=== PATIENT | male | born 1955 | race Caucasian/White ===

== ENCOUNTER → 2017-09-16 11:45 | Outpatient (CLI) | payer BC, SELFPAY ==
[2017-09-16 14:12] LABS: Absolute Neutrophil Count 5.6 X10^3/uL (2.0-7.7); Basophil# 0.03 X10^3/uL; Basophil% 0.4 % (0-1); Eosinophil# 0.13 X10^3/uL; Eosinophils% 1.6 % (0-5); Hematocrit 45.1 % (40-54); Hemoglobin 15.4 g/dl (13.0-16.5); Lymphocyte % 19.7 % (19-41); Mean Corp Hgb Conc 34.1 g/gl (32-36); Mean Corpuscular Hgb 30.6 pg (27.0-32.0); Mean Corpuscular Volume 89.7 fL (80-94); Mean Platelet Vol. 10.7 fl (6.2-12.0); Monocyte# 0.73 X10^3/uL; Neutrophil # 5.61 X10^3/uL (2.7-7.7); Neutrophil % 69.1 % (47-70); Platelet Count 207 K/mm3 (150-450); RBC Distribution Width CV 12.8 % (11.6-14.6); RBC Distribution Width SD 41.7 fl (35.1-43.9); Red Blood Count 5.03 M/mm3 (4.6-6.2); White Blood Count 8.1 K/mm3 (4.4-11.0)
[2017-09-16 14:14] LABS: POSITIVE COUNT NO; POSITIVE DIFFERENTIAL NO; POSITIVE MORPHOLOGY NO
== END ==
PROVIDERS: Family Provider Family Medicine; PCP Family Medicine; Visit Provider Family Medicine
DX: K57.32 Diverticulitis of large intestine without perforation or abscess without bleeding (principal)
CPT/HCPCS: 36415; 85025

== ENCOUNTER → 2017-11-09 07:38 | Outpatient (CLI) | payer BC, SELFPAY ==
[2017-11-09 10:31] LABS: Thyroid Stim Hormone (TSH) 3.86 uIU/mL (0.358-3.74)
== END ==
PROVIDERS: Family Provider Family Medicine; PCP Family Medicine; Visit Provider Family Medicine
DX: R94.6 Abnormal results of thyroid function studies (principal)
CPT/HCPCS: 36415; 84443

== ENCOUNTER → 2017-12-24 08:39 | Outpatient (CLI) | payer BC, SELFPAY ==
--- NOTE | 2017-12-24 08:45 | RAD_ITS ---
STUDY: AIR-CONTRAST ESOPHAGRAM STUDY REASON FOR EXAM: Male, 62 years old. Difficulty swallowing RADIATION DOSAGE (If Supplied By Facility): CTDIvol = ( ) mGy, DLP = ( ) mGycm FLUOROSCOPY TIME (if supplied): (0:24) minutes/seconds, 12 images. TECHNIQUE: Barium pill swallow with sips of water is performed at the beginning of the study without difficulty. Multiple barium swallows were performed under fluoroscopic monitoring. Multiple views of the esophagus, the upper stomach were performed. COMPARISON: None. FINDINGS: Barium pill swallow with sips of water is performed at the beginning of the study without difficulty. The esophagus appears normal in size and shape it shows unremarkable mucosal pattern. There is no evidence of hiatal hernia or abnormal vascular compression. RAD/Esophagus Only IMPRESSION: Unremarkable study. Electronically Signed: Jorge Lofton MD at 8:59 EDT Tel , Service support ,
== END ==
PROVIDERS: Family Provider Family Medicine; PCP Family Medicine; Visit Provider Otolaryngology
DX: R13.10 Dysphagia, unspecified (principal)
CPT/HCPCS: 74220

== ENCOUNTER → 2018-01-01 13:14 | Outpatient (CLI) | payer BC, SELFPAY ==
--- NOTE | 2018-01-01 13:18 | RAD_ITS ---
STUDY: SWALLOWING STUDY REASON FOR EXAM: Male, 62 years old. Dysphagia. Globus sensation. TECHNIQUE: The examination was performed with Speech Pathology in attendance. Under fluoroscopic observation, the patient ingested thin barium, thick barium, barium pudding, and barium coated cracker. FLUOROSCOPY TIME: 1:30 minutes/seconds. 1120 spot images were obtained. RADIOLOGIST INVOLVEMENT: Radiologist was present and providing direct supervision. COMPARISON: None. FINDINGS: The following was observed during swallowing of the various mixtures of barium: Thin Barium: There was no evidence of aspiration or laryngeal penetration. Barium Pudding: There was no evidence of aspiration or laryngeal penetration. Barium Coated Cracker: There was no evidence of aspiration or laryngeal penetration. RAD/Swallowing Function w/Video IMPRESSION: Normal tailored barium swallow study. No evidence of increased risk for aspiration. The swallow study findings were discussed with the patient by the speech pathologist at the conclusion of the examination. Please see speech pathology report for more information and recommendations. Electronically Signed: Dillon Alarcon MD at 14:03 EDT Tel [phone], Service support ,
--- NOTE | 2018-01-01 13:30 | SP.MBSS_ITS ---
PRIMARY / SECONDARY DIAGNOSIS: dysphagia (R13.10) REFERRING PHYSICIAN: Dr. Erlin Lay MD CURRENT DIET: regular textures, thin liquids DENTITION: WFL MENTAL STATUS: WNL RESPIRATORY STATUS: O2 via room air PREVIOUS MODIFIED BARIUM SWALLOW STUDY: REASON FOR REFERRAL: Patient is a 62 year old male referred for a modified barium swallow (MBS) study to objectively assess the Patients oropharyngeal swallow function under fluoroscopy secondary to reported globus sensation during deglutition. Patient denies any additional overt signs and symptoms of aspiration, though reports prior (> 5 years) choking episode during rapid ingestion of solid textures requiring Heimlich maneuver; able to dislodge and reswallow with workup in the emergency room unremarkable (per Patient report), denies any additional or resulting swallow abnormalities. Patient does however report a family history of aspiration, though this appears to be due to personal idiosyncrasies ( tachyphagia - rapid rate of intake) versus a structural or neurological cause. Patient further reports recent adjustment in regards to proton pump inhibitors targeting persistent reflux, with reported benefit. Patient denies any prior pneumonia, bronchitis, or persistent asthma. 12/24/2017 barium swallow study unremarkable. MEDICAL HISTORY: Obstructive sleep apnea status post uvulopalatopharyngoplasty, hypertension, hyperlipidemia, kidney stones, anxiety. STUDY FINDINGS: Patient participated in a Modified Barium Swallow (MBS) study on 01/01/2018. Dr. Alarcon was the radiologist present for this evaluation. This study was recorded in the lateral view and images were sent to PACs for storage. The following consistencies were presented to this patient for analysis of oropharyngeal swallow function: thin liquids, pudding, and a regular textured, Mala Doone cookie. Results of the MBS are as follows: PENETRATION / ASPIRATION SCALE ([place]): 1 = does not enter airway 2 = enters airway/above vocal folds/ejected 3 = enters airway/above vocal folds/not ejected 4 = enters airway/contacts vocal folds/ejected 5 = enters airway/contacts vocal folds/not ejected 6 = enters airway/below vocal folds/ejected 7 = enters airway/below vocal folds/not ejected despite effort 8 = enters airway/below vocal folds/no effort VIDEOFLOROSCOPIC SCALE SCORE ([place]): Grade I = aspiration of material that has penetrated into the laryngeal vestibule, intact cough reflex Grade II = aspiration < 10 % of the bolus, intact cough reflex Grade III = aspiration of < 10 % of the bolus, reduced cough reflex or aspiration of > 10 % of the bolus, intact cough reflex Grade IV = aspiration of > 10 % of the bolus, reduced cough reflex PENETRATION / ASPIRATION SCALE (SCORE) WITH VIDEOFLOROSCOPIC SCALE SCORE: Thin liquids via cup (large sequential swallows): 1* Thin liquids via cup (single sip): 1 Thin liquids via cup (single sip): 1 Thin liquids via cup (single sip): 1 Pudding via spoon: 1 Regular textured cookie: 1 Thin liquids via straw (large single sip): 6* - Grade III Thin liquids via straw (large single sip): 1 * denotes habitual large volume sip IMPRESSION: DIAGNOSIS: mild oral dysphagia (R13.11) ORAL PHASE CHARACTERIZED BY: LABIAL SEAL: no labial escape TONGUE CONTROL DURING BOLUS MANIPULATION: consistent posterior escape of less than half of bolus; consistent escape to lateral buccal cavity/floor of mouth BOLUS PREPARATION / MASTICATION: timely and efficient chewing and mashing BOLUS TRANSPORT / LINGUAL MOTION: brisk tongue motion ORAL RESIDUE: residue collection on oral structures (lateral / posterior buccal cavity, medial and posterior lingual surface) PHARYNGEAL PHASE CHARACTERIZED BY: INITIATION OF PHARYNGEAL SWALLOW: bolus head at posterior angle of ramus at first hyoid excursion SOFT PALATE ELEVATION: intermittent trace column of air between soft palate and pharyngeal wall LARYNGEAL ELEVATION: complete superior movement of thyroid cartilage with complete approximation of arytenoids cartilage to epiglottic petiole ANTERIOR HYOID EXCURSION: complete anterior movement EPIGLOTTIC MOVEMENT: complete epiglottic inversion LARYNGEAL VESTIBULE CLOSURE AT HEIGHT OF SWALLOW: complete laryngeal vestibule closure with no air/contrast in laryngeal vestibule PHARYNGEAL STRIPPING WAVE: pharyngeal stripping wave present / complete PHARYNGOESOPHAGEAL SEGMENT OPENING: complete distension and complete duration with no obstruction of flow TONGUE BASE RETRACTION: trace column of contrast between tongue base and posterior pharyngeal wall PHARYNGEAL RESIDUE: collection of residue within or on pharyngeal structures ESOPHAGEAL PHASE CHARACTERIZED BY: ESOPHAGEAL BOLUS CLEARANCE IN THE UPRIGHT POSITION: could not view EFFECTS OF TREATMENT STRATEGIES ATTEMPTED: Reduced bolus size = effective Reduced rate of intake = effective DIET TEXTURE RECOMMENDATIONS: Will recommend a regular textured, thin liquid diet. COMPENSATORY STRATEGIES RECOMMENDED: Reduced bolus volume, reduced rate of intake, seated upright at 90 degrees during PO intake, remain upright for 30-60 minutes post meal (GERD precaution) INTERPRETATION OF RESULTS: Patient presents with mild oral dysphagia (R13.11) complicated by personal intake idiosyncrasies (tachyphagia and consistent bolus overload). Oral phase marked by suboptimal oral clearance likely secondary to reduced intraoral strength resulting in suboptimal oral clearance with minimal to mild buccal pocketing (appears to be bilaterally) and intraoral consolidation, with frequent spillage to the valleculae post deglutition (primary contributing factor for pharyngeal residue within the valleculae); and suboptimal bolus control resulting in consistent premature bolus loss; both contributing to early pharyngeal bolus presentation and prandial penetration of less than 10% of bolus with transient drop below the vocal folds (occurring during 1 trial; rather atypical from remainder of trials). Pharyngeal phase notably within functional limitations with sufficient laryngeal vestibule pressure generated to expel majority of penetrated material during singular penetration and brief transient aspiration event, with complete ejection during reswallow. No cough response noted with very minimal penetration and brief transient aspiration. All deficits ameliorated with bolus volume and intake rate adjustments. Somewhat irregular small collections within the location of the posterior buccal cavities as well as less frequently irregular collections occurring within the location of the superior posterior lingual surfaces primarily during trials of liquids, unable to discern cause or clinical importance under fluoroscopy. Suspect intermittent globus sensation associated with gastroesophageal reflux in the absence of any oropharyngeal causal factors. RECOMMENDATIONS: Patient able to comprehend and express recommended intake precautions detailed above with sufficient detail to suggest high likelihood of compliance. Provided brief overview of signs and symptoms of aspiration, with recommendations for the Patient to further discuss symptoms with PCP. No further skilled speech- language services warranted at this time targeting dysphagia. ADDITIONAL COMMENTS/RECOMMENDATIONS: Results and recommendations were discussed with the Patient immediately following MBS completion, with the Patient verbalizing understanding and agreement with all recommendations and education provided. IMAGE COUNT: 1120 G-CODES: SWALLOWING [id number] Current Status: CI SWALLOWING [id number] Goal Status: CI SWALLOWING [id number] Discharge Status: CI
== END ==
PROVIDERS: Family Provider Family Medicine; PCP Family Medicine; Visit Provider Otolaryngology
DX: K21.9 Gastro-esophageal reflux disease without esophagitis (principal); R13.10 Dysphagia, unspecified
CPT/HCPCS: 74230; 92610

== ENCOUNTER → 2018-01-28 07:31 | Outpatient (CLI) | payer BC, SELFPAY ==
[2018-01-28 10:34] LABS: Cholesterol 186 mg/dL (200); Glucose 98 mg/dL (74-106); High Density Lipoprotein 39 mg/dL; T4 Free Direct 0.91 ng/dL (0.76-1.46); Thyroid Stim Hormone (TSH) 4.53 uIU/mL (0.358-3.74); Triglycerides 190 mg/dL; Very Low Density Lipoprotein 38 mg/dL (5-40)
[2018-01-29 08:11] LABS: Vitamin D,25 Hydroxy 24.3 ng/mL (29.95-100.01)
== END ==
PROVIDERS: Family Provider Family Medicine; PCP Family Medicine; Visit Provider Family Medicine
DX: R53.83 Other fatigue (principal)
CPT/HCPCS: 36415; 80061; 82306; 82947; 84403; 84439; 84443

== ENCOUNTER → 2018-07-20 07:50 | Outpatient (CLI) | payer BC, SELFPAY ==
[2018-04-08 15:33] VITALS: BMI 29.7
[2018-07-20 10:46] LABS: AST(SGOT) 16 U/L (15-37); Alanine Aminotransfer ALT/SGPT 31 U/L (16-61); Albumin, Serum 3.7 g/dL (3.2-5.0); Alkaline Phosphatase 111 U/L (45-117); Cholesterol 172 mg/dL (200); Globulin 3.1 g/dL (2.2-4.2); High Density Lipoprotein 36 mg/dL; Protein, Total 6.8 g/dL (6.4-8.2); Triglycerides 150 mg/dL; Very Low Density Lipoprotein 30 mg/dL (5-40)
== END ==
PROVIDERS: Internal Medicine Cardiovascular Disease; Family Provider Family Medicine; PCP Family Medicine; Referring Provider Family Medicine; Visit Provider Family Medicine
DX: E78.5 Hyperlipidemia, unspecified (principal)
CPT/HCPCS: 36415; 80061; 80076

== ENCOUNTER → 2018-07-28 15:50 | Outpatient (CLI) | payer BC, SELFPAY ==
[2018-07-28 18:04] LABS: Thyroid Stim Hormone (TSH) 2.96 uIU/mL (0.358-3.74)
--- OUTSIDE RECORDS SUMMARY | 2018-10-02 15:28 | XMS RPT_ITS ---
:1955 Author Organization OHIP Support Name Relationship Address Phone G[employer] ASS[employer]ER Unavailable [address] + [place] [address] YOUNG, MATTIE Unavailable [address] + [place] [address] G[employer] ASS[employer]ER Unavailable [address] + [place] [address] YOUNG, MATTIE Unavailable [address] + [place] [address] GOLD ASSAYER Unavailable [address] + [place] [address] YOUNG, MATTIE Unavailable [address] + [place] [address] G[employer] ASSAYER Unavailable [address] + [place] [address] YOUNG, MATTIE Unavailable [address] + [place] [address] GOLD ASSAYER Unavailable [address] + [place] [address] YOUNG, MATTIE Unavailable [address] + [place] [address] GOLD ASSAYER Unavailable [address] + [place] [address] YOUNG, MATTIE Unavailable [address] + [place] [address] GOLD ASSAYER Unavailable [address] + [place] [address] YOUNG, MATTIE Unavailable [address] + [place] [address] GOLD ASSAYER Unavailable [address] + [place] [address] YOUNG, MATTIE Unavailable [address] + [place] [address] GOLD ASSAYER Unavailable [address] + [place] [address] MATTIE MINOR Unavailable [address] + [place] [address] Care Team Providers Name Role Phone Dc Olmstead Attending Unavailable Olmstead, Dc Referring Unavailable Olmstead, Dc Primary Care Unavailable Olmstead, Dc Attending Unavailable Olmstead, Dc Primary Care Unavailable Olmstead, Dc Primary Care Unavailable Jolliff, Mattie Attending Unavailable Olmstead, Dc Attending Unavailable Olmstead, Dc Referring Unavailable Olmstead, Dc Primary Care Unavailable Wartmann, Kaiden Attending Unavailable Wartmann, Kaiden Referring Unavailable Olmstead, Dc Primary Care Unavailable Wartmann, Kaiden Attending Unavailable Wartmann, Kaiden Referring Unavailable Olmstead, Dc Primary Care Unavailable Olmstead, Dc Attending Unavailable Olmstead, Dc Referring Unavailable Olmstead, Dc Primary Care Unavailable Dania, Knob [employer] Consulting Unavailable Dania, Corky Attending Unavailable Olmstead, Dc Referring Unavailable Dania, Knob Noster Attending Unavailable Olmstead, Dc Referring Unavailable PROBLEMS PROBLEMS DATE TYPE CONDITION / CODE ATTENDING STATUS SOURCE 04/08/2018 Unknown I10 - Essential Dania, Corky Active [place] (primary) Community hypertension / Hospital I10(ICD-10) Repository 04/08/2018 Unknown E78.5 - Dania, Corky Active [place] Hyperlipidemia, Community unspecified / Hospital E78.5(ICD-10) Repository 12/24/2017 Unknown R13.10 - Wartmann, Active [employer] Dysphagia, Kaiden Community unspecified / Hospital R13.10(ICD-10) Repository PROCEDURES PROCEDURES No Procedure Records FoundRESULTS RESULTS THYROID STIM HORMONE Collected: 07/28/2018 Status: F Source: [place] (TSH) 3:51 PM [facility] REPOSITORY Order Comment: Order Date: 11/10/17 Order Info: 3016-3 - TSH TYPE CODE TESTS RESULT OUT OF RANGE REFERENCE UNITS LAB L501.9520 0.358-3.74 uIU/mL Normal TSH 2.96 Performed By: #### L501.9520 #### [place] [facility] [address] [place], [address] LIVER PROFILE Collected: 07/20/2018 Status: F Source: [place] 7:55 AM [facility] REPOSITORY Order Comment: ORDERED A LIPID WELL DR GOMEZ ORDERED LIPID AND LIVER TYPE CODE TESTS RESULT OUT OF RANGE REFERENCE UNITS LAB L501.1500 6.4-8.2 g/dL Normal T PROT 6.8 LAB L501.1800 3.2-5.0 g/dL Normal ALB 3.7 LAB L501.1950 2.2-4.2 g/dL Normal GLOB 3.1 LAB L501.4100 15-37 U/L Normal AST 16 LAB L501.4305 45-117 U/L Normal ALK P 111 LAB L501.4405 16-61 U/L Normal ALT 31 LAB L501.4600 0.20-1.00 mg/dL Normal T BILI 0.40 LAB L501.4700 0.00-0.30 mg/dL Normal D BILI 0.10 Performed By: #### L500.3400, L500.4100 #### [facility] [address] [place], [address] LIPID PROFILE Collected: 07/20/2018 Status: F Source: [place] 7:55 AM [facility] REPOSITORY Order Comment: ORDERED A LIPID WELL DR GOMEZ ORDERED LIPID AND LIVER TYPE CODE TESTS RESULT OUT OF RANGE REFERENCE UNITS LAB L501.4900 200 mg/dL Normal CHOL 172 Result Comment: <200 mg/dL Desirable 200-240 mg/dL Borderline >240 mg/dL High Risk LAB L501.5000 mg/dL Normal TRIG 150 Result Comment: The drugs N-Acetylcysteine and Metamizole may falsely depress this assay. Serum Triglycerides Reference Interval Normal <150 mg/dL Borderline high 150 - 199 mg/dL High 200 - 499 mg/dL Very High > or = 500 mg/dL LAB L501.6400 mg/dL Low HDL 36 Result Comment: The drugs N-Acetylcysteine and Metamizole may falsely depress this assay. Reference Range HDL <40 mg/dL Low HDL Cholesterol HDL >or= 60 mg/dL High HDL Cholesterol LAB L501.6500 0-130 mg/dL Normal LDL 106 LAB L501.6600 5-40 mg/dL Normal VLDL 30 Performed By: #### L500.3400, L500.4100 #### [facility] [address] [place], [place], [id number] CARDIOLOGY VISIT Observed: 04/08/2018 Status: F Source: [place] REPORT 4:13 PM [facility] REPOSITORY [employer] [facility] [address] [place] [address] OFFICE VISIT Date of Service: 04/08/18 MR#: [id number] Acct: [id number] Name: BENSON MINOR Rep #: [id number] : 1955 Provider: Corky Gomez MD Age/Sex: 62/M [place] [facility] [place] Signed HPI HPI Chief Complaint: Follow up Details: BENSON MINOR, is a 62 M who presents to the office today for a follow-up visit. He is a gentleman with a history of hypertension previous palpitations returns for routine follow-up visit is been doing quite well he says that his palpitations are rather infrequent his blood pressure is under excellent control on the beta- maria g as well as the TAMMY inhibitor. He has been compliant with his medications as well as his lipid-lowering medications. He tells me that he has been put on an antacid because he probably has silent reflux. His physical exam today demonstrates clear lung alonso regular rate and rhythm and no pedal edema. Intake Vital Signs04/08/18 Height 5 ft 7 in 04/08/18 Weight: 190 lb 04/08/18 Body Mass Index (BMI) 29.7 04/08/18 Blood Pressure 132/84 H 04/08/18 Blood Pressure Location Lt brachial Intake Visit Reasons: 1 Y FU Allergies clarithromycin [From Biaxin] Allergy (Verified 04/08/18 15:33) Unknown diphenhydramine [From Benadryl] Allergy (Verified 04/08/18 15:33) Unknown sulfamethoxazole [From Bactrim] Allergy (Verified 04/08/18 15:33) unknown tamsulosin [From Flomax] Allergy (Verified 04/08/18 15:33) unknown trimethoprim [From Bactrim] Allergy (Verified 04/08/18 15:33) unknown Sulfa (Sulfonamide Antibiotics) Adverse Reaction (Verified 04/08/18 15:33) Rash Medications Atorvastatin Calcium [Lipitor] 10 mg PO QHS 09/20/16 [History Confirmed 04/08/18] Escitalopram Oxalate [Lexapro] 10 mg PO DAILY 09/20/16 [History Confirmed 04/08/18] Hydrocodone Bitart/Apap 5-325 [[place] 5/325] 1 - 2 tab PO Q4H PRN PRN #20 tab 09/20/16 [Rx] Ketorolac [Toradol] 10 mg PO TID PRN #15 tab 09/20/16 [Rx] Lisinopril [Zestril] 10 mg PO DAILY 09/20/16 [History Confirmed 04/08/18] Metoprolol Succinate [Toprol Xl] 50 mg PO DAILY 09/20/16 [History Confirmed 04/08/18] [facility] Medical History Essential (primary) hypertension (Chronic) Hyperlipidemia (Chronic) Family History Father Cardiac pacemaker in situ Social History Smoking Status: Never smoker alcohol intake: never substance use type: does not use ROS Const Const: Negative for fatigue, weakness, night sweats, excessive sweating, frequent falls, headache(s) or daytime sleepiness Eyes Eyes: Negative for loss of peripheral vision, transient loss of vision, blind spots, double vision or blurry vision ENT ENT: Negative for headache(s), dizziness, balance problems, Nosebleed/epistaxis, tongue swelling or lip swelling Cardio Chest Pain: No Palpitations: No Edema: None Muscle aches with walking: None Resp Respiratory: Negative for SOB at rest, SOB orthopnea\SOB lying down, Cough, paroxysmal nocturnal dyspnea or SOB with activity GI GI: Negative nausea, vomiting, heartburn, black,tarry stools or bright, red blood in stools : Negative for hematuria Musc Musc: Negative for balance problems, muscle aches/ myalgia, muscle weakness or joint pain Skin Skin: Negative non-healing lesions, unusual bruising or rash Neuro Neuro: Negative for weakness, frequent falls, headache(s), double vision, dizziness, lightheadedness, orthostatic symptoms, blurry vision or lack of coordination Greg Hematologic/Lymphatic: Negative for easy bruising or easy bleeding Endo Endo: Negative for fatigue, excessive sweating, cold intolerance, heat intolerance, increased thirst/drinking or hair loss Psych Psych: Negative for anxiety or depression Allergy Allergy/Immunology: Negative for throat swelling, Negative for tongue swelling, Negative for hives, Negative for rash, Negative for lip swelling Cardiology Exam Const Appearance: cooperative, healthy appearing, well developed, well groomed and no acute distress Nutritional Appearance: well nourished and average body habitus Orientation: alert, awake and oriented x3 Head Head: normal to inspection, normocephalic and atraumatic Ears: hearing grossly normal bilaterally and external ears normal Nose: external nose normal, nasal mucous membranes and turbinates normal, nares normal, septum normal, no nasal discharge Face and Sinus: face symmetric Mouth: oral mucosae normal, tongue normal, oropharynx normal and moist mucous membranes Teeth and gingiva: dentition normal Throat: posterior oropharynx normal, tonsils normal and uvula midline Eyes General: appearance normal, both eyes and all related structures Eyelids: eyelids normal Conjunctivae: conjunctivae normal Pupils: PERRL, normal by confrontation and accommodation normal EOM: EOM intact bilaterally Neck Neck: normal visual inspection, trachea midline and no JVD JVD: +5 Carotids: normal carotid upstroke and bounding pulses Chest Chest inspection: normal inspection of the chest, symmetric chest movement and normal respiratory effort Auscultation: Bilateral: Clear to Auscultation Cardio Palpation: normal PMI Rate: regular rate Rhythm: regular rhythm Heart sounds: S1 normal, S2 normal and normal, physiologic split S2; negative rub, gallop or murmur GI GI: normal to inspection, soft, no hepatosplenomegaly and bowel sounds present Neuro General: alert, awake, oriented x3, no focal sensory deficit, gait normal and moves all extremities Skin Skin: no rashes or lesions noted Extremities Pulses: Normal: Right Femoral Pulse, Left Femoral Pulse, Right Dorsalis Pedis Pulse, Left Dorsalis Pedis Pulse, Right Posterior Tibial Pulse, Left Posterior Tibial Pulse, Right Radial Pulse, Left Radial Pulse Lower Extremity Edema: None: Bilateral Musculoskel Musculoskeletal: No joint tenderness Psych Psychological: normal affect Assessment AND Plan 1. Essential (primary) hypertension I10 Plan His blood pressure appears to be under excellent control at this time he will remain on the beta-maria g and TAMMY inhibitor without any changes. Salt restriction and risk factor modification have been emphasized. 2. Hyperlipidemia E78.5 Plan He does have a history of hyperlipidemia with his most recent lipid profile demonstrated total cholesterol 186, LDL 109 and HDL of 39. No changes will be made to the above. Thank you for allowing me to participate in his care. 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) Coding Level of Care Code Off vis,est,level 3 Diagnoses Essential (primary) hypertension I10 Hyperlipidemia E78.5 Coding Level of Care Code Off vis,est,level 3 Diagnoses Essential (primary) hypertension I10 Hyperlipidemia E78.5 04/08/18 1613 <Electronically signed by Corky Gomez MD> Date Corky Gomez MD Cosigner Signature: Date (if applicable) CC: Dc Olmstead MD LIPID PROFILE Collected: 01/28/2018 Status: F Source: [place] 7:37 AM [facility] REPOSITORY Order Comment: Order Date: 01/27/18 Order Info: [id number] - LIPID Order Info: 2345-7 - GLU Order Info: 3016-3 - TSH Order Info: 3024-7 - T4F TYPE CODE TESTS RESULT OUT OF RANGE REFERENCE UNITS LAB L501.4900 200 mg/dL Normal CHOL 186 Result Comment: <200 mg/dL Desirable 200-240 mg/dL Borderline >240 mg/dL High Risk LAB L501.5000 mg/dL Normal TRIG 190 Result Comment: The drugs N-Acetylcysteine and Metamizole may falsely depress this assay. Serum Triglycerides Reference Interval Normal <150 mg/dL Borderline high 150 - 199 mg/dL High 200 - 499 mg/dL Very High > or = 500 mg/dL LAB L501.6400 mg/dL Low HDL 39 Result Comment: The drugs N-Acetylcysteine and Metamizole may falsely depress this assay. Reference Range HDL <40 mg/dL Low HDL Cholesterol HDL >or= 60 mg/dL High HDL Cholesterol LAB L501.6500 0-130 mg/dL Normal LDL 109 LAB L501.6600 5-40 mg/dL Normal VLDL 38 Performed By: #### L500.4100, L501.0100, L501.9520, L506.0400, L506.1000, L509.3000 #### [facility] [address] [place], [place], [address] GLUCOSE Collected: 01/28/2018 Status: F Source: [place] 7:37 AM [facility] REPOS[facility] Order Comment: Order Date: 01/27/18 Order Info: [id number] - LIPID Order Info: 2345-7 - GLU Order Info: 301-3 - TSH Order Info: 302-7 - T4F TYPE CODE TESTS RESULT OUT OF RANGE REFERENCE UNITS LAB L501.0100 74-106 mg/dL Normal GLU 98 Result Comment: Please note revised GLUCOSE reference range effective 2017. Performed By: #### L500.4100, L501.0100, L501.9520, L506.0400, L506.1000, L509.3000 #### [facility] [address] [place], [address] THYROID STIM HORMONE Collected: 01/28/2018 Status: F Source: [place] (TSH) 7:37 AM [facility] REPOS[facility] Order Comment: Order Date: 01/27/18 Order Info: [id number] - LIPID Order Info: 7 - GLU Order Info: 3 - TSH Order Info: 3027 - T4F TYPE CODE TESTS RESULT OUT OF RANGE REFERENCE UNITS LAB L501.9520 0.358-3.74 uIU/mL High TSH 4.53 Performed By: #### L500.4100, L501.0100, L501.9520, L506.0400, L506.1000, L509.3000 #### [facility] [address] [place], [address] T4 FREE DIRECT Collected: 01/28/2018 Status: F Source: [place] 7:37 AM [facility] REPOS[facility] Order Comment: Order Date: 01/27/18 Order Info: [id number] - LIPID Order Info: [id number] - GLU Order Info: 3015-3 - TSH Order Info: 3024-7 - T4F TYPE CODE TESTS RESULT OUT OF RANGE REFERENCE UNITS LAB L506.0400 0.76-1.46 ng/dL Normal T4 FREE 0.91 DIRECT Performed By: #### L500.4100, L501.0100, L501.9520, L506.0400, L506.1000, L509.3000 #### [place] [facility] [address] [place], [address] VITAMIN D,25 HYDROXY Collected: 01/28/2018 Status: F Source: [place] 7:37 AM [facility] REPOS[facility] Order Comment: Order Date: 01/27/18 Order Info: [id number] - VITD25 Order Info: 2986-8 - APRIL TYPE CODE TESTS RESULT OUT OF REFERENCE UNITS RANGE LAB L506.1000 29.95-100.01 ng/mL Low Vitamin D 24.3 25-OH Result Comment: Vitamin D 25(OH) Status Range Deficiency <20 ng/mL (50nmol/L) Insuffciency 20 - 30 ng/mL (50 - 75 nmol/L) Sufficiency 30 - 100 ng/mL (75 - 250 nmol/L) Toxicity >100 ng/mL (>250 nmol/L) Performed By: #### L500.4100, L501.0100, L501.9520, L506.0400, L506.1000, L509.3000 #### [place] [facility] [address] [place], [address] TESTOSTERONE, SERUM TOTAL Collected: 01/28/2018 Status: F Source: [place] 7:[facility] Order Comment: Order Date: 01/27/18 Order Info: [id number] - VITD25 Order Info: 2986-8 - APRIL TYPE CODE TESTS RESULT OUT OF REFERENCE UNITS RANGE LAB L509.3000 ng/dL Testosterone Normal 234.41 Result Comment: NORMAL REFERENCE RANGES MALE AGE <50 123.06 - 813.86 ng/dL MALE AGE >50 89.98 - 780.10 ng/dL FEMALE PREMENOPAUSE AGE 21 - 60 9.01 - 47.94 ng/dL FEMALE POSTMENOPAUSE AGE 45 - 89 <7.00 - 45.62 ng/dL REFERENCE RANGE AND METHODOLOGY CHANGED 07/01/2017 Performed By: #### L500.4100, L501.0100, L501.9520, L506.0400, L506.1000, L509.3000 #### [facility] [address] [place], [address] MODIFIED BARIUM Observed: 01/01/2018 Status: F Source: [place] SWALLOW STUDY 3:06 PM [facility] REPOSITORY [facility] Speech Pathology [address] [place] [address] Modified Barium Swallow Study MR#: [id number] Acct: [id number] Name: BENSON MINOR Rep #: [id number] : 1955 62 From: Ezequiel Vallejo M.A., CFY-INDUSTRIAL SWEEPER CLEANER PRIMARY / SECONDARY DIAGNOSIS: dysphagia (R13.10) REFERRING PHYSICIAN: Dr. Erlin Lay MD CURRENT DIET: regular textures, thin liquids DENTITION: WFL MENTAL STATUS: WNL RESPIRATORY STATUS: O2 via room air PREVIOUS MODIFIED BARIUM SWALLOW STUDY: REASON FOR REFERRAL: Patient is a 62 year old male referred for a modified barium swallow (MBS) study to objectively assess the Patients oropharyngeal swallow function under fluoroscopy secondary to reported globus sensation during deglutition. Patient denies any additional overt signs and symptoms of aspiration, though reports prior (> 5 years) choking episode during rapid ingestion of solid textures requiring Heimlich maneuver; able to dislodge and reswallow with workup in the emergency room unremarkable (per Patient report), denies any additional or resulting swallow abnormalities. Patient does however report a family history of aspiration, though this appears to be due to personal idiosyncrasies (tachyphagia - rapid rate of intake) versus a structural or neurological cause. Patient further reports recent adjustment in regards to proton pump inhibitors targeting persistent reflux, with reported benefit. Patient denies any prior pneumonia, bronchitis, or persistent asthma. 12/24/2017 barium swallow study unremarkable. MEDICAL HISTORY: Obstructive sleep apnea status post uvulopalatopharyngoplasty, hypertension, hyperlipidemia, kidney stones, anxiety. STUDY FINDINGS: Patient participated in a Modified Barium Swallow (MBS) study on 01/01/2018. Dr. Alarcon was the radiologist present for this evaluation. This study was recorded in the lateral view and images were sent to PACs for storage. The following consistencies were presented to this patient for analysis of oropharyngeal swallow function: thin liquids, pudding, and a regular textured, Mala Doone cookie. Results of the MBS are as follows: PENETRATION / ASPIRATION SCALE ([place]): 1 = does not enter airway 2 = enters airway/above vocal folds/ejected 3 = enters airway/above vocal folds/not ejected 4 = enters airway/contacts vocal folds/ejected 5 = enters airway/contacts vocal folds/not ejected 6 = enters airway/below vocal folds/ejected 7 = enters airway/below vocal folds/not ejected despite effort 8 = enters airway/below vocal folds/no effort VIDEOFLOROSCOPIC SCALE SCORE ([place]): Grade I = aspiration of material that has penetrated into the laryngeal vestibule, intact cough reflex Grade II = aspiration < 10 % of the bolus, intact cough reflex Grade III = aspiration of < 10 % of the bolus, reduced cough reflex or aspiration of > 10 % of the bolus, intact cough reflex Grade IV = aspiration of > 10 % of the bolus, reduced cough reflex PENETRATION / ASPIRATION SCALE (SCORE) WITH VIDEOFLOROSCOPIC SCALE SCORE: Thin liquids via cup (large sequential swallows): 1* Thin liquids via cup (single sip): 1 Thin liquids via cup (single sip): 1 Thin liquids via cup (single sip): 1 Pudding via spoon: 1 Regular textured cookie: 1 Thin liquids via straw (large single sip): 6* - Grade III Thin liquids via straw (large single sip): 1 * denotes habitual large volume sip IMPRESSION: DIAGNOSIS: mild oral dysphagia (R13.11) ORAL PHASE CHARACTERIZED BY: LABIAL SEAL: no labial escape TONGUE CONTROL DURING BOLUS MANIPULATION: consistent posterior escape of less than half of bolus; consistent escape to lateral buccal cavity/floor of mouth BOLUS PREPARATION / MASTICATION: timely and efficient chewing and mashing BOLUS TRANSPORT / LINGUAL MOTION: brisk tongue motion ORAL RESIDUE: residue collection on oral structures (lateral / posterior buccal cavity, medial and posterior lingual surface) PHARYNGEAL PHASE CHARACTERIZED BY: INITIATION OF PHARYNGEAL SWALLOW: bolus head at posterior angle of ramus at first hyoid excursion SOFT PALATE ELEVATION: intermittent trace column of air between soft palate and pharyngeal wall LARYNGEAL ELEVATION: complete superior movement of thyroid cartilage with complete approximation of arytenoids cartilage to epiglottic petiole ANTERIOR HYOID EXCURSION: complete anterior movement EPIGLOTTIC MOVEMENT: complete epiglottic inversion LARYNGEAL VESTIBULE CLOSURE AT HEIGHT OF SWALLOW: complete laryngeal vestibule closure with no air/contrast in laryngeal vestibule PHARYNGEAL STRIPPING WAVE: pharyngeal stripping wave present / complete PHARYNGOESOPHAGEAL SEGMENT OPENING: complete distension and complete duration with no obstruction of flow TONGUE BASE RETRACTION: trace column of contrast between tongue base and posterior pharyngeal wall PHARYNGEAL RESIDUE: collection of residue within or on pharyngeal structures ESOPHAGEAL PHASE CHARACTERIZED BY: ESOPHAGEAL BOLUS CLEARANCE IN THE UPRIGHT POSITION: could not view EFFECTS OF TREATMENT STRATEGIES ATTEMPTED: Reduced bolus size = effective Reduced rate of intake = effective DIET TEXTURE RECOMMENDATIONS: Will recommend a regular textured, thin liquid diet. COMPENSATORY STRATEGIES RECOMMENDED: Reduced bolus volume, reduced rate of intake, seated upright at 90 degrees during PO intake, remain upright for 30-60 minutes post meal (GERD precaution) INTERPRETATION OF RESULTS: Patient presents with mild oral dysphagia (R13.11) complicated by personal intake idiosyncrasies (tachyphagia and consistent bolus overload). Oral phase marked by suboptimal oral clearance likely secondary to reduced intraoral strength resulting in suboptimal oral clearance with minimal to mild buccal pocketing (appears to be bilaterally) and intraoral consolidation, with frequent spillage to the valleculae post deglutition (primary contributing factor for pharyngeal residue within the valleculae); and suboptimal bolus control resulting in consistent premature bolus loss; both contributing to early pharyngeal bolus presentation and prandial penetration of less than 10% of bolus with transient drop below the vocal folds (occurring during 1 trial; rather atypical from remainder of trials). Pharyngeal phase notably within functional limitations with sufficient laryngeal vestibule pressure generated to expel majority of penetrated material during singular penetration and brief transient aspiration event, with complete ejection during reswallow. No cough response noted with very minimal penetration and brief transient aspiration. All deficits ameliorated with bolus volume and intake rate adjustments. Somewhat irregular small collections within the location of the posterior buccal cavities as well as less frequently irregular collections occurring within the location of the superior posterior lingual surfaces primarily during trials of liquids, unable to discern cause or clinical importance under fluoroscopy. Suspect intermittent globus sensation associated with gastroesophageal reflux in the absence of any oropharyngeal causal factors. RECOMMENDATIONS: Patient able to comprehend and express recommended intake precautions detailed above with sufficient detail to suggest high likelihood of compliance. Provided brief overview of signs and symptoms of aspiration, with recommendations for the Patient to further discuss symptoms with PCP. No further skilled speech-language services warranted at this time targeting dysphagia. ADDITIONAL COMMENTS/RECOMMENDATIONS: Results and recommendations were discussed with the Patient immediately following MBS completion, with the Patient verbalizing understanding and agreement with all recommendations and education provided. IMAGE COUNT: [id number] G-CODES: SWALLOWING [id number] Current Status: CI SWALLOWING [id number] Goal Status: CI SWALLOWING [id number] Discharge Status: [place] 01/01/18 1506 <Electronically signed by Ezequiel Vallejo M.A., CFY-[employer]PER [employer]ER> Date Ezequiel Vallejo M.A., CFY-[employer]RI[employer] SWEEPER CLE[employer]ER Co-Signature Required for all Medicare patients Date/Time Co-Signature CC: SWALLOWING FUNCTION Observed: 01/01/2018 Status: F Source: [place] W/VIDEO 1:19 PM [facility] REPOSITORY [facility] Imaging Services [address] [place] [address] Swallowing Function w/Video MR#: [id number] Acct: [id number] Name: BENSON MINOR Rep #: [id number] : 1955 M 62 From: Dillon Alarcon MD PCP: Dc Olmstead MD Status: REG CLI Study: Swallowing Function w/Video Date of Exam: 01/01/18 Exam# [id number] Ordering Dr: Kaiden Lay MD STUDY: SWALLOWING STUDY REASON FOR EXAM: Male, 62 years old. Dysphagia. Globus sensation. TECHNIQUE: The examination was performed with Speech Pathology in attendance. Under fluoroscopic observation, the patient ingested thin barium, thick barium, barium pudding, and barium coated cracker. FLUOROSCOPY TIME: 1:30 minutes/seconds. 1120 spot images were obtained. RADIOLOGIST INVOLVEMENT: Radiologist was present and providing direct supervision. COMPARISON: None. FINDINGS: The following was observed during swallowing of the various mixtures of barium: Thin Barium: There was no evidence of aspiration or laryngeal penetration. Barium Pudding: There was no evidence of aspiration or laryngeal penetration. Barium Coated Cracker: There was no evidence of aspiration or laryngeal penetration. RAD/Swallowing Function w/Video IMPRESSION: Normal tailored barium swallow study. No evidence of increased risk for aspiration. The swallow study findings were discussed with the patient by the speech pathologist at the conclusion of the examination. Please see speech pathology report for more information and recommendations. Electronically Signed: Dillon Alarcon MD at 14:03 EDT Tel [phone], Service support , CC: Erlin Lay MD; Dc Olmstead MD [employer] Adjuster: Signed ESOPHAGUS ONLY Observed: 12/24/2017 Status: F Source: [place] 8:41 AM [facility] REPOSITORY [facility] Imaging Services [address] [place] [address] Esophagus Only MR#: [id number] Acct: [id number] Name: BENSON MINOR Rep #: [id number] : 1955 62 From: Jorge Lofton MD PCP: Dc Olmstead MD Status: REG CLI Study: Esophagus Only Date of Exam: 12/24/17 Exam# [id number] Ordering Dr: Kaiden Lay MD STUDY: AIR-CONTRAST ESOPHAGRAM STUDY REASON FOR EXAM: Male, 62 years old. Difficulty swallowing RADIATION DOSAGE (If Supplied By Facility): CTDIvol = ( ) mGy, DLP = ( ) mGycm FLUOROSCOPY TIME (if supplied): (0:24) minutes/seconds, 12 images. TECHNIQUE: Barium pill swallow with sips of water is performed at the beginning of the study without difficulty. Multiple barium swallows were performed under fluoroscopic monitoring. Multiple views of the esophagus, the upper stomach were performed. COMPARISON: None. FINDINGS: Barium pill swallow with sips of water is performed at the beginning of the study without difficulty. The esophagus appears normal in size and shape it shows unremarkable mucosal pattern. There is no evidence of hiatal hernia or abnormal vascular compression. RAD/Esophagus Only IMPRESSION: Unremarkable study. Electronically Signed: Jorge Lofton MD at 8:59 EDT Tel , Service support , CC: Erlin Lay MD; Dc Olmstead MD [employer] Adjuster: Signed THYROID STIM HORMONE Collected: 11/09/2017 Status: F Source: [place] (T[place]) 7:50 AM [facility] REPOSITORY Order Comment: Order Date: 08/11/17 Order Info: 3016-3 - TSH TYPE CODE TESTS RESULT OUT OF RANGE REFERENCE UNITS LAB L501.9520 0.358-3.74 uIU/mL High TSH 3.86 Performed By: #### L501.9520 #### [facility] [address] [place], [place], [address] CBC W/DIFF, AUTOMATED Collected: 09/16/2017 Status: F Source: [place] 11:47 AM [facility] REPOSITORY TYPE CODE TESTS RESULT OUT OF RANGE REFERENCE UNITS LAB L100.1000 4.4-11.0 K/mm3 Normal WBC 8.1 LAB L100.1200 4.6-6.2 M/mm3 Normal RBC 5.03 LAB L100.1300 13.0-16.5 g/dl Normal HGB 15.4 LAB L100.1400 40-54 % Normal HCT 45.1 LAB L100.1500 80-94 fL Normal MCV 89.7 LAB L100.1600 27.0-32.0 pg Normal MCH 30.6 LAB L100.1700 32-36 g/gl Normal MCHC 34.1 LAB L100.1810 11.6-14.6 % Normal RDW CV 12.8 LAB L100.1820 35.1-43.9 fl Normal RDW SD 41.7 LAB L100.1900 150-450 K/mm3 Normal PLT 207 LAB L100.2000 6.2-12.0 fl Normal MPV 10.7 LAB L100.2100 47-70 % Normal NEUT% 69.1 LAB L100.2200 19-41 % Normal LY% 19.7 LAB L100.2300 0-10 % Normal MONO% 9.0 LAB L100.2400 0-5 % Normal EO% 1.6 LAB L100.2500 0-1 % Normal BASO% 0.4 LAB L100.2550 0.0-0.9 % Normal IM GRAN % 0.200 Result Comment: IG% - Immature Granulocytes (promyelocytes, myelocytes and metamyelocytes) > 1% indicates that a LEFT SHIFT is Present. LAB L100.2620 2.0-7.7 X10 3/uL Normal Absolute Neut 5.6 LAB L100.2720 0.83-4.51 X10 3/ul Normal Absolute Lymph 1.60 Performed By: #### L100.0100 #### [facility] [address] [place], [place], [id number] ALLERGIES ALLERGIES DATE TYPE / CODE NAME / CODE REACTION SEVERITY SOURCE 04/08/2018 Drug Sulfa Rash Unknown [employer] [facility] Allergy/4160 (Sulfonamide [facility](SNOMED Antibiotics)/ Repository CT) [id number](RX NORM) 04/08/2018 Drug sulfamethoxaz Unknown Unknown [employer] [facility] Allergy/4160 ole/[id number] [facility](SNOMED 7(RXNORM) Repository CT) 04/08/2018 Drug trimethoprim/ Unknown Unknown [employer] [facility] Allergy/4160 [id number](RX [facility](SNOMED NORM) Repository CT) 04/08/2018 Drug clarithromyci Unknown Unknown [facility] Allergy/4160 n/[id number]( [facility](SNOMED RXNORM) Repository CT) 04/08/2018 Drug diphenhydrami Unknown Unknown [facility] All[facility]/4160 ne/[id number] [facility](SNOMED (RXNORM) Repository CT) 04/08/2018 Drug tamsulosin/F0 Unknown Unknown [employer] [facility] Allergy/4160 [id number](RXNO [facility](SNOMED RM) Repository CT) ENCOUNTERS ENCOUNTERS ADMIT/DISCHARGE ACCOUNT ADMITTING ENCOUNTER LOCATION SOURCE NUMBER CLASS 07/28/2018 [id number] Ambulatory [employer] [facility] ing:MFPLAB Repository 07/20/2018 [id number] Ambulatory [employer] [facility] ing:MTLAB Repository 04/08/2018/ [id number] Ambulatory BMSBuilding:B [employer] [facility] Repository 03/30/2018 [id number] Ambulatory BMS[facility]:B [employer] [facility] Repository 01/28/2018 [id number] Ambulatory [facility] ing:MTLAB Repository 01/01/2018 [id number] Ambulatory [employer] [facility] ing:RAD Repository 12/24/2017 [id number] Ambulatory [facility] [employer] [facility] ing:RAD Repository 11/09/2017 [id number] Ambulatory [employer] [facility] ing:MTLAB Repository 09/16/2017 [id number] Ambulatory [facility] [address] [facility] ing:MFPLAB Repository PAYERS PAYERS ENCOUNTER GUARANTOR PAYER SUBSCRIBER SOURCE 07/28/2018 BENSON Q Primary BENSON Q [employer] [id number] Insurance:ANTHEMPolic YOUNGDOB: [facility] y [place]: [id number] [id number] Repository [address]Hjz: (330) Date:9675-67-57DR [phone] () [address] [place] [address]MR: 07/28/2018 Secondary NOT GIVENUNK [employer] Insurance:SELF PAY [facility] Number: Effective Repository Date:2018-07-28 07/20/2018 BENSON Q Primary BENSON Q [employer] [id number] Insurance:ANTHEMPolic YOUNGDOB: [facility] y Number: [id number] [id number] Repository 569[address]Saj: (330) Date:3912-77-23CY [phone] () [address] [place] [address] 879[address]JN: 07/20/2018 Secondary NOT GIVENUNK [employer] Insurance:SELF PAY [facility] Number: Effective Repository Date:2018-07-20 04/08/2018 BENSON Q Primary BENSON Q [employer] [id number] Insurance:ANTHEMPolic YOUNGDOB: Community [place] y Number: [id number] [id number] Repository 59[address]Neb: 330) Date:3956-85-53RC [phone] () [id number] [place] [address] 38968SD: 04/08/2018 Secondary NOT GIVENUNK [employer] Insurance:SELF PAY [facility] Number: Effective Repository Date:2018-04-08 03/30/2018 BENSON Q Primary BENSON Q [facility] [id number] Insurance:ANTHEMPolic YOUNGDOB: [facility] [place] y Number: [id number] [id number] Repository [address]4486Nbg: 330) Date:1267-82-23QG [phone] () [id number] [place] [address] 37[address]GW: 03/30/2018 Secondary NOT GIVENUNK [employer] Insurance:SELF PAY [facility] Number: Effective Repository Date:2018-03-29 01/28/2018 Benson Q Primary Benson Q [facility] [id number] Insurance:ANTHEMPolic YoungDOB: Community [place] y Number: [id number] [id number] Repository [address]Ttq: (330) Date:5467-22-06HH [phone] () [id number] [place] [address] 64891BQ: 01/28/2018 Secondary NOT GIVENUNK [facility] Insurance:SELF PAY [facility] Number: Effective Repository Date:2018-01-28 01/01/2018 Benson Q Primary Benson Q [employer] [id number] Insurance:ANTHEMPolic YoungDOB: [facility] [place] y Number: [id number] [id number] Repository [address]Nyv: (330) Date:6803-82-07US [phone] () [id number], [place] [address]XB: 01/01/2018 Secondary NOT GIVENUNK [employer] Insurance:SELF PAY [facility] Number: Effective Repository Date:2017-12-24 12/24/2017 Benson Q Primary Benson Q [employer] [id number] Insurance:ANTHEMPolic YoungDOB: Community [place] y Number: [id number], [place] [id number] Repository [address]Ygn: (330) Date:4204-88-92FC [phone] () [id number], [place] [address]ZN: 12/24/2017 Secondary NOT GIVENUNK [facility] Insurance:SELF PAY [facility] Number: Effective Repository Date:2017-12-17 11/09/2017 Benson Q Primary Benson Q [facility] [id number] Insurance:ANTHEMPolic YoungDOB: Community [place] y Number: [id number], [place] [id number] Repository [address]Znb: (330) Date:2370-21-32KW [phone] () [id number], [place] [address]CR: 11/09/2017 Secondary NOT GIVENUNK [facility] Insurance:SELF PAY [facility] Number: Effective Repository Date:2017-11-09 09/16/2017 Benson Q Primary Benson Q [employer] [id number] Insurance:ANTHEMPolic YoungDOB: Community [place] y Number: [id number], [place] [id number] Repository [address]Aen: (330) Date:8679-42-84WC [phone] () [id number], [place] [address]AY: 09/16/2017 Secondary NOT GIVENUNK [employer] Insurance:SELF PAY [facility] Number: Effective Repository Date:2017-09-16
== END ==
PROVIDERS: Family Provider Family Medicine; PCP Family Medicine; Visit Provider Family Medicine
DX: R94.6 Abnormal results of thyroid function studies (principal)
CPT/HCPCS: 36415; 84443

== ENCOUNTER → 2018-12-03 | Outpatient (CLI) | payer BC, SELFPAY ==
[2018-12-03 10:40] LABS: AST(SGOT) 18 U/L (15-37); Alanine Aminotransfer ALT/SGPT 29 U/L (16-61); Albumin, Serum 3.5 g/dL (3.2-5.0); Alkaline Phosphatase 116 U/L (45-117); Bilirubin, Direct 0.11 mg/dL (0.00-0.30); Cholesterol 190 mg/dL (200); Globulin 2.7 g/dL (2.2-4.2); High Density Lipoprotein 34 mg/dL; Protein, Total 6.2 g/dL (6.4-8.2); Triglycerides 308 mg/dL; Very Low Density Lipoprotein 62 mg/dL (5-40)
[2018-12-03 11:11] LABS: Anion Gap 7 (5-15); BUN 29 mg/dL (7-18); BUN/Creat Ratio 31.1 RATIO (10-20); Calcium,Total 8.7 mg/dL (8.5-10.1); Chloride 107 mmol/L (98-107); Creatinine, Serum 0.93 mg/dL (0.70-1.30); EST Glomerular Filtration Rate 87 mL/min (>60); Est Glom Filt Rate - Afr Amer 106 mL/min (>60); Glucose 107 mg/dL (74-106); PSA,Total - Annual Screen 0.43 ng/mL (0.00-4.00); Potassium 4.1 mmol/L (3.5-5.1); Sodium Level 141 mmol/L (136-145); Thyroid Stim Hormone (TSH) 3.53 uIU/mL (0.358-3.74)
== END | disposition home or self-care (01) ==
LOC: MTLAB 07:44
PROVIDERS: Internal Medicine Cardiovascular Disease; Family Provider Family Medicine; PCP Family Medicine; Referring Provider Family Medicine; Visit Provider Family Medicine
DX: E78.5 Hyperlipidemia, unspecified (principal); E03.9 Hypothyroidism, unspecified; N20.1 Calculus of ureter; I10 Essential (primary) hypertension
CPT/HCPCS: 80048; 80061; 80076; 84153; 84443; G0103

== ENCOUNTER → 2019-05-24 07:29 | Outpatient (CLI) | payer BC, SELFPAY ==
[2018-04-08 15:33] VITALS: BMI 29.7
[2019-05-24 10:38] LABS: AST(SGOT) 18 U/L (15-37); Alanine Aminotransfer ALT/SGPT 30 U/L (16-61); Albumin, Serum 3.7 g/dL (3.2-5.0); Alkaline Phosphatase 115 U/L (45-117); Bilirubin, Direct 0.09 mg/dL (0.00-0.30); Cholesterol 198 mg/dL (200); Globulin 3.4 g/dL (2.2-4.2); High Density Lipoprotein 36 mg/dL; Protein, Total 7.1 g/dL (6.4-8.2); Triglycerides 282 mg/dL; Very Low Density Lipoprotein 56 mg/dL (5-40)
== END ==
PROVIDERS: Family Provider Family Medicine; PCP Family Medicine; Referring Provider Internal Medicine Cardiovascular Disease; Visit Provider Internal Medicine Cardiovascular Disease
DX: E78.5 Hyperlipidemia, unspecified (principal)
CPT/HCPCS: 36415; 80061; 80076

== ENCOUNTER → 2019-05-25 15:48 | Outpatient (CLI) | payer BC, SELFPAY ==
[2018-04-08 15:33] VITALS: BMI 29.7
--- NOTE | 2019-05-25 15:57 | RAD_ITS ---
STUDY: X-RAY CHEST REASON FOR EXAM: Male, 63 years old. Malaise and cough after antibiotics. TECHNIQUE: 2 views COMPARISON: Prior chest exam of June 20, 2016 FINDINGS: The lungs are clear and expanded. There is no demonstrated pleural abnormality. Normal size heart. Normal mediastinum and kaitlynn. Normal visualized pulmonary arteries. There is atherosclerotic tortuosity of the aortic arch and descending thoracic aorta. There are diffuse degenerative changes of the visualized thoracic spine. Normal visualized ribs, clavicles, and shoulders. There is no demonstrated abnormality of the visualized soft tissue structures of the upper abdomen. RAD/Chest PA and Lateral IMPRESSION: No acute cardiopulmonary findings or changes. Negative for new consolidation, focal atelectasis, cardiomegaly or pleural effusion. Electronically Signed: Nola Howell MD at 16:12 EST , Service support ,
== END ==
PROVIDERS: Family Provider Family Medicine; PCP Family Medicine; Referring Provider Family Medicine; Visit Provider Family Medicine
DX: R05 Cough (principal)
CPT/HCPCS: 71046

== ENCOUNTER → 2019-10-04 08:59 | Outpatient (CLI) | payer BC, SELFPAY ==
[2019-05-26 08:50] VITALS: BMI 30.2
[2019-10-04 10:44] LABS: ALB/GLOB Ratio 1.3 RATIO (0.9-2.4); AST(SGOT) 17 U/L (15-37); Alanine Aminotransfer ALT/SGPT 31 U/L (16-61); Albumin, Serum 3.9 g/dL (3.2-5.0); Alkaline Phosphatase 117 U/L (45-117); Anion Gap 6 (5-15); BUN 23 mg/dL (7-18); BUN/Creat Ratio 24.2 RATIO (10-20); Calcium,Total 9.1 mg/dL (8.5-10.1); Chloride 105 mmol/L (98-107); Cholesterol 216 mg/dL (200); Creatinine, Serum 0.95 mg/dL (0.70-1.30); EST Glomerular Filtration Rate 85 mL/min (>60); Est Glom Filt Rate - Afr Amer 103 mL/min (>60); Glucose 107 mg/dL (74-106); High Density Lipoprotein 41 mg/dL; PSA,Total - Annual Screen 0.42 ng/mL (0.00-4.00); Potassium 4.5 mmol/L (3.5-5.1); Protein, Total 6.9 g/dL (6.4-8.2); Sodium Level 140 mmol/L (136-145); Thyroid Stim Hormone (TSH) 3.81 uIU/mL (0.358-3.74); Triglycerides 174 mg/dL; Very Low Density Lipoprotein 35 mg/dL (5-40)
== END ==
PROVIDERS: PCP Family Medicine; Referring Provider Family Medicine; Visit Provider Family Medicine
DX: I10 Essential (primary) hypertension (principal); R79.89 Other specified abnormal findings of blood chemistry; Z12.5 Encounter for screening for malignant neoplasm of prostate
CPT/HCPCS: 36415; 80053; 80061; 84153; 84443; G0103

== ENCOUNTER → 2020-05-09 09:22 | Outpatient (CLI) | payer BC, SELFPAY ==
[2019-05-26 08:50] VITALS: BMI 30.2
[2020-05-09 11:07] LABS: Thyroid Stim Hormone (TSH) 3.14 uIU/mL (0.358-3.74)
[2020-05-09 11:09] LABS: AST(SGOT) 21 U/L (15-37); Alanine Aminotransfer ALT/SGPT 25 U/L (16-61); Albumin, Serum 3.7 g/dL (3.2-5.0); Alkaline Phosphatase 112 U/L (45-117); Bilirubin, Direct 0.13 mg/dL (0.00-0.30); Cholesterol 190 mg/dL (200); Globulin 3.3 g/dL (2.2-4.2); High Density Lipoprotein 43 mg/dL; Triglycerides 165 mg/dL; Very Low Density Lipoprotein 33 mg/dL (5-40)
== END ==
PROVIDERS: Internal Medicine Cardiovascular Disease; PCP Family Medicine; Referring Provider Family Medicine; Visit Provider Family Medicine
DX: E03.9 Hypothyroidism, unspecified (principal); E78.00 Pure hypercholesterolemia, unspecified
CPT/HCPCS: 36415; 80061; 80076; 84443

== ENCOUNTER → 2020-07-31 12:11 | Outpatient (CLI) | payer BC, SELFPAY ==
[2020-05-10 16:08] VITALS: BMI 30.2
[2020-07-31 15:36] LABS: Vitamin B12 669 pg/mL (211-911); Vitamin D,25 Hydroxy 26.1 ng/mL
[2020-07-31 15:42] LABS: Absolute Lymphocyte Count 2.25 X10^3/uL (0.83-4.51); Absolute Neutrophil Count 5.5 X10^3/uL (2.0-7.7); Basophil# 0.05 X10^3/uL; Basophil% 0.6 % (0-1); Eosinophil# 0.11 X10^3/uL; Eosinophils% 1.3 % (0-5); Hematocrit 46.6 % (40-54); Hemoglobin 15.7 g/dL (13.0-16.5); Lymphocyte # 2.25 X10^3/ul (4.0); Mean Corp Hgb Conc 33.7 g/dL (32-36); Mean Corpuscular Hgb 29.8 pg (27.0-32.0); Mean Corpuscular Volume 88.6 fL (80-94); Mean Platelet Vol. 11.2 fl (6.2-12.0); Monocyte# 0.74 X10^3/uL; Monocyte% 8.6 % (0-10); NRBC Flagged by Analyzer 0 % (0-5); Neutrophil # 5.45 X10^3/uL (2.7-7.7); Platelet Count 232 K/mm3 (150-450); RBC Distribution Width CV 12.1 % (11.6-14.6); RBC Distribution Width SD 39.4 fl (35.1-43.9); Red Blood Count 5.26 M/mm3 (4.6-6.2); White Blood Count 8.6 K/mm3 (4.4-11.0)
== END ==
PROVIDERS: PCP Family Medicine; Referring Provider Family Medicine; Visit Provider Family Medicine
DX: R53.83 Other fatigue (principal)
CPT/HCPCS: 36415; 82306; 82607; 85025

== ENCOUNTER → 2021-02-08 | Outpatient (CLI) | payer BC, SELFPAY ==
[2020-05-10 16:08] VITALS: BMI 30.2
== END | disposition home or self-care (01) ==
LOC: LABSPEC 08:37
PROVIDERS: PCP Family Medicine; Referring Provider Family Medicine; Visit Provider Family Medicine
DX: R19.7 Diarrhea, unspecified (principal)
CPT/HCPCS: 87177; 87209; 87493; 87506

== ENCOUNTER → 2021-02-20 09:34 | Outpatient (CLI) | payer BC, SELFPAY ==
[2020-05-10 16:08] VITALS: BMI 30.2
[2021-02-20 10:52] LABS: ALB/GLOB Ratio 1.3 RATIO (0.9-2.4); AST(SGOT) 21 U/L (15-37); Alanine Aminotransfer ALT/SGPT 30 U/L (16-61); Albumin, Serum 3.7 g/dL (3.2-5.0); Alkaline Phosphatase 107 U/L (45-117); Anion Gap 7 (5-15); BUN 21 mg/dL (7-18); BUN/Creat Ratio 25.1 RATIO (10-20); Chloride 104 mmol/L (98-107); Cholesterol 188 mg/dL (200); Creatinine, Serum 0.84 mg/dL (0.70-1.30); EST Glomerular Filtration Rate 98 mL/min (>60); Est Glom Filt Rate - Afr Amer 119 mL/min (>60); Globulin 2.8 g/dL (2.2-4.2); Glucose 104 mg/dL (74-106); High Density Lipoprotein 40 mg/dL; PSA,Total - Annual Screen 0.45 ng/mL (0.00-4.00); Potassium 4.6 mmol/L (3.5-5.1); Protein, Total 6.5 g/dL (6.4-8.2); Sodium Level 138 mmol/L (136-145); Triglycerides 206 mg/dL; Very Low Density Lipoprotein 41 mg/dL (5-40)
== END ==
PROVIDERS: PCP Family Medicine; Referring Provider Family Medicine; Visit Provider Family Medicine
DX: E78.00 Pure hypercholesterolemia, unspecified (principal); Z12.5 Encounter for screening for malignant neoplasm of prostate
CPT/HCPCS: 36415; 80053; 80061; 84153; G0103

== ENCOUNTER 2021-08-13 10:04 | Outpatient (CLI) | payer BC, SELFPAY | END 2021-08-13 23:59 | disposition short-term general hospital (02) | LOC: LABSPEC 10:20 | PROVIDERS: PCP Family Medicine; Referring Provider Family Medicine; Visit Provider Family Medicine | DX: N34.2 Other urethritis (principal) | CPT/HCPCS: 87086 ==

== ENCOUNTER 2021-09-27 10:08 | Outpatient (CLI) | payer BC, SELFPAY ==
--- NOTE | 2021-09-27 11:00 | RAD_ITS ---
CLINICAL HISTORY: Male, 66 years old. Right hip osteoarthritis. PROCEDURE: Fluoroscopic guided right hip steroid injection CONSENT: Obtained and placed in the chart. SEDATION: None. FLUOROSCOPY TIME (if supplied): (10) minutes/seconds Injection Information: 2 mL KENALOG and 2 ml MARCAINE Number of images obtained: 1 TECHNIQUE: (All elements of maximal sterile barrier technique followed). Consent was obtained and placed in the chart after explaining risks and benefits to the procedure. Patient confirmed right hip steroid injection. Injection site was selected along the right hip utilizing fluoroscopy. The skin was marked. The area was then sterilely prepared with IODINE prep. Approximately 2% LIDOCAINE was then utilized for local anesthetic. A 22-gauge spinal needle was then advanced into the joint space periodically using fluoroscopic guidance. Confirmation of needle placement into the joint space was confirmed by injecting approximately 2 to 3 mm of diluted ISOVUE contrast and 50/50 mixture with normal saline. The KENALOG and MARCAINE steroid mixture was then injected into the joint space. The needle was then withdrawn. Patient experienced no complications and was cleared for discharge home. RAD/Inj/Asp Reed Jt Should/Hip/Knee IMPRESSION: Right hip steroid injection using fluoroscopic guidance. Electronically Signed: Jordy Sr, at 13:52 EDT ,
[2021-09-27] MEDS: Lidocaine 2% (5ml sdv) 5 ML VIAL.MPF INFILT (12:30)
[2021-09-27] MEDS: Bupivacaine 0.25% 30 ML Vial OPERA.SITE (12:30)
[2021-09-27] MEDS: Triamcinolone Acetonide 40 MG/ML Vial 80 MG INTRAARTIC (12:30)
== END 2021-09-27 23:59 | disposition home or self-care (01) ==
PROVIDERS: PCP Family Medicine; Visit Provider Nurse Practitioner Family
DX: M16.11 Unilateral primary osteoarthritis, right hip (principal)
CPT/HCPCS: 20610; 77002

== ENCOUNTER 2021-10-31 08:12 | Outpatient (CLI) | payer BC, SELFPAY ==
[2021-10-31 12:32] LABS: Absolute Lymphocyte Count 2.06 X10^3/uL (0.83-4.51); Absolute Neutrophil Count 4.6 X10^3/uL (2.0-7.7); Basophil# 0.05 X10^3/uL; Basophil% 0.6 % (0-1); Eosinophil# 0.19 X10^3/uL; Eosinophils% 2.5 % (0-5); Hematocrit 44.4 % (40-54); Lymphocyte # 2.06 X10^3/ul (0.83-4.51); Lymphocyte % 26.7 % (19-41); Mean Corp Hgb Conc 33.8 g/dL (32-36); Mean Corpuscular Hgb 30.5 pg (27.0-32.0); Mean Corpuscular Volume 90.4 fL (80-94); Mean Platelet Vol. 10.6 fl (6.2-12.0); Monocyte# 0.76 X10^3/uL; Monocyte% 9.9 % (0-10); NRBC Flagged by Analyzer 0 % (0-5); Neutrophil % 59.7 % (47-70); Platelet Count 213 K/mm3 (150-450); RBC Distribution Width CV 12.9 % (11.6-14.6); RBC Distribution Width SD 42.5 fl (35.1-43.9); Red Blood Count 4.91 M/mm3 (4.6-6.2); White Blood Count 7.7 K/mm3 (4.4-11.0)
[2021-10-31 12:36] LABS: Hemoglobin A1c 5.6 % (3.8-5.6)
[2021-10-31 12:37] LABS: Vitamin D,25 Hydroxy 32.5 ng/mL
[2021-10-31 12:47] LABS: ALB/GLOB Ratio 1.2 RATIO (0.9-2.4); AST(SGOT) 21 U/L (15-37); Alanine Aminotransfer ALT/SGPT 30 U/L (16-61); Albumin, Serum 3.8 g/dL (3.2-5.0); Alkaline Phosphatase 99 U/L (45-117); Anion Gap 6 (5-15); BUN 23 mg/dL (7-18); BUN/Creat Ratio 24.6 RATIO (10-20); Chloride 105 mmol/L (98-107); Cholesterol 216 mg/dL (200); Creatinine, Serum 0.94 mg/dL (0.70-1.30); EST Glomerular Filtration Rate 86 mL/min (>60); Est Glom Filt Rate - Afr Amer 104 mL/min (>60); Globulin 3.1 g/dL (2.2-4.2); Glucose 102 mg/dL (74-106); High Density Lipoprotein 42 mg/dL; Potassium 4.5 mmol/L (3.5-5.1); Protein, Total 6.9 g/dL (6.4-8.2); Sodium Level 139 mmol/L (136-145); Thyroid Stim Hormone (TSH) 4.96 uIU/mL (0.358-3.74); Triglycerides 224 mg/dL; Very Low Density Lipoprotein 45 mg/dL (5-40)
[2021-10-31 16:14] LABS: Free T3 2.6 pg/mL (2.18-3.98); T4 Free Direct 0.92 ng/dL (0.76-1.46)
== END 2021-10-31 23:59 | disposition home or self-care (01) ==
LOC: BIMLAB 08:13
PROVIDERS: Referring Provider Internal Medicine; Visit Provider Internal Medicine
DX: I49.3 Ventricular premature depolarization (principal); F41.9 Anxiety disorder, unspecified; F32.9 Major depressive disorder, single episode, unspecified; I10 Essential (primary) hypertension; E78.5 Hyperlipidemia, unspecified; Z87.898 Personal history of other specified conditions; Z13.1 Encounter for screening for diabetes mellitus; E55.9 Vitamin D deficiency, unspecified; R79.89 Other specified abnormal findings of blood chemistry
CPT/HCPCS: 36415; 80053; 80061; 82306; 83036; 84439; 84443; 84481; 85025

== ENCOUNTER → 2021-11-07 | Outpatient (CLI) | payer BC, SELFPAY | END | disposition home or self-care (01) | LOC: LABSPEC 11:33 | PROVIDERS: Referring Provider Internal Medicine; Visit Provider Internal Medicine | DX: J06.9 Acute upper respiratory infection, unspecified (principal) | CPT/HCPCS: 87635; U0003; U0005 ==

== ENCOUNTER → 2022-04-18 | Outpatient (CLI) | payer BC, SELFPAY ==
[2022-04-18 12:07] LABS: Absolute Lymphocyte Count 1.62 X10^3/uL (0.83-4.51); Absolute Neutrophil Count 3.6 X10^3/uL (2.0-7.7); Basophil# 0.04 X10^3/uL; Basophil% 0.7 % (0-1); Eosinophil# 0.17 X10^3/uL; Eosinophils% 2.8 % (0-5); Hematocrit 43.4 % (40-54); Hemoglobin 14.8 g/dL (13.0-16.5); Lymphocyte # 1.62 X10^3/ul (0.83-4.51); Lymphocyte % 27.1 % (19-41); Mean Corp Hgb Conc 34.1 g/dL (32-36); Mean Platelet Vol. 11.3 fl (6.2-12.0); Monocyte# 0.52 X10^3/uL; Monocyte% 8.7 % (0-10); NRBC Flagged by Analyzer 0 % (0-5); Neutrophil # 3.61 X10^3/uL (2.7-7.7); Neutrophil % 60.5 % (47-70); Platelet Count 189 K/mm3 (150-450); RBC Distribution Width CV 12.3 % (11.6-14.6); RBC Distribution Width SD 40.7 fl (35.1-43.9); Red Blood Count 4.77 M/mm3 (4.6-6.2)
[2022-04-18 12:41] LABS: ALB/GLOB Ratio 1.1 RATIO (0.9-2.4); AST(SGOT) 17 U/L (15-37); Alanine Aminotransfer ALT/SGPT 24 U/L (16-61); Albumin, Serum 3.6 g/dL (3.2-5.0); Alkaline Phosphatase 101 U/L (45-117); Anion Gap 6 (5-15); BUN 22 mg/dL (7-18); BUN/Creat Ratio 23.5 RATIO (10-20); Calcium,Total 9.1 mg/dL (8.5-10.1); Chloride 107 mmol/L (98-107); Cholesterol 184 mg/dL (200); Creatinine, Serum 0.94 mg/dL (0.70-1.30); EST Glomerular Filtration Rate 86 mL/min (>60); Est Glom Filt Rate - Afr Amer 104 mL/min (>60); Free T3 2.7 pg/mL (2.18-3.98); Globulin 3.2 g/dL (2.2-4.2); Glucose 102 mg/dL (74-106); High Density Lipoprotein 38 mg/dL; PSA,Total - Annual Screen 0.54 ng/mL (0.00-4.00); Potassium 4.2 mmol/L (3.5-5.1); Protein, Total 6.8 g/dL (6.4-8.2); Sodium Level 141 mmol/L (136-145); T4 Free Direct 0.84 ng/dL (0.76-1.46); Thyroid Stim Hormone (TSH) 2.89 uIU/mL (0.358-3.74); Triglycerides 162 mg/dL; Very Low Density Lipoprotein 32 mg/dL (5-40)
== END | disposition home or self-care (01) ==
LOC: BIMLAB 09:19
PROVIDERS: Referring Provider Internal Medicine; Visit Provider Internal Medicine
DX: I10 Essential (primary) hypertension (principal); E78.5 Hyperlipidemia, unspecified; R79.89 Other specified abnormal findings of blood chemistry; Z12.5 Encounter for screening for malignant neoplasm of prostate
CPT/HCPCS: 36415; 80053; 80061; 84153; 84439; 84443; 84481; 85025; G0103

== ENCOUNTER → 2022-04-24 | Outpatient (CLI) | payer BC, SELFPAY ==
--- NOTE | 2022-04-24 15:10 | RAD_ITS ---
HISTORY: Thoracic back pain. TECHNIQUE: XR Spine Thoracic 3 Views. COMPARISON: Chest 05/25/2019. FINDINGS: VERTEBRAE: Vertebral body heights maintained. No acute fracture identified. ALIGNMENT: No significant anterior or posterior subluxation. INTERVERTEBRAL DISCS: Anterior osteophytes and degenerative endplate changes again noted. SOFT TISSUES: Unremarkable paraspinal soft tissues. RAD/Thoracic Spine 3 Views IMPRESSION: No acute fracture or dislocation identified in the thoracic spine. Degenerative change. Electronically Signed: Jacque Harris MD at 15:52 EDT ,
== END | disposition home or self-care (01) ==
LOC: RAD 15:09
PROVIDERS: Referring Provider Internal Medicine; Visit Provider Internal Medicine
DX: M54.6 Pain in thoracic spine (principal)
CPT/HCPCS: 72072

== ENCOUNTER 2022-05-01 20:17 | Emergency (ER) | payer BC, SELFPAY ==
[2022-05-01 20:18] VITALS: BP 138/91; PULSE 62; RESP 18; TEMP 36.2; O2SAT 96; BMI 28.1
--- NOTE | 2022-05-01 20:58 | EDS_ITS ---
HPI HPI - GI History of Present Illness Chief Complaint: Flank Pain Detail of Chief Complaint: right flank pain Informant: patient Abdominal Pain/Flank Pain Onset: Today and Hours Context: Sudden Onset Timing: Continuous Location: Right Flank Current Severity: Gone Maximum Severity: Moderate Worsened by: Nothing Relieved by: Nothing Nausea/Vomiting/Emesis GI Symptom: Positive for Nausea and Vomiting Onset: Today Severity: Mild Diarrhea/Melena/Hematochezia GI Symptom: Negative for Diarrhea, Melena or Hematochezia Associated Symptoms Associated Symptoms: Negative for Dysuria, Frequency, Hematuria or Urgency Narrative Narrative: 66 yo male with hx of kidney stones. C/o right flank pain about 1-2 hours ago. Now resolved. N and vomiting times 1. History of prior kidney stones. Currently is pain-free. No fever. No dysuria or hematuria. Prior similar symptoms: Yes Recent Illness/Hospitalization: No PFSH [facility] Medical History Anxiety and depression Essential (primary) hypertension History of palpitations Hyperlipidemia Premature ventricular contractions Home Medications Saccharomyces boulardii 250 mg capsule 250 mg PO DAILY 05/14/21 [History Last Taken Unknown] cholecalciferol (vitamin D3) 50 mcg (2,000 unit) capsule 50 mcg PO DAILY 05/14/21 [History Last Taken Unknown] omeprazole 20 mg capsule,delayed release 10 mg PO DAILY 05/14/21 [History Last Taken Unknown] OSTEO BIO FLEX PO 10/11/21 [History Last Taken Unknown] escitalopram oxalate 10 mg tablet 10 mg PO DAILY #90 tabs 10/23/21 [Rx Last Taken Unknown] metoprolol succinate 50 mg tablet,extended release 24 hr 50 mg PO .COMPLEX #90 tabs 02/06/22 [Rx Last Taken Unknown] atorvastatin 10 mg tablet 10 mg PO QHS #90 tabs 04/09/22 [Rx Last Taken Unknown] zolpidem 10 mg tablet 10 mg PO QHS PRN insomnia #7 tabs 04/24/22 [Rx Last Taken Unknown] lisinopril 30 mg tablet 30 mg PO DAILY #90 tabs 04/28/22 [Rx Last Taken Unknown] oxycodone-acetaminophen 5 mg-325 mg tablet (Percocet) 1 tab PO Q4H PRN pain 3 days #14 tabs 05/01/22 [Rx Last Taken Unknown] Allergy/AdvReac Type Severity Reaction Status Date / Time clarithromycin [From Biaxin] Allergy Unknown Verified 05/01/22 20:20 diphenhydramine Allergy Unknown Verified 05/01/22 20:20 [From Benadryl] sulfamethoxazole Allergy unknown Verified 05/01/22 20:20 [From Bactrim] tamsulosin [From Flomax] Allergy unknown Verified 05/01/22 20:20 trimethoprim [From Bactrim] Allergy unknown Verified 05/01/22 20:20 Sulfa (Sulfonamide AdvReac Rash Verified 05/01/22 20:20 Antibiotics) Family History Father Cardiac pacemaker in situ Other Breast cancer Cancer Hypertension Surgical History History of lithotripsy Social History Smoking Status: Never smoker alcohol intake: never substance use type: does not use what type of physical activity do you participate in: none ROS ROS ED ROS Narrative Nausea and vomiting. Right flank pain now resolved. Review of Systems ROS Unobtainable: Denies due to encephalopathy Constitutional Constitutional ED: Denies chills or fever(s) ENT ENT ED: Denies ear pain Cardiovascular Cardiovascular: Denies chest pain Respiratory/Chest Respiratory/Chest: Denies cough Gastrointestinal Gastrointestinal: Reports nausea and vomiting; Denies abdominal pain Genitourinary Genitourinary ED: Denies dysuria Musculoskeletal Musculoskeletal: Denies arthralgias Integumentary Denies abscess Neurologic Neurologic: Denies headache(s) Psychiatric Psychiatric: Denies anxiety Endocrine Endocrinology: Denies polydipsia Hematologic/Lymphatic Hematologic/Lymphatic: Denies easy bleeding Allergic/Immunologic Allergic/Immunologic ED: Denies mouth swelling EXAM Physical Exam Narrative Exam Narrative: 66 yo male no distress. VS stable and afebrile. HEENT exam normal. Lungs clear. Heart RRR. Abd soft and NT. No PS. back NT. Moving all 4 extremities. Neurologic exam normal. Back nontender. Const Vital Signs: 05/01/22 20:18 05/01/22 20:30 Temperature 97.1 F L Temperature Source Temporal Pulse Rate 62 Respiratory Rate 18 Respiratory Effort Normal Respiratory Pattern Normal Blood Pressure 138/91 H Blood Pressure Mean 106 Pulse Ox 96 Oxygen Delivery Method Room Air Positive well nourished and well developed; Negative for obese, cachectic, contractures or unkempt General Appearance ED: well developed; Negative for unkempt, cachectic, contractures or pallor Nutritional Appearance: Negative for cachectic or obese HEENT Reports moist mucous membranes; Denies dry mucous membranes normocephalic and atraumatic; Negative for trauma or tenderness Mouth ED: No dry mucous membranes Mouth: No dry mucous membranes Eyes PERRL and EOMs intact bilaterally General Eye ED: Negative for pale conjunctiva or scleral icterus Neck no lymphadenopathy, supple and no JVD General: Negative for tenderness Carotids: Negative for other Lymph Lymphatic: Negative for other Resp normal respiratory effort and clear to auscultation bilaterally Effort and Inspection: Negative for respiratory distress Auscultation: Negative for rales, rhonchi or wheezes Cardio regular rate, regular rhythm, S1 normal heart sound, S2 normal heart sound and no murmurs Rate: Negative for bradycardia Rhythm: Negative for abnormal rhythm GI non-tender, non-distended and no masses Inspection: Negative for abdominal distention Auscultation: normoactive bowel sounds Palpation: soft; Negative for tender Back/Spine no CVA tenderness General Back: Negative for CVA tenderness Cervical Spine: Negative for cervical spine tenderness Thoracic Spine / Upper Back: Negative for thoracic spinal tenderness Lumbar Spine / Lower Back: Negative for lumbar spinal tenderness Coccyx: Negative for other Extremity full ROM General Extremety ED: Negative for edema or tenderness General Extremity: Negative for edema Neuro CN's II-XII intact bilaterally and moves all extremities Sensorium / Orientation: alert, oriented to person, oriented to place and oriented to time; Negative for orientation impaired, confused, lethargic or stuporous Motor Exam: strength 5/5 throughout; Negative for general weakness or strength abnormal Psych mental status grossly normal and thought process normal Appearance: Negative for unkempt Attitude: No agitated Mood & Affect: Negative for depressed, anxious or tearful Skin no wounds General Skin Exam: Negative for jaundice or pallor Lesions: no lesions Rashes: no rashes Trauma: Negative for abrasion Nails: Negative for discolored MDM MDM MDM Narrative Medical decision making narrative: 66 yo male with right flank pain now resolved. Hx of kidney stones. CT and labs pending. Currently pain-free does not want anything for pain or nausea. Repeat exam at 10 PM patient doing well. We discussed all his test results. He will be discharged home with Percocet for pain. Strain his urine. Fluids and rest. Return if worse. Lab Data Attestation: I reviewed the patient's lab results. Lab results narrative: Urinalysis shows 250 occult blood. No nitrites. No white cells. Rare bacteria. CBC unremarkable white count 9. H&H 14 and 40. Platelets 196. Chemistries unremarkable. BUN 21. Normal creatinine. Normal gap. CAT scan questionable. Patient had a prior history of an abnormality in the right, distal ureter in the past. Labs: Laboratory Results - last 24 hr 05/01/22 05/01/22 20:37 21:05 WBC 9.0 RBC 4.59 L Hgb 14.0 Hct 40.4 MCV 88.0 MCH 30.5 MCHC 34.7 RDW Std Deviation 39.7 RDW Coeff of Maria A 12.3 Plt Count 196 MPV 10.4 Immature Gran % (Auto) 0.200 Neut % (Auto) 63.4 Lymph % (Auto) 26.0 Meigs % (Auto) 7.8 Eos % (Auto) 2.2 Baso % (Auto) 0.4 Absolute Neuts (auto) 5.7 Absolute Lymphs (auto) 2.33 Nucleated RBC % 0 Urine Color Yellow Urine Clarity Sl. Cloudy Urine pH 5.0 Ur Specific [place] 1.025 Urine Protein Negative Urine Glucose (UA) Normal Urine Ketones 5 H Urine Occult Blood 250 H Urine Nitrite Negative Urine Bilirubin Negative Urine Urobilinogen Normal Ur Leukocyte Esterase Negative Urine RBC 10-25 SEEN Urine WBC 0 SEEN Ur Squamous Epith Cells 0-5 SEEN Urine Bacteria RARE Urine Mucus 1+ Radiography Diagnostic Testing: Clinical Impression(s) from Imaging Studies Abdomen/Pelvis CT 05/01/22 21:09 IMPRESSION: 1. Question nonobstructing calculus in the distal right ureter. There is no other evidence of renal, ureteral or urinary bladder abnormality. 2. Otherwise stable findings when compared to 09/20/2016. Electronically Signed: Anibal Hernandez DO at 21:34 EDT Reading Location ID and State: [address] [place] [address] Tel [phone], Service support , Discharge Plan Triage Chief Complaint: Flank Pain ED Provider: Romeo Mchugh Dx/Rx/DC Orders Clinical Impression: Kidney stone Instructions: ED Kidney Stone w/ Colic Prescriptions: New oxycodone-acetaminophen [Percocet] 5-325 mg tablet 1 tab PO Q4H PRN (Reason: pain) 3 Days Qty: 14 0RF No Action cholecalciferol (vitamin D3) 50 mcg (2,000 unit) capsule 50 mcg PO DAILY omeprazole 20 mg capsule,delayed release(DR/EC) 10 mg PO DAILY Saccharomyces boulardii 250 mg capsule 250 mg PO DAILY escitalopram oxalate 10 mg tablet 10 mg PO DAILY Qty: 90 3RF OSTEO BIO FLEX PO zolpidem 10 mg tablet 10 mg PO QHS PRN (Reason: insomnia) Qty: 7 0RF metoprolol succinate 50 mg tablet extended release 24 hr 50 mg PO .COMPLEX Qty: 90 3RF Rx Instructions: 50 mg PO 75 mg daily; atorvastatin 10 mg tablet 10 mg PO QHS Qty: 90 3RF lisinopril 30 mg tablet 30 mg PO DAILY Qty: 90 3RF Primary Care Provider: Jessica Jordan Referrals: Jessica Jordan MD [Primary Care Provider] - As Needed Activity Restrictions/Additional Instructions: Plenty of fluids and rest. Strain urine for possible passed stone. Percocet for pain. May also use Motrin. Return if intractable pain, fever or intractable vomiting. Follow-up with your doctor or local urologist Dr. Rosalino Abraham if not improving. Disposition Disposition: Home, Self Care
[2022-05-01 21:02] LABS: White Blood Cells 0 SEEN /hpf (0-5)
[2022-05-01 21:04] LABS: Color, Urine Yellow (Yellow); Glucose, Dipstick Normal (Normal); Ketone-Dipstick 5 mg/dl (Negative); Leukocyte Esterase-Dipstick Negative /ul (Negative); Nitrite-Dipstick Negative (Negative); Occult Blood-Urine 250 /ul (Negative); Protein-Dipstick Negative (Negative); Specific Gravity, Urine 1.025 (1.002-1.030); Urine Bilirubin Dipstick Negative (Negative); Urine Clarity Sl. Cloudy (Clear); Urine Urobilinogen Normal (Normal)
--- NOTE | 2022-05-01 21:09 | CT_ITS ---
STUDY: CT ABDOMEN AND PELVIS WITHOUT CONTRAST REASON FOR EXAM: Male, 66 years old. Right flank pain. RADIATION DOSAGE (If Supplied By Facility): CTDIvol = ( 13.44 ) mGy, DLP = ( 691.65 ) mGycm TECHNIQUE: Transaxial images were obtained from the dome of the diaphragm to the symphysis pubis without oral contrast, and without intravenous contrast. Sagittal and coronal images were reconstructed. Individualized dose optimization techniques were used for this CT. COMPARISON: 09/20/2016 FINDINGS: The visualized lung bases are unremarkable. The visualized portions of the heart are within normal limits. Normal liver. Normal gallbladder and extrahepatic biliary system. Normal spleen. Normal pancreas. Normal bilateral adrenal glands. Normal right kidney. The left ureter is of normal diameter. Just above the urinary bladder and there is a 4 mm calcification thought to be a distal ureteral stone (image 139, series 2). Normal left kidney. Normal left ureter. Normal visualized stomach. Normal small intestine. Descending and sigmoid diverticulosis without acute inflammatory change. The proximal colon is unremarkable. The appendix is visualized and appears normal. Normal abdominal aorta. Normal inferior vena cava. Normal retroperitoneum. Normal urinary bladder. Mildly enlarged prostate. No pelvic lymphadenopathy. There are phleboliths in the left pelvis. There are surgical clips along the left pelvic sidewall. No free air or free fluid is seen within the peritoneal cavity. Normal abdominal wall. There are diffuse degenerative changes of the visualized lumbar spine. CT/Abdomen/Pelvis without Cont IMPRESSION: 1. Question nonobstructing calculus in the distal right ureter. There is no other evidence of renal, ureteral or urinary bladder abnormality. 2. Otherwise stable findings when compared to 09/20/2016. Electronically Signed: Anibal Hernandez DO at 21:34 EDT Reading Location ID and State: [address] [place] [address] Tel [phone], Service support ,
[2022-05-01 21:18] LABS: Absolute Lymphocyte Count 2.33 X10^3/uL (0.83-4.51); Absolute Neutrophil Count 5.7 X10^3/uL (2.0-7.7); Basophil# 0.04 X10^3/uL; Basophil% 0.4 % (0-1); Eosinophils% 2.2 % (0-5); Hematocrit 40.4 % (40-54); Lymphocyte # 2.33 X10^3/ul (0.83-4.51); Mean Corp Hgb Conc 34.7 g/dL (32-36); Mean Corpuscular Hgb 30.5 pg (27.0-32.0); Mean Platelet Vol. 10.4 fl (6.2-12.0); Monocyte% 7.8 % (0-10); NRBC Flagged by Analyzer 0 % (0-5); Neutrophil # 5.67 X10^3/uL (2.7-7.7); Neutrophil % 63.4 % (47-70); Platelet Count 196 K/mm3 (150-450); RBC Distribution Width CV 12.3 % (11.6-14.6); RBC Distribution Width SD 39.7 fl (35.1-43.9); Red Blood Count 4.59 M/mm3 (4.6-6.2)
[2022-05-01 21:42] LABS: Bacteria RARE /hpf (None Seen); Red Blood Cells-Urine 10-25 SEEN /hpf (0-5); Squamous Epithelial Cells - UA 0-5 SEEN /hpf (0-5)
[2022-05-01 21:43] LABS: Mucous, Urine 1+ /hpf (<or=2+)
[2022-05-01 21:56] LABS: Anion Gap 8 (5-15); BUN 24 mg/dL (7-18); BUN/Creat Ratio 25.4 RATIO (10-20); Calcium,Total 9.1 mg/dL (8.5-10.1); Chloride 107 mmol/L (98-107); Creatinine, Serum 0.94 mg/dL (0.70-1.30); EST Glomerular Filtration Rate 85 mL/min (>60); Est Glom Filt Rate - Afr Amer 103 mL/min (>60); Estimated Creatinine Clearance 76.81 ml/min; Glucose 148 mg/dL (74-106); Potassium 3.5 mmol/L (3.5-5.1); Sodium Level 139 mmol/L (136-145)
[2022-05-01] MEDS: oxyCODONE 5 MG Tablet 10 MG PO (22:19)
[2022-05-01 22:21] VITALS: BP 146/102; PULSE 90; RESP 15; O2SAT 99
== END 2022-05-01 22:24 | disposition home or self-care (01) ==
PROVIDERS: Emergency Provider Emergency Medicine; Visit Provider Emergency Medicine
DX: N20.0 Calculus of kidney (principal)
CPT/HCPCS: 74176; 80048; 81001; 85025; 99282

== ENCOUNTER 2022-05-09 04:27 | Observation (INO) | payer BC, SELFPAY ==
[2022-05-09] VITALS (13 sets, daily range): BP systolic 123–188; BP diastolic 87–113; PULSE 60–73; RESP 14–18; TEMP 35.6–37.3; O2SAT 93–98; BMI 29.2; BMI 29.3
[2022-05-09 04:56] LABS: Color, Urine Yellow (Yellow); Glucose, Dipstick Normal (Normal); Ketone-Dipstick 5 mg/dl (Negative); Leukocyte Esterase-Dipstick Negative /ul (Negative); Nitrite-Dipstick Negative (Negative); Occult Blood-Urine Negative /ul (Negative); Protein-Dipstick 15 mg/dl (Negative); Specific Gravity, Urine 1.025 (1.002-1.030); Urine Bilirubin Dipstick Negative (Negative); Urine Clarity Clear (Clear); Urine Urobilinogen Normal (Normal)
[2022-05-09 04:57] LABS: Bacteria 0 SEEN /hpf (None Seen); Mucous, Urine 0 SEEN /hpf (<or=2+); Red Blood Cells-Urine 0 SEEN /hpf (0-5); Squamous Epithelial Cells - UA 0 SEEN /hpf (0-5); White Blood Cells 0 SEEN /hpf (0-5)
[2022-05-09] MEDS: Ondansetron 4 MG/2 ML Vial IV (05:14)
[2022-05-09] MEDS: Morphine 4 MG/ML Syringe IV ×2 (05:14→08:04)
[2022-05-09 05:17] LABS: Absolute Lymphocyte Count 2.15 X10^3/uL (0.83-4.51); Absolute Neutrophil Count 7.1 X10^3/uL (2.0-7.7); Basophil# 0.06 X10^3/uL; Basophil% 0.6 % (0-1); Eosinophil# 0.17 X10^3/uL; Eosinophils% 1.7 % (0-5); Hematocrit 41.7 % (40-54); Hemoglobin 15.1 g/dL (13.0-16.5); Lymphocyte # 2.15 X10^3/ul (0.83-4.51); Lymphocyte % 20.9 % (19-41); Mean Corp Hgb Conc 36.2 g/dL (32-36); Mean Corpuscular Hgb 31.5 pg (27.0-32.0); Mean Corpuscular Volume 86.9 fL (80-94); Mean Platelet Vol. 10.6 fl (6.2-12.0); Monocyte# 0.77 X10^3/uL; Monocyte% 7.5 % (0-10); NRBC Flagged by Analyzer 0 % (0-5); Neutrophil # 7.08 X10^3/uL (2.7-7.7); Neutrophil % 68.9 % (47-70); Platelet Count 210 K/mm3 (150-450); RBC Distribution Width CV 12.4 % (11.6-14.6); RBC Distribution Width SD 39.5 fl (35.1-43.9); White Blood Count 10.3 K/mm3 (4.4-11.0)
[2022-05-09 05:29] LABS: Anion Gap 5 (5-15); BUN 32 mg/dL (7-18); BUN/Creat Ratio 24.1 RATIO (10-20); Calcium,Total 9.4 mg/dL (8.5-10.1); Chloride 104 mmol/L (98-107); Creatinine, Serum 1.33 mg/dL (0.70-1.30); EST Glomerular Filtration Rate 57 mL/min (>60); Est Glom Filt Rate - Afr Amer 70 mL/min (>60); Estimated Creatinine Clearance 54.29 ml/min; Glucose 134 mg/dL (74-106); Potassium 3.9 mmol/L (3.5-5.1); Sodium Level 136 mmol/L (136-145)
[2022-05-09] MEDS: 0.9% Normal Saline 1,000 ML 999 ML IV (06:29)
--- NOTE | 2022-05-09 06:45 | EX.ED.DYSGE1 ---
HPI History of Present Illness Chief Complaint: Flank Pain Informant: patient Narrative Narrative: Patient is a 66-year-old male with history of kidney stones with remote history of lithotripsy, hypertension, hyperlipidemia and chronic thoracic back pain presenting with recurrent right flank pain. Patient was seen in our ER 1 week ago for right flank pain. He was diagnosed with a 4 mm stone of the distal ureter. States he does not feel like he passed the stone and the symptoms have been mild until around 1 AM this morning. He has pain in his right back that radiate to his flank. Has some urgency but no blood in his urine. No dysuria. No fever. No pain in his legs. Has nausea and vomiting. Took Advil and Percocet at home but threw it up. This feels the same as his prior kidney stone pain.No other complaints at this time. [facility] Medical History Anxiety and depression Essential (primary) hypertension History of palpitations Hyperlipidemia Premature ventricular contractions Home Medications Saccharomyces boulardii 250 mg capsule 250 mg PO DAILY 05/14/21 [History Last Taken Unknown] cholecalciferol (vitamin D3) 50 mcg (2,000 unit) capsule 50 mcg PO DAILY 05/14/21 [History Last Taken Unknown] omeprazole 20 mg capsule,delayed release 10 mg PO DAILY 05/14/21 [History Last Taken Unknown] OSTEO BIO FLEX PO 10/11/21 [History Last Taken Unknown] escitalopram oxalate 10 mg tablet 10 mg PO DAILY #90 tabs 10/23/21 [Rx Last Taken Unknown] metoprolol succinate 50 mg tablet,extended release 24 hr 50 mg PO .COMPLEX #90 tabs 02/06/22 [Rx Last Taken Unknown] atorvastatin 10 mg tablet 10 mg PO QHS #90 tabs 04/09/22 [Rx Last Taken Unknown] zolpidem 10 mg tablet 10 mg PO QHS PRN insomnia #7 tabs 04/24/22 [Rx Last Taken Unknown] lisinopril 30 mg tablet 30 mg PO DAILY #90 tabs 04/28/22 [Rx Last Taken Unknown] oxycodone-acetaminophen 5 mg-325 mg tablet (Percocet) 1 tab PO Q4H PRN pain 3 days #14 tabs 05/01/22 [Rx Last Taken Unknown] Allergy/AdvReac Type Severity Reaction Status Date / Time clarithromycin [From Biaxin] Allergy Unknown Verified 05/01/22 20:20 diphenhydramine Allergy Unknown Verified 05/01/22 20:20 [From Benadryl] sulfamethoxazole Allergy unknown Verified 05/01/22 20:20 [From Bactrim] tamsulosin [From Flomax] Allergy unknown Verified 05/01/22 20:20 trimethoprim [From Bactrim] Allergy unknown Verified 05/01/22 20:20 Sulfa (Sulfonamide AdvReac Rash Verified 05/01/22 20:20 Antibiotics) Family History Father Cardiac pacemaker in situ Other Breast cancer Cancer Hypertension Surgical History History of lithotripsy Social History Smoking Status: Never smoker alcohol intake: never substance use type: does not use what type of physical activity do you participate in: none ROS ROS ED Constitutional Constitutional ED: Denies chills or fever(s) Eyes Eyes: Denies change in vision ENT ENT ED: Denies rhinorrhea or sore throat Cardiovascular Cardiovascular: Denies chest pain or palpitations Respiratory/Chest Respiratory/Chest: Denies cough Gastrointestinal Gastrointestinal: Reports abdominal pain, nausea and vomiting; Denies constipation or diarrhea Genitourinary Genitourinary ED: Reports other Details: Urgency with urination ; Denies dysuria, hematuria or urinary frequency Musculoskeletal Musculoskeletal: Reports back pain; Denies arthralgias or myalgias Integumentary Denies rash Neurologic Neurologic: Denies headache(s), paresthesias or weakness Psychiatric Psychiatric: Denies anxiety or depression Hematologic/Lymphatic Hematologic/Lymphatic: Denies easy bleeding or easy bruising EXAM Physical Exam Const Vital Signs: 05/09/22 04:27 Temperature 96.1 F L Temperature Source Temporal Pulse Rate 60 Respiratory Rate 18 Blood Pressure 188/104 H Blood Pressure Mean 132 Pulse Ox 97 Oxygen Delivery Method Room Air Positive well nourished and well developed Constitutional Narrative: Uncomfortable appearing, pacing around the room General Appearance ED: well developed HEENT Reports moist mucous membranes Eyes PERRL and EOMs intact bilaterally Neck supple Chest Wall inspection of chest normal and palpation of chest normal Resp normal respiratory effort and clear to auscultation bilaterally Cardio regular rate, regular rhythm and no murmurs GI normal to inspection, nondistended, normoactive bowel sounds, non-tender and non-distended Back/Spine no CVA tenderness Lumbar Spine / Lower Back: Negative for lumbar spinal tenderness Extremity normal to inspection General Extremety ED: Negative for edema or tenderness General Extremity: Negative for edema Neuro oriented x3 Neuro Narrative: No focal deficits appreciated Motor Exam: Negative for general weakness Psych mental status grossly normal Skin no rashes or lesions noted and no wounds MDM MDM MDM Narrative Medical decision making narrative: Patient evaluated for worsening right flank pain. He was diagnosed with a 4 mm distal ureter lithiasis 1 week ago. Patient not felt like he passed the stone but pain has been improved until around 1 AM. Patient is having significant pain and required multiple doses of IV pain medication. Urinalysis shows 5 ketones and patient is given IV fluids. He has a mild bump in his creatinine at 1.33. Case discussed with urology, Dr. Abraham, who will admit the patient as patient cannot achieve adequate pain control and does not feel comfortable going home. Plan will be for lithotripsy on Thursday based on the OR schedule. Patient is informed of this. He is still like to be admitted for further pain control. Patient donny emergently stable in the ER. I did add on a KUB. Given he had a CT 1 week ago I do not think repeat imaging is indicated. Lab Data Attestation: I reviewed the patient's lab results. Labs: Laboratory Results - last 24 hr 05/09/22 05/09/22 05/09/22 04:33 04:33 04:52 WBC 10.3 RBC 4.80 Hgb 15.1 Hct 41.7 MCV 86.9 MCH 31.5 MCHC 36.2 H RDW Std Deviation 39.5 RDW Coeff of Maria A 12.4 Plt Count 210 MPV 10.6 Immature Gran % (Auto) 0.400 Neut % (Auto) 68.9 Lymph % (Auto) 20.9 [place] % (Auto) 7.5 Eos % (Auto) 1.7 Baso % (Auto) 0.6 Absolute Neuts (auto) 7.1 Absolute Lymphs (auto) 2.15 Nucleated RBC % 0 Sodium 136 Potassium 3.9 Chloride 104 Carbon Dioxide 27.0 Anion Gap 5 BUN 32 H Creatinine 1.33 H Estim Creat Clear Calc 54.29 Est GFR (MDRD) Af Amer 70 Est GFR (MDRD) Non-Af 57 L BUN/Creatinine Ratio 24.1 H Glucose 134 H Calcium 9.4 Urine Color Yellow Urine Clarity Clear Urine pH 6.0 Ur Specific [place] 1.025 Urine Protein 15 H Urine Glucose (UA) Normal Urine Ketones 5 H Urine Occult Blood Negative Urine Nitrite Negative Urine Bilirubin Negative Urine Urobilinogen Normal Ur Leukocyte Esterase Negative Urine RBC 0 SEEN Urine WBC 0 SEEN Ur Squamous Epith Cells 0 SEEN Urine Bacteria 0 SEEN Urine Mucus 0 SEEN Discharge Plan Triage Chief Complaint: Flank Pain ED Provider: Kira Méndez Dx/Rx/DC Orders Clinical Impression: Renal colic on right side, Intractable back pain, Elevated serum creatinine Prescriptions: No Action cholecalciferol (vitamin D3) 50 mcg (2,000 unit) capsule 50 mcg PO DAILY omeprazole 20 mg capsule,delayed release(DR/EC) 10 mg PO DAILY Saccharomyces boulardii 250 mg capsule 250 mg PO DAILY escitalopram oxalate 10 mg tablet 10 mg PO DAILY Qty: 90 3RF OSTEO BIO FLEX PO zolpidem 10 mg tablet 10 mg PO QHS PRN (Reason: insomnia) Qty: 7 0RF oxycodone-acetaminophen [Percocet] 5-325 mg tablet 1 tab PO Q4H PRN (Reason: pain) 3 Days Qty: 14 0RF metoprolol succinate 50 mg tablet extended release 24 hr 50 mg PO .COMPLEX Qty: 90 3RF Rx Instructions: 50 mg PO 75 mg daily; atorvastatin 10 mg tablet 10 mg PO QHS Qty: 90 3RF lisinopril 30 mg tablet 30 mg PO DAILY Qty: 90 3RF Primary Care Provider: Jessica Jordan Referrals: Jessica Jordan MD [Primary Care Provider] - Disposition Disposition: Acute Care Hospital [facility]
[2022-05-09] MEDS: fentaNYL 100 MCG/2 ML Ampul 50 MCG IV (07:05)
--- NOTE | 2022-05-09 08:03 | RAD_ITS ---
STUDY: X-RAY - ABDOMEN/PELVIS REASON FOR EXAM: Male, 66 years old. Right flank pain . History of kidney stone. TECHNIQUE: Single AP view of the abdomen / pelvis. COMPARISON: None. FINDINGS: Elevation of the right hemidiaphragm. Mild increased markings at the left lung base. There is a moderate amount of colonic fecal material. There is a 4.4 mm linear calcification in the right hemipelvis. This may lie within the distal portion of the right ureter at the ureterovesical junction. There are calcified phleboliths in the pelvis. Surgical clips are seen in the left hemipelvis. There are degenerative changes of the visualized lumbar spine. RAD/Abdomen Single View IMPRESSION: Findings suggestive of a tiny calculus at the right ureterovesical junction. Electronically Signed: Dillon Alarcon MD at 9:01 EDT ,
--- NOTE | 2022-05-09 11:38 | PCM.HP.STD ---
HPI - General General Date of Admission: 05/09/22 HPI Narrative BENSON MINOR, is a 66 M who presents to the emergency room with severe right flank pain CT scan was done about a week ago that demonstrated a large stone in the distal right ureter he was sent home with expectant management but has failed to pass the stone came back to the emergency room with severe pain in the right side and the emergency room physician felt like the patient need to be admitted for pain control so he was be admitted today for pain control and will taken the surgery today for stent placement. [facility] Medical History Anxiety Anxiety and depression Diverticulitis Essential (primary) hypertension GERD (gastroesophageal reflux disease) History of palpitations Hyperlipidemia Hypothyroidism Mitral valve prolapse Premature ventricular contractions Home Medications Saccharomyces boulardii 250 mg capsule 250 mg PO DAILY 05/14/21 [History Last Taken Unknown] cholecalciferol (vitamin D3) 50 mcg (2,000 unit) capsule 50 mcg PO DAILY 05/14/21 [History Last Taken Unknown] omeprazole 20 mg capsule,delayed release 10 mg PO DAILY 05/14/21 [History Last Taken Unknown] OSTEO BIO FLEX PO 10/11/21 [History Last Taken Unknown] escitalopram oxalate 10 mg tablet 10 mg PO DAILY #90 tabs 10/23/21 [Rx Last Taken Unknown] atorvastatin 10 mg tablet 10 mg PO QHS #90 tabs 04/09/22 [Rx Last Taken Unknown] lisinopril 30 mg tablet 30 mg PO DAILY #90 tabs 04/28/22 [Rx Last Taken Unknown] oxycodone-acetaminophen 5 mg-325 mg tablet (Percocet) 1 tab PO Q4H PRN pain 3 days #14 tabs 05/01/22 [Rx Last Taken Unknown] metoprolol succinate 50 mg tablet,extended release 24 hr 50 mg PO DAILY 05/09/22 [History Last Taken Unknown] zolpidem 10 mg tablet 5 mg PO QHS PRN insomnia 05/09/22 [History Last Taken Unknown] Allergy/AdvReac Type Severity Reaction Status Date / Time clarithromycin [From Biaxin] Allergy Unknown Verified 05/01/22 20:20 diphenhydramine Allergy Unknown Verified 05/01/22 20:20 [From Benadryl] sulfamethoxazole Allergy unknown Verified 05/01/22 20:20 [From Bactrim] tamsulosin [From Flomax] Allergy unknown Verified 05/01/22 20:20 trimethoprim [From Bactrim] Allergy unknown Verified 05/01/22 20:20 Sulfa (Sulfonamide AdvReac Rash Verified 05/01/22 20:20 Antibiotics) Family History Father Cardiac pacemaker in situ Other Breast cancer Cancer Hypertension Surgical History History of cystoscopy Social History Smoking Status: Never smoker alcohol intake: never substance use type: does not use what type of physical activity do you participate in: none ROS Constitutional Constitutional: Denies chills, fever(s) or malaise Eyes Eyes: Denies blurry vision or change in vision ENT HEENT: Reports none Cardiovascular Cardiovascular: Denies chest pain or palpitations Respiratory/Chest Respiratory/Chest: Denies cough or shortness of breath with exertion Gastrointestinal Gastrointestinal: Denies abdominal pain, constipation or diarrhea Musculoskeletal Musculoskeletal: Denies back pain, joint stiffness or joint swelling Integumentary Integumentary: Denies dry skin, jaundice, lesions or rash Neurologic Neurologic: Denies confusion, syncope or weakness Psychiatric Psychiatric: Reports none; Denies anxiety or depression Endocrine Endocrinology: Denies excessive sweating, fatigue or flushing Hematologic/Lymphatic Hematologic/Lymphatic: Denies anemia, easy bleeding or easy bruising Vital Signs Vital Signs Vital Signs: 05/09/22 04:27 05/09/22 08:00 05/09/22 09:25 Temperature 96.1 F L 97.1 F L Temperature Source Temporal Temporal Pulse Rate 60 67 67 Respiratory Rate 18 18 18 Blood Pressure 188/104 H 173/113 H 173/113 H Blood Pressure Mean 132 133 133 Pulse Ox 97 96 96 Oxygen Delivery Method Room Air Room Air Room Air Weight Weight: 87.5 kg Body Mass Index (BMI) 29.3 Physical Exam Const alert and oriented x3 General Appearance: cooperative HEENT normocephalic and head/scalp atraumatic Eyes PERRL and EOMs intact bilaterally Neck supple, no JVD and no carotid bruits Resp normal respiratory effort, normal air movement and clear to auscultation bilaterally Cardio regular rate and no murmurs GI normal to inspection, nondistended, normoactive bowel sounds and soft to palpation Extremity normal capillary refill General Extremity: no tenderness to palpation of joints or extremities; Negative for edema Skin no rashes or lesions noted and no wounds General Skin Exam: no breakdown Neuro CN's II-XII intact bilaterally Psych affect normal Appearance: appropriate Results Lab / Micro Data Result Diagrams: 05/09/22 04:33 05/09/22 04:33 Labs: Laboratory Results - last 24 hr 05/09/22 04:33: WBC 10.3, RBC 4.80, Hgb 15.1, Hct 41.7, MCV 86.9, MCH 31.5, MCHC 36.2 H, RDW Std Deviation 39.5, RDW Coeff of Maria A 12.4, Plt Count 210, MPV 10.6, Immature Gran % (Auto) 0.400, Neut % (Auto) 68.9, Lymph % (Auto) 20.9, [place] % (Auto) 7.5, Eos % (Auto) 1.7, Baso % (Auto) 0.6, Absolute Neuts (auto) 7.1, Absolute Lymphs (auto) 2.15, Nucleated RBC % 0 05/09/22 04:33: Sodium 136, Potassium 3.9, Chloride 104, Carbon Dioxide 27.0, Anion Gap 5, BUN 32 H, Creatinine 1.33 H, Estim Creat Clear Calc 54.29, Est GFR (MDRD) Af Amer 70, Est GFR (MDRD) Non-Af 57 L, BUN/Creatinine Ratio 24.1 H, Glucose 134 H, Calcium 9.4 05/09/22 04:52: Urine Color Yellow, Urine Clarity Clear, Urine pH 6.0, Ur Specific Gray 1.025, Urine Protein 15 H, Urine Glucose (UA) Normal, Urine Ketones 5 H, Urine Occult Blood Negative, Urine Nitrite Negative, Urine Bilirubin Negative, Urine Urobilinogen Normal, Ur Leukocyte Esterase Negative, Urine RBC 0 SEEN, Urine WBC 0 SEEN, Ur Squamous Epith Cells 0 SEEN, Urine Bacteria 0 SEEN, Urine Mucus 0 SEEN Radiology Impression KUB X-Ray 05/09/22 08:03 IMPRESSION: Findings suggestive of a tiny calculus at the right ureterovesical junction. Electronically Signed: Dillon Alarcon MD at 9:01 EDT , Assessment & Plan Assessment/Plan (1) Right ureteral calculus: PLAN: Plan for cystoscopy right stent placement today n.p.o. for surgery
--- NOTE | 2022-05-09 11:42 | PCM.DC ---
Discharge Instructions Diet Discharge Diet: No restrictions, Light diet - advance as tolerated and Soft diet Activity Discharge Activity: Return to Normal Activity Follow Up Care Please Follow Up With: Rafat Abraham MD When: call office for follow up instructions. Test Results: Test results from this visit will be discussed in further detail at your follow-up appointment, if applicable. Discharge Plan Admission Admit Date/Time: 05/09/22 08:43 Primary Reason for Your Visit: Stent placement for right kidney stone Attending Provider: Rafat Abraham Primary Care Provider: Jessica Jordan Instructions Patient Instructions: ED Kidney Stone w/ Colic Discharge Orders/Prescriptions Prescriptions: New oxycodone-acetaminophen 5-325 mg tablet 1 tab PO Q4H PRN (Reason: pain) 7 Days Qty: 20 0RF ciprofloxacin HCl 500 mg tablet 500 mg PO BID Qty: 6 0RF docusate sodium [Colace] 100 mg capsule 100 mg PO BID Qty: 20 0RF Continued cholecalciferol (vitamin D3) 50 mcg (2,000 unit) capsule 50 mcg PO DAILY omeprazole 20 mg capsule,delayed release(DR/EC) 10 mg PO DAILY Saccharomyces boulardii 250 mg capsule 250 mg PO DAILY escitalopram oxalate 10 mg tablet 10 mg PO DAILY Qty: 90 3RF OSTEO BIO FLEX PO oxycodone-acetaminophen [Percocet] 5-325 mg tablet 1 tab PO Q4H PRN (Reason: pain) 3 Days Qty: 14 0RF metoprolol succinate 50 mg tablet extended release 24 hr 50 mg PO DAILY zolpidem 10 mg tablet 5 mg PO QHS PRN (Reason: insomnia) atorvastatin 10 mg tablet 10 mg PO QHS Qty: 90 3RF lisinopril 30 mg tablet 30 mg PO DAILY Qty: 90 3RF Referrals / Follow Up: Rafat Abraham MD [Med Staff - Active Staff] - Jessica Jordan MD [Primary Care Provider] -
--- NOTE | 2022-05-09 11:46 | EKG12_ITS ---
Test Reason : PREOP Blood Pressure : / mmHG Vent. Rate : 068 BPM Atrial Rate : 068 BPM P-R Int : 164 ms QRS Dur : 084 ms QT Int : 404 ms P-R-T Axes : 049 003 021 degrees QTc Int : 429 ms Normal sinus rhythm Inferior infarct , age undetermined Abnormal ECG When compared with ECG of 29-JUN-2008 21:15, No significant change was found Confirmed by PATRICIA MAYFIELD, MAUDE ([id number]), graphic editor SPIKE GARCIA ([id number]) on 05/12/2022 1:04:59 PM Referred By: MINNA Confirmed By:MAUDE GOMEZ MD
[2022-05-09] MEDS: Morphine 2 MG/ML Syringe IV (12:00)
[2022-05-09] MEDS: Metoprolol(XL)Succ 50 MG Tablet PO (12:00)
[2022-05-09] MEDS: 0.9% Saline Lock 10 ML Syringe IV (12:00)
[2022-05-09] MEDS: Lactated Ringers 1,000 ML 125 ML IV (12:01)
--- NOTE | 2022-05-09 13:29 | OP.PCM_ITS ---
Report of Operation Date of Procedure: 05/09/22 Pre-Operative Diagnosis: Obstructing right ureteral calculi Post-Operative Diagnosis: Same Surgery/Procedure Performed:: Cystoscopy retrograde pyelogram and right stent placement Description of Surgical Findings:: Patient was taken back to the operating room after induction of general anesthesia, the patient was placed in dorsolithotomy position. The urethra and genitals were prepped and draped in usual sterile fashion. Using a 21 Bangladeshi rigid cystourethroscope the entire length of the urethra was normal then went into the bladder. Identified the trigone the left and right ureteral orifice. I then cannulated the LEFT orifice and advanced a wire up into the kidney. I then backloaded a 5 Bangladeshi open ended catheter over the wire and injected contrast to delineate the anatomy. After the retrograde was performed I then used fluoroscopic images and guidance to advanced a wire up into the kidney and over the 0.038 glidewire I advanced a 6 Bangladeshi by 26 cm double pigtail stent. I then pulled the 0.038 Glidewire off and the stent coiled in the kidney bladder good position. The bladder was then drained. We confirmed the position of the stent by fluoroscopy. Patient anesthetic was reversed and was taken back to the PACU in good condition. Surgeon: Rafat Abraham Type of Anesthesia: MAC and Topical Anesth Drains: right stent Admit VTE Documentation VTE Present on Admission: No VTE Mechan Device Prophylaxis: SCD's VTE Pharm Prophylaxis ordered?: No
[2022-05-09] MEDS: Cefazolin 2 GM in 0.9% Normal Saline 100 ML IV (13:35)
[2022-05-09] MEDS: Lidocaine Jelly 2% 20 ML Syringe (URO-JET) 1 APPLIC (13:45)
== END 2022-05-09 16:52 | disposition home or self-care (01) ==
LOC: ED 08:06 → MS3 11:16
PROVIDERS: Admitting Provider Urology; Emergency Provider Emergency Medicine; Visit Provider Urology
PROC: (CPT 52332; principal; 2022-05-09 16:05)
DX: N20.1 Calculus of ureter (principal); I10 Essential (primary) hypertension; R79.89 Other specified abnormal findings of blood chemistry; E78.5 Hyperlipidemia, unspecified; Z79.899 Other long term (current) drug therapy; F41.9 Anxiety disorder, unspecified; F32.A Depression, unspecified; K21.9 Gastro-esophageal reflux disease without esophagitis
CPT/HCPCS: 52332; 00910; 74018; 76000; 80048; 81001; 85025; 93005; 96374; 96375; 96376; 99285; J7030; J7120; A4216; C1769; C2617; J2405

== ENCOUNTER → 2022-05-22 | Outpatient (CLI) | payer BC, SELFPAY ==
--- NOTE | 2022-05-22 13:45 | RAD_ITS ---
STUDY: X-RAY - ABDOMEN/PELVIS REASON FOR EXAM: Male, 66 years old. KIDNEY STONE TECHNIQUE: Single AP view of the abdomen / pelvis. COMPARISON: Comparison is made with prior study dated 05/09/2022. FINDINGS: Normal visualized lung bases. There is a moderate amount of colonic fecal material. A right-sided double-J stent catheter has been placed in the right ureter. Persistent 4.4 mm linear calcification is seen in the right hemipelvis most likely at the right ureteral pelvic junction. Surgical clips are seen in the left hemipelvis. Normal visualized osseous structures. RAD/Abdomen Single View IMPRESSION: The right-sided double-J stent catheter is seen. Stable 4.4 mm calcification in the right hemipelvis adjacent to the distal stent. Electronically Signed: Dillon Alarcon MD at 14:00 EST ,
--- NOTE | 2022-05-22 14:24 | EKG12_ITS ---
Test Reason : PRE-OP Blood Pressure : / mmHG Vent. Rate : 091 BPM Atrial Rate : 091 BPM P-R Int : 156 ms QRS Dur : 088 ms QT Int : 350 ms P-R-T Axes : 042 008 035 degrees QTc Int : 430 ms Normal sinus rhythm Left ventricular hypertrophy Inferior infarct , age undetermined Abnormal ECG Confirmed by SYLVIA MAYFIELD, FOREIGN ([id number]), editor city SPIKE GARCIA ([id number]) on 05/27/2022 8:07:09 A M Referred By: Rafat Abraham Confirmed By:LI WARD MD
== END | disposition home or self-care (01) ==
PROVIDERS: Referring Provider Urology; Visit Provider Urology
DX: Z01.810 Encounter for preprocedural cardiovascular examination (principal); N20.0 Calculus of kidney
CPT/HCPCS: 74018; 93005

== ENCOUNTER → 2022-08-18 | Outpatient (CLI) | payer MEDICARE, BC, SELFPAY ==
--- NOTE | 2022-08-18 11:16 | MRI_ITS ---
STUDY: MRI OF THE LEFT SCAPULA WITHOUT CONTRAST REASON FOR EXAM: Male, 67 years old. Left scapular pain. TECHNIQUE: Standardized fat and water weighted pulse sequences were obtained in all 3 orthogonal planes. COMPARISON: Shoulder x-rays dated September 16, 2016. FINDINGS: Normal subcutis adipose space. No solid, cystic, or lipomatous mass within the subcutaneous adipose space. Normal visualized muscles and fascia. Normal visualized neurovascular bundles. Normal osseous structures. MRI/Upper Ext/No Jt/ wo IMPRESSION: No abnormality of the MRI of the left scapula without contrast. Electronically Signed: Rodolfo Basurto, at 13:31 EST ,
== END | disposition home or self-care (01) ==
DX: M89.8X1 Other specified disorders of bone, shoulder (principal)
CPT/HCPCS: 73218

== ENCOUNTER → 2022-09-13 | Outpatient (CLI) | payer MEDICARE, BC, SELFPAY ==
--- NOTE | 2022-09-13 10:00 | MRI_ITS ---
INDICATION: Low back pain. EXAMINATION: MR Spine Lumbar W/O Contrast TECHNIQUE: Multiplanar and multisequence MR images of the lumbar spine. IV Contrast Dosage and Agent: None. COMPARISON: None. FINDINGS: VERTEBRAE: Vertebral body heights are preserved. No marrow edema or fracture. Visualized sacral ala are intact. VERTEBRAL ALIGNMENT: Grade 1 retrolisthesis of L5 upon S1, degenerative. There is preservation of the normal lumbar lordosis. Mild leftward curvature of the lumbar spine. CORD: Normal position and signal intensity of the conus medullaris. Conus terminates normally at the T12-L1 disc space level. SOFT TISSUES: Aorta is normal in caliber. Visualized kidneys without hydronephrosis. AXIAL IMAGES: L1-2: No disc protrusion. Left lateral endplate osteophyte formation. No spinal canal or foraminal narrowing. L2: Disc bulging. Central annular fissure and shallow protrusion. Facets are intact. No significant spinal canal narrowing. There is mild foraminal narrowing. L3-4: Disc bulging without focal protrusion. Small endplate osteophyte formation. Facets are intact. No spinal canal narrowing. Mild foraminal narrowing. L4-5: Disc bulging without focal protrusion. Mild effacement of the ventral thecal sac. Facets are intact. No significant overall spinal canal stenosis. No significant foraminal narrowing. L5-S1: Diffuse disc bulging. Endplate osteophyte formation. Mild facet arthropathy. No significant spinal canal narrowing. Mild to moderate foraminal narrowing. MRI/Spine Lumbar (Routine) IMPRESSION: Mild lumbar spondylosis changes as described. Electronically Signed: Darrin Reyes MD at 0:08 EST ,
== END | disposition home or self-care (01) ==
LOC: MRI 09:23
DX: M47.816 Spondylosis without myelopathy or radiculopathy, lumbar region (principal)
CPT/HCPCS: 72148

== ENCOUNTER → 2022-10-22 | Outpatient (CLI) | payer MEDICARE, BC, SELFPAY ==
[2022-10-22 10:47] LABS: Absolute Lymphocyte Count 2.71 X10^3/uL (0.83-4.51); Basophil# 0.07 X10^3/uL; Basophil% 0.6 % (0-1); Eosinophil# 0.22 X10^3/uL; Hematocrit 42.3 % (40-54); Hemoglobin 14.2 g/dL (13.0-16.5); Lymphocyte # 2.71 X10^3/ul (0.83-4.51); Lymphocyte % 24.6 % (19-41); Mean Corp Hgb Conc 33.6 g/dL (32-36); Mean Corpuscular Hgb 30.5 pg (27.0-32.0); Mean Platelet Vol. 10.6 fl (6.2-12.0); Monocyte% 8.2 % (0-10); NRBC Flagged by Analyzer 0 % (0-5); Neutrophil # 7.01 X10^3/uL (2.7-7.7); Neutrophil % 63.6 % (47-70); Platelet Count 244 K/mm3 (150-450); RBC Distribution Width CV 13.2 % (11.6-14.6); RBC Distribution Width SD 43.3 fl (35.1-43.9); Red Blood Count 4.65 M/mm3 (4.6-6.2)
[2022-10-22 10:48] LABS: Vitamin D,25 Hydroxy 36.1 ng/mL
[2022-10-22 10:59] LABS: ALB/GLOB Ratio 1.2 RATIO (0.9-2.4); AST(SGOT) 18 U/L (15-37); Alanine Aminotransfer ALT/SGPT 28 U/L (16-61); Albumin, Serum 3.5 g/dL (3.2-5.0); Alkaline Phosphatase 87 U/L (45-117); Anion Gap 5 (5-15); BUN 26 mg/dL (7-18); BUN/Creat Ratio 27.6 RATIO (10-20); Calcium,Total 9.1 mg/dL (8.5-10.1); Chloride 107 mmol/L (98-107); Cholesterol 177 mg/dL (200); Creatinine, Serum 0.94 mg/dL (0.70-1.30); EST Glomerular Filtration Rate 86 mL/min (>60); Est Glom Filt Rate - Afr Amer 103 mL/min (>60); Globulin 2.9 g/dL (2.2-4.2); Glucose 98 mg/dL (74-106); High Density Lipoprotein 49 mg/dL; Potassium 4.2 mmol/L (3.5-5.1); Protein, Total 6.4 g/dL (6.4-8.2); Sodium Level 138 mmol/L (136-145); Thyroid Stim Hormone (TSH) 2.22 uIU/mL (0.358-3.74); Triglycerides 87 mg/dL; Very Low Density Lipoprotein 17 mg/dL (5-40)
== END | disposition home or self-care (01) ==
LOC: BIMLAB 08:06
PROVIDERS: PCP Internal Medicine; Referring Provider Internal Medicine; Visit Provider Internal Medicine
DX: E78.5 Hyperlipidemia, unspecified (principal); R79.89 Other specified abnormal findings of blood chemistry; I10 Essential (primary) hypertension; Z13.220 Encounter for screening for lipoid disorders; E55.9 Vitamin D deficiency, unspecified
CPT/HCPCS: 36415; 80053; 80061; 82306; 84443; 85025

== ENCOUNTER 2022-11-11 08:00 | Outpatient (RCR) | payer MEDICARE, BC, SELFPAY ==
--- NOTE | 2022-09-11 11:19 | HP.PTEVAL ---
Patient's Visit Information BENSON MINOR is a 67 year old M referred to Physical Therapy by OSVALDO APODACA with a diagnosis of LUMBAR SPONDYLOSIS/OA R HIP. Date of Evaluation: 09/11/22 Physical Therapist: Tatyana Gonsalez PT, Cert MDT - Visit Plan Frequency: 2-3x /Week Duration: 4-6 Weeks Plan: AQUATIC THERAPY FOR R LE PAIN RELIEF, POSTURE CORRECTION/STRENGTHENING, INSTRUCTION IN APPROPRIATE BODY MECHANICS AND ACTIVITY MODIFICATIONS. DLS STARTING WITH A NEUTRAL SPINE PROGRESSING ROM TOLERATED. JUANA LE ROM, STRETCHING AND STRENGTHENING. HEP INSTRUCTION. FOCUS ON CORE AND JUANA HIP STRENGTH AND STABILITY. 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 PLAYS [employer]. 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 Present symptoms: DENIES LOW BACK PAIN. PAIN FRONT OF HIP THAT GOES DOWN OUTSIDE OF THIGH AND DOWN BELOW KNEE INTO FOOT. NO R LE NUMBNESS OR TINGLING. SX'S JUST STARTED TRAVELING DOWN THE R LE IN THE LAST FEW MONTHS. PRIOR TO THAT ALL THE PAIN WAS MAINLY UP IN THE HIP AND THIGH AREA - PATIENT POINTING TO MEDIAL PROXIMAL THIGH. PATIENT REPORTS R LE SX'S ARE INTERMITTENT EXCEPT FOR THE RIGHT HIP PAIN. Present since: COUPLE YEARS AGO. Pain Scale: WORST 8/10, LEAST 1/10. Currently: 3/10. Is it getting better, worse or staying the same: STAYING THE SAME. Commenced as a result of: NO APPARENT REASON. Symptoms at onset: R BUTTOCK PAIN. Worse: INTERMITTNETLY WITH THE FOLLOWING - TWISTING, PUTTING R LEG IN PANTS, PUTTING R SOCK ON, AFTER PLAYING GOLF. Better: JUST GIVE IT TIME. PAIN IS FLEETING. Disturbed sleep: 90% OF THE TIME NO BUT SOMETIMES PAIN BACK OF KNEE DISTURBS SLEEP. Previous history/Previous treatment: CHIROPRACTIC UNTIL ABOUT 3 WKS AGO. PATIENT REPORTS HE GETS RELIEF WITH CHIROPRACTIC BUT IT IS ONLY FOR A FEW DAYS AND SHE FEELS LIKE IT IS NOW BEYOND WHAT SHE CAN DO TO HELP HIM. SOEMTIMES ALL R LE SX'S GO AWAY TEMPORARILY AFTER CHIRO TREATMENT. CHIROPRACTIC 5+ YEARS. CORTISONE SHOT R HIP A YEAR AGO - NO BENEFIT. Treatment this episode: CORTISONE SHOT BY DR. APODACA ABOUT A MONTH AGO WITHOUT BENEFIT. STATES HE HAS MAINLY JUST BEEN SEEN FOR HIS R HIP AND HAS NOT BEEN TO A BACK SPECIALIST. MRI FOR BACK ORDERED. DR. CRUZ SAID I HAVE ARTHRITIS IN MY R HIP BUT NO WHERE NEAR READY TO HAVE A THR. Coughing/sneezing/straining: NEGATIVE. Gait: DIFFICULTING INITIATING GAIT. STARTS WITH A LIMP AND THEN FREES UP. Bowel or Bladder Dysfunction: NO. Accidents: NO. Unexplained weight loss: NO. Imaging: MRI PENDING OF NEXT WEEK. HIP X-RAYS - [facility] EMR - NEGATIVE. LUMBAR X-RAYS AT ANOTHER FACILITY AND PATIENT UNSURE OF RESULTS. PMH/Recent major surgery: L SHLD PAIN, H/O KIDNEY STONES, HTN, HIGH CHOLESTEROL. H/O HEART PROBLEMS. - Objective Sitting/Standing Posture: LEFT SHLD LEVEL LOWER THAN RIGHT. INCREASED KYPHOSIS AND FORWARD HEAD. Lordosis: REDUCED. Other Observations: THIS PATIENT AMBULATES INDEP'LY INTO PT TODAY WITHOUT ANY ASSISTIVE DEVICES OR LOB. INCREASED TRUNK, HIP AND KNEE FLEXION. Sensory deficit: JUANA LE LIGHT TOUCH SENSATION GROSSLY INTACT AND SYMMETRICAL. ROM deficit: JUANA HIP FLEXOR, HS'S AND GASTROC SOLEUS TIGHTNESS. TIGHT JUANA HIP ROTATORS RIGHT HIP ER MORE LIMITED THAN LEFT AND LEFT HIP IR MORE LIMITED THAN RIGHT. Motor deficit: JUANA LE'S GROSSLY 5/5 WITH MMT'ING EXCEPT JUANA HIPS: R HIP 4-/5, LEFT 4/5. Reflexes: JUANA LE'S 2/3. Dural Signs: NEGATIVE JUANA LE'S. Lumbar mvmt loss: flex - MOD - MILD R RIB HUMP. ext - WALLY - NE. R SG - WALLY. L SG - MOD. Core strength: FAIR. Palpation: NO ACUTE HIP, LOWER THORACIC OR HIP TENDERNESS. OTHER: PATIENT ABLE TO SLS WITHOUT UE ASSIST ON L LE BUT MUCH GREATER DIFFICULTY ON R LE. TREATMENT: NEUROMUSCULAR REEDUCATION - RETRAINING OF MVMT AND POSTURE FOR SITTING, LYING AND STANDING ACTIVITIES - Balance/Special Test Scores Oswestry Low Back Score: 11 - Goals Goal 1:: DECREASE C/O RIGHT LE SX'S Goal Time Frame: 4-6 Weeks Goal 2:: IMPROVE PERSONAL CARE, LIFTING, WALKING, STANDING, SOCIAL LIFE, TRAVEL AND HOMEMAKING FUNCTION. Goal Time Frame: 4-6 Weeks Goal 3:: INSTRUCT IN PROPHYLAXIS Goal Time Frame: 4-6 Weeks - Anticipated Interventions Patient/Client Instruction: Educate patient on: Condition, Plan of Care, Risk Factors For the Purpose of:: To improve self management Therapeutic Exercise to Include: Strength training, Body mechanics, Postural training, Flexibilty training, Neuromotor development, In an aquatic setting, Dynamic Lumbar Stabilization For the Purpose of:: To decrease pain, To increase ROM, To improve muscle performance and motor function, To increase tolerance to activity/condition/position, To improve ability of physical actions for home/community/work/leisure Cryotherapy (ice pack, ice massage): Yes Thermo therapy (hot pack): Yes Ultrasound (thermal/non thermal): Yes For the Purpose of:: To decrease pain, To improve nutrient delivery to tissue Thank you for the opportunity to evaluate your patient. For Medicare and Medicare HMO plans, please review the plan of care and approve it. It will need to be FAXED BACK to us at [phone] for Medicare purposes. For Medicare only, by signing this I certify the plan of care. Please let me know if there are questions or concerns regarding this plan of care. Physician Signature: Date:
--- NOTE | 2022-10-06 11:33 | HP.PTREVAL ---
OSVALDO APODACA, It has been my pleasure to treat BENSON MINOR over the last 4 visits for LUMBAR SPONDYLOSIS/OA R HIP. Please see the progress note below for an update on the physical therapy plan of care! Subjective: PATIENT REPORTS HE HAD TO MISS SOME PT MANUEL'TS DUE TO ILLNESS. REPORTS COMPLIANCE WITH POSTURE CORRECTION - I THINK THAT IS ONE THING THAT HELPS. MY HIP IS BETTER. STATES HIS RIGHT KNEE HASN'T BEEN ADDRESSED AND HE FEELS THAT NEEDS TO BE ADDRESSED BECAUSE IT IS LIMITING HIS BACK AND HIP REHAB. STATES DR. APODACA CALLED HIM AND SAID HIS BACK MRI LOOKS GOOD. PATIENT ALSO REPORTS THAT AFTER THE FIRST POOL VISIT HE FELT BETTER THAN HE HAS IN A LONG TIME BUT THE HOME EX'S IRRIATE HIS KNEE. SOMETHING IS GOING GOOD WITH MY HIP BECAUSE THE PAIN IS INTERMITTENT AND MILD NOW EVEN WITH BEING ON THE TRACTOR. HAS BEEN RESTING KNEE SO IT IS DOING BETTER TOO. GOING OUT OF TOWN TO [place] ALL NEXT WEEK. I WOULD LIKE TO RESUME PT FOR AQUATIC THERAPY REPORTING HE THINKS THAT IS WHAT HE REALLY NEEDS. LUMBAR MRI RESUTS: INDICATION: Low back pain. EXAMINATION: MR Spine Lumbar W/O Contrast. TECHNIQUE: Multiplanar and multisequence MR images of the lumbar spine. IV Contrast Dosage and Agent: None. COMPARISON: None. . FINDINGS: VERTEBRAE: Vertebral body heights are preserved. No marrow edema or. fracture. Visualized sacral ala are intact. VERTEBRAL ALIGNMENT: Grade 1 retrolisthesis of L5 upon S1, degenerative. There is preservation of the normal lumbar lordosis. Mild leftward. curvature of the lumbar spine. CORD: Normal position and signal intensity of the conus medullaris. Conus. terminates normally at the T12-L1 disc space level. SOFT TISSUES: Aorta is normal in caliber. Visualized kidneys without. hydronephrosis. AXIAL IMAGES: L1-2: No disc protrusion. Left lateral endplate osteophyte formation. No. spinal canal or foraminal narrowing. L2: Disc bulging. Central annular fissure and shallow protrusion. Facets. are intact. No significant spinal canal narrowing. There is mild. foraminal narrowing. L3-4: Disc bulging without focal protrusion. Small endplate osteophyte. formation. Facets are intact. No spinal canal narrowing. Mild foraminal. narrowing. L4-5: Disc bulging without focal protrusion. Mild effacement of the. ventral thecal sac. Facets are intact. No significant overall spinal. canal stenosis. No significant foraminal narrowing. L5-S1: Diffuse disc bulging. Endplate osteophyte formation. Mild facet. arthropathy. No significant spinal canal narrowing. Mild to moderate. foraminal narrowing. MRI/Spine Lumbar (Routine). IMPRESSION: . Mild lumbar spondylosis changes as described. . Electronically Signed: Darrin Reyes MD. Objective/Function: PATIENT WAS SEEN TODAY FOR RE-ASSESSMENT OF PROGRESS TOWARD THE SET PT GOALS AND THE NEED FOR FURTHER PHYSICAL THERAPY VS READINESS FOR DISCHARGE. PATIENT APPEARS TO BE A GOOD CANDIDATE TO CONTINUE PT BASED ON PROGRESS MADE AND ROOM FOR FURTHER IMPROVEMENT. PATIENT AGREEABE. UPON EXAM TODAY: THIS PATIENT AMBULATES INDEP'LY INTO PT TODAY WITHOUT ANY ASSISTIVE DEVICES OR LOB. INCREASED TRUNK, HIP AND KNEE FLEXION. Sensory deficit: JUANA LE LIGHT TOUCH SENSATION GROSSLY INTACT AND SYMMETRICAL. ROM deficit: JUANA HIP FLEXOR, HS'S AND GASTROC SOLEUS TIGHTNESS. TIGHT JUANA HIP ROTATORS RIGHT HIP ER MORE LIMITED THAN LEFT AND LEFT HIP IR MORE LIMITED THAN RIGHT. Motor deficit: JUANA LE'S GROSSLY 5/5 WITH MMT'ING EXCEPT JUANA HIPS: R HIP 4-/5, LEFT 4/5. PATIENT ABLE TO WALK ON HIS TOES AND WALK ON HIS HEELS WITHOUT UE ASSIST. Dural Signs: NEGATIVE JUANA LE'S. Lumbar mvmt loss: flex - MOD - MILD R RIB HUMP. ext - MOD - NE. R SG - MOD. L SG - MOD. Core strength: FAIR. OTHER: PATIENT ABLE TO SLS WITHOUT UE ASSIST JUANA NOW. [ End ] Plan Plan: RESUME AQUATIC THERAPY 2X3 A WK X 4-6 WKS FOR R LE PAIN RELIEF, POSTURE CORRECTION/STRENGTHENING, INSTRUCTION IN APPROPRIATE BODY MECHANICS AND ACTIVITY MODIFICATIONS. DLS STARTING WITH A NEUTRAL SPINE PROGRESSING ROM TOLERATED. JUANA LE ROM, STRETCHING AND STRENGTHENING. HEP INSTRUCTION. FOCUS ON CORE AND JUANA HIP STRENGTH AND STABILITY. Balance/Gait/Functional tests - Balance/Special Test Scores Oswestry Low Back Score: 3 Goals Goal 1:: DECREASE C/O RIGHT LE SX'S Goal Time Frame: 4-6 Weeks Goal Progress: Progressing Goal 2:: IMPROVE PERSONAL CARE, LIFTING, WALKING, STANDING, SOCIAL LIFE, TRAVEL AND HOMEMAKING FUNCTION. Goal Time Frame: 4-6 Weeks Goal Progress: Progressing Goal 3:: INSTRUCT IN PROPHYLAXIS Goal Time Frame: 4-6 Weeks Goal Progress: Progressing Anticipated Interventions Patient/Client Instruction: Educate patient on: Condition, Plan of Care, Risk Factors For the Purpose of:: To improve self management Therapeutic Exercise to Include: Strength training, Body mechanics, Postural training, Flexibilty training, Neuromotor development, In an aquatic setting, Dynamic Lumbar Stabilization For the Purpose of:: To decrease pain, To increase ROM, To improve muscle performance and motor function, To increase tolerance to activity/condition/position, To improve ability of physical actions for home/community/work/leisure Cryotherapy (ice pack, ice massage): Yes Thermo therapy (hot pack): Yes Ultrasound (thermal/non thermal): Yes For the Purpose of:: To decrease pain, To improve nutrient delivery to tissue Please do not hesitate to contact me at [phone] by phone or if you have questions or concerns regarding this new plan of care! Sincerely, Tatyana Gonsalez, PT, Cert MDT
--- NOTE | 2022-11-11 08:43 | HP.PTDCSUM ---
It has been my pleasure to treat BENSON MINOR referred by OSVALDO APODACA, with the diagnosis of LUMBAR SPONDYLOSIS/OA R HIP for a total of 9 visit(s). Discharge Date: 11/11/22 Please see the following information for a summary of their discharge status. Subjective: PATIENT REPORTS HE HASN'T FELT THIS GOOD FOR YEARS. STATES HE CAN NOW BEND DOWN AND GET BACK UP AGAIN WITHOUT PAIN AND HE HASN'T BEEN ABLE TO DO THAT IN A LONG TIME. INTERMITTENT RIGHT HIP PAIN. PATIENT REPORTS COMPLIANCE WITH HEP BECAUSE IT REALLY HELPS. PATIENT REPORTS HE GOT A HP MEMBERSHIP TO BE ABLE TO USE THE POOL. PATIENT REPORTS BEING ABLE TO USE TECHNIQUES TAUGHT WHILE BEING VERY ACTIVE TO MANGAGE PAIN NOW. LE Pain Intensity (Out of 10): 0 Low Back Pain Intensity (Out of 10): 3 % Improvement: 90 Objective/Function: PATIENT WAS SEEN TODAY FOR RE-ASSESSMENT OF PROGRESS TOWARD THE SET PT GOALS AND THE NEED FOR FURTHER PHYSICAL THERAPY VS READINESS FOR DISCHARGE. PATIENT HAS DONE GREAT WITH PT AND ALL GOALS HAVE BEEN MET. HE IS APPROPRIATE FOR AND AGREEABLE TO DISCHARGE AND INDEP EX. UPON EXAM TODAY: Motor deficit: JUANA LE'S GROSSLY 5/5 WITH MMT'ING. Lumbar mvmt loss: flex - NIL. ext - MOD. R SG - WALLY. L SG - MOD. PATIENT DENIES PAIN WITH LUMBAR ROM TESTING ALL PLANES. Core strength: GOOD. OTHER: R HIP ER ROT REMAINS SIGNIFICANTLY LIMITED COMPARED TO LEFT. PATIENT IS DOING GENTLY HOME STRETCHING FOR THIS. PATIENT ABLE TO SLS ON EA LE WITHOUT GOOD BALANCE WITHOUT UE ASSIST AND WITHOUT PELVIC DROP. [ End ] Goal 1:: DECREASE C/O RIGHT LE SX'S Goal Progress: Goal Met Goal 2:: IMPROVE PERSONAL CARE, LIFTING, WALKING, STANDING, SOCIAL LIFE, TRAVEL AND HOMEMAKING FUNCTION. Goal Progress: Goal Met Goal 3:: INSTRUCT IN PROPHYLAXIS Goal Progress: Goal Met Plan: D/C If there are questions or concerns regarding this patient's physical therapy, please feel free to call me at [phone]. Thank you for the referral of this patient. Sincerely, Tatyana Gonsalez, PT, Cert MDT Balance/Gait/Functional tests - Balance/Special Test Scores Oswestry Low Back Score: 0
== END 2022-11-11 19:00 | disposition home or self-care (01) ==
LOC: PT 08:00
DX: M47.816 Spondylosis without myelopathy or radiculopathy, lumbar region (principal); M16.11 Unilateral primary osteoarthritis, right hip
CPT/HCPCS: 97112; 97113; 97162; 97164

== ENCOUNTER → 2023-01-22 | Outpatient (CLI) | payer MEDICARE, BC, SELFPAY | END | disposition home or self-care (01) | LOC: PSN 06:51 | PROVIDERS: PCP Internal Medicine; Referring Provider Nurse Practitioner Family; Visit Provider Nurse Practitioner Family | DX: I49.3 Ventricular premature depolarization (principal) | CPT/HCPCS: 93225; 93226 ==

== ENCOUNTER → 2023-02-11 | Outpatient (CLI) | payer MEDICARE, BC, SELFPAY ==
--- NOTE | 2023-02-11 07:00 | MRI_ITS ---
STUDY: MRI RIGHT KNEE REASON FOR EXAM: Male, 67 years old. Posterior knee pain. TECHNIQUE: Standardized fat and water weighted pulse sequences were obtained in all 3 orthogonal planes. COMPARISON: Right knee images dated October 09, 2022. FINDINGS: Near complete loss of substance of the medial meniscus with just a portion of the anterior and posterior horns remaining. Marked loss of articular cartilage of the medial femorotibial compartment with reactive subchondral bone marrow edema and osteophyte formation (sagittal series 4 images 5-12, coronal series 7 images 11-23). Mild MCL sprain (coronal series 7 image 18, Normal distal semimembranosus, gracilis and semitendinosus tendons. Undersurface oblique tear of the posterior horn of the lateral meniscus with loss of substance and truncation of the inner aspect of the posterior horn (sagittal series 4 images 16-22, coronal series 7 images 14-23). Moderate thinning of the articular cartilage of the lateral femorotibial compartment (coronal series 7 images 14-24). Normal lateral femoral condyle and tibial plateau. Normal proximal tibiofibular articulation. Normal lateral collateral (fibular) ligament. Normal popliteus tendon. Normal biceps femoris tendon. Normal anterior cruciate ligament (ACL). Normal posterior cruciate ligament (PCL). Lateral tilt and subluxation of the patella with minimal surface irregularity of the articular cartilage of the medial and lateral patellar facets (axial series 3 images 19-25). Normal medial and lateral patellar retinaculum. Normal quadriceps tendon. Normal patellar tendon. Normal Hoffa''s fat pad. Deep infrapatellar bursitis (sagittal series 4 image 20). Small joint effusion with medial plica (axial series 9 images 19-23). Moderate-sized popliteal cyst with rupture distally (axial series 9 images 8-23). Prepatellar subcutaneous soft tissue edema (sagittal series 4 images 16-19). Normal visualized osseous structures. MRI/Lower Ext Joint Only (Routine) IMPRESSION: Near complete loss of substance of the medial meniscus as described. Marked arthrosis of the medial femorotibial compartment. MCL sprain. Truncation of the posterior horn of the lateral meniscus with an undersurface oblique tear. Moderate thinning of the articular cartilage of the lateral femorotibial compartment. Lateral tilt and subluxation of the patella with minimal surface irregularity of the articular cartilage of the medial and lateral patellar facets. Prepatellar subcutaneous soft tissue edema. Small joint effusion with medial plica. Moderate-sized dissecting popliteal cyst which has ruptured distally. Electronically Signed: Rodolfo Basurto MD at 9:39 EDT ,
== END | disposition home or self-care (01) ==
LOC: MRI 07:42
PROVIDERS: PCP Internal Medicine; Referring Provider Orthopaedic Surgery Sports Medicine; Visit Provider Orthopaedic Surgery Sports Medicine
DX: M25.561 Pain in right knee (principal)
CPT/HCPCS: 73721

== ENCOUNTER → 2023-02-16 | Outpatient (CLI) | payer MEDICARE, BC, SELFPAY ==
--- NOTE | 2023-02-16 13:05 | RAD_ITS ---
STUDY: X-RAY - THORACIC SPINE REASON FOR EXAM: Male, 67 years old. Radiculopathy, thoracic region TECHNIQUE: 4 view(s) of the thoracic spine were obtained. COMPARISON: None. FINDINGS: Normal kyphosis of the thoracic spine. There is no substantial scoliosis. There is multilevel endplate spondylosis of the thoracic vertebrae. There is multilevel disc space narrowing of the thoracic spine. Allowing for summation artifact or may be left lower lobe atelectasis. RAD/Thoracic Spine 3 Views IMPRESSION: Multilevel degenerative change of the thoracic spine without visualized acute fracture. Limited study showing possible left lower lobe atelectasis. Could consider a follow-up chest x-ray when appropriate. Electronically Signed: Arely Lemus MD at 5:18 EDT ,
== END | disposition home or self-care (01) ==
LOC: RAD 12:53
PROVIDERS: PCP Internal Medicine; Referring Provider Anesthesiology Pain Medicine; Visit Provider Anesthesiology Pain Medicine
DX: M54.14 Radiculopathy, thoracic region (principal)
CPT/HCPCS: 72072

== ENCOUNTER → 2023-03-09 | Outpatient (CLI) | payer MEDICARE, BC, SELFPAY ==
--- NOTE | 2023-03-09 07:38 | MRI_ITS ---
STUDY: MRI THORACIC SPINE WITHOUT CONTRAST REASON FOR EXAM: Male, 67 years old. RADICULOPATHY, pain left shoulder blade x 4 years TECHNIQUE: Standardized fat and water weighted pulse sequences were obtained in the sagittal and axial planes. COMPARISON: X-ray of the thoracic spine dated February 16, 2023 FINDINGS: Normal kyphosis of the thoracic spine. There is no substantial scoliosis. T1-2, T2-3, T3-4, T4-5, T5-6, T6-7, T7-8, T8-9, T9-10, T10-11, T11-12: Multiple small to moderate-sized anterior and paravertebral endplate osteophytes throughout the thoracic spine. No posterior disc herniation or bulging or disc extrusions. No demonstrated cord compression. Mild multilevel disc space narrowing and disc desiccation. Normal central canal and intervertebral neural foramina at the corresponding levels. No demonstrated fracture or compression deformity or active marrow edema. Normal paraspinous soft tissues. Normal visualized thoracic cord. Normal conus medullaris that terminates at the T12-L1 level.. The soft tissue structures are unremarkable. MRI/Spine Thoracic (Routine) IMPRESSION: 1. Mild multilevel degenerative changes of the thoracic spine. No demonstrated foraminal or central canal stenosis. Electronically Signed: Hugo Payton MD at 9:20 EDT ,
== END | disposition home or self-care (01) ==
LOC: MRI 07:21
PROVIDERS: PCP Internal Medicine; Referring Provider Anesthesiology Pain Medicine; Visit Provider Anesthesiology Pain Medicine
DX: M54.16 Radiculopathy, lumbar region (principal)
CPT/HCPCS: 72146

== ENCOUNTER 2023-04-03 12:05 | Emergency (ER) | payer MEDICARE, BC, SELFPAY ==
[2023-04-03 12:06] VITALS: BP 135/96; PULSE 77; RESP 16; TEMP 36.3; O2SAT 97; BMI 26.6
--- NOTE | 2023-04-03 12:45 | CT_ITS ---
STUDY: CT ABDOMEN AND PELVIS WITH CONTRAST REASON FOR EXAM: Male, 67 years old. Left lower quadrant pain. Diverticulitis. RADIATION DOSAGE (If Supplied By Facility): CTDIvol = ( 17.36 ) mGy, DLP = ( 1015.98 ) mGycm TECHNIQUE: Transaxial images were obtained from the dome of the diaphragm to the symphysis pubis without oral contrast. IV 100mL Isovue-300 was administered. Sagittal and coronal images were reconstructed. Individualized dose optimization techniques were used for this CT. COMPARISON: Comparison is made with prior study dated May 01, 2022. FINDINGS: The visualized lung bases are unremarkable. The visualized portions of the heart are within normal limits. There is decreased attenuation of the liver consistent with steatosis. Normal gallbladder and extrahepatic biliary system. Normal spleen. Normal pancreas. Normal bilateral adrenal glands. Normal right kidney. Normal left kidney. Normal visualized stomach. Normal small intestine. There is diverticulosis, with thickening of the colon wall, and mild pericolonic inflammation changes consistent with mild degree of acute diverticulitis. The appendix is visualized and appears normal. Normal abdominal aorta. Normal inferior vena cava. Normal retroperitoneum. Normal urinary bladder. Metastases again, surgical clips are seen along the left pelvic sidewall. There is a right-sided inguinal hernia containing adipose tissue. There are degenerative changes of the visualized lumbar spine. CT/Abdomen/Pelvis W IV Cont ONLY IMPRESSION: Findings suggestive of a mild degree of sigmoid diverticulitis. This is not complicated. Fatty infiltration of the liver. Electronically Signed: Dillon Alarcon MD at 14:07 EDT ,
--- NOTE | 2023-04-03 12:47 | EDS_ITS ---
HPI History of Present Illness Chief Complaint: Abd Pain Informant: patient Narrative Narrative: 67-year-old male presenting to the emergency department chief complaint of abdominal pain. Patient states he has a history of diverticulitis. This week he has had diarrhea. On Thursday he traveled to [place] for a golf outing. He states that the abdominal discomfort was significant. Seems that the diarrhea has improved with home treatment of Imodium and Pepto-Bismol. However the abdominal pain located in the suprapubic and left lower quadrant region has continued. He denies any fevers. No melena. He notes that he has had a history of kidney stones and this feels different. Had prior C. difficile infection in the past. [facility] Medical History Anxiety Anxiety and depression Diverticulitis Essential (primary) hypertension GERD (gastroesophageal reflux disease) History of palpitations Hyperlipidemia Hypothyroidism Left shoulder pain Osteoarthritis of right hip Osteoarthritis of right knee Premature ventricular contractions Prostate cancer screening Right hip pain Right knee pain Right ureteral calculus Scapulothoracic bursitis of left shoulder Synovial cyst of popliteal space [Francis], right knee Home Medications cholecalciferol (vitamin D3) 50 mcg (2,000 unit) capsule 50 mcg PO DAILY 05/14/21 [History Last Taken Unknown] omeprazole 20 mg capsule,delayed release 10 mg PO DAILY 05/14/21 [History Last Taken Unknown] OSTEO BIO FLEX PO 10/11/21 [History Last Taken Unknown] atorvastatin 10 mg tablet 10 mg PO QHS #90 tabs 09/22/22 [Rx Last Taken Unknown] escitalopram oxalate 10 mg tablet 10 mg PO DAILY #90 tabs 09/22/22 [Rx Last Taken Unknown] metoprolol succinate 50 mg tablet,extended release 24 hr 50 mg PO DAILY #90 tabs 09/22/22 [Rx Last Taken Unknown] lisinopril 20 mg tablet 20 mg PO DAILY #90 tabs 10/23/22 [Rx Last Taken Unknown] probiotic PO 1XD 10/23/22 [History Last Taken Unknown] etodolac 500 mg tablet 500 mg PO BID #60 tabs 03/11/23 [Rx Last Taken Unknown] ciprofloxacin HCl 500 mg tablet (Cipro) 500 mg PO BID #14 tabs 04/03/23 [Rx Last Taken Unknown] metronidazole 500 mg tablet 500 mg PO TID #21 tabs 04/03/23 [Rx Last Taken Unknown] Allergy/AdvReac Type Severity Reaction Status Date / Time clarithromycin [From Biaxin] Allergy Unknown Verified 04/03/23 12:07 diphenhydramine Allergy Unknown Verified 04/03/23 12:07 [From Benadryl] sulfamethoxazole Allergy unknown Verified 04/03/23 12:07 [From Bactrim] tamsulosin [From Flomax] Allergy unknown Verified 04/03/23 12:07 trimethoprim [From Bactrim] Allergy unknown Verified 04/03/23 12:07 Sulfa (Sulfonamide AdvReac Rash Verified 04/03/23 12:07 Antibiotics) Family History Father Cardiac pacemaker in situ Other Breast cancer Cancer Hypertension Surgical History History of cystoscopy Social History Smoking Status: Never smoker alcohol intake: never substance use type: does not use what type of physical activity do you participate in: none ROS ROS ED Constitutional Constitutional ED: Denies chills, fever(s) or weight loss Eyes Eyes: Denies change in vision or diplopia ENT ENT ED: Denies ear pain, rhinorrhea or sore throat Cardiovascular Cardiovascular: Denies chest pain, orthopnea, palpitations or racing heartbeat Respiratory/Chest Respiratory/Chest: Denies cough, dyspnea or orthopnea Gastrointestinal Gastrointestinal: Reports abdominal pain and diarrhea; Denies constipation, melena, nausea or vomiting Genitourinary Genitourinary ED: Denies dysuria, hematuria or urinary frequency Musculoskeletal Musculoskeletal: Denies arthralgias or myalgias Integumentary Denies abscess or rash Neurologic Neurologic: Denies headache(s) or weakness Psychiatric Psychiatric: Denies anxiety, depression, suicidal ideation or suicidal thoughts Endocrine Endocrinology: Denies polydipsia, polyphagia or polyuria Allergic/Immunologic Allergic/Immunologic ED: Denies mouth swelling, tongue swelling or urticaria EXAM Physical Exam Const Vital Signs: 04/03/23 12:06 04/03/23 14:52 Temperature 97.3 F L Temperature Source Temporal Pulse Rate 77 Respiratory Rate 16 16 Blood Pressure 135/96 H Blood Pressure Mean 109 Pulse Ox 97 Positive well nourished and well developed General Appearance ED: well developed HEENT Reports normocephalic, head/scalp atraumatic and moist mucous membranes Eyes PERRL and EOMs intact bilaterally Neck no lymphadenopathy, supple and no JVD Resp normal respiratory effort and clear to auscultation bilaterally Cardio regular rate, regular rhythm and no murmurs GI Palpation: soft and tender LLQ and suprapubic; Negative for guarding or rebound tenderness present Back/Spine no CVA tenderness and normal ROM Extremity normal to inspection General Extremety ED: Negative for edema General Extremity: Negative for edema Neuro oriented x3 and CN's II-XII intact bilaterally Sensorium / Orientation: alert Motor Exam: strength 5/5 throughout Psych mental status grossly normal Mood & Affect: Negative for depressed or tearful Skin no rashes or lesions noted and no wounds MDM MDM MDM Narrative Medical decision making narrative: White count 9.7. Urinalysis is negative. CT of the abdomen pelvis with some mild sigmoid diverticulitis. This is uncomplicated. Patient will be treated with Cipro and Flagyl as he states that the Augmentin is what he was on when he had C. difficile infection. I advised him that he should follow-up with primary care or gastroenterology. Patient notes understand the plan as well as return instructions Lab Data Attestation: I reviewed the patient's lab results. Labs: Laboratory Results - last 24 hr 04/03/23 04/03/23 12:51 13:25 WBC 9.7 RBC 5.12 Hgb 15.1 Hct 45.8 MCV 89.5 MCH 29.5 MCHC 33.0 RDW Std Deviation 40.3 RDW Coeff of Maria A 12.3 Plt Count 189 MPV 10.3 Immature Gran % (Auto) 0.200 Neut % (Auto) 71.2 H Lymph % (Auto) 17.5 L [place] % (Auto) 9.6 Eos % (Auto) 1.0 Baso % (Auto) 0.5 Absolute Neuts (auto) 6.9 Absolute Lymphs (auto) 1.70 Nucleated RBC % 0 Sodium 138 Potassium 4.3 Chloride 106 Carbon Dioxide 31.0 Anion Gap 1 L BUN 13 Creatinine 0.83 Estim Creat Clear Calc 82.96 Est GFR (MDRD) Af Amer 119 Est GFR (MDRD) Non-Af 98 BUN/Creatinine Ratio 15.6 Glucose 95 Calcium 9.0 Urine Color Straw Urine Clarity Clear Urine pH 6.5 Ur Specific [place] 1.010 Urine Protein Negative Urine Glucose (UA) Normal Urine Ketones Negative Urine Occult Blood Negative Urine Nitrite Negative Urine Bilirubin Negative Urine Urobilinogen Normal Ur Leukocyte Esterase Negative Urine RBC 0 SEEN Urine WBC 0 SEEN Ur Squamous Epith Cells 0 SEEN Urine Bacteria 0 SEEN Urine Mucus 0 SEEN Radiography Diagnostic Testing: Clinical Impression(s) from Imaging Studies Abdomen/Pelvis CT 04/03/23 12:45 IMPRESSION: Findings suggestive of a mild degree of sigmoid diverticulitis. This is not complicated. Fatty infiltration of the liver. Electronically Signed: Dillon Alarcon MD at 14:07 EDT , Discharge Plan Triage Chief Complaint: Abd Pain ED Provider: Wild Stover Dx/Rx/DC Orders Clinical Impression: Diverticulitis, Abdominal pain Instructions: Diverticulitis Dc Prescriptions: New ciprofloxacin HCl [Cipro] 500 mg tablet 500 mg PO BID Qty: 14 0RF metronidazole 500 mg tablet 500 mg PO TID Qty: 21 0RF No Action cholecalciferol (vitamin D3) 50 mcg (2,000 unit) capsule 50 mcg PO DAILY omeprazole 20 mg capsule,delayed release(DR/EC) 10 mg PO DAILY OSTEO BIO FLEX PO probiotic PO 1XD lisinopril 20 mg tablet 20 mg PO DAILY Qty: 90 1RF etodolac 500 mg tablet 500 mg PO BID Qty: 60 0RF atorvastatin 10 mg tablet 10 mg PO QHS Qty: 90 3RF escitalopram oxalate 10 mg tablet 10 mg PO DAILY Qty: 90 3RF metoprolol succinate 50 mg tablet extended release 24 hr 50 mg PO DAILY Qty: 90 3RF Primary Care Provider: Jessica Jordan Referrals: Jessica Jordan MD [Primary Care Provider] - As Needed Friend,DO Young [Med Staff - Active Staff] - (Call to arrange follow-up with gastroenterology) Disposition Disposition: Home, Self Care
[2023-04-03 13:16] LABS: Absolute Neutrophil Count 6.9 X10^3/uL (2.0-7.7); Basophil# 0.05 X10^3/uL; Basophil% 0.5 % (0-1); Hematocrit 45.8 % (40-54); Hemoglobin 15.1 g/dL (13.0-16.5); Lymphocyte % 17.5 % (19-41); Mean Corpuscular Hgb 29.5 pg (27.0-32.0); Mean Corpuscular Volume 89.5 fL (80-94); Mean Platelet Vol. 10.3 fl (6.2-12.0); Monocyte# 0.93 X10^3/uL; Monocyte% 9.6 % (0-10); NRBC Flagged by Analyzer 0 % (0-5); Neutrophil # 6.89 X10^3/uL (2.7-7.7); Neutrophil % 71.2 % (47-70); Platelet Count 189 K/mm3 (150-450); RBC Distribution Width CV 12.3 % (11.6-14.6); RBC Distribution Width SD 40.3 fl (35.1-43.9); Red Blood Count 5.12 M/mm3 (4.6-6.2); White Blood Count 9.7 K/mm3 (4.4-11.0)
[2023-04-03 13:25] LABS: Anion Gap 1 (5-15); BUN 13 mg/dL (7-18); BUN/Creat Ratio 15.6 RATIO (10-20); Chloride 106 mmol/L (98-107); Creatinine, Serum 0.83 mg/dL (0.70-1.30); EST Glomerular Filtration Rate 98 mL/min (>60); Est Glom Filt Rate - Afr Amer 119 mL/min (>60); Estimated Creatinine Clearance 82.96 ml/min; Glucose 95 mg/dL (74-106); Potassium 4.3 mmol/L (3.5-5.1); Sodium Level 138 mmol/L (136-145)
[2023-04-03 13:26] LABS: Bacteria 0 SEEN /hpf (None Seen); Mucous, Urine 0 SEEN /hpf (<or=2+); Red Blood Cells-Urine 0 SEEN /hpf (0-5); Squamous Epithelial Cells - UA 0 SEEN /hpf (0-5); White Blood Cells 0 SEEN /hpf (0-5)
[2023-04-03] MEDS: Ketorolac 30 MG/ML Syringe IV (13:34)
[2023-04-03 14:00] LABS: Color, Urine Straw (Yellow); Glucose, Dipstick Normal (Normal); Ketone-Dipstick Negative (Negative); Leukocyte Esterase-Dipstick Negative /ul (Negative); Nitrite-Dipstick Negative (Negative); Occult Blood-Urine Negative /ul (Negative); Protein-Dipstick Negative (Negative); Urine Bilirubin Dipstick Negative (Negative); Urine Clarity Clear (Clear); Urine Urobilinogen Normal (Normal); Urine pH 6.5 (5.0 - 8.0)
[2023-04-03 14:52] VITALS: RESP 16
== END 2023-04-03 15:00 | disposition home or self-care (01) ==
PROVIDERS: Emergency Provider Emergency Medicine; PCP Internal Medicine; Visit Provider Emergency Medicine
DX: K57.32 Diverticulitis of large intestine without perforation or abscess without bleeding (principal); E78.5 Hyperlipidemia, unspecified; I10 Essential (primary) hypertension; R10.9 Unspecified abdominal pain; K21.9 Gastro-esophageal reflux disease without esophagitis; F41.8 Other specified anxiety disorders
CPT/HCPCS: 74177; 80048; 81001; 85025; 96374; 99283; Q9967

== ENCOUNTER 2023-04-26 11:52 | Emergency (ER) | payer MEDICARE, BC, SELFPAY ==
[2023-04-26 11:53] VITALS: BP 151/95; PULSE 134; RESP 18; TEMP 36; O2SAT 97
--- NOTE | 2023-04-26 12:03 | CT_ITS ---
HISTORY: lower abdominal pain. TECHNIQUE: Helically acquired images were obtained of the abdomen and pelvis after the intravenous administration of 100mL Isovue-370. A radiation dose optimization technique was used for this scan. 420 images. COMPARISON: 04/03/2023. FINDINGS: LOWER CHEST: Lung bases clear. BOWEL: Bowel including appendix nondilated. Colonic diverticulosis with mild perisigmoid stranding and wall thickening. PERITONEUM: No free air, pericolonic fluid collection, or significant ascites. LIVER: No enhancing mass. GALLBLADDER/BILIARY TREE: Gallbladder present. SPLEEN/PANCREAS/ADRENAL GLANDS: Homogeneous and nonenlarged. KIDNEYS: No hydronephrosis. Stable subcentimeter left upper pole cyst. VESSELS: No abdominal aortic aneurysm. PELVIC ORGANS: Unremarkable. Left pelvic surgical clips ABDOMINAL WALL: Fat-containing right inguinal hernia. BONES: Degenerative change. CT/Abdomen/Pelvis W IV Cont ONLY IMPRESSION: Mild left lower quadrant inflammation, likely mild acute sigmoid diverticulitis. Electronically Signed: Jacque Harris MD at 13:09 EDT ,
--- NOTE | 2023-04-26 12:04 | EDS_ITS ---
HPI HPI - GI History of Present Illness Chief Complaint: Abd Pain Informant: patient Abdominal Pain/Flank Pain Onset: Yesterday Narrative Narrative: Lower sharp abdominal pain started yesterday followed by diarrhea all night no blood or melena, he took some Pepto-Bismol and subsequently was nauseated and vomited once, no blood. Pain persisted this morning and is constant without urinary symptoms or radiation or migration, no back pain, and 3 weeks ago he had similar symptoms that were diagnosed as diverticulitis and treated successfully as an outpatient, he feels like this may be the same thing again so he presents to the emergency department. No history of any abdominal surgeries except for having a kidney stone surgically removed. [facility] Medical History Anxiety Anxiety and depression Diverticulitis Essential (primary) hypertension GERD (gastroesophageal reflux disease) History of palpitations Hyperlipidemia Hypothyroidism Left shoulder pain Osteoarthritis of right hip Osteoarthritis of right knee Premature ventricular contractions Prostate cancer screening Right hip pain Right knee pain Right ureteral calculus Scapulothoracic bursitis of left shoulder Synovial cyst of popliteal space [Francis], right knee Home Medications cholecalciferol (vitamin D3) 50 mcg (2,000 unit) capsule 50 mcg PO DAILY 05/14/21 [History Last Taken Unknown] omeprazole 20 mg capsule,delayed release 10 mg PO DAILY 05/14/21 [History Last Taken Unknown] atorvastatin 10 mg tablet 10 mg PO QHS #90 tabs 09/22/22 [Rx Last Taken Unknown] escitalopram oxalate 10 mg tablet 10 mg PO DAILY #90 tabs 09/22/22 [Rx Last Taken Unknown] metoprolol succinate 50 mg tablet,extended release 24 hr 50 mg PO DAILY #90 tabs 09/22/22 [Rx Last Taken Unknown] probiotic PO 1XD 10/23/22 [History Last Taken Unknown] lisinopril 20 mg tablet 30 mg PO DAILY 04/15/23 [History Last Taken Unknown] moxifloxacin 400 mg tablet 400 mg PO DAILY 10 days #10 tabs 04/26/23 [Rx Last Taken Unknown] naproxen 500 mg tablet 500 mg PO BID #10 tabs 04/26/23 [Rx Last Taken Unknown] Allergy/AdvReac Type Severity Reaction Status Date / Time clarithromycin [From Biaxin] Allergy Unknown Verified 04/26/23 11:52 diphenhydramine Allergy Unknown Verified 04/26/23 11:52 [From Benadryl] sulfamethoxazole Allergy unknown Verified 04/26/23 11:52 [From Bactrim] tamsulosin [From Flomax] Allergy unknown Verified 04/26/23 11:52 trimethoprim [From Bactrim] Allergy unknown Verified 04/26/23 11:52 Sulfa (Sulfonamide AdvReac Rash Verified 04/26/23 11:52 Antibiotics) Family History Father Cardiac pacemaker in situ Other Breast cancer Cancer Hypertension Surgical History History of cystoscopy Social History Smoking Status: Never smoker alcohol intake: never substance use type: does not use what type of physical activity do you participate in: none ROS ROS ED Constitutional Constitutional ED: Reports chills; Denies fever(s) Eyes Eyes: Denies change in vision or diplopia ENT ENT ED: Denies rhinorrhea or sore throat Cardiovascular Cardiovascular: Denies chest pain or palpitations Respiratory/Chest Respiratory/Chest: Denies cough or dyspnea Gastrointestinal Gastrointestinal: Reports abdominal pain, diarrhea, nausea and vomiting; Denies hematemesis, hematochezia or melena Genitourinary Genitourinary ED: Denies dysuria or hematuria Musculoskeletal Musculoskeletal: Denies back pain or neck pain Integumentary Denies abscess or rash Neurologic Neurologic: Denies headache(s), paresthesias or weakness Psychiatric Psychiatric: Denies anxiety or suicidal thoughts EXAM Physical Exam Const Vital Signs: 04/26/23 11:53 Temperature 96.8 F L Temperature Source Temporal Pulse Rate 134 H Respiratory Rate 18 Blood Pressure 151/95 H Blood Pressure Mean 113 Pulse Ox 97 Oxygen Delivery Method Room Air Positive well nourished and well developed General Appearance ED: well developed and NAD HEENT Reports moist mucous membranes normocephalic and atraumatic Eyes PERRL and EOMs intact bilaterally Neck full ROM and supple Resp normal respiratory effort and clear to auscultation bilaterally Cardio regular rate, regular rhythm and no murmurs GI non-distended GI Narrative: Mild tenderness throughout lower abdomen without guarding or rebound, no pulsatile mass. Auscultation: normoactive bowel sounds Palpation: soft Back/Spine no CVA tenderness General Back: other FROM Extremity normal to inspection General Extremety ED: Negative for edema, pulses abnormal or tenderness General Extremity: Negative for edema or pulses abnormal Neuro oriented x3, CN's II-XII intact bilaterally and no sensory deficits noted Sensorium / Orientation: awake and alert Motor Exam: strength 5/5 throughout Skin no rashes or lesions noted and no wounds MDM MDM MDM Narrative Medical decision making narrative: Labs and CT consistent with diverticulitis. I reviewed the images and the report of the CT and I agree with it. No sign of anything that requires urgent surgical consultation but I discussed with Dr. Lamar with surgery due to the fact that the patient just got over diverticulitis and as the patient describes, he actually had to have more antibiotics in order to get the pain to go away, for total of 14 days, and are recurred fairly quickly after that. I offered admission the patient really does not feel like he needs to stay based on how he feels, and Dr. Lamar does not necessarily recommended, just changing the antibiotics. Given admission was considered, we will discharge him home with outpatient therapy. I discussed Augmentin with him he is not amoxicillin allergic but he does not tolerate it well due to stomach upset so we will put him on moxifloxacin after dose of Zosyn here in the ER and some anti- inflammatories as well. Dr. Lamar that he can follow-up with him in the office. Lab Data Attestation: I reviewed the patient's lab results. Labs: Laboratory Results - last 24 hr 04/26/23 12:06 WBC 15.0 H RBC 5.18 Hgb 15.6 Hct 46.1 MCV 89.0 MCH 30.1 MCHC 33.8 RDW Std Deviation 41.3 RDW Coeff of Maria A 12.5 Plt Count 208 MPV 10.5 Immature Gran % (Auto) 0.900 Neut % (Auto) 90.9 H Lymph % (Auto) 3.2 L [place] % (Auto) 4.7 Eos % (Auto) 0.0 Baso % (Auto) 0.3 Absolute Neuts (auto) 13.7 H Absolute Lymphs (auto) 0.48 L Nucleated RBC % 0 Differential Comment SCANNED Sodium 136 Potassium 3.7 Chloride 102 Carbon Dioxide 27.0 Anion Gap 7 BUN 21 H Creatinine 1.01 Est GFR (MDRD) Af Amer 95 Est GFR (MDRD) Non-Af 79 BUN/Creatinine Ratio 20.8 H Glucose 167 H Calcium 9.3 Radiography Diagnostic Testing: Clinical Impression(s) from Imaging Studies Abdomen/Pelvis CT 04/26/23 12:03 IMPRESSION: Mild left lower quadrant inflammation, likely mild acute sigmoid diverticulitis. Electronically Signed: Jacque Harris MD at 13:09 EDT , Management Discussion w/another healthcare provider: [employer] (Amarilys Lamar) Discharge Plan Triage Chief Complaint: Abd Pain ED Provider: Santana Lopez Dx/Rx/DC Orders Clinical Impression: Diverticulitis of sigmoid colon Instructions: Diverticulitis Dc Prescriptions: New naproxen 500 mg tablet 500 mg PO BID Qty: 10 0RF moxifloxacin 400 mg tablet 400 mg PO DAILY 10 Days Qty: 10 0RF Continued cholecalciferol (vitamin D3) 50 mcg (2,000 unit) capsule 50 mcg PO DAILY omeprazole 20 mg capsule,delayed release(DR/EC) 10 mg PO DAILY lisinopril 20 mg tablet 30 mg PO DAILY atorvastatin 10 mg tablet 10 mg PO QHS Qty: 90 3RF escitalopram oxalate 10 mg tablet 10 mg PO DAILY Qty: 90 3RF metoprolol succinate 50 mg tablet extended release 24 hr 50 mg PO DAILY Qty: 90 3RF Discontinued ciprofloxacin HCl [Cipro] 500 mg tablet 500 mg PO BID Qty: 8 0RF metronidazole 500 mg tablet 500 mg PO TID Qty: 12 0RF No Action probiotic PO 1XD Primary Care Provider: Jessica Jordan Referrals: Jessica Jordan MD [Primary Care Provider] - Anjel Lamar MD [Med Staff - Active Staff] - 1-2 Weeks Disposition Disposition: Home, Self Care
[2023-04-26] MEDS: Ondansetron 4 MG/2 ML Vial IV (12:14)
[2023-04-26] MEDS: 0.9% Normal Saline (1000mL) 1,000 ML 1000 ML IV (12:14)
[2023-04-26 12:25] LABS: Absolute Lymphocyte Count 0.48 X10^3/uL (0.83-4.51); Absolute Neutrophil Count 13.7 X10^3/uL (2.0-7.7); Basophil# 0.04 X10^3/uL; Basophil% 0.3 % (0-1); Hematocrit 46.1 % (40-54); Hemoglobin 15.6 g/dL (13.0-16.5); Lymphocyte # 0.48 X10^3/ul (0.83-4.51); Lymphocyte % 3.2 % (19-41); Mean Corp Hgb Conc 33.8 g/dL (32-36); Mean Corpuscular Hgb 30.1 pg (27.0-32.0); Mean Platelet Vol. 10.5 fl (6.2-12.0); Monocyte% 4.7 % (0-10); NRBC Flagged by Analyzer 0 % (0-5); Neutrophil # 13.66 X10^3/uL (2.7-7.7); Neutrophil % 90.9 % (47-70); POSITIVE DIFFERENTIAL YES; Platelet Count 208 K/mm3 (150-450); RBC Distribution Width CV 12.5 % (11.6-14.6); RBC Distribution Width SD 41.3 fl (35.1-43.9); Red Blood Count 5.18 M/mm3 (4.6-6.2)
[2023-04-26 12:27] LABS: Differential Indicated SCAN CRITERIA MET
[2023-04-26 12:28] LABS: Anion Gap 7 (5-15); BUN 21 mg/dL (7-18); BUN/Creat Ratio 20.8 RATIO (10-20); Calcium,Total 9.3 mg/dL (8.5-10.1); Chloride 102 mmol/L (98-107); Creatinine, Serum 1.01 mg/dL (0.70-1.30); EST Glomerular Filtration Rate 79 mL/min (>60); Est Glom Filt Rate - Afr Amer 95 mL/min (>60); Glucose 167 mg/dL (74-106); Potassium 3.7 mmol/L (3.5-5.1); Sodium Level 136 mmol/L (136-145)
[2023-04-26 12:47] LABS: Differential Comment SCANNED
[2023-04-26 13:19] LABS: Bacteria 0 SEEN /hpf (None Seen); Mucous, Urine 0 SEEN /hpf (<or=2+); Red Blood Cells-Urine 0 SEEN /hpf (0-5); Squamous Epithelial Cells - UA 0 SEEN /hpf (0-5); White Blood Cells 0 SEEN /hpf (0-5)
[2023-04-26 13:34] LABS: Glucose, Dipstick 50 mg/dl (Normal); Ketone-Dipstick Negative (Negative); Leukocyte Esterase-Dipstick Negative /ul (Negative); Nitrite-Dipstick Negative (Negative); Occult Blood-Urine 10 /ul (Negative); Protein-Dipstick 15 mg/dl (Negative); Specific Gravity, Urine 1.025 (1.002-1.030); Urine Bilirubin Dipstick Negative (Negative); Urine Urobilinogen Normal (Normal)
[2023-04-26 13:39] LABS: Color, Urine Yellow (Yellow); Urine Clarity Clear (Clear)
[2023-04-26] MEDS: Ketorolac 15 MG/ML Vial IV (14:31)
[2023-04-26] MEDS: Piperacil/Tazobactam 3.375 GM in 0.9% Normal Saline (50mL MB+) 50 ML IV (14:31)
[2023-04-26 14:42] VITALS: BMI 31.0
[2023-04-26 14:43] VITALS: BP 138/97; PULSE 113; RESP 18
== END 2023-04-26 15:34 | disposition home or self-care (01) ==
PROVIDERS: Emergency Provider Emergency Medicine; PCP Internal Medicine; Visit Provider Emergency Medicine
DX: K57.32 Diverticulitis of large intestine without perforation or abscess without bleeding (principal); E78.5 Hyperlipidemia, unspecified; I10 Essential (primary) hypertension; K21.9 Gastro-esophageal reflux disease without esophagitis; Z79.899 Other long term (current) drug therapy; F41.8 Other specified anxiety disorders
CPT/HCPCS: 74177; 80048; 81001; 85025; 96361; 96365; 96375; 99282; J7030; Q9967; A4216; J2405

== ENCOUNTER → 2023-05-14 | Outpatient (CLI) | payer MEDICARE, BC, SELFPAY ==
[2023-05-14 15:49] LABS: Vitamin B12 447 pg/mL (211-911)
[2023-05-14 15:57] LABS: T4 Free Direct 0.85 ng/dL (0.76-1.46)
== END | disposition home or self-care (01) ==
LOC: BFHLAB 13:52
PROVIDERS: PCP Family Medicine; Referring Provider Family Medicine; Visit Provider Family Medicine
DX: Z12.5 Encounter for screening for malignant neoplasm of prostate (principal); E03.9 Hypothyroidism, unspecified; R53.83 Other fatigue
CPT/HCPCS: 36415; 82607; 84153; 84403; 84439; 84443; G0103

== ENCOUNTER 2023-05-25 10:00 | Outpatient (RCR) | payer MEDICARE, BC, SELFPAY ==
--- NOTE | 2023-04-22 17:04 | HP.PTEVAL ---
Patient's Visit Information Visit Information Visit Information: BENSON MINOR is a 67 year old M referred to Physical Therapy by Dr. Anjel Pretty DO with a diagnosis of UNILATERAL PRIMARY OSTEOARTHRITIS ,RIGHT KNEE ,INTERVERTEBRAL DISC ,LS. Date of Evaluation: 04/22/23 Physical Therapist: Tano Owusu, PT, Cert MDT, OCS Visit Plan Frequency: 2x /Week Duration: 4 Weeks Plan: PT INTERVTIONS WITH AQUATIC THERAPY WITH ROM/FLEXABLITY RIGHT KNEE ,DLS ,POSTURAL EX'S ,DLS AND POSTURAL EX'S Subjective Subjective: This 67 y/o male presents to physical therapy with right knee pain an lumbar pain. Patient has had right knee pain and right lumbar pain with radicular symptoms in hamstrings all summer. Symptom progressively worse with back pain without predisposing problems or injury. Seen DR Chu ortho had x-rays DJD ,MRI showed severe medial arthrosis ,mod thinning of meniscus, posterior /lateral meniscus tear, lumbar MRI multiple bulging disc and cortisone injection knee. Patient seen Dr. Santos thus had pain management with lumbar epidural injection just didn't help. Aggravating factors back working outside and yard work, sitting/driving . Alleviating factors rest. Denies paresthesia/tingling-. Bowel/bladder-. Coughing/sneezing-. Sleeping okay. Location posterior. Aggravating factors kneeling/squatting/stairs. Alleviating factors rest and injection. No medication. Patient had x-rays knee DJD medial. Patient has no problems sleeping. VOCATION: retired SOCIAL: Pain Right Lower Extremity: Pain Intensity (Out of 10): 2 Pain Intensity Range: 10 Right Knee: Pain Intensity (Out of 10): 6 Pain Intensity Range: 10 Objective Objective: POSTURE: mild forward posture ,knee varum PALAPTION: tender medial compartment knee NEURO: denies paresthesia/tingling ,reflexes L3-4 ,L4-5,L5-S1 1/3 GAIT: ambulates with antalgic gait right side AROM: supine knee flexion 2-90 degrees FLEXABLITY: hamstrings 4/5 ,quads 4/5 ,hip flexion 4-/5 ,ankle 5/5 LUMBAR ROM; flexion min loss ,extension mod loss ,side glides mod loss FLEXABLITY: hamstrings min loss Special Tests L/S Slump test left side: Negative L/S Slump test right side: Negative L/S Left Straight Leg Raise: Negative Lumbar Standing: Flexion - Mechanical Response: No effect Lumbar Standing: Flexion - Symptoms During Testing: No effect Lumbar Standing: Flexion - Symptoms After Testing: No effect Lumbar Standing: Extension - Mechanical Response: No effect Lumbar Standing: Extension - Symptoms During Testing: No effect Lumbar Standing: Extension - Symptoms After Testing: No effect Lumbar Standing: Right Side Glides - Mechanical Response: No effect Lumbar Standing: Right Side [place] - Symptoms During Testing: No effect Lumbar Standing: Right Side [place] - Symptoms After Testing: No effect Lumbar Standing: Left Side [place] - Mechanical Response: No effect Lumbar Standing: Left Side [place] - Symptoms During Testing: No effect Lumbar Standing: Left Side [place] - Symptoms After Testing: No effect Lumbar Lying: Flexion - Mechanical Response: No effect Lumbar Lying: Flexion - Symptoms During Testing: No effect Lumbar Lying: Extension - Symptoms During Testing: Increases Lumbar Lying: Extension - Symptoms After Testing: No worse R Knee Betty - Meniscus: Positive R Knee Valgus - MCL: Negative R Knee Varus - LCL: Negative R Knee Patellar Apprehension - PFS: Negative R Knee Patellar Grind - PFS: Negative Balance/Special Test Scores Lower Extremity Functional Score: 32 Goals Goal 1:: I with Aquatic therapy program Goal Time Frame: 4-6 Weeks Goal 2:: Patient to improve AROM supine knee flexion by 10-15 degrees to improve stairs Goal Time Frame: 4-6 Weeks Goal 3:: Patient improve LFES score by 5-10 points to improve QOL Goal Time Frame: 4-6 Weeks Goal 4:: Patient to normalize gait by 80% to improve function. Goal Time Frame: 4-6 Weeks Goal 5:: Patient to improve lumbar ROM for function of recovery to lift properly for ADLS Goal Time Frame: 4-6 Weeks Goal 6:: Patient to demonstrate 50% improvement with ROM and strength to improve function. Goal Time Frame: 4-6 Weeks Rehabilitation Potential Physical Therapy Diagnosis: Patient has severe loss of ROM knee and weakness due to medial compartment joint severe DJD , along with minor back issues thus will benefit from skilled PT with Aquatics Rehabilitation Potential: Good Anticipated Interventions Patient/Client Instruction: Educate patient on: Condition and Plan of Care For the Purpose of:: To decrease pain, To increase ROM, To improve muscle performance and motor function, To increase tolerance to activity/condition/position, To improve ability of physical actions for home/community/work/leisure, To improve health of tissue, To decrease soft tissue restriction and To increase flexibility/ROM Therapeutic Exercise to Include: Strength training, Postural training, Flexibilty training, In an aquatic setting, Active ROM and Dynamic Lumbar Stabilization Comment: BLE QUADSHAMS/HIP For the Purpose of:: To decrease pain, To increase ROM, To improve muscle performance and motor function, To increase tolerance to activity/condition/position, To improve performance and independence with ADL's, To improve ability of physical actions for home/community/work/leisure, To improve health of tissue, To decrease soft tissue restriction and To increase flexibility/ROM Text: Thank you for the opportunity to evaluate your patient. For Medicare and Medicare HMO plans, please review the plan of care and approve it. It will need to be FAXED BACK to us at [phone] for Medicare purposes. For Medicare only, by signing this I certify the plan of care. Please let me know if there are questions or concerns regarding this plan of care. Physician Signature: Date:
--- NOTE | 2023-05-25 10:20 | HP.PTDCSUM ---
Discharge Summary D/C summary: It has been my pleasure to treat BENSON MINOR referred by Dr. Anjel Pretty DO, with the diagnosis of UNILATERAL PRIMARY OSTEOARTHRITIS ,RIGHT KNEE ,INTERVERTEBRAL DISC ,LS for a total of 8 visit(s). Discharge Date: 05/25/23 Please see the following information for a summary of their discharge status. Subjective Subjective: Patient doing well . Plan to do PT on own Patient is able to bend and lift ,walk better Patient is able to alternating with steps Pain Right Lower Extremity: Pain Intensity (Out of 10): 0 Right Knee: Pain Intensity (Out of 10): 0 Overall Improvement % Improvement: 90 Objective Objective/Function: POSTURE: mild forward posture ,knee varum PALAPTION: tender medial compartment knee NEURO: denies paresthesia/tingling ,reflexes L3-4 ,L4-5,L5-S1 1/3 GAIT: ambulates with normal johanna AROM: supine knee flexion 0-120 degrees right ASCEND/DESEND STAIRS ALTERNATING FLEXABLITY: hamstrings 4/5 ,quads 4/5 ,hip flexion 4-/5 ,ankle 5/5 LUMBAR ROM; flexion min loss ,extension mod loss ,side glides mod loss FLEXABLITY: hamstrings min loss Goals Goal 1:: I with Aquatic therapy program Goal Progress: Goal Met Goal 2:: Patient to improve AROM supine knee flexion by 10-15 degrees to improve stairs Goal Progress: Goal Met Goal 3:: Patient improve LFES score by 5-10 points to improve QOL Goal Progress: Goal Met Goal 4:: Patient to normalize gait by 80% to improve function. Goal Progress: Goal Met Goal 5:: Patient to improve lumbar ROM for function of recovery to lift properly for ADLS Goal Progress: Goal Met Goal 6:: Patient to demonstrate 50% improvement with ROM and strength to improve function. Goal Progress: Goal Met Plan Plan: D/C TO AQUATIC PT ON OWN D/C Information Discharge Comments: hep d/c sentence: If there are questions or concerns regarding this patient's physical therapy, please feel free to call me at [phone]. Thank you for the referral of this patient. Sincerely, Tano Owusu, PT, Cert MDT, OCS Balance/Gait/Functional tests Balance/Special Test Scores Lower Extremity Functional Score: 60 Improvement % Improvement: 90
== END 2023-05-25 12:26 | disposition home or self-care (01) ==
LOC: PT 10:00
PROVIDERS: PCP Family Medicine; Referring Provider Orthopaedic Surgery; Visit Provider Orthopaedic Surgery
DX: M17.11 Unilateral primary osteoarthritis, right knee (principal); M51.37 Other intervertebral disc degeneration, lumbosacral region
CPT/HCPCS: 97113; 97162; 97530

== ENCOUNTER 2023-06-25 06:33 | Day surgery (SDC) | payer MEDICARE, BC, SELFPAY ==
[2023-06-25] VITALS (7 sets, daily range): BP systolic 93–130; BP diastolic 57–85; PULSE 62–75; RESP 14–16; TEMP 36.6–37.2; O2SAT 97–100; BMI 28.3
[2023-06-25] MEDS: Lactated Ringers 1,000 ML 15 ML IV (07:05)
--- NOTE | 2023-06-25 07:20 | HP.PCM_ITS ---
History and Physical Date of Admission: 06/25/23 Date of Service: 05/08/23 MR#: [id number] Acct: [id number] Name: BENSON CHAMBERS Rep #: [id number] : 1955 Provider: Dr. Anjel Lamar MD Age/Sex: 67/M Location: [facility] Status: Signed Intake Vital Signs 04/26/2311:53 05/08/2310:32 Height 5 ft 7 in 5 ft 7 in Weight: 192 lb BMI 30.0 BP 145/78 H Blood Pressure Location Rt brachial Position Sitting Respiration 17 Pulse 67 Pulse Source Monitor Temp 97.2 F L Temp Source Temporal Pulse Oximetry (%) 96 Oxygen Delivery Method room air Intake Visit Reasons: ED 10- FOR DIVERTICULITIS Chief Complaint: diverticulitis dx x1 week ago Is patient in pain?: No Allergies clarithromycin [From Biaxin] Allergy (Verified 05/08/23 10:32) Unknowndiphenhydramine [From Benadryl] Allergy (Verified 05/08/23 10:32) Unknownsulfamethoxazole [From Bactrim] Allergy (Verified 05/08/23 10:32) unknowntamsulosin [From Flomax] Allergy (Verified 05/08/23 10:32) unknowntrimethoprim [From Bactrim] Allergy (Verified 05/08/23 10:32) unknownSulfa (Sulfonamide Antibiotics) Adverse Reaction (Verified 05/08/23 10:32) Rash Medications cholecalciferol (vitamin D3) 50 mcg (2,000 unit) capsule 50 mcg PO DAILY 05/14/21 [History Confirmed 05/08/23] omeprazole 20 mg capsule,delayed release 10 mg PO DAILY 05/14/21 [History Co nfirmed 05/08/23] atorvastatin 10 mg tablet 10 mg PO QHS #90 tabs 09/22/22 [Rx Confirmed 05/08/23] escitalopram oxalate 10 mg tablet 10 mg PO DAILY #90 tabs 09/22/22 [Rx Confirmed 05/08/23] metoprolol succinate 50 mg tablet,extended release 24 hr 50 mg PO DAILY #90 tabs 09/22/22 [Rx Confirmed 05/08/23] probiotic PO 1XD 10/23/22 [History Confirmed 05/08/23] lisinopril 20 mg tablet 30 mg PO DAILY 10/04/23 [History Confirmed 05/08/23] moxifloxacin 400 mg tablet 400 mg PO DAILY 10 days #10 tabs 04/26/23 [Rx Confirmed 05/08/23] naproxen 500 mg tablet 500 mg PO BID #10 tabs 04/26/23 [Rx Confirmed 05/08/23] PFSH Medical History Anxiety Anxiety and depression Diverticulitis Essential (primary) hypertension GERD (gastroesophageal reflux disease) History of palpitations Hyperlipidemia Hypothyroidism Left shoulder pain Osteoarthritis of right hip Osteoarthritis of right knee Premature ventricular contractions Prostate cancer screening Right hip pain Right knee pain Right ureteral calculus Scapulothoracic bursitis of left shoulder Synovial cyst of popliteal space [Francis], right knee Surgical History History of cystoscopy Family History Father Cardiac pacemaker in situOther Breast cancer Cancer Hypertension Social History Smoking Status: Never smoker alcohol intake: never substance use type: does not use what type of physical activity do you participate in: none HPI HPI HPI: Patient is a 67-year-old male who presents for follow-up of an ER visit 04/26/2023 that itself was occasioned by a second presentation of diverticulitis. Patient states that this represented the second episode of diverticulitis in a matter of 2 to 3 weeks. He notes that the second episode was characterized by very troublesome diarrhea?the likes of which he has never had before. He is happy to report today that he experiences a sharp pain only once in a while. He confirms that he completed his antibiotic course yesterday as well as the naproxen that he was prescribed for 5 days. He is continuing to take a probiotic which she has made part of his daily habit. He denies any recent fevers or chills. Outside of the above 2 ER visits, Mr. Chambers notes that he had a third bout of diverticulitis some 10 to 15 years ago that was managed through his primary care provider with a course of oral antibiotics. He confirms that none of his episodes have required inpatient admission or drain for abscess. Mr. Chambers describes his bowel movements is generally regular and soft. He details that he got on Lexapro several years ago and has not been constipated since. He states his bowel movements occur with a frequency of 2-3 times daily and he has minimal toilet time with no straining. Mr. Chambers reports a small weight loss with his first bout of diverticulitis but believes that he is recovered this weight since. Mr. Chambers has a history of a prior colonoscopy approximately [address] Narvaez. He recalls several polyps were removed but was not sure about whether diverticulosis had been found. He does not recall a specific interval given for follow-up colonoscopy. Mr. Chambers's only prior surgical history includes removal of a kidney stone via a small transverse incision over the left groin (yet the EMR documents removal of a right ureteral stone). Patient has a family history of diverticulitis in his mother but denies any awareness of colon cancer. ROS General General: No weight change, appetite, fatigue, colon cancer, breast cancer or weakness HEENT HEENT: No difficulty swallowing, eye injury, eye surgery, swollen glands or hoarseness Endo Endocrine: No thyroid disease, diabetes mellitus, thyroid cancer, Hair loss, heat intolerance or cold intolerance Skin Skin: No rash or changing moles Musc Musculoskeletal: Yes arthritis; No back problems, rheumatoid arthritis, gout or joint pain Cardio Cardiovascular: Yes high blood pressure; No murmur, pacemaker, heart disease, atrial fibrillation, heart attack, heart stent, palpitations, shortness of breat with exertion or chest pain Psych Psychiatric: Yes anxiety; No depression or hearing voices Resp Respiratory: No shortness of breath, No sleep apnea, No cough, No COPD, No asthma, No emphysema and No wheezing Gastro Gastrointestinal: Yes abdominal pain, No nausea or vomiting, No diarrhea, No constipation, No blood in stool, Yes acid reflux, No hemorrhoids, No ulcers, No gallbladder problem and No black,tarry stools Greg Hematologic: No blood thinners, No blood disorders, No bleeding, No anemia and No blood clots Neuro Neurologic: No system reviewed and no additional complaints, except as documented, No as per HPI, No abnormal gait, No abnormal hearing, No abnormal movements, No abnormal speech, No behavioral changes, No burning sensations, No confusion, No convulsions, No disequilibrium, No dizziness, No localized weakness, No frequent falls, No headache(s), No lack of coordination, No loss of vision, No memory loss, No numbness, No other visual disturbances, No radicular pain, No restless legs, No sensory deficit, No syncope, No tingling, No tremor(s), No weakness and No other Exam Const General: cooperative, healthy appearing, comfortable and no acute distress Nutritional Appearance: average body habitus and well nourished Orientation: alert, awake and oriented x3 Resp Effort & Inspection: normal respiratory effort GI Other: Small (roughly 4 cm in length) transverse incision now well-healed is a scar over the left inguinal region. Otherwise there are no scars. No visible herniations. Patient's abdomen is nondistended and soft with palpation. He has mild tenderness with palpation in the left lower quadrant but this is quite localized. Assessment and Plan Assessment and Plan (1) Acute diverticulitis of intestine: Status: Acute Comment: This is a 67-year-old male who presents for follow-up of what appears to be his third bout of uncomplicated diverticulitis in his lifetime. Overall he has responded well to recent antibiotic course and has minimal symptoms. His exam suggest that his inflammatory phase is largely resolved. He reports that he did have a colonoscopic evaluation approximately 2 years ago with gastroenterology, but is unable to recall any mention of a finding of diverticulosis. I discussed with Mr. Chambers the natural history of diverticulitis and the distinctions between complicated and uncomplicated diverticulitis. I shared with him that I would recommend repeating a colonoscopy once his inflammatory phase has completed and he has about 6 weeks of healing time to be sure that we are not dealing with true diverticulitis and not a neoplastic process?as well as trying to define the extent of this diverticular disease. I did review his CT imaging with him to try to illustrate this latter point. Mr. Chambers would appear to be at average risk for colon cancer based on the history provided. Still we will look to obtain records from his prior colonoscopy. In the meantime I have recommended him that he continue a low fiber diet until his pain is fully resolved and then would transition to a high-fiber diet with lots of water. Examples of such foods were provided and he was also provided a pamphlet to go into more detail on such a diet. Mr. Chambers expressed appreciation for the information and was receptive of the recommendations so instructions were provided for a bowel prep as well as discussion of dates for performing this colonoscopy. Plan: ? Continue low fiber diet until pain is resolved. ? Then transition to high-fiber diet with lots of water ? Continue probiotic ? Plan for diagnostic colonoscopy in approximately 7 weeks time. Preprocedure prep and need for a tow driver were both discussed. In the meantime we will seek records from prior colonoscopy. I have examined the patient and the H&P has been reviewed. There are no clinical changes since date of exam. He confirms that he has had no further episodes of pain. He also confirms that he completed a prep in anticipation of today's procedure and that this proceeded uneventfully and his output is now clear. Procedure and post procedure reporting were reviewed and both and Mrs. Chambers denies any further questions. Therefore we will proceed to the endoscopy suite for planned diagnostic colonoscopy as discussed above.
--- NOTE | 2023-06-25 07:30 | COLBX_PTH ---
PATIENT: BENSON MINOR LOC: EN U#:[id number] AGE/SX: 67/M ROOM: RE06/25/[address]: Dr. Anjel Lamar MD : 1955 BED: DIS: 06/25/2023 SPEC #: [id number] RECD: 06/25/23 13:22 STATUS: JENNIFER TOYA #: [id number] ANDERSON: 06/25/23 07:[address]: Anjel Lamar DEPT: SURGICAL PATHOLOGY RECD BY: Teri Chaudhari ENTERED: 06/25/23 13:22 SP TYPE: COLON BX OTHR DR: Dr. London Franklin DO Tissues: A - COLON BIOPSY B - Sigmoid colon biopsy Procedures: Surgery Specimen Level IV HEADER OPERATION: Colonoscopy with polypectomy PRE-OP DIAGNOSIS: Acute diverticulitis of intestine TISSUE SUBMITTED: A - Descending colon polyp, B - Distal sigmoid colon polyp MICROSCOPIC DIAGNOSIS A. Descending colon polyp, polypectomy: Tubular adenoma. B. Distal sigmoid colon polyp, polypectomy: Fragments of hyperplastic polyp. COREY:nakul 06/26/2023 MICROSCOPIC DESCRIPTION Slides are reviewed. GROSS DESCRIPTION A - Received in fixative is one container labeled with the patient's name and designated descending colon polyp. The specimen consists of one irregular fragment of light [place] soft tissue that measures 0.4 x 0.3 x 0.1 cm. The specimen is totally submitted in one cassette. B - Received in fixative is one container labeled with the patient's name and designated distal sigmoid polyp. The specimen consists of multiple irregular fragments of light [place] soft tissue that in aggregate measure 0.8 x 0.5 x 0.1 cm. The specimen is totally submitted in one cassette. / COREY:nakul 06/25/2023 TC:1 [facility]: [id number] x2
--- NOTE | 2023-06-25 08:23 | OP.COLON_ITS ---
Patient Name: Santana Chambers Procedure Date: 06/25/2023 7:15 AM Date of : 1955 Age: 67 Procedure: Colonoscopy Indications: Diverticulitis, Follow-up of diverticulitis Providers: Anjel Lamar MD Referring MD: Anjel Lamar MD Medicines: See the Anesthesia note for documentation of the administered medications Patient Profile: Last Colonoscopy: within the past 3 years. Complications: No immediate complications. Estimated blood loss: None. Procedure: Pre-Anesthesia Assessment: - The heart rate, respiratory rate, oxygen saturations, blood pressure, adequacy of pulmonary ventilation, and response to care were monitored throughout the procedure. After I obtained informed consent, the scope was passed under direct vision. Throughout the procedure, the patient's blood pressure, pulse, and oxygen saturations were monitored continuously. The adult colonoscope was introduced through the anus and advanced to the cecum, identified by the appendiceal orifice, IC valve and transillumination. The colonoscopy was performed without difficulty. The patient tolerated the procedure well. The quality of the bowel preparation was good. The entire colon was well visualized. Scope In: 7:41:37 AM Scope Withdrawal Time 0 hours 26 minutes 1 second Scope Out: 8:12:52 AM Total Procedure Duration Time 0 hours 31 minutes 15 seconds Findings: The digital rectal exam findings include enlarged prostate. Pertinent negatives include normal sphincter tone. Many medium-mouthed diverticula were found in the sigmoid colon and descending colon. No biopsies or other specimens were collected for this exam. Two semi-pedunculated polyps were found in the distal sigmoid colon and descending colon. The polyps were 5 to 12 mm in size. These polyps were removed with a hot snare. Resection and retrieval were complete. Estimated blood loss: none. The exam was otherwise without abnormality on direct and retroflexion views. Impression: - Enlarged prostate found on digital rectal exam. - Diverticulosis in the sigmoid colon and in the descending colon. No specimens collected. - Two 5 to 12 mm polyps in the distal sigmoid colon and in the descending colon, removed with a hot snare. Resected and retrieved. - The examination was otherwise normal on direct and retroflexion views. Recommendation: - Discharge patient to home (via wheelchair). - High fiber diet today. - Continue present medications. - Await pathology results. - Repeat colonoscopy date to be determined after pending pathology results are reviewed for surveillance based on pathology results. - Telephone my office for pathology results in 1 week. Procedure Code(s): --- Professional --- 99240, Colonoscopy, flexible; with removal of tumor(s), polyp(s), or other lesion(s) by snare technique Diagnosis Code(s): --- Professional --- D12.5, Benign neoplasm of sigmoid colon D12.4, Benign neoplasm of descending colon K57.32, Diverticulitis of large intestine without perforation or abscess without bleeding N40.0, Benign prostatic hyperplasia without lower urinary tract symptoms K57.30, Diverticulosis of large intestine without perforation or abscess without bleeding CPT copyright 2021 [employer]. All rights reserved. The codes documented in this report are preliminary and upon recreational aide review may be revised to meet current compliance requirements. Anjel Lamar MD 06/25/2023 8:22:24 AM This report has been signed electronically. Number of Addenda: 0 Note Initiated On: 06/25/2023 7:15 AM
--- NOTE | 2023-06-25 08:23 | OP.CCLET_ITS ---
06/25/2023 London Franklin [address] [place] [address] Re : Colonoscopy procedure for Santana Chambers Dear Dr. Franklin This procedure was performed on June. My impressions and recommendations are as follows: Impressions : - Enlarged prostate found on digital rectal exam. - Diverticulosis in the sigmoid colon and in the descending colon. No specimens collected. - Two 5 to 12 mm polyps in the distal sigmoid colon and in the descending colon, removed with a hot snare. Resected and retrieved. - The examination was otherwise normal on direct and retroflexion views. Recommendations : - Discharge patient to home (via wheelchair). - High fiber diet today. - Continue present medications. - Await pathology results. - Repeat colonoscopy date to be determined after pending pathology results are reviewed for surveillance based on pathology results. - Telephone my office for pathology results in 1 week. My findings are described in the full procedure note, which is enclosed. If I can be of further assistance, please feel free to contact me at Doctor phone number(s): , Work: . Sincerely, Anjel Lamar MD 06/25/2023 8:22:24 AM This report has been signed electronically.
== END 2023-06-25 09:00 | disposition home or self-care (01) ==
LOC: EN 06:33 → AC 06:34
PROVIDERS: PCP Family Medicine; Referring Provider Surgery; Visit Provider Surgery
PROC: 0DJD8ZZ Inspection of Lower Intestinal Tract, Via Natural or Artificial Opening Endoscopic (ICD-10-PCS; CPT 45378; principal; 2023-06-25 07:25)
DX: K57.32 Diverticulitis of large intestine without perforation or abscess without bleeding (principal); N40.0 Benign prostatic hyperplasia without lower urinary tract symptoms; K63.5 Polyp of colon; K57.30 Diverticulosis of large intestine without perforation or abscess without bleeding; I10 Essential (primary) hypertension; E78.5 Hyperlipidemia, unspecified; K21.9 Gastro-esophageal reflux disease without esophagitis; Z79.899 Other long term (current) drug therapy; F41.8 Other specified anxiety disorders
CPT/HCPCS: 45385; 88305; J7120; J2405

== ENCOUNTER → 2023-07-28 | Outpatient (CLI) | payer MEDICARE, BC, SELFPAY ==
--- OUTSIDE RECORDS SUMMARY | 2023-07-28 09:03 | XMS RPT_ITS | CCD ---
Author Name Unknown Address [address] [place] [address] Organization [facility] Care Team Providers Care Assembler Erector Name Role Phone Maria Fernanda Foxfranky Nieto Unavailable RuddyCristiana Unavailable Delisa RN, Sigrid Diego Unavailable Unavailable Rashid MAYFIELD, [place] Lobo Unavailable Allergies Allergy Classification Reported Allergen(s) Allergy Type Date of Onset Reaction(s) Facility (3 sources) clarithromycin drug allergy 5 [facility] Work Phone: [phone] (3 sources) diphenhydrAMINE drug allergy 0 nightmares [facility] Work Phone: [phone] (3 sources) sulfamethoxazole / trimethoprim drug allergy 5 [facility] Work Phone: [phone] (5 sources) Sulfonamides (Antibiotic); Translations: [SULFA] drug allergy 0 unknown [facility] Work Phone: [phone] (3 sources) tamsulosin drug allergy 5 nightmares [facility] Work Phone: [phone] Medications Completed/Discontinued Medications Medication Drug Class(es) Dates Sig (Normalized) Sig (Original) atorvastatin 10 mg oral tablet (5 sources) HMG-CoA Reductase Inhibitor Start: 09-19-2021 take 1 tablet by mouth once daily ATORVASTATIN CALCIUM 10 MG TABS 1 tablet by mouth once a day atorvastatin [id number] Wanda Narvaez LPN Problems Active Problems Problem Classification Problem Date Documented Da te Episodic/Chronic Anxiety disorders (3 sources) Anxiety disorder; Translations: [Anxiety disorder, unspecified] 06-02-2010 Chronic Cardiac dysrhythmias (3 sources) Ventricular premature beats; Translations: [Ventricular premature depolarization] Onset: 08-30-2014 08-30-2014 Chronic Disorders of lipid metabolism (3 sources) Hyperlipidemia; Translations: [Hyperlipidemia, unspecified] Onset: 04-03-2015 04-03-2015 Chronic Essential hypertension (3 sources) Hypertensive disorder; Translations: [Essential (primary) hypertension] 06-02-2010 Chronic Mood disorders (3 sources) Depressive disorder; Translations: [Major depressive disorder, single episode, unspecified] 06-02-2010 Chronic Osteoarthritis (2 sources) Unilateral primary osteoarthritis, right hip; Translations: [Osteoarthrosis, localized, primary, pelvic region and thigh] Onset: 09-20-2021 09-20-2021 Chronic Other nutritional; endocrine; and metabolic disorders (6 sources) Body mass index (BMI) 31.0-31.9, adult; Translations: [Body mass index (BMI) 30.0-30.9, adult] Onset: 08-30-2014 04-01-2016 Chronic Past or Other Problems Problem Classification Problem Date Documented Da te Episodic/Chronic Cardiac dysrhythmias (3 sources) Palpitations; Translations: [Palpitations] Onset: 08-22-2014 08-22-2014 Episodic Other aftercare (3 sources) Other group home (current) drug therapy; Translations: [Other terminal gauger (current) drug therapy] Onset: 04-24-2016 04-24-2016 Episodic Other connective tissue disease (2 sources) Hand pain; Translations: [Pain in left hand] Onset: 07-15-2019 07-15-2019 Episodic Other connective tissue disease (2 sources) Triggering of digit; Translations: [Trigger finger, left middle finger] Onset: 01-04-2019 01-04-2019 Episodic Other connective tissue disease (2 sources) Complete rotator cuff tear or rupture of right shoulder, not specified as traumatic; Translations: [Complete rupture of rotator cuff] Onset: 02-16-2017 02-16-2017 Episodic Other connective tissue disease (2 sources) Impingement syndrome of shoulder region; Translations: [Impingement syndrome of right shoulder] Onset: 02-16-2017 02-16-2017 Episodic Other lower respiratory disease (3 sources) Cough; Translations: [Cough] Onset: 06-02-2010 Resolved: 07-02-2010 06-02-2010 Episodic Unclassified (2 sources) Problem Results Test Name Value Interpretation Reference Range Facil ity Vital Signs Date Time Vital Sign Value Performing Clinician Facility 03-31-2017 16:08-0400 BMI (Body Mass Index) 31.89 kg/m2 [facility] Work Phone: 03-31-2017 16:08-0400 BP Diastolic 70 mm[Hg] [facility] Work Phone: 03-31-2017 16:08-0400 BP Systolic 120 mm[Hg] [facility] Work Phone: 03-31-2017 16:08-0400 Height 162.56 cm [facility] Work Phone: 03-31-2017 16:08-0400 Pulse (Heart Rate) 80 /min [facility] Work Phone: 03-31-2017 16:08-0400 Respiratory Rate 20 /min [facility] Work Phone: 03-31-2017 16:08-0400 Weight 84.28 kg [facility] Work Phone: 04-01-2016 16:21-0400 BSA (Body Surface Area) 1.9 m2 [facility] Work Phone: 06-02-2010 10:49-0500 Body Temperature 97.9 [degF] [facility] Work Phone: NEGATED: Highlighted [id number] 09:31-0400 Body height 168.91 cm [facility] Work Phone: NEGATED: Highlighted [id number] 09:31-0400 Body height 169 cm [facility] Work Phone: NEGATED: Highlighted [id number] 09:31-0400 Body mass index (BMI) [Ratio] 31.43 kg/m2 [facility] Work Phone: NEGATED: Highlighted [id number] 09:31-0400 Body weight 89.36 kg [facility] Work Phone: NEGATED: Highlighted [id number] 09:31-0400 Body weight 90 kg [facility] Work Phone: NEGATED: Highlighted [id number] 09:57-0500 Body height 168.91 cm [facility] Work Phone: NEGATED: Highlighted [id number] 09:57-0500 Body height 169 cm [facility] Work Phone: NEGATED: Highlighted [id number] 09:57-0500 Body mass index (BMI) [Ratio] 31.43 kg/m2 [facility] Work Phone: NEGATED: Highlighted [id number] 09:57-0500 Body weight 89.36 kg [facility] Work Phone: NEGATED: Highlighted [id number] 09:57-0500 Body weight 90 kg [facility] Work Phone: Procedures Date Procedure Procedure Detail Performing Clinician Start: 10-31-2021 End: 10-31-2021 BP scrn no perf at interval [place] Mike MD Work Phone: Start: 10-31-2021 End: 10-31-2021 Calc BMI abv up jaime f/u [place] bee MD Work Phone: Start: 10-31-2021 End: 10-31-2021 Current tobacco non-user cad cap copd pv dm [place] Mike MD Work Phone: Start: 10-31-2021 End: 10-31-2021 Docrev cur meds by lillian Mike MD Work Phone: Start: 10-31-2021 End: 10-31-2021 Osteoarthritis symptoms&funcjal status assguillaume Mike MD Work Phone: Start: 10-31-2021 End: 10-31-2021 Pain doc pos and plan [place] Mike MD Work Phone: Start: 10-31-2021 End: 10-31-2021 Patient encounter procedure [place] Mike MD Work Phone: Start: 09-20-2021 End: 09-20-2021 BP scrn no perf at interval [place] Mike MD Work Phone: Start: 09-20-2021 End: 09-20-2021 Calc BMI abv up jaime f/u [place] bee MD Work Phone: Start: 09-20-2021 End: 09-20-2021 Current tobacco non-user cad cap copd pv dm [place] Mike MD Work Phone: Start: 09-20-2021 End: 09-20-2021 Docrev cur meds by lillian Mike MD Work Phone: Start: 09-20-2021 End: 09-20-2021 Osteoarthritis symptoms&funcjal status assguillaume [place] Mike MD Work Phone: Start: 09-20-2021 End: 09-20-2021 Pain doc pos and plan [place] Mike MD Work Phone: Start: 09-20-2021 End: 09-20-2021 Patient encounter procedure [place] Mike MD Work Phone: Start: 09-20-2021 End: 09-20-2021 Radex hip unilateral with pelvis 2-3 views [place] Mike MD Work Phone: Start: 03-31-2017 End: 03-31-2017 ELISHA Najera MD Start: 03-31-2017 End: 03-31-2017 Follow Up Appt 1 year Corky Najera MD Start: 03-31-2017 End: 08-04-2017 Magnesium Corky Najera MD Start: 03-31-2017 End: 08-04-2017 Thyroid stimulating hormone (TSH) Corky Najera MD Start: 10-21-2016 End: 05-13-2017 *BMP Corky Najera MD Start: 10-21-2016 End: 05-13-2017 *Hepatic Function Panel Yamil Kingston Start: 10-21-2016 End: 05-13-2017 Lipid panel [AGGREGATE] Yamil Kingston Start: 04-01-2016 End: 04-22-2016 *BMP Corky Najera MD Start: 04-01-2016 End: 04-22-2016 *Hepatic Function Panel Yamil Kingston Start: 04-01-2016 End: 05-13-2017 ELISHA Najera MD Start: 04-01-2016 End: 05-13-2017 Follow Up Appt 1 year Corky Najera MD Start: 04-01-2016 End: 04-22-2016 Lipid panel [AGGREGATE] Yamil Kingston Start: 04-03-2015 End: 04-03-2015 ELISHA Najera MD Start: 04-03-2015 End: 04-04-2015 Documentation of current medications Corky Najera MD Start: 04-03-2015 End: 04-03-2015 Follow Up Appt 1 year Corky Najera MD Start: 09-15-2014 End: 09-15-2014 ELISHA Najera MD Start: 09-15-2014 End: 09-16-2014 Documentation of current medications Corky Najera MD Start: 09-15-2014 End: 09-15-2014 Follow Up Appt 6 months Yamil Kingston Start: 08-30-2014 End: 09-01-2014 *BMP Corky Najera MD Start: 08-30-2014 End: 09-06-2014 24 hour holter monitor Corky Najera MD Start: 08-30-2014 End: 08-30-2014 GAUGE MAKER APPRENTICE Corky Najera MD Start: 08-30-2014 End: 08-31-2014 Documentation of current medications Corky Naejra MD Start: 08-30-2014 End: 09-04-2014 Echocardiography Corky Najera MD Start: 08-30-2014 End: 08-30-2014 Electrocardiogram, complete Corky Najera MD Start: 08-30-2014 End: 08-30-2014 Follow up Appt 3 weeks Corky Najera MD Start: 08-30-2014 End: 09-01-2014 Magnesium Corky Najera MD NEGATED: Highlighted rowStart: 10-31-2021 End: 10-31-2021 Documentation of current medications Arely Arciniega NEGATED: Highlighted rowStart: 09-20-2021 End: 09-20-2021 Documentation of current medications Arely Arciniega Plan of Treatment Date Care Activity Detail Author Start: 10-31-2021 End: 10-31-2021 Patient encounter procedure Appointment [facility] Work Phone: Start: 09-20-2021 End: 09-20-2021 Patient encounter procedure Appointment [facility] Work Phone: Start: 03-30-2018 End: 03-30-2018 Appointment Appointment [facility] Work Phone: Start: 03-31-2017 End: 03-31-2017 *BMP *BMP [facility] Work Phone: Start: 03-31-2017 End: 03-31-2017 *Hepatic Function Panel *Hepatic Function Panel [facility] Work Phone: Start: 03-31-2017 End: 03-31-2017 GAUGE MAKER APPRENTICE GAUGE MAKER APPRENTICE [facility] Work Phone: Start: 03-31-2017 End: 03-31-2017 Follow Up Appt 1 year Follow Up Appt 1 year [facility] Work Phone: Start: 03-31-2017 End: 03-31-2017 Lipid panel [AGGREGATE] *Lipid Profile CC PCP [facility] Work Phone: Start: 03-31-2017 End: 08-04-2017 Magnesium *Magnesium [facility] Work Phone: Start: 03-31-2017 End: 08-04-2017 Thyroid stimulating hormone (TSH) *TSH [facility] Work Phone: Start: 10-21-2016 End: 05-13-2017 *BMP *BMP [facility] Work Phone: Start: 10-21-2016 End: 05-13-2017 *Hepatic Function Panel *Hepatic Function Panel [facility] Work Phone: Start: 10-21-2016 End: 05-13-2017 Lipid panel [AGGREGATE] *Lipid Profile CC PCP [facility] Work Phone: Start: 04-01-2016 End: 04-22-2016 *BMP *BMP [facility] Work Phone: Start: 04-01-2016 End: 04-22-2016 *Hepatic Function Panel *Hepatic Function Panel [facility] Work Phone: Start: 04-01-2016 End: 05-13-2017 GAUGE MAKER APPRENTICE GAUGE MAKER APPRENTICE [facility] Work Phone: Start: 04-01-2016 End: 05-13-2017 Follow Up Appt 1 year Follow Up Appt 1 year [facility] Work Phone: Start: 04-01-2016 End: 04-22-2016 Lipid panel [AGGREGATE] *Lipid Profile CC PCP [facility] Work Phone: Start: 04-03-2015 End: 04-03-2015 GAUGE MAKER APPRENTICE GAUGE MAKER APPRENTICE [facility] Work Phone: Start: 04-03-2015 End: 04-03-2015 Follow Up Appt 1 year Follow Up Appt 1 year [facility] Work Phone: Start: 09-15-2014 End: 09-15-2014 GAUGE MAKER APPRENTICE GAUGE MAKER APPRENTICE [facility] Work Phone: Start: 09-15-2014 End: 09-15-2014 Follow Up Appt 6 months Follow Up Appt 6 months [facility] Work Phone: Start: 08-30-2014 End: 09-01-2014 *BMP *BMP [facility] Work Phone: Start: 08-30-2014 End: 08-30-2014 24 hour holter monitor 24 hour holter monitor [facility] Work Phone: Start: 08-30-2014 End: 08-30-2014 GAUGE MAKER APPRENTICE GAUGE MAKER APPRENTICE [facility] Work Phone: Start: 08-30-2014 End: 08-30-2014 Echocardiography Echocardiogram (complete) [facility] Work Phone: Start: 08-30-2014 End: 08-30-2014 Electrocardiogram, complete EKG (In office) [facility] Work Phone: Start: 08-30-2014 End: 08-30-2014 Follow up Appt 3 weeks Follow up Appt 3 weeks [facility] Work Phone: Start: 08-30-2014 End: 09-01-2014 Magnesium *Magnesium [facility] Work Phone: Patient Education HYPERLIPIDEMIA [facility] Work Phone: Social History Date Type Detail Facility Start: 09-20-2021 End: 10-31-2021 Assertion Unknown if ever smoked [facility] Work Phone: Evaluation note Note Date & Type Note Facility Evaluation note There may be informa tion available, but it has not been provided by the sender. [facility] Work Phone: Instructions Note Date & Type Note Facility [facility] Work Phone: Instructions Note Date & Type Note Facility [facility] Work Phone: Summary Purpose Family History No Family History Records FoundThere may be information available, but it has not been provided by the sender.There may be information available, but it has not been provided by the sender. Advance Directives No Advanced Directives Records FoundThere may be information available, but it has not been provided by the sender.There may be information available, but it has not been provided by the sender. Chief Complaint Chief Complaint Description Start Date right hip pain Preliminary chief co mplaint data, not yet signed by the author as of Chief Complaint Description Start Date right hip pain Preliminary chief co mplaint data, not yet signed by the author as of Additional Source Comments (unrecognized sect ion and content) No Status Records Found INFORMATION SOURCE (unrecogn ized section and content) Reason for Visit (unrecogniz ed section and content) Reason For Visit Description Start Date Follow-up by complaint Preliminary reason f or visit data, not yet signed by the author as of right hip pain FOR RECORDS PERTAINING TO PATIENTS WHO ARE OR HAVE BEEN ENROLLED IN A CHEMICAL DEPENDENCY/SUBSTANCEABUSE PROGRAM, SOME INFORMATION MAY BE OMITTED. This clinical summary was aggregated from multiple sources. Caution should be exercised in using it in the provision of clinical care. This summary normalizes information from multiple sources, and as a consequence, information in this document may materially change the coding, format and clinical context of patient data. In addition, data may be omitted in some cases. CLINICAL DECISIONS SHOULD BE BASED ON THE PRIMARY CLINICAL RECORDS. [facility]. provides no warranty or guarantee of the accuracy or completeness of information in this document.
[2023-07-29 15:07] LABS: Endomysial Antibody IgA Negative (Negative); Immunoglobulin A 98 mg/dL (61-437); t-Transglutaminase IgA <2 U/mL (0-3)
[2023-07-30 22:06] LABS: Barley, Whole Grain <0.10 kU/L (Class 0); Beef <0.10 kU/L (Class 0); Chicken <0.10 kU/L (Class 0); Corn <0.10 kU/L (Class 0); Egg, Whole <0.10 kU/L (Class 0); Oat <0.10 kU/L (Class 0); Pork <0.10 kU/L (Class 0); Rice <0.10 kU/L (Class 0); Rye 0.11 kU/L (Class 0/I); Soybean <0.10 kU/L (Class 0); Wheat 0.18 kU/L (Class 0/I)
== END | disposition home or self-care (01) ==
LOC: BFHLAB 08:36
PROVIDERS: PCP Family Medicine; Visit Provider Family Medicine
DX: R19.7 Diarrhea, unspecified (principal); R21 Rash and other nonspecific skin eruption; L50.0 Allergic urticaria
CPT/HCPCS: 36415; 82784; 83516; 86003; 86255

== ENCOUNTER → 2023-08-31 | Outpatient (CLI) | payer MEDICARE, BC, SELFPAY ==
--- OUTSIDE RECORDS SUMMARY | 2023-08-31 15:48 | XMS RPT_ITS | CCD ---
Author Name Unknown Address [address] [place] [address] Organization [facility] Care Team Providers Care Documentum Consultant Name Role Phone Maria Fernanda Foxfranky Nieto Unavailable RuddyCristiana Unavailable Delisa RN, Sigrid Diego Unavailable Unavailable Rashid MAYFIELD, [place] Lobo Unavailable Allergies Allergy Classification Reported Allergen(s) Allergy Type Date of Onset Reaction(s) Facility (3 sources) clarithromycin drug allergy 5 [facility] Work Phone: [phone] (3 sources) diphenhydrAMINE drug allergy 0 nightmares [facility] Work Phone: [phone] (3 sources) sulfamethoxazole / trimethoprim drug allergy 5 [facility] Work Phone: [phone] (5 sources) Sulfonamides (Antibiotic); Translations: [SULFA] drug allergy 0 unknown [facility] Work Phone: [phone] (3 sources) tamsulosin drug allergy 5 nightmares [facility] Work Phone: [phone] Medications Completed/Discontinued Medications Medication Drug Class(es) Dates Sig (Normalized) Sig (Original) atorvastatin 10 mg oral tablet (5 sources) HMG-CoA Reductase Inhibitor Start: 09-19-2021 take 1 tablet by mouth once daily ATORVASTATIN CALCIUM 10 MG TABS 1 tablet by mouth once a day atorvastatin [id number] Wanda Narvaez LPN Problems Active Problems Problem [...] 08-22-2014 Episodic Other aftercare (3 sources) Other correction (current) drug therapy; Translations: [Other acid patroller (current) drug therapy] Onset: 04-24-2016 04-24-2016 Episodic [...] 03-31-2017 16:08-0400 Pulse (Heart Rate) 80 /min [facility] Work Phone: 03-31-2017 16:08-0400 Respiratory Rate 20 /min [facility] Work Phone: 03-31-2017 16:08-0400 Weight 84.28 kg [facility] Work Phone: 04-01-2016 16:21-0400 BSA (Body Surface Area) 1.9 m2 [facility] Work Phone: 06-02-2010 10:49-0500 Body Temperature 97.9 [degF] [facility] Work Phone: NEGATED: Highlighted [id number] 09:31-0400 Body height 168.91 cm [facility] Work Phone: NEGATED: Highlighted [id number] 09:31-0400 Body height 169 cm [facility] Work Phone: NEGATED: Highlighted [id number] 09:31-0400 Body mass index (BMI) [Ratio] 31.43 kg/m2 [facility] Work Phone: NEGATED: Highlighted [id number] 09:31-0400 Body weight 89.36 kg [facility] Work Phone: NEGATED: Highlighted [id number] 09:31-0400 Body weight 90 kg [facility] Work Phone: NEGATED: Highlighted [id number] 09:57-0500 Body height 168.91 cm [facility] Work Phone: NEGATED: Highlighted [id number] 09:57-0500 Body height 169 cm [facility] Work Phone: NEGATED: Highlighted [id number] 09:57-0500 Body mass index (BMI) [Ratio] 31.43 kg/m2 [facility] Work Phone: NEGATED: Highlighted [id number] 09:57-0500 Body weight 89.36 kg [facility] Work Phone: NEGATED: Highlighted [id number] 09:57-0500 Body weight 90 kg [facility] Work Phone: Procedures Date Procedure Procedure Detail [...] Corky Najera MD Start: 08-30-2014 End: 08-30-2014 PATTERN ROOM ATTENDANT Corky Najera MD Start: 08-30-2014 End: 08-31-2014 Documentation of current medications Corky Najera MD Start: 08-30-2014 End: 09-04-2014 Echocardiography Corky [...] 10-31-2021 End: 10-31-2021 Patient encounter procedure Appointment [facility] Work Phone: Start: 09-20-2021 End: 09-20-2021 Patient encounter procedure Appointment [facility] Work Phone: Start: 03-30-2018 End: 03-30-2018 Appointment Appointment [facility] Work Phone: Start: 03-31-2017 End: 03-31-2017 *BMP *BMP [facility] Work Phone: Start: 03-31-2017 End: 03-31-2017 *Hepatic Function Panel *Hepatic Function Panel [facility] Work Phone: Start: 03-31-2017 End: 03-31-2017 PATTERN ROOM ATTENDANT PATTERN ROOM ATTENDANT [facility] Work Phone: Start: 03-31-2017 End: 03-31-2017 Follow Up Appt 1 year Follow Up Appt 1 year [facility] Work Phone: Start: 03-31-2017 End: 03-31-2017 Lipid panel [AGGREGATE] *Lipid Profile CC PCP [facility] Work Phone: Start: 03-31-2017 End: 08-04-2017 Magnesium *Magnesium [facility] Work Phone: Start: 03-31-2017 End: 08-04-2017 Thyroid stimulating hormone (TSH) *TSH [facility] Work Phone: Start: 10-21-2016 End: 05-13-2017 *BMP *BMP [facility] Work Phone: Start: 10-21-2016 End: 05-13-2017 *Hepatic Function Panel *Hepatic Function Panel [facility] Work Phone: Start: 10-21-2016 End: 05-13-2017 Lipid panel [AGGREGATE] *Lipid Profile CC PCP [facility] Work Phone: Start: 04-01-2016 End: 04-22-2016 *BMP *BMP [facility] Work Phone: Start: 04-01-2016 End: 04-22-2016 *Hepatic Function Panel *Hepatic Function Panel [facility] Work Phone: Start: 04-01-2016 End: 05-13-2017 PATTERN ROOM ATTENDANT PATTERN ROOM ATTENDANT [facility] Work Phone: Start: 04-01-2016 End: 05-13-2017 Follow Up Appt 1 year Follow Up Appt 1 year [facility] Work Phone: Start: 04-01-2016 End: 04-22-2016 Lipid panel [AGGREGATE] *Lipid Profile CC PCP [facility] Work Phone: Start: 04-03-2015 End: 04-03-2015 PATTERN ROOM ATTENDANT PATTERN ROOM ATTENDANT [facility] Work Phone: Start: 04-03-2015 End: 04-03-2015 Follow Up Appt 1 year Follow Up Appt 1 year [facility] Work Phone: Start: 09-15-2014 End: 09-15-2014 PATTERN ROOM ATTENDANT PATTERN ROOM ATTENDANT [facility] Work Phone: Start: 09-15-2014 End: 09-15-2014 Follow Up Appt 6 months Follow Up Appt 6 months [facility] Work Phone: Start: 08-30-2014 End: 09-01-2014 *BMP *BMP [facility] Work Phone: Start: 08-30-2014 End: 08-30-2014 24 hour holter monitor 24 hour holter monitor [facility] Work Phone: Start: 08-30-2014 End: 08-30-2014 PATTERN ROOM ATTENDANT PATTERN ROOM ATTENDANT [facility] Work Phone: Start: 08-30-2014 End: 08-30-2014 Echocardiography Echocardiogram (complete) [facility] Work Phone: Start: 08-30-2014 End: 08-30-2014 Electrocardiogram, complete EKG (In office) [facility] Work Phone: Start: 08-30-2014 End: 08-30-2014 Follow up Appt 3 weeks Follow up Appt 3 weeks [employer] Work Phone: Start: 08-30-2014 End: 09-01-2014 Magnesium *Magnesium [facility] Work Phone: Patient Education HYPERLIPIDEMIA [facility] Work Phone: Social History Date Type Detail Facility Start: 09-20-2021 End: 10-31-2021 Assertion Unknown if ever smoked [facility] Work Phone: Evaluation note Note Date & Type Note Facility Evaluation note There may be informa tion available, but it has not been provided by the sender. [facility] Work Phone: Instructions Note Date & Type Note Facility [facility] Work Phone: Instructions Note Date & Type Note Facility [facility] Work Phone: Summary Purpose Family History [...] BE BASED ON THE PRIMARY CLINICAL RECORDS. [facility] [employer] [facility]. provides no warranty or guarantee of the accuracy or completeness of information in this document.
[2023-08-31 16:09] LABS: Absolute Lymphocyte Count 1.96 X10^3/uL (0.83-4.51); Absolute Neutrophil Count 7.4 X10^3/uL (2.0-7.7); Basophil# 0.04 X10^3/uL; Basophil% 0.4 % (0-1); Eosinophil# 0.07 X10^3/uL; Eosinophils% 0.7 % (0-5); Hematocrit 48.4 % (40-54); Hemoglobin 16.1 g/dL (13.0-16.5); Lymphocyte # 1.96 X10^3/ul (0.83-4.51); Lymphocyte % 19.1 % (19-41); Mean Corp Hgb Conc 33.3 g/dL (32-36); Mean Corpuscular Volume 90.3 fL (80-94); Mean Platelet Vol. 11.3 fl (6.2-12.0); Monocyte# 0.72 X10^3/uL; NRBC Flagged by Analyzer 0 % (0-5); Neutrophil # 7.44 X10^3/uL (2.7-7.7); Neutrophil % 72.5 % (47-70); Platelet Count 229 K/mm3 (150-450); RBC Distribution Width CV 12.2 % (11.6-14.6); RBC Distribution Width SD 40.5 fl (35.1-43.9); Red Blood Count 5.36 M/mm3 (4.6-6.2); White Blood Count 10.3 K/mm3 (4.4-11.0)
[2023-08-31 16:29] LABS: Erythrocyte Sedimentation Rate 3 mm/hr (0-20)
[2023-08-31 16:47] LABS: ALB/GLOB Ratio 1.2 RATIO (0.9-2.4); AST(SGOT) 22 U/L (15-37); Alanine Aminotransfer ALT/SGPT 34 U/L (16-61); Albumin, Serum 3.9 g/dL (3.2-5.0); Alkaline Phosphatase 117 U/L (45-117); Amylase 36 U/L (25-115); Anion Gap 4 (5-15); BUN 21 mg/dL (7-18); BUN/Creat Ratio 20.8 RATIO (10-20); CRP < 2.90 mg/L (0.0-3.0); Calcium,Total 9.6 mg/dL (8.5-10.1); Chloride 104 mmol/L (98-107); Creatinine, Serum 1.01 mg/dL (0.70-1.30); EST Glomerular Filtration Rate 79 mL/min (>60); Est Glom Filt Rate - Afr Amer 95 mL/min (>60); Globulin 3.3 g/dL (2.2-4.2); Glucose 100 mg/dL (74-106); Lipase 31 U/L (13-75); Potassium 4.2 mmol/L (3.5-5.1); Protein, Total 7.2 g/dL (6.4-8.2); Sodium Level 138 mmol/L (136-145)
== END | disposition home or self-care (01) ==
PROVIDERS: PCP Family Medicine; Referring Provider Nurse Practitioner Family; Visit Provider Nurse Practitioner Family
DX: R10.12 Left upper quadrant pain (principal); I10 Essential (primary) hypertension
CPT/HCPCS: 36415; 80053; 82150; 83690; 85025; 85652; 86140

== ENCOUNTER → 2023-09-04 | Outpatient (CLI) | payer MEDICARE, BC, SELFPAY ==
--- NOTE | 2023-09-04 08:54 | US_ITS ---
STUDY: ABDOMINAL ULTRASOUND -left UPPER QUADRANT REASON FOR VISIT: Male, 68 years old LUQ PAIN , POSSIBLE PANCREATITIS TECHNIQUE: Ultrasound evaluation of the right upper quadrant was performed with real-time and static haney-scale imaging. TECHNICAL QUALITY: Adequate. COMPARISON: None. FINDINGS: Pancreas: Normal size of the head, body and tail of the pancreas. There is normal echogenicity of the pancreas. There is no demonstrated pancreatic mass or cyst. Left Kidney: Normal size of the left kidney. The left kidney measures 11.2 cm x 4.9 cm x 5.5 cm. Normal renal cortex. The left cortex measures 1.5 cm. There is no demonstrated renal mass or cyst. There is no left hydronephrosis. The spleen measures 11.4 cm x 5.1 cm x 5 cm US/Abdomen Limited IMPRESSION: Normal left upper quadrant ultrasound examination. Electronically Signed: Dillon Alarcon MD at 12:58 EST ,
--- OUTSIDE RECORDS SUMMARY | 2023-09-04 09:21 | XMS RPT_ITS | CCD ---
Author Name Unknown Address [address] [place] [address] Organization [facility] Care Team Providers Care Network Architect Name Role Phone Maria Fernanda Foxfranky Nieto Unavailable RuddyCristiana Unavailable Delisa RN, Sigrid Diego Unavailable Unavailable Rashid MAYFIELD, [place] Lobo Unavailable [phone] Allergies Allergy Classification Reported Allergen(s) Allergy Type Date of Onset Reaction(s) Facility (3 sources) clarithromycin drug allergy 5 [facility] Work Phone: [phone] (3 sources) diphenhydrAMINE drug allergy 0 nightmares [facility] Work Phone: [phone] (3 sources) sulfamethoxazole / trimethoprim drug allergy 5 [facility] Work Phone: [phone] (5 sources) Sulfonamides (Antibiotic); Translations: [SULFA] drug allergy 0 unknown [facility] Work Phone: [phone] (3 sources) tamsulosin drug allergy 5 nightmares [facility] Work Phone: [phone] Medications Completed/Discontinued Medications Medication Drug Class(es) Dates Sig (Normalized) Sig (Original) atorvastatin 10 mg oral tablet (5 sources) HMG-CoA Reductase Inhibitor Start: 09-19-2021 take 1 tablet by mouth once daily ATORVASTATIN CALCIUM 10 MG TABS 1 tablet by mouth once a day atorvastatin [id number] Wanda Narvaez LPN Problems Active Problems Problem [...] 08-22-2014 Episodic Other aftercare (3 sources) Other care home (current) drug therapy; Translations: [Other terminal 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 (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) drug therapy] Onset: 04-24-2016 04-24-2016 Episodic [...] BMI (Body Mass Index) 31.89 kg/m2 [facility] Work Phone: 03-31-2017 16:08-0400 BP [...] [facility] Work Phone: NEGATED: Highlighted [id number] 09:31-0400 Body height 168.91 cm [facility] Work Phone: NEGATED: Highlighted [id number] 09:31-0400 Body height 169 cm [facility] Work Phone: NEGATED: Highlighted [id number] 09:31-0400 Body mass index (BMI) [Ratio] 31.43 kg/m2 [facility] Work Phone: NEGATED: Highlighted [id number] 09:31-0400 Body weight 89.36 kg [facility] Work Phone: NEGATED: Highlighted [id number] 09:31-0400 Body weight 90 kg [facility] Work Phone: NEGATED: Highlighted [id number] 09:57-0500 Body height 168.91 cm [facility] Work Phone: NEGATED: Highlighted [id number] 09:57-0500 Body height 169 cm [facility] Work Phone: NEGATED: Highlighted [id number] 09:57-0500 Body mass index (BMI) [Ratio] 31.43 kg/m2 [facility] Work Phone: NEGATED: Highlighted [id number] 09:57-0500 Body weight 89.36 kg [facility] Work Phone: NEGATED: Highlighted [id number] 09:57-0500 Body weight 90 kg [facility] Work Phone: Procedures Date Procedure Procedure Detail [...] Corky Najera MD Start: 08-30-2014 End: 08-30-2014 ACCOUNT COLLECTOR Corky Najera MD Start: 08-30-2014 End: 08-31-2014 [...] 10-31-2021 End: 10-31-2021 Patient encounter procedure Appointment [facility] Work Phone: Start: 09-20-2021 End: 09-20-2021 Patient encounter procedure Appointment [facility] Work Phone: Start: 03-30-2018 End: 03-30-2018 Appointment Appointment [facility] Work Phone: Start: 03-31-2017 End: 03-31-2017 *BMP *BMP [facility] Work Phone: Start: 03-31-2017 End: 03-31-2017 *Hepatic Function Panel *Hepatic Function Panel [facility] Work Phone: Start: 03-31-2017 End: 03-31-2017 ACCOUNT COLLECTOR ACCOUNT COLLECTOR [facility] Work Phone: Start: 03-31-2017 End: 03-31-2017 Follow Up Appt 1 year Follow Up Appt 1 year [facility] Work Phone: Start: 03-31-2017 End: 03-31-2017 Lipid panel [AGGREGATE] *Lipid Profile CC PCP [facility] Work Phone: Start: 03-31-2017 End: 08-04-2017 Magnesium *Magnesium [facility] Work Phone: Start: 03-31-2017 End: [...] Phone: Start: 04-01-2016 End: 04-22-2016 *BMP *BMP [facility] Work Phone: Start: 04-01-2016 End: 04-22-2016 *Hepatic Function Panel *Hepatic Function Panel [facility] Work Phone: Start: 04-01-2016 End: 05-13-2017 ACCOUNT COLLECTOR ACCOUNT COLLECTOR [facility] Work Phone: Start: 04-01-2016 End: 05-13-2017 Follow Up Appt 1 year Follow Up Appt 1 year [facility] Work Phone: Start: 04-01-2016 End: 04-22-2016 Lipid panel [AGGREGATE] *Lipid Profile CC PCP [facility] Work Phone: Start: 04-03-2015 End: 04-03-2015 ACCOUNT COLLECTOR ACCOUNT COLLECTOR [facility] Work Phone: Start: 04-03-2015 End: 04-03-2015 Follow Up Appt 1 year Follow Up Appt 1 year [facility] Work Phone: Start: 09-15-2014 End: 09-15-2014 ACCOUNT COLLECTOR ACCOUNT COLLECTOR [facility] Work Phone: Start: 09-15-2014 End: 09-15-2014 Follow Up Appt 6 months Follow Up Appt 6 months [facility] Work Phone: Start: 08-30-2014 End: 09-01-2014 *BMP *BMP [facility] Work Phone: Start: 08-30-2014 End: 08-30-2014 24 hour holter monitor 24 hour holter monitor [facility] Work Phone: Start: 08-30-2014 End: 08-30-2014 ACCOUNT COLLECTOR ACCOUNT COLLECTOR [facility] Work Phone: Start: 08-30-2014 End: 08-30-2014 Echocardiography Echocardiogram (complete) [facility] Work Phone: Start: 08-30-2014 End: 08-30-2014 Electrocardiogram, complete EKG (In office) [facility] Work Phone: Start: 08-30-2014 End: 08-30-2014 Follow up Appt 3 weeks Follow up Appt 3 weeks [facility] Work Phone: Start: 08-30-2014 End: 09-01-2014 Magnesium *Magnesium [facility] Work Phone: Patient Education HYPERLIPIDEMIA [facility] Work Phone: Social History Date Type Detail Facility Start: 09-20-2021 End: 10-31-2021 Assertion Unknown if ever smoked [facility] Work Phone: Evaluation note Note Date & Type Note Facility Evaluation note There may be informa tion available, but it has not been provided by the sender. [facility] Work Phone: Instructions Note Date & Type Note Facility [facility] Work Phone: Instructions Note Date & Type Note Facility [facility] Work Phone: Summary Purpose Family History [...] BE BASED ON THE PRIMARY CLINICAL RECORDS. [facility]. provides no warranty or guarantee of the accuracy or completeness of information in this document.
== END | disposition home or self-care (01) ==
LOC: US 08:53
PROVIDERS: PCP Family Medicine; Referring Provider Nurse Practitioner Family; Visit Provider Nurse Practitioner Family
DX: R10.12 Left upper quadrant pain (principal)
CPT/HCPCS: 76705

== ENCOUNTER → 2024-04-19 | Outpatient (CLI) | payer MEDICARE, BC, SELFPAY ==
[2024-04-19 12:28] LABS: Absolute Lymphocyte Count 1.64 X10^3/uL (0.83-4.51); Absolute Neutrophil Count 6.1 X10^3/uL (2.0-7.7); Basophil# 0.05 X10^3/uL; Basophil% 0.6 % (0-1); Eosinophil# 0.13 X10^3/uL; Eosinophils% 1.5 % (0-5); Hematocrit 44.9 % (40-54); Lymphocyte # 1.64 X10^3/ul (0.83-4.51); Lymphocyte % 19.1 % (19-41); Mean Corp Hgb Conc 33.4 g/dL (32-36); Mean Corpuscular Hgb 29.8 pg (27.0-32.0); Mean Corpuscular Volume 89.1 fL (80-94); Mean Platelet Vol. 11.1 fl (6.2-12.0); Monocyte# 0.64 X10^3/uL; Monocyte% 7.5 % (0-10); NRBC Flagged by Analyzer 0 % (0-5); Neutrophil # 6.08 X10^3/uL (2.7-7.7); Neutrophil % 70.9 % (47-70); Platelet Count 198 K/mm3 (150-450); RBC Distribution Width CV 12.2 % (11.6-14.6); RBC Distribution Width SD 39.9 fl (35.1-43.9); Red Blood Count 5.04 M/mm3 (4.6-6.2); White Blood Count 8.6 K/mm3 (4.4-11.0)
[2024-04-19 13:24] LABS: ALB/GLOB Ratio 1.1 RATIO (0.9-2.4); AST(SGOT) 23 U/L (15-37); Alanine Aminotransfer ALT/SGPT 22 U/L (16-61); Albumin, Serum 3.6 g/dL (3.2-5.0); Alkaline Phosphatase 121 U/L (45-117); Anion Gap 8 (5-15); BUN 19 mg/dL (7-18); BUN/Creat Ratio 20.3 RATIO (10-20); Calcium,Total 9.3 mg/dL (8.5-10.1); Chloride 106 mmol/L (98-107); Cholesterol 176 mg/dL (200); Creatinine, Serum 0.94 mg/dL (0.70-1.30); EST Glomerular Filtration Rate 86 mL/min (>60); Est Glom Filt Rate - Afr Amer 104 mL/min (>60); Globulin 3.2 g/dL (2.2-4.2); Glucose 119 mg/dL (74-106); High Density Lipoprotein 46 mg/dL; Potassium 4.2 mmol/L (3.5-5.1); Protein, Total 6.8 g/dL (6.4-8.2); Sodium Level 140 mmol/L (136-145); Triglycerides 126 mg/dL; Very Low Density Lipoprotein 25 mg/dL (5-40)
== END | disposition home or self-care (01) ==
LOC: BFHLAB 09:32
PROVIDERS: PCP Family Medicine; Referring Provider Family Medicine; Visit Provider Family Medicine
DX: I10 Essential (primary) hypertension (principal); E78.5 Hyperlipidemia, unspecified; Z12.5 Encounter for screening for malignant neoplasm of prostate
CPT/HCPCS: 36415; 80053; 80061; 84153; 85025; G0103

== ENCOUNTER → 2024-05-03 | Outpatient (CLI) | payer MEDICARE, BC, SELFPAY ==
--- NOTE | 2024-05-03 10:57 | RAD_ITS ---
STUDY: X-RAY - UNILATERAL RIBS ( RIGHT ) WITH CHEST REASON FOR EXAM: Male, 68 years old. RIB PAIN TECHNIQUE - RIBS: 4 view(s) of the ribs. TECHNIQUE - CHEST: Single PA view of the chest. COMPARISON: 05/25/2019 FINDINGS - RIBS: Normal visualized ribs without a demonstrated fracture. FINDINGS - CHEST: The lungs are clear and expanded. There is no demonstrated pleural abnormality. Normal size heart. Normal mediastinum and kaitlynn. Normal visualized pulmonary arteries. Normal visualized aortic arch and descending thoracic aorta. Normal visualized thoracic spine. Normal visualized ribs, clavicles, and shoulders. There is no demonstrated abnormality of the visualized soft tissue structures of the upper abdomen. RAD/Ribs Uni Min 3V w/PA Chest IMPRESSION: RIBS: Normal x-ray examination of the ribs. CHEST: Normal x-ray examination of the chest. Electronically Signed: Gustavo Diaz MD at 8:40 EDT ,
--- OUTSIDE RECORDS SUMMARY | 2024-05-03 11:15 | XMS RPT_ITS | CCD ---
Author Organization [facility] Care Team Providers Care Children[facility] Lunchroom Supervisor Name Role Phone Cristiana Fox Unavailable Cristiana Fox Unavailable Delisa DOE, Sigrid A Unavailable Unavailable Rashid MAYFIELD, [place] Lobo Unavailable [phone] Allergies Allergy Classification Reported Allergen(s) Allergy Type Date of Onset Reaction(s) Facility (3 sources) clarithromycin drug allergy 5 [facility] Work Phone: [phone] (3 sources) diphenhydrAMINE drug allergy [address] [facility] Work Phone: [phone] (3 sources) sulfamethoxazole / trimethoprim drug allergy [address] [facility] Work Phone: [phone] (5 sources) Sulfonamides (Antibiotic); Translations: [SULFA] drug allergy [address] [facility] Work Phone: [phone] (3 sources) tamsulosin drug allergy [address] [facility] Work Phone: [phone] Medications Completed/Discontinued Medications Medication Drug Class(es) Dates Sig (Normalized) Sig (Original) atorvastatin 10 mg oral tablet (5 sources) HMG-CoA Reductase Inhibitor Start: 09-19-2021 take 1 tablet by mouth once daily ATORVASTATIN CALCIUM 10 MG TABS 1 tablet by mouth once a day atorvastatin [id number] Wanda Narvaez LPN Start: 08-22-2014 take 1 tablet by citlalli th once daily in the evening ATORVASTATIN CALCIUM 10 MG TABS One tablet by mouth every evening ATORVASTATIN CALCIUM [id number] Linda Barrett RN cefuroxime 500 mg oral tablet (3 sources) Cephalosporin Antibacterial Start: 06-02-2010 End: 06-12-2010 CEFTIN 500 MG TABS twice daily CEFUROXIME AXETIL [id number] [facility] cholecalciferol 0.05 mg oral tablet (2 sources) Vitamin D Start: 09-19-2021 take 1 tablet by mouth once daily VITAMIN D3 50 MCG (1999 UT) TABS 1 tablet by mouth once a day cholecalciferol (vitamin d3) [id number] Wanda Narvaez INSULATION BOARD BACK TENDER Chondroitin Sulfates / Glucosamine (2 sources) Start: 09-19-2021 take 1 tablet by mouth once daily OSTEOBIFLEX 1 tablet by mouth once a day OSTEOBIFLEX Arely Bandarinsky escitalopram 10 mg oral tablet (8 sources) Serotonin Reuptake Inhibitor Start: 09-19-2021 take 1 tablet by mouth once daily ESCITALOPRAM OXALATE 10 MG TABS 1 tablet by mouth once a day escitalopram oxalate [id number] Wanda Narvaez LPN Start: 06-02-2010 take 1 tablet by citlalli th once daily LEXAPRO 10 MG TABS One tablet by mouth daily ESCITALOPRAM OXALATE [id number] Linda Barrett RN esomeprazole 40 mg injection (6 sources) Proton Pump Inhibitor Start: 06-02-2010 End: 08-22-2014 NEXIUM 40 MG CPDR 1 by mouth daily ESOMEPRAZOLE MAGNESIUM [id number] [facility] Lactobacillus acidophilus (2 sources) Start: 09-19-2021 Probiotic 1 capsule by mouth lactobacillus acidophilus Wanda Narvaez LPN lisinopril 10 mg oral tablet (5 sources) Angiotensin Converting Enzyme Inhibitor Start: 09-19-2021 take 1 tablet by mouth once daily LISINOPRIL 10 MG TABS 1 tablet by mouth once a day lisinopril [id number] Wanda Fonsecasaro JONAH Start: 09-15-2014 take 1 tablet by citlalli th once daily LISINOPRIL 10 MG TABS One tablet by mouth daily LISINOPRIL [id number] Corky Najera MD methylPREDNISolone 4 mg oral tablet (1 source) Corticosteroid Start: 10-31-2021 MEDROL 4 MG TBPK Take by mouth as directed following package instructions methylprednisolone [id number] [place] Mike MD metoprolol tartrate 50 mg oral tablet (8 sources) beta-Adrenergic Manjit Start: 09-19-2021 take 1 tablet by mouth once daily METOPROLOL TARTRATE 50 MG TABS 1 tablet by mouth once a day metoprolol tartrate [id number] Wanda Fonsecasaro INSULATION BOARD BACK TENDER Start: 06-02-2010 take 1 tablet by citlalli th once daily METOPROLOL TARTRATE 50 MG TABS 1 by mouth daily METOPROLOL TARTRATE [id number] Nely Lakhani PSYCHIATRIC TECHNICIAN ASSISTANT Start: 06-02-2010 take 1 tablet by citlalli th once daily METOPROLOL SUCCINATE ER 50 MG [id number] One tablet by mouth daily METOPROLOL SUCCINATE [id number] Linda Barrett RN MULTIPLE VITAMIN (3 sources) Start: 09-15-2014 take 1 tablet by mouth once daily MULTIVITAMINS TABS One tablet by mouth daily MULTIPLE VITAMIN Corky Najera MD [id number] copen-lutein (2 sources) Start: 09-19-2021 take 1 tablet by mouth once daily CENTRUM SILVER 50+MEN TABS 1 tablet by mouth once a day [id number] pen-lutein [id number] Wanda Narvaez LPN omeprazole 20 mg delayed release oral tablet (2 sources) Proton Pump Inhibitor Start: 01-04-2019 take 1 tablet by mouth once daily OMEPRAZOLE 20 MG TBEC 1 tablet by mouth once a day omeprazole [id number] Arely Arciniega Problems Active Problems Problem Classification Problem Date [...] 08-22-2014 Episodic Other aftercare (3 sources) 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; Translations: [Other mcc (current) drug therapy] Onset: 04-24-2016 04-24-2016 Episodic [...] Results Test Name Value Interpretation Reference Range Facility Clinical Summary: Missy frost 10-31-2021 [facility] OP Visit Invalid Interpretation Code [facility] Work Phone: Office Visit: Follow-up by tania estes, Rm: 1on 10-31-2021 NEGATED: Highlighted rowxray history of the right hip/pelvis on 09/20/2021 at [facility] Invalid Interpretation Code [facility] Work Phone: Clinical Summary: Missy frost 09-20-2021 [facility] OP Visit Invalid Interpretation Code [facility] Work Phone: Clinical Summary: Scanned Hi story Summaryon 09-19-2021 data entered by patient, alcohol (ethanol or ETOH) use No Invalid Interpretation Code [facility] Work Phone: Data entered by patient, allergy list Sulfa drugs Invalid Interpretation Code [facility] Work Phone: data entered by patient, drug (of abuse) use No Invalid Interpretation Code [facility] Work Phone: data entered by patient, Employer Name retired Invalid Interpretation Code [facility] Work Phone: data entered by patient, exercise history No Invalid Interpretation Code [facility] Work Phone: data entered by patient, father's medical history Arthritis Invalid Interpretation Code [facility] Work Phone: Data entered by patient, history of past surgeries Knee surgery other Invalid Interpretation Code [facility] Work Phone: Data entered by patient, medication list [id number] a day atorvastatin aqkuuev-69sg-9-1 a day escitalopram yckexzl-49zv-1-1 a day metoprolol [id number]-7-1 a day [id number] a day Invalid Interpretation Code [facility] Work Phone: data entered by patient, mother's medical history Cancer Invalid Interpretation Code [facility] Work Phone: data entered by patient, past medical history Anxiety High blood pressure High cholesterol Invalid Interpretation Code [facility] Work Phone: data entered by patient, social history, current smoker never smoker Invalid Interpretation Code [facility] Work Phone: data entered by patient, social history, marital status Invalid Interpretation Code [facility] Work Phone: father of patient is alive or Invalid Interpretation Code [facility] Work Phone: Housing Type: apartment, house, skilled nursing, trailer, none house Invalid Interpretation Code [facility] Work Phone: housing unit size (asthma environmental history, housing) (from single family to don't know) 1 floor Invalid Interpretation Code [facility] Work Phone: medical history of patient's brother(s) Cancer Invalid Interpretation Code [facility] Work Phone: medication comments D3 [employer] Invalid Interpretation Code [facility] Work Phone: mother of patient is alive or Invalid Interpretation Code [facility] Work Phone: Number of dependent children No Invalid Interpretation Code [facility] Work Phone: Web entered surgical history comments Kidney Stones Invalid Interpretation Code [facility] Work Phone: NARDAOVnoam 04-09-2019 CNOV Office Visit ([facility] ) BENSON MINOR ([id number]) 1955 M [facility] Date Time Provider Department 04/09/19 9:45 AM INES KELLY) [facility] During your visit today, we recorded the following information about you: Temperature Pulse Respiration Blood pressure 98.4 degrees 76/minute 17/minute 144/88 Weight 88.1 kg Ines TomyTASHANTylorCON 04/09/2019 10:34 AM Signed CC: Patient presents with: Cough: and congestion x 1 week Sinus Problem: drainage x 1 week HPI: Benson Minor is a 63 year old male who presents to the office with above complaint He was seen in this urgent care 2 days ago for two week history of post nasal drainage and wheezing x 2 days. Had no other symptoms at that time. Chest x-ray was negative. Since then patient reports cough has worsened, keeping him up at night. It is productive with yellow sputum. Other associated symptoms includes rhinorrhea with yellow drainage and scratchy throat. Denies nasal congestion, facial pain/pressure, headache, fever, ear pain, ear pressure and dyspnea. Treatments tried include nothing since seen in urgent care except for antihistamine which is not helping Sick contacts: unknown. History of asthma, frequent episodes of bronchitis, chronic bronchitis, bronchiectasis or COPD: No Smoker: No Seasonal/environmenta l allergies: No but does report similar symptoms at least 2-3 times a year. Was also outside mowing and weeding prior to onset of symptoms. The ROS is otherwise negative. The patient's pmh, medications, allergies, and past visits are reviewed. PHYSICAL EXAM: BP 144/88 Pulse 76 Temp 36.9 ?C (98.4 ?F) (Tympanic) Resp 17 Wt 88.1 kg (194 lb 3.2 oz) SpO2 95% BMI 30.42 kg/m? General appearance: healthy, alert, cooperative, pleasant, in no acute distress Head: Normocephalic Eyes: conjunctiva pink and moist, no icterus, sclera white, non-injected Ears: Right ear: External ear/canal- Normal, TM - clear with good landmarks. Left ear: External ear/canal- Normal, TM - clear with good landmarks Nose: clear, no sinus tenderness. Oropharynx:No erythema, exudates or tonsillar hypertrophy. Neck:supple and no adenopathy Heart: Negative. RRR without obvious murmur, gallop, or rubs. No ectopy. Lungs: clear to auscultation, without rales or wheeze, good air exchange ASSESSMENT/PLAN: 1. Cough - ICD9: 786.2, ICD10: R05 (primary diagnosis) Secondary to post nasal drainage. Lung sounds remain CTA and chest x-ray two days ago was normal. Patient mentions treatment with antibiotics in the past which resolved symptoms after a few days. Lengthy discussion with patient regarding viral URI, allergic rhinitis and use of antibiotics only for bacterial infections. He is not exhibiting any symptoms of bacterial infection and exam findings support viral URI vs allergic rhinitis. Patient appreciative of information and verbalized understanding. - Start CODEINE 10 MG-GUAIFENESIN 100 MG/5 ML ORAL LIQUID as needed - Start Flonase nasal spray to treat rhinitis and PND - Follow-up with PCP in 1 to 2 weeks if no improvement or sooner if acutely worsening or onset of new symptoms 2. Rhinitis, unspecified type - ICD9: 472.0, ICD10: J31.0 Recommend follow-up for allergy testing if symptoms continue to reoccur Plan as above Prescription instructions reviewed with patient as applicable. Potential red flag symptoms discussed with the patient. Reviewed appropriate action plan to take if red flag symptoms occur. Patient agreeable to treatment plan. ABDOULAYE Mitchell APRN.CNP 04/09/2019 10:15 AM Signed Start fluticasone (Flonase) nasal spray, follow package directions Take Robitussin with codeine at bedtime, can cause drowsiness Follow-up with your primary care physician in 1 to 2 weeks if no improvement or sooner if you develop high fever, worsening cough, chest pain, shortness of breath Referring Provider: SELF [[id number]] Allergies As of Date: 04/09/2019 Noted Allergy Reaction BENADRYL ALLERGY DECONGESTANT 05/20/2016 1 - Mental Status Change SULFA (SULFONAMIDE ANTIBIOTICS) 05/20/2016 5 - Intolerance Date Reviewed: 04/09/2019 Reviewed by: Siri Velazquez Retail Manager In Training - Fully Assessed Reason for Visit: Cough [28] Cmt: and congestion x 1 week Sinus Problem [99] Cmt: drainage x 1 week Primary Visit Diagnosis:Cough [R05] Other Visit Diagnosis:Rhinitis, unspecified type [J31.0] Order(s):codeine-guai FENesin (ROBITUSSIN AC) 10-100 mg/5 mL syrupTake 5-10 mL by mouth four times daily as needed for Cough for up to 3 days. May cause drowsiness.Disp: 120 mLRfl: 0 Prescriptions as of 04/09/2019 Sig: FLUTICASONE PROPIONATE 50 MCG* Use 2 Sprays in each nostril * LISINOPRIL 10 MG TABLET Take 10 mg by mouth once derrick* ATORVASTATIN 10 MG TABLET Take 10 mg by mouth once derrick* ESCITALOPRAM 10 MG TABLET Take 10 mg by mouth once derrick* METOPROLOL SUCCINATE ER 50 MG* Take 50 mg by mouth once derrick* CODEINE 10 MG-GUAIFENESIN 100* Take 5-10 mL by mouth four ti* CETIRIZINE 10 MG TABLET Take 1 tablet by mouth once d* Patient not taking: Reported on 04/07/2019 HYDROCODONE 5 MG-ACETAMINOPHE* Take 1 tablet by mouth every * Patient not taking: Reported on 11/21/2018 Problem List As Of Date: 04/09/2019 (None) Other instructions from your clinician: Start fluticasone (Flonase) nasal spray, follow package directions Take Robitussin with codeine at bedtime, can cause drowsiness Follow-up with your primary care physician in 1 to 2 weeks if no improvement or sooner if you develop high fever, worsening cough, chest pain, shortness of breath Prescriptions ordered this encounter Disp Refills Start End CODEINE 10 MG-GUAIFENESIN 100 MG/5 M* 120 * 0 04/09/2019 04/12/2019 Class: Print RX Route: ORAL Sig: Take 5-10 mL by mouth four times daily as needed for Cough for up to 3 days. May cause drowsiness. Encounter Status:Closed by INES KELLY CNP on 04/09/19 [facility] PROGRESSon 04-09-2019 PROGRESS HNO ID: [id number] Author: Ines Colbert) Tomy Service: ? Author Type: Nurse Practitioner Type: Progress Notes Filed: 04/09/2019 10:34 AM Note Text: CC: Patient presents with: Cough: and congestion x 1 week Sinus Problem: drainage x 1 week HPI: Benson Minor is a 63 year old male who presents to the office with above complaint He was seen in this urgent care 2 days ago for two week history of post nasal drainage and wheezing x 2 days. Had no other symptoms at that time. Chest x-ray was negative. Since then patient reports cough has worsened, keeping him up at night. It is productive with yellow sputum. Other associated symptoms includes rhinorrhea with yellow drainage and scratchy throat. Denies nasal congestion, facial pain/pressure, headache, fever, ear pain, ear pressure and dyspnea. Treatments tried include nothing since seen in urgent care except for antihistamine which is not helping Sick contacts: unknown. History of asthma, frequent episodes of bronchitis, chronic bronchitis, bronchiectasis or COPD: No Smoker: No Seasonal/environmenta l allergies: No but does report similar symptoms at least 2-3 times a year. Was also outside mowing and weeding prior to onset of symptoms. The ROS is otherwise negative. The patient's pmh, medications, allergies, and past visits are reviewed. PHYSICAL EXAM: BP 144/88 Pulse 76 Temp 36.9 ?C (98.4 ?F) (Tympanic) Resp 17 Wt 88.1 kg (194 lb 3.2 oz) SpO2 95% BMI 30.42 kg/m? General appearance: healthy, alert, cooperative, pleasant, in no acute distress Head: Normocephalic Eyes: conjunctiva pink and moist, no icterus, sclera white, non-injected Ears: Right ear: External ear/canal- Normal, TM - clear with good landmarks. Left ear: External ear/canal- Normal, TM - clear with good landmarks Nose: clear, no sinus tenderness. Oropharynx:No erythema, exudates or tonsillar hypertrophy. Neck:supple and no adenopathy Heart: Negative. RRR without obvious murmur, gallop, or rubs. No ectopy. Lungs: clear to auscultation, without rales or wheeze, good air exchange ASSESSMENT/PLAN: 1. Cough - ICD9: 786.2, ICD10: R05 (primary diagnosis) Secondary to post nasal drainage. Lung sounds remain CTA and chest x-ray two days ago was normal. Patient mentions treatment with antibiotics in the past which resolved symptoms after a few days. Lengthy discussion with patient regarding viral URI, allergic rhinitis and use of antibiotics only for bacterial infections. He is not exhibiting any symptoms of bacterial infection and exam findings support viral URI vs allergic rhinitis. Patient appreciative of information and verbalized understanding. - Start CODEINE 10 MG-GUAIFENESIN 100 MG/5 ML ORAL LIQUID as needed - Start Flonase nasal spray to treat rhinitis and PND - Follow-up with PCP in 1 to 2 weeks if no improvement or sooner if acutely worsening or onset of new symptoms 2. Rhinitis, unspecified type - ICD9: 472.0, ICD10: J31.0 Recommend follow-up for allergy testing if symptoms continue to reoccur Plan as above Prescription instructions reviewed with patient as applicable. Potential red flag symptoms discussed with the patient. Reviewed appropriate action plan to take if red flag symptoms occur. Patient agreeable to treatment plan. Ines Kelly APRN.CNP Normal [facility] CNOVon 04-07-2019 CNOV Office Visit ([facility] ) IVÁNBENSON ([id number]) 1955 M [facility] Date Time Provider Department 04/07/19 10:30 AM ISSAC WHIPPLE (CON) [facility] During your visit today, we recorded the following information about you: Temperature Pulse Respiration Blood pressure 97.8 degrees 65/minute 17/minute 130/84 Weight 88.3 kg Issac Whipple APRN.CON 04/07/2019 11:17 AM Signed This note was created using [employer] Monitoring [employer]. Subjective Benson Minor is a 63 year old male. Pt reports postnasal drip/throat clearing for almost 2 weeks. New onset wheezing in the last couple days. Pt describes this new noise as wheezing, feels noisy in his throat, point to throat/upper lungs as where he hears the noise. Denies cough per se. No SOB. No history of wheezing. No history of lung disorders. Nonsmoker. History of seasonal allergies, but this feels different, hasn't been taking any allergy medication. Doesn't feel ill . The history is provided by the patient. Review of Systems Constitutional: Negative for chills and fever. HENT: Positive for postnasal drip. Negative for congestion, ear pain and sore throat. Eyes: Negative for discharge and itching. Respiratory: Positive for wheezing. Negative for cough, chest tightness and shortness of breath. Cardiovascular: Negative for chest pain. Allergic/Immunologic: Negative for immunocompromised state. ALLERGIES Benadryl Allergy Decongestant; Sulfa (Sulfonamide Antibiotics) MEDICATIONS fluticasone (FLONASE) 50 mcg/actuation nasal spray Use 2 Sprays in each nostril once daily. lisinopril (ZESTRIL, PRINIVIL) 10 mg tablet Take 10 mg by mouth once daily. atorvastatin (LIPITOR) 10 mg tablet Take 10 mg by mouth once daily. escitalopram oxalate (LEXAPRO) 10 mg tablet Take 10 mg by mouth once daily. metoprolol succinate ER (TOPROL XL) 50 mg 24 hr tablet Take 50 mg by mouth once daily. cetirizine (ZYRTEC) 10 mg tablet Take 1 tablet by mouth once daily. HYDROcodone-acetamino phen (NORCO) 5-325 mg per tablet Take 1 tablet by mouth every 6 hours as needed. No family history on file. Social History Tobacco Use - Smoking status: Never Smoker - Smokeless tobacco: Never Used Substance Use Topics - Alcohol use: Not on file - Drug use: Not on file Objective BP 130/84 Pulse 65 Temp 36.6 ?C (97.8 ?F) (Tympanic) Resp 17 Wt 88.3 kg (194 lb 9.6 oz) SpO2 96% BMI 30.48 kg/m? Physical Exam Constitutional: He is oriented to person, place, and time. He appears well-developed. He does not appear ill. HENT: Right Ear: Tympanic membrane and ear canal normal. Left Ear: Tympanic membrane and ear canal normal. Nose: Nose normal. Mouth/Throat: Uvula is midline, oropharynx is clear and moist and mucous membranes are normal. Cardiovascular: Normal rate, regular rhythm and normal heart sounds. Pulmonary/Chest: Effort normal and breath sounds normal. No cough noted Lymphadenopathy: He has no cervical adenopathy. Neurological: He is alert and oriented to person, place, and time. Skin: Skin is warm and dry. Nursing note and vitals reviewed. Assessment and Plan 1. Symptom of wheezing XR shows no sign of lung infection. Symptoms seem likely related to postnasal drainage, possibly environmental/allergy component. Recommend OTC antihistamine and nasal steroid x 2 weeks. If no improvement in 2 weeks, new/worsening, see PCP for further evaluation. Pt in agreement, verbalized understanding, all questions answered. - XR CHEST 2V FRONTAL/LAT 2. Postnasal discharge Referring Provider: SELF [200] Allergies As of Date: 04/07/2019 Noted Allergy Reaction BENADRYL ALLERGY DECONGESTANT 05/20/2016 1 - Mental Status Change SULFA (SULFONAMIDE ANTIBIOTICS) 05/20/2016 5 - Intolerance Date Reviewed: 04/07/2019 Reviewed by: Issac Colbert) Sole - Fully Assessed Reason for Visit: Cough [28] Cmt: chest congestion and wheezing x 1 1/2 weeks Primary Visit Diagnosis:Symptom of wheezing [R06.2] Other Visit Diagnosis:Postnasal discharge [R09.82] Order(s):XR CHEST 2V FRONTAL/LAT [[id number]] Order #: [id number]. #:[id number] Prescriptions as of 04/07/2019 Sig: FLUTICASONE PROPIONATE 50 MCG* Use 2 Sprays in each nostril * LISINOPRIL 10 MG TABLET Take 10 mg by mouth once derrick* ATORVASTATIN 10 MG TABLET Take 10 mg by mouth once derrick* ESCITALOPRAM 10 MG TABLET Take 10 mg by mouth once derrick* METOPROLOL SUCCINATE ER 50 MG* Take 50 mg by mouth once derrick* CETIRIZINE 10 MG TABLET Take 1 tablet by mouth once d* Patient not taking: Reported on 04/07/2019 HYDROCODONE 5 MG-ACETAMINOPHE* Take 1 tablet by mouth every * Patient not taking: Reported on 11/21/2018 Problem List As Of Date: 04/07/2019 (None) Encounter Status:Closed by SOLE SALCEDO.ISSAC ANDUJAR on 04/07/19 Normal [facility] PROGRESSon 04-07-2019 PROGRESS HNO ID: [id number] Author: Tatyana Rosado Rt Service: ? Author Type: ? Type: Progress Notes Filed: 04/07/2019 10:59 AM Note Text: Radiology Service Progress Note PATIENT NAME: Benson Minor DATE OF SERVICE: April 07, 2019 TIME: 10:50 AM PATIENT IDENTITY VERIFICATION COMPLETED USING TWO (2) METHODS: Name and Date of confirmed by patient verbally. PATIENT GENDER DATA: Male PATIENT RELEVANT IMPLANT DATA REVIEWED: Not Applicable RADIOLOGY DEPARTMENT: General X-ray: Exam(s) Completed: Chest X-Ray PERIPHERAL IV DATA: Not applicable SIGNED BY: Tatyana Rosado Rt April 07, 2019 10:50 AM Normal [facility] PROGRESS HNO ID: [id number] Author: Issac Whipple Service: ? Author Type: Nurse Practitioner Type: Progress Notes Filed: 04/07/2019 11:17 AM Note Text: This note was created using [employer] Monitoring [employer]. Subjective Benson Minor is a 63 year old male. Pt reports postnasal drip/throat clearing for almost 2 weeks. New onset wheezing in the last couple days. Pt describes this new noise as wheezing, feels noisy in his throat, point to throat/upper lungs as where he hears the noise. Denies cough per se. No SOB. No history of wheezing. No history of lung disorders. Nonsmoker. History of seasonal allergies, but this feels different, hasn't been taking any allergy medication. Doesn't feel ill . The history is provided by the patient. Review of Systems Constitutional: Negative for chills and fever. HENT: Positive for postnasal drip. Negative for congestion, ear pain and sore throat. Eyes: Negative for discharge and itching. Respiratory: Positive for wheezing. Negative for cough, chest tightness and shortness of breath. Cardiovascular: Negative for chest pain. Allergic/Immunologic: Negative for immunocompromised state. ALLERGIES Benadryl Allergy Decongestant; Sulfa (Sulfonamide Antibiotics) MEDICATIONS fluticasone (FLONASE) 50 mcg/actuation nasal spray Use 2 Sprays in each nostril once daily. lisinopril (ZESTRIL, PRINIVIL) 10 mg tablet Take 10 mg by mouth once daily. atorvastatin (LIPITOR) 10 mg tablet Take 10 mg by mouth once daily. escitalopram oxalate (LEXAPRO) 10 mg tablet Take 10 mg by mouth once daily. metoprolol succinate ER (TOPROL XL) 50 mg 24 hr tablet Take 50 mg by mouth once daily. cetirizine (ZYRTEC) 10 mg tablet Take 1 tablet by mouth once daily. HYDROcodone-acetamino phen (NORCO) 5-325 mg per tablet Take 1 tablet by mouth every 6 hours as needed. No family history on file. Social History Tobacco Use - Smoking status: Never Smoker - Smokeless tobacco: Never Used Substance Use Topics - Alcohol use: Not on file - Drug use: Not on file Objective BP 130/84 Pulse 65 Temp 36.6 ?C (97.8 ?F) (Tympanic) Resp 17 Wt 88.3 kg (194 lb 9.6 oz) SpO2 96% BMI 30.48 kg/m? Physical Exam Constitutional: He is oriented to person, place, and time. He appears well-developed. He does not appear ill. HENT: Right Ear: Tympanic membrane and ear canal normal. Left Ear: Tympanic membrane and ear canal normal. Nose: Nose normal. Mouth/Throat: Uvula is midline, oropharynx is clear and moist and mucous membranes are normal. Cardiovascular: Normal rate, regular rhythm and normal heart sounds. Pulmonary/Chest: Effort normal and breath sounds normal. No cough noted Lymphadenopathy: He has no cervical adenopathy. Neurological: He is alert and oriented to person, place, and time. Skin: Skin is warm and dry. Nursing note and vitals reviewed. Assessment and Plan 1. Symptom of wheezing XR shows no sign of lung infection. Symptoms seem likely related to postnasal drainage, possibly environmental/allergy component. Recommend OTC antihistamine and nasal steroid x 2 weeks. If no improvement in 2 weeks, new/worsening, see PCP for further evaluation. Pt in agreement, verbalized understanding, all questions answered. - XR CHEST 2V FRONTAL/LAT 2. Postnasal discharge Normal [facility] XR CHEST 2V FRONTAL/LATon XR CHEST 2V FRONTAL/LAT * * *Final Report* * * DATE OF EXAM: Apr 07 2019 10:59AM WOX [id number] - XR CHEST 2V FRONTAL/LAT / PROCEDURE REASON: Symptom of wheezing * * * * Physician Interpretation * * * * EXAMINATION: CHEST RADIOGRAPH (2 VIEW FRONTAL and LATERAL) CLINICAL HISTORY: Symptom of wheezing MQ: XC2_5 Comparison: None. RESULT: Lines, tubes, and devices: None. Lungs and pleura: No consolidation. No lung mass. No pleural effusion or pneumothorax. Large pericardial fat pads are noted. Cardiomediastinal silhouette: There is borderline cardiomegaly. Other: There are degenerative changes in the spine and shoulders. IMPRESSION: No acute radiographic abnormality in the lungs. Borderline cardiomegaly. Software Designer: KYMBERLY Transcribe Date/Time: Apr 07 2019 11:07A Dictated by : PAUL JANG MD This examination was interpreted and the report reviewed and electronically signed by: PAUL JANG MD on Apr 07 2019 11:08AM EST [id number] Normal [facility] CNOVon 11-21-2018 CNOV Office Visit (UCWSTR ) BENSON MINOR ([id number]) 1955 M [facility] Date Time Provider Department 11/21/18 10:00 AM JUAN NEAL ([facility]) [facility] During your visit today, we recorded the following information about you: Temperature Pulse Respiration Blood pressure 97.5 degrees 67/minute 16/minute 148/92 Weight 88 kg Juan Neal APRN.PSYCHIATRIC TECHNICIAN ASSISTANT 11/21/2018 10:19 AM Signed Subjective HPI Benson Minor is a 63 year old male who presents with a tickle in his throat and a cough for the past 3 days. He has taken nothing for his symptoms. He denies pain or fever. He mowed the yard last night and noticed his cough got worse afterwards. Review of Systems Constitutional: Negative. Negative for fever. HENT: Positive for congestion. Negative for sore throat. Respiratory: Positive for cough and sputum production. Negative for shortness of breath. Cardiovascular: Negative. Negative for chest pain. BP 148/92 Pulse 67 Temp 36.4 ?C (97.5 ?F) (Tympanic) Resp 16 Wt 88 kg (194 lb) SpO2 95% BMI 30.38 kg/m? No past medical history on file. No past surgical history on file. ALLERGIES Benadryl Allergy Decongestant; Sulfa (Sulfonamide Antibiotics) MEDICATIONS fluticasone (FLONASE) 50 mcg/actuation nasal spray Use 2 Sprays in each nostril once daily. lisinopril (ZESTRIL, PRINIVIL) 10 mg tablet Take 10 mg by mouth once daily. atorvastatin (LIPITOR) 10 mg tablet Take 10 mg by mouth once daily. escitalopram oxalate (LEXAPRO) 10 mg tablet Take 10 mg by mouth once daily. metoprolol succinate ER (TOPROL XL) 50 mg 24 hr tablet Take 50 mg by mouth once daily. HYDROcodone-acetamino phen (NORCO) 5-325 mg per tablet Take 1 tablet by mouth every 6 hours as needed. methylPREDNISolone (MEDROL, KIRSTY,) 4 mg Dose-Pack As Instructed per package No family history on file. Social History Tobacco Use - Smoking status: Never Smoker - Smokeless tobacco: Never Used Substance Use Topics - Alcohol use: Not on file - Drug use: Not on file Objective Physical Exam Constitutional: He is well-developed, well-nourished, and in no distress. HENT: Right Ear: Tympanic membrane, external ear and ear canal normal. Left Ear: Tympanic membrane, external ear and ear canal normal. Nose: Nose normal. Mouth/Throat: Uvula is midline, oropharynx is clear and moist and mucous membranes are normal. No posterior oropharyngeal edema or posterior oropharyngeal erythema. Neck: Neck supple. Cardiovascular: Normal rate and regular rhythm. Pulmonary/Chest: Effort normal and breath sounds normal. No respiratory distress. He has no wheezes. He has no rales. Lymphadenopathy: He has no cervical adenopathy. Neurological: He is alert. Skin: Skin is warm and dry. No rash noted. Nursing note and vitals reviewed. ASSESSMENT/PLAN: 1. Allergic cough - ICD9: 786.2, ICD10: R05 - CETIRIZINE 10 MG TABLET - BENZONATATE 100 MG CAPSULE - Follow-up with your PCP in 3-5 days if symptoms have not improved or sooner if symptoms worsen - Discussed red flags and need for immediate medical evaluation if any occur. - Discussed supportive care treatment with fluids, rest and analgesia. - Discussed expected course of illness ABDOULAYE Frias APRN.CNP 11/21/2018 10:12 AM Signed ASSESSMENT/PLAN: 1. Allergic cough - ICD9: 786.2, ICD10: R05 - CETIRIZINE 10 MG TABLET - BENZONATATE 100 MG CAPSULE - Follow-up with your PCP in 3-5 days if symptoms have not improved or sooner if symptoms worsen - Discussed red flags and need for immediate medical evaluation if any occur. - Discussed supportive care treatment with fluids, rest and analgesia. - Discussed expected course of illness Juan Neal APRN.CON COUGH: Your doctor wants you to have this information about coughing. The body has a cough reflex which helps expel mucous secretions and irritants from the lung and airway passages. Cough spasms are periods of continuous coughing lasting several minutes. Most coughs is caused by virus infections which may last for up to 2-3 weeks. Coughing helps to protect the lung from pneumonia. A persistent cough lasting longer than 4-6 weeks requires medical evaluation by your primary care doctor. Treatment of cough includes measures to loosen the cough and thin the mucous. Warm liquids, cough drops, and nonprescription cough medicine may help reduce dry hacking cough. Use a humidifier if necessary as dry air can make coughs worse. Ultrasonic humidifiers are especially useful as they kill molds and many bacteria. Some cough medicines have antihistamines, decongestants, or alcohol in them; there is no proof that any of these help control cough. Prescription cough medicine or those with dextromethorphan (DM) should be reserved for dry coughs that prevent sleep or cause spasms or chest pain. Avoid any exposure to cigarette smoke as this will worsen the cough or make it last much longer. Call your doctor right away if you or your child have increased breathing difficulty, a high fever, a cough that lasts longer than 3 weeks, or other serious complaints. Referring Provider: SELF [[id number]] Allergies As of Date: 11/21/2018 Noted Allergy Reaction BENADRYL ALLERGY DECONGESTANT 05/20/2016 1 - Mental Status Change SULFA (SULFONAMIDE ANTIBIOTICS) 05/20/2016 5 - Intolerance Date Reviewed: 11/21/2018 Reviewed by: Juan ([facility]) Ángel - Fully Assessed Reason for Visit: Cough [28] Cmt: x 3 days Primary Visit Diagnosis:Allergic cough [R05] Order(s):cetirizine (ZYRTEC) 10 mg tabletTake 1 tablet by mouth once daily.Disp: 30 tabletRfl: 0 benzonatate (TESSALON PERLE) 100 mg capsuleTake 1 capsule by mouth three times daily as needed for up to 10 days.Disp: 30 capsuleRfl: 0 Prescriptions as of 11/21/2018 Sig: FLUTICASONE PROPIONATE 50 MCG* Use 2 Sprays in each nostril * LISINOPRIL 10 MG TABLET Take 10 mg by mouth once derrick* ATORVASTATIN 10 MG TABLET Take 10 mg by mouth once derrick* ESCITALOPRAM 10 MG TABLET Take 10 mg by mouth once derrick* METOPROLOL SUCCINATE ER 50 MG* Take 50 mg by mouth once derrick* CETIRIZINE 10 MG TABLET Take 1 tablet by mouth once d* BENZONATATE 100 MG CAPSULE Take 1 capsule by mouth three* HYDROCODONE 5 MG-ACETAMINOPHE* Take 1 tablet by mouth every * Patient not taking: Reported on 11/21/2018 Problem List As Of Date: 11/21/2018 (None) Other instructions from your clinician: ASSESSMENT/PLAN: 1. Allergic cough - ICD9: 786.2, ICD10: R05 - CETIRIZINE 10 MG TABLET - BENZONATATE 100 MG CAPSULE - Follow-up with your PCP in 3-5 days if symptoms have not improved or sooner if symptoms worsen - Discussed red flags and need for immediate medical evaluation if any occur. - Discussed supportive care treatment with fluids, rest and analgesia. - Discussed expected course of illness Juan Neal APRN.PSYCHIATRIC TECHNICIAN ASSISTANT COUGH: Your doctor wants you to have this information about coughing. The body has a cough reflex which helps expel mucous secretions and irritants from the lung and airway passages. Cough spasms are periods of continuous coughing lasting several minutes. Most coughs is caused by virus infections which may last for up to 2-3 weeks. Coughing helps to protect the lung from pneumonia. A persistent cough lasting longer than 4-6 weeks requires medical evaluation by your primary care doctor. Treatment of cough includes measures to loosen the cough and thin the mucous. Warm liquids, cough drops, and nonprescription cough medicine may help reduce dry hacking cough. Use a humidifier if necessary as dry air can make coughs worse. Ultrasonic humidifiers are especially useful as they kill molds and many bacteria. Some cough medicines have antihistamines, decongestants, or alcohol in them; there is no proof that any of these help control cough. Prescription cough medicine or those with dextromethorphan (DM) should be reserved for dry coughs that prevent sleep or cause spasms or chest pain. Avoid any exposure to cigarette smoke as this will worsen the cough or make it last much longer. Call your doctor right away if you or your child have increased breathing difficulty, a high fever, a cough that lasts longer than 3 weeks, or other serious complaints. Prescriptions ordered this encounter Disp Refills Start End CETIRIZINE 10 MG TABLET 30 t* 0 11/21/2018 Route: ORAL Sig: Take 1 tablet by mouth once daily. BENZONATATE 100 MG CAPSULE 30 c* 0 11/21/2018 12/01/2018 Route: ORAL Sig: Take 1 capsule by mouth three times daily as needed for up to 10 days. Medications Discontinued During This Encounter methylPREDNISolone (MEDROL, KIRSTY,) 4 * 1 Pa* 0 06/04/2016 11/21/2018 Sig: As Instructed per package Disc: Reason for discontinue is not on file. Encounter Status:Closed by JUAN NEAL on 11/21/18 [facility] PROGRESSon 11-21-2018 PROGRESS HNO ID: [id number] Author: Juan ([facility]) Ángel Service: ? Author Type: Nurse Practitioner Type: Progress Notes Filed: 11/21/2018 10:19 AM Note Text: Subjective HPI Benson Minor is a 63 year old male who presents with a tickle in his throat and a cough for the past 3 days. He has taken nothing for his symptoms. He denies pain or fever. He mowed the yard last night and noticed his cough got worse afterwards. Review of Systems Constitutional: Negative. Negative for fever. HENT: Positive for congestion. Negative for sore throat. Respiratory: Positive for cough and sputum production. Negative for shortness of breath. Cardiovascular: Negative. Negative for chest pain. BP 148/92 Pulse 67 Temp 36.4 ?C (97.5 ?F) (Tympanic) Resp 16 Wt 88 kg (194 lb) SpO2 95% BMI 30.38 kg/m? No past medical history on file. No past surgical history on file. ALLERGIES Benadryl Allergy Decongestant; Sulfa (Sulfonamide Antibiotics) MEDICATIONS fluticasone (FLONASE) 50 mcg/actuation nasal spray Use 2 Sprays in each nostril once daily. lisinopril (ZESTRIL, PRINIVIL) 10 mg tablet Take 10 mg by mouth once daily. atorvastatin (LIPITOR) 10 mg tablet Take 10 mg by mouth once daily. escitalopram oxalate (LEXAPRO) 10 mg tablet Take 10 mg by mouth once daily. metoprolol succinate ER (TOPROL XL) 50 mg 24 hr tablet Take 50 mg by mouth once daily. HYDROcodone-acetamino phen (NORCO) 5-325 mg per tablet Take 1 tablet by mouth every 6 hours as needed. methylPREDNISolone (MEDROL, KIRSTY,) 4 mg Dose-Pack As Instructed per package No family history on file. Social History Tobacco Use - Smoking status: Never Smoker - Smokeless tobacco: Never Used Substance Use Topics - Alcohol use: Not on file - Drug use: Not on file Objective Physical Exam Constitutional: He is well-developed, well-nourished, and in no distress. HENT: Right Ear: Tympanic membrane, external ear and ear canal normal. Left Ear: Tympanic membrane, external ear and ear canal normal. Nose: Nose normal. Mouth/Throat: Uvula is midline, oropharynx is clear and moist and mucous membranes are normal. No posterior oropharyngeal edema or posterior oropharyngeal erythema. Neck: Neck supple. Cardiovascular: Normal rate and regular rhythm. Pulmonary/Chest: Effort normal and breath sounds normal. No respiratory distress. He has no wheezes. He has no rales. Lymphadenopathy: He has no cervical adenopathy. Neurological: He is alert. Skin: Skin is warm and dry. No rash noted. Nursing note and vitals reviewed. ASSESSMENT/PLAN: 1. Allergic cough - ICD9: 786.2, ICD10: R05 - CETIRIZINE 10 MG TABLET - BENZONATATE 100 MG CAPSULE - Follow-up with your PCP in 3-5 days if symptoms have not improved or sooner if symptoms worsen - Discussed red flags and need for immediate medical evaluation if any occur. - Discussed supportive care treatment with fluids, rest and analgesia. - Discussed expected course of illness Juan Neal APRN.PSYCHIATRIC TECHNICIAN ASSISTANT Normal [facility] Lab Report: Basic Metabolic Profile (BMP)on 08-04-2017 Anion gap 9 mmol/L Invalid Interpretation Code 5-15 [facility] Work Phone: BUN/Creatinine Ratio 26.4 RATIO High 10-20 [facility] Work Phone: Calcium 8.9 mg/dL Invalid Interpretation Code 8.5-10.1 [facility] Work Phone: Chloride 104 mmol/L Invalid Interpretation Code 98-107 [facility] Work Phone: CO2 25.0 mmol/L Invalid Interpretation Code 21.0-32.0 [facility] Work Phone: Creatinine 0.87 mg/dL Invalid Interpretation Code 0.70-1.30 [facility] Work Phone: eGFR (non-black) 95 mL/min/{1.73_m2} Invalid Interpretation Code >60 [facility] Work Phone: eGFR (non-black) 115 mL/min/{1.73_m2} Invalid Interpretation Code >60 [facility] Work Phone: Glucose 105 mg/dL Invalid Interpretation Code 70-110 [facility] Work Phone: Potassium 4.2 mmol/L Invalid Interpretation Code 3.5-5.1 [facility] Work Phone: Sodium 138 mmol/L Invalid Interpretation Code 136-145 [facility] Work Phone: Urea nitrogen 23 mg/dL High 7-18 [facility] Work Phone: Lab Report: Lipid Profileon 08-04-2017 Cholesterol 177 mg/dL Invalid Interpretation Code 200 [facility] Work Phone: HDL Cholesterol 44 mg/dL Invalid Interpretation Code [facility] Work Phone: LDL Cholesterol 106 mg/dL Invalid Interpretation Code 0-130 [facility] Work Phone: Triglyceride 137 mg/dL Invalid Interpretation Code [facility] Work Phone: very low density lipoproteins 27 mg/dL Invalid Interpretation Code 5-40 [facility] Work Phone: Lab Report: Liver Profileon 08-04-2017 Alanine aminotransferase (ALT) 33 U/L Invalid Interpretation Code 12-78 [facility] Work Phone: Albumin 3.8 g/dL Invalid Interpretation Code 3.4-5.0 [facility] Work Phone: Alkaline phosphatase (ALP) 85 U/L Invalid Interpretation Code 45-117 [facility] Work Phone: Aspartate aminotransferase (AST) 19 U/L Invalid Interpretation Code 15-37 [facility] Work Phone: Bilirubin (direct) 0.12 mg/dL Invalid Interpretation Code 0.00-0.30 [facility] Work Phone: Bilirubin (total) 0.60 mg/dL Invalid Interpretation Code 0.20-1.00 [facility] Work Phone: Globulin 3.1 g/dL Invalid Interpretation Code 2.2-4.2 [facility] Work Phone: Protein 6.9 g/dL Invalid Interpretation Code 6.4-8.2 [facility] Work Phone: Lab Report: Magnesiumon 07-14 Magnesium 2.3 mg/dL Invalid Interpretation Code 1.6-2.6 [facility] Work Phone: Lab Report: Thyroid Stim Hor js (TSH)on 08-04-2017 Thyroid stimulating hormone (TSH) 4.14 u[iU]/mL High 0.358-3.74 [facility] Work Phone: Office Visiton 03-31-2017 Documentation of current medications (procedure) Done Invalid Interpretation Code [facility] Phone: Fall risk assessment No Invalid Interpretation Code [facility] Work Phone: Lab Report: Basic Metabolic Profile (BMP)on 04-22-2016 Anion gap 5 mmol/L Invalid Interpretation Code 5-15 [facility] Work Phone: BUN/Creatinine Ratio 18.3 RATIO Invalid Interpretation Code 10-20 [facility] Work Phone: Calcium 9.1 mg/dL Invalid Interpretation Code 8.5-10.1 [facility] Work Phone: Chloride 106 mmol/L Invalid Interpretation Code 98-107 [facility] Work Phone: CO2 26.0 mmol/L Invalid Interpretation Code 21.0-32.0 [facility] Work Phone: Creatinine 0.93 mg/dL Invalid Interpretation Code 0.70-1.30 [facility] Work Phone: eGFR (non-black) 89 mL/min/{1.73_m2} Invalid Interpretation Code >60 [facility] Work Phone: eGFR (non-black) 107 mL/min/{1.73_m2} Invalid Interpretation Code >60 [facility] Work Phone: Glucose 102 mg/dL Invalid Interpretation Code 70-110 [facility] Work Phone: Potassium 4.1 mmol/L Invalid Interpretation Code 3.5-5.1 [facility] Work Phone: Sodium 137 mmol/L Invalid Interpretation Code 136-145 [facility] Work Phone: Urea nitrogen 17 mg/dL Invalid Interpretation Code 7-18 [facility] Work Phone: Lab Report: Lipid Profileon 04-22-2016 Cholesterol 186 mg/dL Invalid Interpretation Code 200 [facility] Work Phone: HDL Cholesterol 38 mg/dL Low [facility] Work Phone: LDL Cholesterol 105 mg/dL Invalid Interpretation Code 0-130 [facility] Work Phone: Triglyceride 214 mg/dL High [facility] Work Phone: very low density lipoproteins 43 mg/dL High 5-40 [facility] Work Phone: Lab Report: Liver Profileon 04-22-2016 Alanine aminotransferase (ALT) 36 U/L Invalid Interpretation Code 12-78 [facility] Work Phone: Albumin 3.8 g/dL Invalid Interpretation Code 3.4-5.0 [facility] Work Phone: Alkaline phosphatase (ALP) 103 U/L Invalid Interpretation Code 50-136 [facility] Work Phone: Aspartate aminotransferase (AST) 18 U/L Invalid Interpretation Code 15-37 [facility] Work Phone: Bilirubin (direct) 0.08 mg/dL Invalid Interpretation Code 0.00-0.30 [facility] Work Phone: Bilirubin (total) 0.40 mg/dL Invalid Interpretation Code 0.20-1.00 [facility] Work Phone: Globulin 3.0 g/dL Invalid Interpretation Code 2.3-3.5 [facility] Work Phone: Protein 6.8 g/dL Invalid Interpretation Code 6.4-8.2 [facility] Work Phone: Office Visiton 04-03-2015 Dietary management education, guidance, and counseling (procedure) yes Invalid Interpretation Code [facility] Phone: General cardiovascular disease 10Y risk [#] [place].D'Agostino 11 % Invalid Interpretation Code [facility] Phone: Tobacco smoking status NHIS Tobacco smoking status NHIS Invalid Interpretation Code [facility] Phone: Tobacco use CPHS Never smoker Invalid Interpretation Code [facility] Phone: Lab Report: Magnesiumon 08-14 Magnesium 2.1 mg/dL Invalid Interpretation Code 1.8-2.4 [facility] Phone: Office Visiton 08-30-2014 cardiac risk group B Invalid Interpretation Code [facility] Phone: Replaced Document: Davey Bee Observationson 08-30-2014 electrocardiogram interpretation Junctional Rhythm - frequent ectopic ventricular beat s P:QRS - 1:1, Superior P axis, Short Donn, H Rate 93 # VECs = 2BORDERLINE RHYTHM Invalid Interpretation Code [facility] Phone: GE use only - for LinkLogic import when terms are not otherwise specified 401 ms Invalid Interpretation Code [facility] Phone: P wave axis, electrocardiogram -87 deg Invalid Interpretation Code [facility] Phone: OH interval, electrocardiogram 94 ms Invalid Interpretation Code [facility] Phone: Pulse (Heart Rate) 93 /min Invalid Interpretation Code [facility] Work Phone: QRS axis, electrocardiogram 8 deg Invalid Interpretation Code [facility] Work Phone: QRS duration, electrocardiogram 88 ms Invalid Interpretation Code [facility] Work Phone: QT interval, electrocardiogram new path ms Invalid Interpretation Code [facility] Work Phone: T wave axis, electrocardiogram 30 deg Invalid Interpretation Code [facility] Work Phone: Clinical Lists Update: Prelo copra sampler 08-11-2014 Hematocrit (HCT) 44.4 % Invalid Interpretation Code [facility] Work Phone: Hemoglobin (HGB) 15.6 g/dL Invalid Interpretation Code [facility] Work Phone: Platelets 210 10*3/mm3 Invalid Interpretation Code [facility] Work Phone: Thyroid stimulating hormone (TSH) 2.75 u[iU]/mL Invalid Interpretation Code [facility] Work Phone: WBC (Leukocytes) 7.6 10*3/uL Invalid Interpretation Code [facility] Work Phone: Vital Signs Date Time Vital Sign Value Performing Clinician Facility 03-31-2017 16:08-0400 BMI (Body Mass Index) 31.89 kg/m2 Cristiana Fox [facility] Work Phone: 03-31-2017 16:08-0400 BP Diastolic 70 mm[Hg] Cristiana Fox [facility] Work Phone: 03-31-2017 16:08-0400 BP Systolic 120 mm[Hg] [facility] Work Phone: 03-31-2017 16:08-0400 Height 162.56 cm [facility] Work Phone: 03-31-2017 16:08-0400 Pulse (Heart Rate) 80 /min Cristiana Fox [facility] Work Phone: 03-31-2017 16:08-0400 Respiratory Rate 20 /min [facility] Work Phone: 03-31-2017 16:08-0400 Weight 84.28 kg [facility] Work Phone: 04-01-2016 16:21-0400 BSA (Body Surface Area) 1.9 m2 [facility] Work Phone: 06-02-2010 10:49-0500 Body Temperature 97.9 [degF] Cristiana Moore [facility] Work Phone: NEGATED: Highlighted [id number] 09:31-0400 Body height 168.91 cm [facility] Work Phone: NEGATED: Highlighted [id number] 09:31-0400 Body height 169 cm [facility] Work Phone: NEGATED: Highlighted [id number] 09:31-0400 Body mass index (BMI) [Ratio] 31.43 kg/m2 [facility] Work Phone: NEGATED: Highlighted [id number] 09:31-0400 Body weight 89.36 kg [facility] Work Phone: NEGATED: Highlighted [id number] 09:31-0400 Body weight 90 kg [facility] Work Phone: NEGATED: Highlighted [id number] 09:57-0500 Body height 168.91 cm [facility] Work Phone: NEGATED: Highlighted [id number] 09:57-0500 Body height 169 cm [facility] Work Phone: NEGATED: Highlighted [id number] 09:57-0500 Body mass index (BMI) [Ratio] 31.43 kg/m2 [facility] Work Phone: NEGATED: Highlighted [id number] 09:57-0500 Body weight 89.36 kg [facility] Work Phone: NEGATED: Highlighted [id number] 09:57-0500 Body weight 90 kg A[facility] Work Phone: Procedures Date Procedure [...] 10-31-2021 End: 10-31-2021 Docrev cur meds by [facility] London Mike MD Work Phone: Start: 10-31-2021 End: 10-31-2021 Osteoarthritis symptoms&funcjal status asses London Mike MD Work Phone: Start: 10-31-2021 [...] Start: 09-20-2021 End: 09-20-2021 Osteoarthritis symptoms&funcjal status asses London Mike MD Work Phone: Start: 09-20-2021 End: 09-20-2021 Pain doc pos and plan London Mike MD Work Phone: Start: 09-20-2021 End: 09-20-2021 Patient encounter procedure London Mike MD Work Phone: Start: 09-20-2021 End: 09-20-2021 Radex hip unilateral with pelvis 2-3 views London Mike MD Work Phone: Start: 03-31-2017 End: 03-31-2017 [employer]LY[employer] Corky Najera MD Start: 03-31-2017 End: 03-31-2017 Follow [...] Panel Yamil Kingston Start: 04-01-2016 End: 05-13-2017 [employer] DAT[employer] ANALYST Corky Najera MD Start: 04-01-2016 End: 05-13-2017 Follow [...] Kingston Start: 08-30-2014 End: 09-01-2014 *BMP Corky Njaera MD Start: 08-30-2014 End: 09-06-2014 24 hour holter monitor Corky Najera MD Start: 08-30-2014 End: 08-30-2014 [employer] DAT[employer] ANALYST Corky Najera MD Start: 08-30-2014 End: 08-31-2014 [...] 10-31-2021 End: 10-31-2021 Patient encounter procedure Appointment [facility] Work Phone: Start: 09-20-2021 End: 09-20-2021 Patient encounter procedure Appointment [facility] Work Phone: Start: 03-30-2018 End: 03-30-2018 Appointment Appointment [facility] Work Phone: Start: 03-31-2017 End: 03-31-2017 *BMP *BMP [facility] Work Phone: Start: 03-31-2017 End: 03-31-2017 *Hepatic Function Panel *Hepatic Function Panel [facility] Work Phone: Start: 03-31-2017 End: 03-31-2017 [employer]LE DATABASE ANALYST [employer]LE DATABASE ANALYST [facility] Work Phone: Start: 03-31-2017 End: 03-31-2017 Follow Up Appt 1 year Follow Up Appt 1 year [facility] Work Phone: Start: 03-31-2017 End: 03-31-2017 Lipid panel [AGGREGATE] *Lipid Profile CC PCP [facility] Work Phone: Start: 03-31-2017 End: 08-04-2017 Magnesium *Magnesium [facility] Work Phone: Start: 03-31-2017 End: 08-04-2017 Thyroid stimulating hormone (TSH) *TSH [facility] Work Phone: Start: 10-21-2016 End: 05-13-2017 *BMP *BMP [facility] Work Phone: Start: 10-21-2016 End: 05-13-2017 *Hepatic Function Panel *Hepatic Function Panel [facility] Work Phone: Start: 10-21-2016 End: 05-13-2017 Lipid panel [AGGREGATE] *Lipid Profile CC PCP [facility] Work Phone: Start: 04-01-2016 End: 04-22-2016 *BMP *BMP [facility] Work Phone: Start: 04-01-2016 End: 04-22-2016 *Hepatic Function Panel *Hepatic Function Panel [facility] Work Phone: Start: 04-01-2016 End: 05-13-2017 [employer]LE DATABASE ANALYST [employer]ACLE DATABASE ANALYST [facility] Work Phone: Start: 04-01-2016 End: 05-13-2017 Follow Up Appt 1 year Follow Up Appt 1 year [facility] Work Phone: Start: 04-01-2016 End: 04-22-2016 Lipid panel [AGGREGATE] *Lipid Profile CC PCP [facility] Work Phone: Start: 04-03-2015 End: 04-03-2015 [employer] DAT[employer]ASE ANALYST [employer]LE DATABASE ANALYST [facility] Work Phone: Start: 04-03-2015 End: 04-03-2015 Follow Up Appt 1 year Follow Up Appt 1 year [facility] Work Phone: Start: 09-15-2014 End: 09-15-2014 [employer]ACLE DATABASE ANALYST [employer]LE DATABASE ANALYST [facility] Work Phone: Start: 09-15-2014 End: 09-15-2014 Follow Up Appt 6 months Follow Up Appt 6 months [facility] Work Phone: Start: 08-30-2014 End: 09-01-2014 *BMP *BMP [facility] Work Phone: Start: 08-30-2014 End: 08-30-2014 24 hour holter monitor 24 hour holter monitor [facility] Work Phone: Start: 08-30-2014 End: 08-30-2014 [employer]LE DATABASE ANALYST [employer]LE DATABASE ANALYST [facility] Work Phone: Start: 08-30-2014 End: 08-30-2014 Echocardiography Echocardiogram (complete) [facility] Work Phone: Start: 08-30-2014 End: 08-30-2014 Electrocardiogram, complete EKG (In office) [facility] Work Phone: Start: 08-30-2014 End: 08-30-2014 Follow up Appt 3 weeks Follow up Appt 3 weeks [facility] Work Phone: Start: 08-30-2014 End: 09-01-2014 Magnesium *Magnesium [facility] Work Phone: Patient Education HYPERLIPIDEMIA [facility] Work Phone: Social History Date Type Detail Facility Start: 09-20-2021 End: 10-31-2021 Assertion Unknown if ever smoked [facility] Work Phone: Evaluation note Note Date & Type Note Facility Evaluation note There may be informa tion available, but it has not been provided by the sender. [facility] Work Phone: Instructions Note Date & Type Note Facility Instructions CompletedPatient advised to follow-up with Primary Care Physician for BMI management. [facility] Work Phone: Instructions Note Date & Type Note Facility Instructions CompletedPatient advised to follow-up with Primary Care Physician for BMI management. [facility] Work Phone: Summary Purpose Family History [...] INFORMATION SOURCE (unrecogn ized section and content) DATE CREATED AUTHOR 04/17/2019 [facility] Reason for Visit (unrecogniz ed section and content) Reason For Visit Description New Complaint Preliminary reason f or visit data, not yet signed by the author as of right hip pain Reason For Visit Description Start Date Follow-up [...] BE BASED ON THE PRIMARY CLINICAL RECORDS. [employer] provides no warranty or guarantee of the accuracy or completeness of information in this document.
== END | disposition home or self-care (01) ==
LOC: MTRAD 10:55
PROVIDERS: PCP Family Medicine; Referring Provider Family Medicine; Visit Provider Family Medicine
DX: R07.81 Pleurodynia (principal)
CPT/HCPCS: 71101

== ENCOUNTER → 2024-05-27 | Outpatient (CLI) | payer MEDICARE, BC, SELFPAY ==
--- NOTE | 2024-05-27 10:34 | RAD_ITS ---
HISTORY: PAIN. TECHNIQUE: XR Hip Unilateral with Pelvis when performed; 2-3 Views. COMPARISON: 08/29/2022. FINDINGS: OSSEOUS STRUCTURES: No acute displaced fracture identified. Note that overlapping bowel shadows may obscure osseous detail. Mineralization unremarkable. JOINT SPACES: No dislocation. Moderate degenerative changes of the hips. SOFT TISSUES: Surgical clips again seen in the left pelvis. RAD/HIP, UNI W/ Pelvis 2-3 Views IMPRESSION: No acute displaced fracture or dislocation identified. Electronically Signed: Jacque Harris MD at 9:52 EST ,
== END | disposition home or self-care (01) ==
LOC: MTRAD 10:30
PROVIDERS: PCP Family Medicine; Referring Provider Family Medicine; Visit Provider Family Medicine
DX: M25.551 Pain in right hip (principal)
CPT/HCPCS: 73502

== ENCOUNTER → 2024-07-11 | Outpatient (CLI) | payer MEDICARE, BC, SELFPAY ==
--- NOTE | 2024-07-11 15:55 | RAD_ITS ---
STUDY: X-RAY - LEFT WRIST REASON FOR EXAM: Male, 68 years old. PAIN TECHNIQUE: 3 view(s) of the wrist were obtained. COMPARISON: None. FINDINGS: Normal visualized distal radius and ulna. There is degenerative arthrosis of the radiocarpal articulation. Normal distal radioulnar articulation. Normal carpal bones. Normal carpal articulations. Normal carpometacarpal articulation of the thumb. Normal second through fifth carpometacarpal articulations. Normal visualized metacarpal bones. The soft tissue structures are unremarkable. RAD/Wrist min 3 Views IMPRESSION: Moderate radiocarpal joint arthrosis. Electronically Signed: Gustavo Diaz MD at 13:19 EST ,
== END | disposition home or self-care (01) ==
LOC: RAD.FUTURE 15:49
PROVIDERS: PCP Family Medicine; Referring Provider Family Medicine; Visit Provider Family Medicine
DX: M25.532 Pain in left wrist (principal)
CPT/HCPCS: 73110

== ENCOUNTER 2024-07-21 15:00 | Outpatient (RCR) | payer MEDICARE, BC, SELFPAY ==
--- NOTE | 2024-06-13 08:57 | HP.PTEVAL ---
Patient's Visit Information Visit Information Visit Information: BENSON MINOR is a 68 year old M referred to Physical Therapy by Dr. London Franklin DO with a diagnosis of LL shoulder pain, Knee OA. Date of Evaluation: 06/13/24 Physical Therapist: Daniel Waldrop, DPT, OCS, CSCS Visit Plan Frequency: 2x /Week Duration: 4-6 Weeks Plan: 2x/week for 4-6 weeks...(start 3 weeks) start in water for knee and hip ROM and strength and B shoulder stabs and strength, also pec and quad and HS sstretches and work to I program and then will want gym ex for same. Pt has previous HEP that he may bring to review verbally with staff. Work toward I gym program and pool program but will lean to gym, include floor trasnfers and activitiy modificaiton/management. Subjective Subjective: Hips , knees and shoulders give him aches and pains. Intermittent. Worse with weather and physical activities or golf. L shoulder if he reaches or overextends it. It can linger for a short time. Gets up to 3/10 Knee pain R>L , therapy for 3 years and R knee had x rays and is worn out. 8/10 on bad day. 0 some days, last couple days have been good. Hips can hurt also with long walk Sleep is not a problem. Not employed. 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 On feet alot then knees tend to get fired up. Padded shoes help. Basic ADLs all I., hard to get down on knees is painful and weak to get back up. Basement steps are not a big problem. Therapy helped knee last year. Has had water therapy and then strengthening and manual. Objective Objective: R knee L shoulder Walks back to PT I without antalgia today, Trasnfers with some knee r stiffness but I without UE. Steps reciprocally with some R>L weakness but no real pain today that effects function. AROM UE and LE WFL except R knee flexion 125 vs 138 on L and painful R knee flexiona nd extension end range. Hip AROM ext to 0 B Tightness obvious today in pec minor B, quads B, HS B at -30 90/90 test. reflexes 2/3 patella adn achilles and bi and tri sensation LE WNL to gross light touch. strength core 3+ abs and ext., hips abd and ext 3, flexion 3+, knee flexion and ext 4 B without pain, ankles 4 B. Shoulder strength ir er 4- without pain B, flexion 4- no pain B. - empty can, - speeds, - sulcus, - labral, - drop arm, and - ext rotation lag. SLight + L scour knee with positive R scour and slightly on bounce home. Balance/Special Test Scores Functional Gait Assessment Score: 28 % Disability: 6.6700 Lower Extremity Functional Score: 26 Goals Goal 1:: I appropriate gym and pool ex to manage condition of degeneration Goal Time Frame: 4-6 Weeks Goal 2:: Shoulder pain 90% better and knee pain 75% better at 1/10 at worst to improve function. Goal Time Frame: 4-6 Weeks Goal 3:: LEFS score 50 Goal Time Frame: 4-6 Weeks Goal 4:: get up off floor without difficulty from knees Goal Time Frame: 4-6 Weeks Rehabilitation Potential Physical Therapy Diagnosis: stiffness and pain and weakness in shoulders and knees limiting funciton Rehabilitation Potential: Good Anticipated Interventions Patient/Client Instruction: Educate patient on: Condition and Risk Factors For the Purpose of:: To decrease pain, To increase ROM, To improve nutrient delivery to tissue, To improve muscle performance and motor function and To increase tolerance to activity/condition/position Therapeutic Exercise to Include: Strength training, Body mechanics, Flexibilty training, In an aquatic setting, Passive ROM and Active ROM For the Purpose of:: To decrease pain, To increase ROM, To improve nutrient delivery to tissue, To improve muscle performance and motor function and To increase tolerance to activity/condition/position Text: Thank you for the opportunity to evaluate your patient. For Medicare and Medicare HMO plans, please review the plan of care and approve it. It will need to be FAXED BACK to us at [phone] for Medicare purposes. For Medicare only, by signing this I certify the plan of care. Please let me know if there are questions or concerns regarding this plan of care. Physician Signature: Date:
--- NOTE | 2024-07-21 15:24 | HP.PTDCSUM ---
Discharge Summary D/C summary: It has been my pleasure to treat BENSON MINOR referred by Dr. London Franklin, DO, with the diagnosis of LL shoulder pain, Knee OA for a total of 12 visit(s). Discharge Date: 07/21/24 Please see the following information for a summary of their discharge status. Subjective Subjective: Gym is treating him OK. Not feeling any better any worse. Pool treated better than gym ex. Pain in the last week L shoulder 5/10 and knee. Activities pretty normal. Feels better with activity. Started L wrist treatment with OT today. sleep is OK. Nothing scheduled. Pain Hip: Pain Intensity (Out of 10): 0 R knee: Pain Intensity (Out of 10): 5 Shoulder: Pain Intensity (Out of 10): 5 Overall Improvement % Improvement: 70 Objective Objective/Function: walks I without antalgia or problems today. trasnfers well chair today. Goals Goal 1:: I appropriate gym and pool ex to manage condition of degeneration Goal Progress: prefers pool Goal 2:: Shoulder pain 90% better and knee pain 75% better at 1/10 at worst to improve function. Goal Progress: Progressing Goal 3:: LEFS score 50 Goal Progress: Not Progressing Goal 4:: get up off floor without difficulty from knees Goal Progress: easier. Plan Plan: d/c to I water adn gym program reviewed today and list given. D/C Information d/c sentence: If there are questions or concerns regarding this patient's physical therapy, please feel free to call me at [phone]. Thank you for the referral of this patient. Sincerely, Daniel Waldrop, DPT, OCS, CSCS Balance/Gait/Functional tests Balance/Special Test Scores Functional Gait Assessment Score: 28 % Disability: 6.6700 Lower Extremity Functional Score: 36 Improvement % Improvement: 70
== END 2024-07-21 19:00 | disposition home or self-care (01) ==
LOC: PT 15:00
PROVIDERS: PCP Family Medicine; Referring Provider Family Medicine; Visit Provider Family Medicine
DX: M17.0 Bilateral primary osteoarthritis of knee (principal); M25.512 Pain in left shoulder
CPT/HCPCS: 97110; 97113; 97140; 97162; 97166; 97530

== ENCOUNTER → 2024-11-30 | Outpatient (CLI) | payer MEDICARE, BC, SELFPAY ==
[2024-12-01 11:33] LABS: ALB/GLOB Ratio 1.6 RATIO (0.9-2.4); AST(SGOT) 23 U/L (<=37); Alanine Aminotransfer ALT/SGPT 29 U/L (<=46); Albumin, Serum 4.2 g/dL (3.4-4.8); Alkaline Phosphatase 132 U/L (40-129); Anion Gap 11 (5-15); BUN 21 mg/dL (4-19); BUN/Creat Ratio 21.7 RATIO (10-20); Calcium,Total 9.5 mg/dL (7.6-11.0); Carbon Dioxide 25.1 mmol/L (21.0-32.0); Chloride 104 mmol/L (98-108); Creatinine, Serum 0.96 mg/dL (0.70-1.20); EST Glomerular Filtration Rate 87 (>60); Ferritin 262 ng/mL (37-417); Globulin 2.7 g/dL (2.2-4.2); Glucose 102 mg/dL (70-99); Potassium 4.4 mmol/L (3.3-5.1); Protein, Total 6.9 g/dL (5.9-8.4); Sodium Level 140 mmol/L (133-145); Vitamin B12 629 pg/mL (180-914); Vitamin D,25 Hydroxy 34.5 ng/mL (30-100)
[2024-12-01 12:04] LABS: Iron 36 ug/dL (65-175)
== END | disposition home or self-care (01) ==
LOC: MTLAB 15:21
PROVIDERS: PCP Family Medicine; Referring Provider Nurse Practitioner Family; Visit Provider Nurse Practitioner Family
DX: M25.50 Pain in unspecified joint (principal); R53.83 Other fatigue; E55.9 Vitamin D deficiency, unspecified; D50.9 Iron deficiency anemia, unspecified; R68.83 Chills (without fever)
CPT/HCPCS: 36415; 80053; 82306; 82607; 82728; 83540; 84439; 84443; 86617

== ENCOUNTER → 2024-12-09 | Outpatient (CLI) | payer MEDICARE, BC, SELFPAY ==
[2024-12-09 19:25] LABS: Internal QC Validated? YES +Cl - CLEAR BKGD; Monotest Negative (Negative); Record Kit Lot#, Mono 13241430
== END | disposition home or self-care (01) ==
LOC: MTLAB 14:22
PROVIDERS: PCP Family Medicine; Referring Provider Family Medicine; Visit Provider Family Medicine
DX: R53.83 Other fatigue (principal)
CPT/HCPCS: 36415; 86308

== ENCOUNTER 2025-02-26 09:20 | Emergency (ER) | payer MEDICARE, BC, SELFPAY ==
[2025-02-26 09:20] VITALS: BP 133/107; PULSE 67; RESP 14; TEMP 36.8; O2SAT 98; BMI 30.2
--- OUTSIDE RECORDS SUMMARY | 2025-02-26 09:58 | XMS RPT_ITS | CCD ---
Author Organization [facility] ion Partnership [facility] Care Team Providers Care Coffee Attendant Name Role Phone Ruddy Cristiana Nieto Unavailable RuddyCristiana Unavailable Delisa DOE, Sigrid Diego Unavailable Unavailable Nancy MAYFIELD, [place] Lobo Unavailable Dr. Daniel Fox Primary Care Provider 1([facility])[phone] Maryjo Mckeon Attending Provider Unavailable Dr. Daniel Fox Referring Provider 1([facility])[phone] Jessica Jordan Attending Provider [phone] MD Jessica Jordan Primary Care Provider Unavail able MD Jessica Jordan Referring Provider UnavailCHERRY Palomares Attending Provider Unavailab MD Jessica Russell Primary Care Provider Unavail able MD Jessica Jordan Referring Provider UnavailCHERRY Palomares Attending Provider Unavailab Dr. Daniel Otero Referring Provider 1([facility])[phone] Jessica Jordan Attending Provider 1([facility])[phone] MD Jessica Jordan Primary Care Provider Unavail able MD Jessica Jordan Referring Provider UnavailCHERRY Palomares Attending Provider Unavailab Dr. Daniel Otero Referring Provider Dr. Jessica Jordan Attending Provider [phone] Dc Underwood Referring Provider Dr. Corky Najera Attending Provider 1([facility])[phone] MD Jessica Jordan Primary Care Provider Unavail able MD Jessica Jordan Referring Provider UnavailMD Damián Lunsford Attending Provider [phone] MD Jessica oCrrea Primary Care Provider Destini MD Jessica Haro Referring Provider UnaMD Damián Swensno Attending Provider [phone] Dr. Corky Najera Attending Provider Dr. Jessica Jordan Primary Care Provider Dr. Jessica Jordan Attending Provider [phone] MD Jessica Correa Primary Care Provider Destini MD Jessica Haro Referring Provider MD Damián Lofton Attending Provider [phone] Dr. Corky Najera Attending Provider [phone] Jessica Jordan Primary Care Provider Dr. Jessica Jordan Attending Provider Roof BAG HANGER, BAG HANGER-C Dc Campuzano Attending Provider Dr. Jessica Jordan Referring Provider MD Damián Chu Attending Provider Dr. Jessica Jordan Primary Care Provider Dr. Roly Kim Attending Provider Dr. Jessica Jordan Attending Provider Dr. Jessica Jordan Primary Care Provider Roof BAG HANGER, BAG HANGER-C Dc Campuzano Attending Provider Dr. Jessica Jordan Referring Provider MD Damián Chu Attending Provider Dr. Roly Kim Attending Provider Dr. Jessica Jordan Attending Provider Dr. Anjel Lamar Attending Provider Dr. Jessica Jordan Primary Care Provider Dr. Jessica Jordan Referring Provider Dr. [place] Franklin Primary Care Provider [phone] Dr. Anjel Lamar Referring Provider Dr. Anjel Lamar Other Provider Dr. Jessica Jordan Primary Care Provider Dr. Jessica Jordan Referring Provider Dr. Jessica Jordan Primary Care Provider Dr. Anjel Lamar Attending Provider Dr. [place] Franklin DO Primary Care Provider [phone] Dg BAG HANGER-C, Johanna Attending Provider Dg BAG HANGER-C, Johanna Referring Provider [phone] [place] Franklin DO Attending Provider [phone] Dr. [place] Franklin DO Referring Provider [phone] Damián Chu MD Attending Provider Damián Chu Attending Unavailable Rigoberto, [place] Primary Care Unavailable Rigoberto, [place] Referring Unavailable Rigoberto, [place] Referring Unavailable Damián Chu Attending Unavailable Rigoberto, [place] Primary Care Unavailable Rigoberto, [place] Referring Unavailable Rigoberto, [place] Attending Unavailable Rigoberto, [place] Primary Care Unavailable Rigoberto, [place] Referring Unavailable Rigoberto, [place] Attending Unavailable Rigoberto, [place] Primary Care Unavailable Rigoberto, [place] Referring Unavailable Rigoberto, [place] Primary Care Unavailable Rigoberto, [place] Attending Unavailable Rigoberto, [place] Primary Care Unavailable Rigoberto, [place] Referring Unavailable Rigoberto, [place] Attending Unavailable Rigoberto, Londno Referring Unavailable Rigoberto, [place] Attending Unavailable Rigoberto, [place] Primary Care Unavailable Rigoberto, [place] Primary Care Unavailable Dg, Johanna Referring Unavailable Dg, Johanna Attending Unavailable Rigoberto, [place] Referring Unavailable Rigoberto, [place] Attending Unavailable Rigoberto, [place] Primary Care Unavailable Allergies Allergy Classification Reported Allergen(s) Allergy Type Date of Onset Reaction(s) Facility (3 sources) clarithromycin drug allergy 08-22-19 15 [facility] Work Phone: (3 sources) diphenhydrAMINE drug allergy 06-02-20 10 night[facility] Work Phone: (3 sources) sulfamethoxazole / trimethoprim drug allergy 08-22-19 15 [facility] Work Phone: (5 sources) Sulfonamides (Antibiotic); Translations: [SULFA] drug allergy 06-02-20 10 unknown [facility] Work Phone: (3 sources) tamsulosin drug allergy 08-22-19 15 nightmares [facility] Work Phone: (20 sources) Clarithromycin Drug Allergy 05-14-20 21 Unknown [facility] (20 sources) diphenhydrAMINE Drug Allergy 05-14-20 21 Unknown [facility] (20 sources) Sulfamethoxazole Drug Allergy 05-14-20 21 unknown [facility] (20 sources) Sulfonamides (Antibiotic); Translations: [Sulfa (Sulfonamide Antibiotics)] Propensity to adverse reactions 05-14-20 Rash [facility] (20 sources) tamsulosin Drug Allergy 05-14-20 unknown [facility] (20 sources) Trimethoprim Drug Allergy 05-14-20 unknown [facility] (1 source) Clarithromycin Drug Allergy 12-28-19 25 [facility] Repository (1 source) diphenhydrAMINE Drug Allergy 12-28-19 25 [facility] (1 source) Sulfamethoxazole Drug Allergy 12-28-19 25 [facility] (1 source) tamsulosin Drug Allergy 12-28-19 25 [facility] (1 source) Trimethoprim Drug Allergy 12-28-19 25 [facility] Medications Current Medications Medication Drug Class(es) Dates Sig (Normalized) Sig (Original) lisinopril 20 mg oral tablet (20 sources) Angiotensin Converting Enzyme Inhibitor Start: 04-15-2023 take 30 mg by mouth once daily Lisinopril Active 30 MG PO DAILY April 15, 2023 12:36pm Start: 10-23-2022 End: 04-15-2023 take 1 tablet by mouth once daily Lisinopril 20 mg tablet Active 20 mg PO DAILY April 15, 2023 1:36pm Start: 04-24-2022 End: 10-23-2022 take 1 tablet by mouth once daily Lisinopril 30 mg tablet Discontinued 30 mg PO DAILY September 22, 2022 4:22pm October 23, 2022 9:02am Start: 09-19-2021 take 1 tablet by citlalli th once daily LISINOPRIL 10 MG TABS 1 tablet by mouth once a day lisinopril [id number] Wanda Narvaez JONAH Start: 05-14-2021 End: 04-24-2022 Lisinopril 20 mg tablet Disc ontinued 30 mg PO DAILY May 14, 2021 4:03pm April 24, 2022 8:46am Start: 05-14-2021 End: 04-24-2022 take 30 mg by mouth once daily Lisinopril Discontinued 30 MG PO DAILY May 14, 2021 3:03pm April 24, 2022 7:46am Start: 05-10-2020 End: 05-10-2020 take 10 mg by mouth once daily Lisinopril 20 mg tablet Discontinued 10 mg PO DAILY May 10, 2020 4:09pm May 10, 2020 4:18pm Start: 05-10-2020 End: 05-10-2020 take 10 mg by mouth once daily Lisinopril Discontinued 10 MG PO DAILY May 10, 2020 3:09pm May 10, 2020 3:18pm Start: 05-26-2019 End: 05-14-2021 take 1 tablet by mouth once daily Lisinopril 20 mg tablet Discontinued 20 mg PO DAILY April 25, 2021 11:26am May 14, 2021 4:06pm Start: 09-15-2014 End: 05-26-2019 take 1 tablet by mouth once daily Lisinopril 10 mg tablet Discontinued 10 mg PO DAILY July 26, 2018 10:46am May 26, 2019 12:28pm omeprazole 20 mg delayed release oral capsule (20 sources) Proton Pump Inhibitor Start: 05-14-2021 take 1 capsule by mouth once daily Omeprazole 20 mg capsule,delayed release(DR/EC) Active 20 mg PO DAILY May 14, 2021 12:00am Start: 05-14-2021 take 10 mg by mouth once daily Omeprazole Active 10 MG PO DAILY May 13, 2021 11:00pm Start: 01-04-2019 take 1 tablet by citlalli th once daily OMEPRAZOLE 20 MG TBEC 1 tablet by mouth once a day omeprazole [id number] Arely Arciniega OSTEO BIO FLEX (20 sources) Start: 10-11-2021 OSTEO BIO FLEX Active PO October 11, 2021 1:41pm Start: 10-11-2021 End: 04-15-2023 OSTEO BIO FLEX Discontinued PO October 10, 2021 11:00pm April 15, 2023 12:36pm Start: 10-11-2021 End: 04-15-2023 OSTEO BIO FLEX Discontinued PO October 11, 2021 12:00am April 15, 2023 1:36pm Start: 10-11-2021 OSTEO BIO FLEX Active PO October 10, 2021 11:00pm Start: 10-11-2021 OSTEO BIO FLEX Active PO October 11, 2021 12:00am probiotic (14 sources) Start: 10-23-2022 probiotic Acti ve 1 NMA PO 1 time daily October 23, 2022 12:00am Start: 10-23-2022 take 1 dose by mouth once derrick y probiotic Active 1 DOSE PO 1 time daily October 22, 2022 11:00pm Start: 10-23-2022 probiotic Acti ve PO 1 time daily October 22, 2022 11:00pm Start: 10-23-2022 probiotic Acti ve PO 1 time daily October 23, 2022 12:00am Completed/Discontinued Medications Medication Drug Class(es) Dates Sig (Normalized) Sig (Original) acetaminophen 325 mg / HYDROcodone bitartrate 5 mg oral tablet (20 sources) Opioid Agonist Start: 09-20-2016 End: 05-26-2019 Hydrocodone-Acetami nophen 1 TABLET tablet Discontinued 1 - 2 {tbl} PO EVERY 4 HOURS NEEDED as needed for Pain September 20, 2016 1:00am May 26, 2019 12:19pm Start: 09-20-2016 End: 05-26-2019 take 1 tablet by mouth every four hours as needed Hydrocodone-Acetaminophen Discontinued 1 - 2 TABLET PO EVERY 4 HOURS NEEDED September 20, 2016 12:00am May 26, 2019 11:19am acetaminophen 325 mg / oxyCODONE hydrochloride 5 mg oral tablet (20 sources) Opioid Agonist Start: 05-09-2022 End: 05-22-2022 take 1 tablet by mouth every four hours Oxycodone-Acetaminophen Discontinued 1 TABLET PO Q4H 29 01May 09, 2022 May 22, 2022 3:54pm Start: 05-01-2022 End: 05-22-2022 Oxycodone-Acetaminophen 5-32 5 mg tablet Discontinued 1 {tbl} PO Q4H as needed for pain 29 01May 09, 2022 May 22, 2022 4:54pm atorvastatin 10 mg oral tablet (20 sources) HMG-CoA Reductase Inhibitor Start: 08-22-2014 End: 09-22-2022 take 1 tablet by mouth at bedtime Atorvastatin 10 mg tablet Discontinued 10 mg PO AT BEDTIME August 29, 2022 1:34pm September 22, 2022 4:22pm azithromycin 250 mg oral tablet (18 sources) Macrolide Antimicrobial Start: 11-07-2021 End: 04-18-2022 Azithromycin 250 mg tablet Discontinued 0 PO .COMPLEX November 07, 2021 12:00am April 18, 2022 8:53am For 250 mg dose pack: take 500 mg today (day 1), then 250 mg for 4 days (days 2-5) PO Start: 11-07-2021 End: 04-18-2022 Azithromycin Discontinued 0 PO .COMPLEX November 06, 2021 11:00pm April 18, 2022 7:53am For 250 mg dose pack: take 500 mg today (day 1), then 250 mg for 4 days (days 2-5) PO cefuroxime 500 mg oral tablet (3 sources) Cephalosporin Antibacterial Start: 06-02-2010 End: 06-12-2010 CEFTIN 500 MG TABS twice daily CEFUROXIME AXETIL [id number] [facility] cholecalciferol 0.05 mg oral tablet (20 sources) Vitamin D Start: 09-19-2021 take 1 tablet by mouth once daily VITAMIN D3 50 MCG (1999 UT) TABS 1 tablet by mouth once a day cholecalciferol (vitamin d3) [id number] Wanda Narvaez LPN Start: 05-14-2021 take 1 capsule by mo uth once daily Cholecalciferol (Vitamin D3) 50 mcg (2,000 unit) capsule Active 50 ug PO DAILY May 14, 2021 12:00am Chondroitin Sulfates / Glucosamine (2 sources) Start: 09-19-2021 take 1 tablet by mouth once daily OSTEOBIFLEX 1 tablet by mouth once a day OSTEOBIFLEX Arely Lubinsky ciprofloxacin 500 mg oral tablet (20 sources) Quinolone Antimicrobial Start: 04-03-2023 End: 04-26-2023 take 1 tablet by mouth twice daily Ciprofloxacin Hcl (Cipro) 500 mg tablet Discontinued 500 mg PO TWICE A DAY April 15, 2023 2:26pm April 26, 2023 1:41pm Start: 05-09-2022 End: 05-22-2022 take 1 tablet by mouth twice daily Ciprofloxacin Hcl 500 mg tablet Discontinued 500 mg PO TWICE A DAY May 09, 2022 12:00am May 22, 2022 4:53pm codeine phosphate 2 mg/ml / guaiFENesin 20 mg/ml oral solution (18 sources) Opioid Agonist Start: 11-12-2021 End: 04-18-2022 take 1 mL by mouth every six hours as needed for cough Codeine-Guaifenesin (Guaiatussin Ac) 10-100 mg/5 mL liquid Discontinued 5 mL PO EVERY 6 HOURS as needed for cough November 12, 2021 12:00am April 18, 2022 8:53am Start: 11-12-2021 End: 04-18-2022 take 1 mL by mouth every six hours before mealtime Codeine-Guaifenesin (Guaiatussin Ac) 10-100 mg/5 mL liquid Discontinued 5 ML PO EVERY 6 HOURS November 11, 2021 11:00pm April 18, 2022 7:53am cyclobenzaprine hydrochloride 5 mg oral tablet (17 sources) Muscle Relaxant Start: 04-18-2022 End: 04-24-2022 take 1 tablet by mouth twice daily at bedtime for muscle spasms Cyclobenzaprine 5 mg tablet Discontinued 5 mg PO TWICE A DAY as needed for muscle spasm April 18, 2022 12:00am April 24, 2022 8:11am Take first dose at bedtime diclofenac sodium 25 mg delayed release oral tablet (17 sources) Nonsteroidal Anti-inflammatory Drug Start: 04-18-2022 End: 04-24-2022 take 1 tablet by mouth twice daily at mealtime Diclofenac Sodium 25 mg tablet,delayed release (DR/EC) Discontinued 25 mg PO TWICE A DAY April 18, 2022 12:00am April 24, 2022 8:11am Avoid other NSAIDs. Take with food. docusate sodium 100 mg oral capsule (17 sources) Start: 05-09-2022 End: 05-22-2022 take 1 capsule by mouth twice daily Docusate Sodium (Colace) 100 mg capsule Discontinued 100 mg PO TWICE A DAY May 09, 2022 12:00am May 22, 2022 4:53pm escitalopram 10 mg oral tablet (20 sources) Serotonin Reuptake Inhibitor Start: 06-02-2010 End: 09-22-2022 take 1 tablet by mouth once daily Escitalopram Oxalate 10 mg tablet Discontinued 10 mg PO DAILY August 29, 2022 1:34pm September 22, 2022 4:22pm esomeprazole 40 mg injection (6 sources) Proton Pump Inhibitor Start: 06-02-2010 End: 08-22-2014 NEXIUM 40 MG CPDR 1 by mouth daily ESOMEPRAZOLE MAGNESIUM [id number] Nely Lakhani [employer] BU[employer]ER etodolac 500 mg oral tablet (10 sources) Nonsteroidal Anti-inflammatory Drug Start: 03-11-2023 End: 04-15-2023 take 1 tablet by mouth twice daily Etodolac 500 mg tablet Discontinued 500 mg PO TWICE A DAY March 11, 2023 12:00am April 15, 2023 1:35pm ketorolac tromethamine 10 mg oral tablet (20 sources) Nonsteroidal Anti-inflammatory Drug, Cyclooxygenase Inhibitor Start: 09-20-2016 End: 05-26-2019 take 1 tablet by mouth three times daily as needed for pain Ketorolac 10 MG tablet Discontinued 10 mg PO THREE TIMES A DAY as needed for Pain September 20, 2016 10:22pm May 26, 2019 12:19pm Lactobacillus acidophilus (2 sources) Start: 09-19-2021 Probiotic 1 capsule by mouth lactobacillus acidophilus Wanda Narvaez LPN methylPREDNISolone 4 mg oral tablet (1 source) Corticosteroid Start: 10-31-2021 MEDROL 4 MG TBPK Take by mouth as directed following package instructions methylprednisolone [id number] [place] Mike MD 24 hr metoprolol succinate 50 mg extended release oral tablet (20 sources) beta-Adrenergic Manjit Start: 09-19-2021 take 1 tablet by mouth once daily METOPROLOL TARTRATE 50 MG TABS 1 tablet by mouth once a day metoprolol tartrate [id number] Wanda Girardyolis SUAREZN Start: 05-14-2021 End: 05-09-2022 Metoprolol Succinate 50 mg t ablet extended release 24 hr Discontinued 50 mg PO .COMPLEX February 06, 2022 12:10pm May 09, 2022 10:12am 50 mg PO 75 mg daily; Start: 06-02-2010 End: 09-22-2022 take 1 tablet by mouth once daily Metoprolol Succinate 50 mg tablet extended release 24 hr Discontinued 50 mg PO DAILY August 29, 2022 1:35pm September 22, 2022 4:22pm Start: 06-02-2010 take 1 tablet by citlalli th once daily METOPROLOL TARTRATE 50 MG TABS 1 by mouth daily [facility]OPROLOL TARTRATE [id number] [facility] mg oral tablet (17 sources) Nitroimidazole Antimicrobial Start: 04-03-2023 End: 04-26-2023 take 1 tablet by mouth three times daily Metronidazole 500 mg tablet Discontinued 500 mg PO THREE TIMES A DAY April 15, 2023 2:26pm April 26, 2023 1:42pm moxifloxacin 400 mg oral tablet (8 sources) Quinolone Antimicrobial Start: 04-26-2023 End: 06-22-2023 take 1 tablet by mouth once daily Moxifloxacin 400 mg tablet Discontinued 400 mg PO DAILY 04 21April 26, 2023 12:00am June 22, 2023 9:15am MULTIPLE VITAMIN (3 sources) Start: 09-15-2014 take 1 tablet by mouth once daily MULTIVITAMINS TABS One tablet by mouth daily MULTIPLE VITAMIN Lemon Covegabriella Najera MD [id number] open-lutein (2 sources) Start: 09-19-2021 take 1 tablet by mouth once daily CENTRUM SILVER 50+MEN TABS 1 tablet by mouth once a day wjakbjal-tsh-nd-ly copen-lutein [id number] Wandaivis Fonsecamaico SUAREZN naproxen 500 mg oral tablet (8 sources) Nonsteroidal Anti-inflammatory Drug Start: 04-26-2023 End: 06-22-2023 take 1 tablet by mouth twice daily Naproxen 500 mg tablet Discontinued 500 mg PO TWICE A DAY April 26, 2023 12:00am June 22, 2023 9:15am saccharomyces boulardii 250 mg oral capsule (20 sources) Start: 05-14-2021 End: 10-23-2022 take 1 capsule by mouth once daily Saccharomyces Boulardii 250 mg capsule Discontinued 250 mg PO DAILY May 14, 2021 12:00am October 23, 2022 8:05am zolpidem tartrate 10 mg oral tablet (20 sources) gamma-Aminobutyric Acid-ergic Agonist Start: 05-09-2022 End: 10-23-2022 take 5 mg by mouth at bedtime as needed Zolpidem 10 mg tablet Discontinued 5 mg PO AT BEDTIME as needed for insomnia September 22, 2022 4:22pm October 23, 2022 8:05am Start: 05-09-2022 End: 10-23-2022 take 5 mg by mouth at bedtime Zolpidem Discontinued 5 MG PO AT BEDTIME September 22, 2022 3:22pm October 23, 2022 7:05am Start: 04-24-2022 End: 05-09-2022 take 1 tablet by mouth at bedtime as needed Zolpidem 10 mg tablet Discontinued 10 mg PO AT BEDTIME as needed for insomnia April 24, 2022 12:00am May 09, 2022 10:12am Problems Active Problems Problem Classification Problem Date Documented Date Episodic/Chronic Abdominal pain (9 sources) Abdominal pain; Translations: [Unspecified abdominal pain] 04-03-2023 Episodic Anxiety disorders (20 sources) Anxiety disorder; Translations: [Mixed anxiety and depressive disorder] 06-02-2010 Chronic Calculus of urinary tract (20 sources) Kidney stone; Translations: [Calculus of kidney] Episodic Cardiac dysrhythmias (20 sources) Ventricular premature beats; Translations: [Ventricular premature depolarization] Onset: 08-30-2014 08-30-2014 Chronic Comment on above: LAST EKG 05/03 Cardiac dysrhythmias (16 sources) Palpitations; Translations: [Palpitations] Onset: 08-22-2014 08-22-2014 Episodic Disorders of lipid metabolism (20 sources) Hyperlipidemia; Translations: [Hyperlipidemia, unspecified] Onset: 04-03-2015 04-03-2015 Chronic Diverticulosis and diverticulitis (20 sources) Diverticulitis; Translations: [Diverticulitis of intestine, part unspecified, without perforation or abscess without bleeding] 04-03-2023 Chronic Comment on above: This is a 67-year-ol d male who presents for follow-up of what appears to be his third bout of uncomplicated diverticulitis in his lifetime. Overall he has responded well to recent antibiotic course and has minimal symptoms. His exam suggest that his inflammatory phase is largely resolved. He reports that he did have a colonoscopic evaluation approximately 2 years ago with gastroenterology, but is unable to recall any mention of a finding of diverticulosis. I discussed with Mr. Minor the natural history of diverticulitis and the distinctions between complicated and uncomplicated diverticulitis. I shared with him that I would recommend repeating a colonoscopy once his inflammatory phase has completed and he has about 6 weeks of healing time to be sure that we are not dealing with true diverticulitis and not a neoplastic process as well as trying to define the extent of this diverticular disease. I did review his CT imaging with him to try to illustrate this latter point. Mr. Minor would appear to be at average risk for colon cancer based on the history provided. Still we will look to obtain records from his prior colonoscopy. In the meantime I have recommended him that he continue a low fiber diet until his pain is fully resolved and then would transition to a high-fiber diet with lots of water. Examples of such foods were provided and he was also provided a pamphlet to go into more detail on such a diet. Mr. Minor expressed appreciation for the information and was receptive of the recommendations so instructions were provided for a bowel prep as well as discussion of dates for performing this colonoscopy. Essential hypertension (20 sources) Hypertensive disorder; Translations: [Essential hypertension] Onset: 05-10-2024 06-02-2010 Chronic Malaise and fatigue (1 source) Other fatigue; Translations: [Other fatigue] Onset: 12-15-2024 Episodic Mood disorders (3 sources) Depressive disorder; Translations: [Major depressive disorder, single episode, unspecified] 06-02-2010 Chronic Osteoarthritis (20 sources) Unilateral primary osteoarthritis, right hip; Translations: [Osteoarthrosis, localized, primary, pelvic region and thigh] Onset: 09-20-2021 09-20-2021 Chronic Other connective tissue disease (15 sources) Scapulothoracic bursitis of left shoulder; Translations: [Bursitis of left shoulder] 08-29-2022 Episodic Other connective tissue disease (8 sources) Bursitis of left shoulder; Translations: [Disorders of bursae and tendons in shoulder region, unspecified] 08-29-2022 Episodic Other connective tissue disease (10 sources) Synovial cyst of right popliteal space; Translations: [Synovial cyst of popliteal space [Francis], right knee] 02-16-2023 Episodic Other connective tissue disease (8 sources) Synovial cyst of popliteal space [Francis], right knee; Translations: [Synovial cyst of popliteal space] 02-16-2023 Episodic Other connective tissue disease (10 sources) Pain in right lower limb; Translations: [Pain in right leg] 03-11-2023 Episodic Other connective tissue disease (9 sources) Pain in right leg; Translations: [Pain in limb] 03-11-2023 Episodic Other lower respiratory disease (20 sources) Cough; Translations: [Cough] Onset: 06-02-2010 Resolved: 07-02-2010 06-02-2010 Episodic Other non-traumatic joint disorders (2 sources) Shoulder pain; Translations: [Pain in left shoulder] 08-29-2022 Episodic Other non-traumatic joint disorders (15 sources) Hip pain; Translations: [Pain in right hip] 08-29-2022 Episodic Other non-traumatic joint disorders (19 sources) Pain in left shoulder; Translations: [Pain in joint, shoulder region] 08-29-2022 Episodic Other non-traumatic joint disorders (16 sources) Pain in right knee; Translations: [Right knee pain] 10-09-2022 Episodic Other non-traumatic joint disorders (1 source) Pain in unspecified joint; Translations: [Pain in unspecified joint] Onset: 12-02-2024 Episodic Other nutritional; endocrine; and metabolic disorders (6 sources) Body mass index (BMI) 31.0-31.9, adult; Translations: [Body mass index (BMI) 30.0-30.9, adult] Onset: 08-30-2014 04-01-2016 Chronic Other screening for suspected conditions (not mental disorders or infectious disease) (20 sources) Raised TSH level; Translations: [Other specified abnormal findings of blood chemistry] Episodic Other upper respiratory infections (19 sources) Acute upper respiratory infection; Translations: [Acute upper respiratory infection, unspecified] Episodic Residual codes; unclassified (20 sources) History of palpitations; Translations: [Personal history of other specified conditions] 05-22-2022 Episodic Residual codes; unclassified (2 sources) Personal history of other specified conditions; Translations: [Personal history of other diseases of circulatory system] Episodic Spondylosis; intervertebral disc disorders; other back problems (10 sources) Degeneration of lumbar intervertebral disc; Translations: [Other intervertebral disc degeneration, lumbar region] 03-11-2023 Chronic Spondylosis; intervertebral disc disorders; other back problems (20 sources) Chronic thoracic back pain; Translations: [Pain in thoracic spine] Episodic Sprains and strains (2 sources) Strain of muscle, fascia and tendon of lower back, initial encounter; Translations: [Sprain of lumbar] Episodic Past or Other Problems Problem Classification Problem Date Documented Da te Episodic/Chronic Other aftercare (3 sources) 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; Translations: [Other mcc (current) [...] 02-16-2017 02-16-2017 Episodic Other lower respiratory disease (1 source) Pleurodynia; Translations: [Pleurodynia] Onset: 05-25-2024 Episodic Other non-traumatic joint disorders (3 sources) Pain in right hip; Translations: [Pain in joint, pelvic region and thigh] Onset: 06-23-2024 08-29-2022 Episodic Other non-traumatic joint disorders (1 source) Pain in left wrist; Translations: [Pain in left wrist] Onset: 08-04-2024 Episodic Unclassified (2 sources) Problem Results Test Name Value Interpretation Reference Range Facility Orthopedic Visit Reporton Orthopedic Visit Report [facility] [address] [place] [address] OFFICE VISIT Date of Service: 12/27/24 MR#: [id number] Acct: [id number] Name: SANTANA MINOR Rep #: [id number] : 1955 Provider: Dr. Damián santacruz MD Age/Sex: 69/M Location: [facility] Status: Signed Intake Vital Signs 06/25/23 07:01 12/27/24 15:45 Height 5 ft 7 in 5 ft 7 in Intake Visit Reasons: LEFT WRIST Allergies clarithromycin (From Biaxin) Allergy (Verified 12/27/24 15:53) Unknown diphenhydramine (From Benadryl) Allergy (Verified 12/27/24 15:53) Unknown sulfamethoxazole (From Bactrim) Allergy (Verified 12/27/24 15:53) unknown tamsulosin (From Flomax) Allergy (Verified 12/27/24 15:53) unknown trimethoprim (From Bactrim) Allergy (Verified 12/27/24 15:53) unknown Sulfa (Sulfonamide Antibiotics) Adverse Reaction (Verified 12/27/24 15:53) Rash Medications ???Medication ???Instructions ???Recorded ???Confirmed ???Type cholecalciferol (vitamin D3) 50 50 mcg PO DAILY 05/14/21 12/27/24 History mcg (2,000 unit) capsule omeprazole 20 mg capsule,delayed 20 mg PO DAILY 05/14/21 12/27/24 H istory release atorvastatin 10 mg tablet 10 mg PO QHS #90 tabs 09/22/22 Rx escitalopram oxalate 10 mg tablet 10 mg PO DAILY #90 tabs 09/22/22 12/27/24 Rx metoprolol succinate 50 mg 50 mg PO DAILY #90 tabs 09/22/22 0 12/27/24 Rx tablet,extended release 24 hr probiotic 1 dose PO 1XD 10/23/22 12/27/24 Hi story lisinopril 20 mg tablet 20 mg PO DAILY 04/15/23 12/27/24 H istory Have you fallen in the past year?: No PFSH Medical History Primary osteoarthritis, left wrist History of Clostridium difficile infection Difficulty swallowing Non-smoker Cardiology follow-up encounter Synovial cyst of popliteal space [Francis], right knee Osteoarthritis of right knee Right knee pain Osteoarthritis of right hip Scapulothoracic bursitis of left shoulder Right hip pain Left shoulder pain Right ureteral calculus Diverticulitis Anxiety Hypothyroidism GERD (gastroesophageal reflux disease) Prostate cancer screening Premature ventricular contractions Anxiety and depression History of palpitations Essential (primary) hypertension Hyperlipidemia Surgical History History of cystoscopy Family History Father Cardiac pacemaker in situ Other Breast cancer Cancer Hypertension Social History Smoking Status: Never smoker alcohol intake: never substance use type: does not use what type of physical activity do you participate in: none HPI LEFT WRIST Details: This documentation accurately reflects the service provided and the decisions made by me, Dr. Damián Chu MD 12/27/24 5237. Part of today???s visit was documented by [ ], acting as scribe. SANTANA MINOR is a 69 year old M here today for 4 months follow-up left wrist osteoarthritis and an intra articular cortisone injection. Patient had good results with the prior injection about 6 months of relief. He really likes to go golfing. Would prefer to have some temporary relief. Is had some questions about different surgical procedures as well. Office Procedures Ortho Injections Injections Is this a patient provided medication?: No Details: Obtained consent for injection. Under sterile conditions, injected the patients left wrist with 1cc Kenalog, and 2cc bupivacaine. The patient tolerated the injection well without any noted complication. Patient should call our office if redness develops, pain worsens or if they have any concerns. Office Meds Kenalog 40 mg/mL suspension for injection Performing Provider: Damián Chu MD Performing Location: [facility] Administered by: Damián Chu MD on 12/27/24 16:07 Dose Route Admin Location Dispensed Lot Number Expiration Date NDC Man ufacturer 40 mg intra-articular Left wrist 1 mL [id number] 02/10/27 6704-1461-82 [employer] [facility] Supplemental Info [facility] Imaging Services [address] [place], [place] [address] Wrist min 3 Views MR#: [id number] Acct: [id number] Name: SANTANA MINOR Rep #: [id number] : 1955 M 68 From: Gustavo Diaz MD PCP: Dr. London Franklin DO Status: REG CLI Study: Wrist min 3 Views Date of Exam: 07/11/24 Exam# [id number] Ordering Dr: London Franklin DO [id number] STUDY: X-RAY - LEFT WRIST REASON FOR EXAM: Male, 68 years (more content not included)... Normal [facility] [place] 12-09-2024 Monocytes (Bld) [#/Vol] Negative Normal Negative [facility] Comment on above: Performed By: #### L 700.5500 ####[facility] [address] [place], [address] Serum heterophile antibody d etectionOrdered By: London Franklin on 12-09-2024 Heterophile Ab Ql (S) Negative Negative [facility] Lyme Antibodies,[place] Lyme Additional Comment Normal . [facility] Comment on above: Result Comment: Per CDC criteria, the Lyme IgG Immunoblot is interpreted as positive if IgG-class antibodies are detected to 5 or more B. burgdorferi proteins, and the Lyme IgM Immunoblot is interpreted as positive if IgM-class antibodies are detected to 2 or more B. burgdorferi proteins. Immunoblot patterns not meeting these criteria should not be interpreted as positive. Epitopes from certain B. burgdorferi proteins (e.g., p41) are conserved across other bacteria, which may lead to the detection of IgM-and/or IgG class antibodies on the Lyme disease immunoblots in patients without Lyme disease. Immunoblot should only be ordered on specimens that are positive or equivocal by an FDA-licensed Lyme disease antibody screening test (e.g., EIA). Results of the Lyme IgM immunoblot should not be considered in patients with 30 or more days of symptoms. Performed at: [address] [id number] [employer] Stock Clerk: Kerry Galicia MD, Phone: [phone] Performed By: #### L 503.0106, L506.1001, L7000.5800, L506.0400, L503.6550, L503.6150, L501.9520, L500.4050 ####[facility] [address] [place], [place], [phone] LYME IgG INTERP Negative Normal Negative [facility] Comment on above: Performed By: #### L 503.0106, L506.1001, L7000.5800, L506.0400, L503.6550, L503.6150, L501.9520, L500.4050 ####[facility] [address] [place], [place], [phone] LYME IgM INTERP Negative Normal Negative [facility] Comment on above: Result Comment: Plea Note: Lyme immunoblot alone is not recommended for the diagnosis of Lyme disease. Current guidelines recommend the use of a two-tiered approach to Lyme serology testing to improve the sensitivity and specificity of testing. [facility] offers test code 822649 Lyme Disease Serology with Reflex to aid in the diagnosis of Lyme Disease. Performed By: #### L 503.0106, L506.1001, L7000.5800, L506.0400, L503.6550, L503.6150, L501.9520, L500.4050 ####[facility] [address] [place], [place], [phone] P18 Ab Absent Normal . [facility] Comment on above: Performed By: #### L 503.0106, L506.1001, L7000.5800, L506.0400, L503.6550, L503.6150, L501.9520, L500.4050 ####[facility] [address] [place], [place], [phone] P23 Ab Absent Normal . [facility] Comment on above: Performed By: #### L 503.0106, L506.1001, L7000.5800, L506.0400, L503.6550, L503.6150, L501.9520, L500.4050 ####[facility] [address] [place], [address] P28 Ab Absent Normal . [facility] Comment on above: Performed By: #### L 503.0106, L506.1001, L7000.5800, L506.0400, L503.6550, L503.6150, L501.9520, L500.4050 ####[facility] [address] [place], [address] P30 Ab Absent Normal . [facility] Comment on above: Performed By: #### L 503.0106, L506.1001, L7000.5800, L506.0400, L503.6550, L503.6150, L501.9520, L500.4050 ####[facility] [address] [place], [place], [phone] [phone] Ab Absent Normal . [facility] Comment on above: Performed By: #### L 503.0106, L506.1001, L7000.5800, L506.0400, L503.6550, L503.6150, L501.9520, L500.4050 ####[facility] [address] [place], [place], [phone] [phone] Ab Present Normal . [facility] Comment on above: Performed By: #### L 503.0106, L506.1001, L7000.5800, L506.0400, L503.6550, L503.6150, L501.9520, L500.4050 ####[facility] [address] [place], [address] P41 Ab Absent Normal . [facility] Comment on above: Performed By: #### L 503.0106, L506.1001, L7000.5800, L506.0400, L503.6550, L503.6150, L501.9520, L500.4050 ####[facility] [address] [place], [address] P45 Ab Absent Normal . [facility] Comment on above: Performed By: #### L 503.0106, L506.1001, L7000.5800, L506.0400, L503.6550, L503.6150, L501.9520, L500.4050 ####[facility] [address] [place], [address] P58 Ab Absent Normal . [facility] Comment on above: Performed By: #### L 503.0106, L506.1001, L7000.5800, L506.0400, L503.6550, L503.6150, L501.9520, L500.4050 ####[facility] [address] [place], [address] P66 Ab Absent Normal . [facility] Comment on above: Performed By: #### L 503.0106, L506.1001, L7000.5800, L506.0400, L503.6550, L503.6150, L501.9520, L500.4050 ####[facility] [address] [place], [address] P93 Ab Absent Normal . [facility] Comment on above: Performed By: #### L 503.0106, L506.1001, L7000.5800, L506.0400, L503.6550, L503.6150, L501.9520, L500.4050 ####[facility] [address] [place], [address] Comprehensive Metabolic Prof [facility] 12-01-2024 Albumin [Mass/Vol] 4.2 g/dL Normal 3.4-4.8 [facility] Comment on above: Performed By: #### L 503.0106, L506.1001, L7000.5800, L506.0400, L503.6550, L503.6150, L501.9520, L500.4050 #### [facility] [address] [place], [address] Albumin/Globulin [Mass ratio] 1.6 {ratio} Normal 0.9-2.4 [facility] Comment on above: Performed By: #### L 503.0106, L506.1001, L7000.5800, L506.0400, L503.6550, L503.6150, L501.9520, L500.4050 #### [facility] [address] [place], [address] ALK PHOS 132 U/L High 40-129 [facility] Comment on above: Performed By: #### L 503.0106, L506.1001, L7000.5800, L506.0400, L503.6550, L503.6150, L501.9520, L500.4050 #### [facility] [address] [place], [address] ALT [Catalytic activity/Vol] 29 U/L Normal <=46 [facility] Comment on above: Performed By: #### L 503.0106, L506.1001, L7000.5800, L506.0400, L503.6550, L503.6150, L501.9520, L500.4050 #### [facility] [address] [place], [address] AST [Catalytic activity/Vol] 23 U/L Normal <=37 [facility] Comment on above: Performed By: #### L 503.0106, L506.1001, L7000.5800, L506.0400, L503.6550, L503.6150, L501.9520, L500.4050 #### [facility] [address] [place], [address] Bilirubin [Mass/Vol] 0.20 mg/dL Normal 0.00-1.30 [facility] Comment on above: Performed By: #### L 503.0106, L506.1001, L7000.5800, L506.0400, L503.6550, L503.6150, L501.9520, L500.4050 #### [facility] [address] [place], [address] BUN/CRE 21.7 RATIO High 10-20 [facility] Comment on above: Performed By: #### L 503.0106, L506.1001, L7000.5800, L506.0400, L503.6550, L503.6150, L501.9520, L500.4050 #### [facility] [address] [place], [address] Calcium [Mass/Vol] 9.5 mg/dL Normal 7.6-11.0 [facility] Comment on above: Performed By: #### L 503.0106, L506.1001, L7000.5800, L506.0400, L503.6550, L503.6150, L501.9520, L500.4050 #### [facility] [address] [place], [address] Chloride [Moles/Vol] 104 mmol/L Normal 98-108 [facility] Comment on above: Performed By: #### L 503.0106, L506.1001, L7000.5800, L506.0400, L503.6550, L503.6150, L501.9520, L500.4050 #### [facility] [address] [place], [address] CO2 [Moles/Vol] 25.1 mmol/L Normal 21.0-32.0 [facility] Comment on above: Performed By: #### L 503.0106, L506.1001, L7000.5800, L506.0400, L503.6550, L503.6150, L501.9520, L500.4050 #### [facility] [address] [place], [address] Creatinine [Mass/Vol] 0.96 mg/dL Normal 0.70-1.20 [facility] Comment on above: Performed By: #### L 503.0106, L506.1001, L7000.5800, L506.0400, L503.6550, L503.6150, L501.9520, L500.4050 #### [facility] [address] [place], [address] GAP 11 Normal 5-15 [facility] Comment on above: Performed By: #### L 503.0106, L506.1001, L7000.5800, L506.0400, L503.6550, L503.6150, L501.9520, L500.4050 #### [facility] [address] [place], [address] GFR/1.73 sq M.predicted among non-blacks MDRD (S/P/Bld) [Vol rate/Area] 87 mL/min/{1.73_m2} Normal >60 [facility] Comment on above: Result Comment: mL/m in/1.73m2 CKD-EPI Creatinine Equation (2020) Performed By: #### L 503.0106, L506.1001, L7000.5800, L506.0400, L503.6550, L503.6150, L501.9520, L500.4050 #### [facility] [address] [place], [address] Globulin (S) [Mass/Vol] 2.7 g/dL Normal 2.2-4.2 [facility] Comment on above: Performed By: #### L 503.0106, L506.1001, L7000.5800, L506.0400, L503.6550, L503.6150, L501.9520, L500.4050 #### [facility] [address] [place], [address] Glucose [Mass/Vol] 102 mg/dL High 70-99 [facility] Comment on above: Performed By: #### L 503.0106, L506.1001, L7000.5800, L506.0400, L503.6550, L503.6150, L501.9520, L500.4050 #### [facility] [address] [place], [address] Potassium [Moles/Vol] 4.4 mmol/L Normal 3.3-5.1 [facility] Comment on above: Performed By: #### L 503.0106, L506.1001, L7000.5800, L506.0400, L503.6550, L503.6150, L501.9520, L500.4050 #### [facility] [address] [place], [address] Sodium [Moles/Vol] 140 mmol/L Normal 133-145 [facility] Comment on above: Performed By: #### L 503.0106, L506.1001, L7000.5800, L506.0400, L503.6550, L503.6150, L501.9520, L500.4050 #### [facility] [address] [place], [address] T PROT 6.9 g/dL Normal 5.9-8.4 [facility] Comment on above: Performed By: #### L 503.0106, L506.1001, L7000.5800, L506.0400, L503.6550, L503.6150, L501.9520, L500.4050 #### [facility] [address] [place], [address] Urea nitrogen [Mass/Vol] 21 mg/dL High 4-19 [facility] Comment on above: Performed By: #### L 503.0106, L506.1001, L7000.5800, L506.0400, L503.6550, L503.6150, L501.9520, L500.4050 #### [facility] [address] [place], [address] Ferritinon 12-01-2024 Ferritin [Mass/Vol] 262 ng/mL Normal 37-417 [facility] Comment on above: Performed By: #### L 503.0106, L506.1001, L7000.5800, L506.0400, L503.6550, L503.6150, L501.9520, L500.4050 #### [facility] [address] [place], [address] Ironon 12-01-2024 Iron [Mass/Vol] 36 ug/dL Low 65-175 [facility] Comment on above: Performed By: #### L 503.0106, L506.1001, L7000.5800, L506.0400, L503.6550, L503.6150, L501.9520, L500.4050 ####[facility] [address] [place], [address] T4 Free Directon 12-01-2024 T4 FREE DIRECT 0.90 ng/dL Normal 0.76-1.46 [facility] Comment on above: Performed By: #### L 503.0106, L506.1001, L7000.5800, L506.0400, L503.6550, L503.6150, L501.9520, L500.4050 ####[facility] [address] [place], [address] Thyroid Stim Hormone (TSH)on 12-01-2024 TSH 2.980 uIU/mL Normal 0.300-4.200 [facility] Comment on above: Performed By: #### L 503.0106, L506.1001, L7000.5800, L506.0400, L503.6550, L503.6150, L501.9520, L500.4050 #### [facility] [address] [place], [place], [id number] Vitamin B12on 12-01-2024 Cobalamin (Vitamin B12) [Mass/Vol] 629 pg/mL Normal 180-914 [facility] Comment on above: Performed By: #### L 503.0106, L506.1001, L7000.5800, L506.0400, L503.6550, L503.6150, L501.9520, L500.4050 #### [facility] [address] [place], [address] Vitamin D,25 Hydroxyon 12-01 Vitamin D 25-OH 34.5 ng/mL Normal 30-100 [facility] Comment on above: Result Comment: Christy min D Status Deficiency: <20 ng/mL (50nmol/L) Insufficiency: 20-30 ng/mL (50-75 nmol/L) Sufficiency: 30-100 ng/mL (75-250 nmol/L) Toxicity: >100 ng/mL (>250 nmol/L) Performed By: #### L 503.0106, L506.1001, L7000.5800, L506.0400, L503.6550, L503.6150, L501.9520, L500.4050 ####[facility] [address] [place], [address] Anion gap in Serum or Plasma Ordered By: Johanna Conte on 11-30-2024 Anion gap [Moles/Vol] 11 mmol/L 5-15 [facility] BUN/creatinine ratioOrdered By: Johanna Conte on 11-30-2024 Urea nitrogen/Creatinine [Mass ratio] 21.7 mg/mg High 10-20 [facility] Bilirubin, totalOrdered By: Johanna Conte on 11-30-2024 Bilirubin [Mass/Vol] 0.20 mg/dL 0.00-1.30 [facility] Carbon dioxide, total [Moles /volume] in Central venous bloodOrdered By: Johanna Conte on 11-30-2024 CO2 [Moles/Vol] 25.1 mmol/L 21.0-32.0 [facility] Chloride assayOrdered By: Ra jayshree Conte on 11-30-2024 Chloride [Moles/Vol] 104 mmol/L 98-108 [facility] Glomerular filtration rate ( GFR) estimation/1.73 sq m using serum, plasma, or whole bOrdered By: Johanna Conte on 11-30-2024 GFR/1.73 sq M.predicted among non-blacks MDRD (S/P/Bld) [Vol rate/Area] 87 mL/min/{1.73_m2} >60 [facility] Comment on above: mL/min/1.73m2 CKD-EP I Creatinine Equation (2020) Iron measurement (mass/mass) Ordered By: Johanna Conte on 11-30-2024 Iron (Unsp spec) [Mass/Mass] 36 ug/dL Low 65-175 [facility] Laboratory - Chemistry and C hemistry - challengeOrdered By: Johanna Conte on 11-30-2024 AST [Catalytic activity/Vol] 23 U/L <38 [facility] No Panel InformationOrdered By: Johanna Conte on 11-30-2024 Lyme Disease IgG Ab 30 kDa Band Absent . [facility] Lyme Disease IgG Ab 93 kDa Band Absent . [facility] Lyme Disease IgG [place] Interp Negative Negative [facility] Lyme Disease IgM Ab (Western Blot) Negative Negative [facility] Comment on above: Please Note: Lyme im munoblot alone is not recommended forthe diagnosis of Lyme disease. Current guidelines recommendthe use of a two-tiered approach to Lyme serology testingto improve the sensitivity and specificity of testing.[facility] offers test code 348017 Lyme Disease Serology withReflex to aid in the diagnosis of Lyme Disease. Lyme Disease Western Blot Comments Comment . [facility] Comment on above: Per CDC criteria, th e Lyme IgG Immunoblot is interpreted aspositive if IgG-class antibodies are detected to 5 or moreB. burgdorferi proteins, and the Lyme IgM Immunoblot isinterpreted as positive if IgM-class antibodies aredetected to 2 or more B. burgdorferi proteins. Immunoblotpatterns not meeting these criteria should not beinterpreted as positive. Epitopes from certain B.burgdorferi proteins (e.g., p41) are conserved across otherbacteria, which may lead to the detection of IgM-and/or IgGclass antibodies on the Lyme disease immunoblots inpatients without Lyme disease. Immunoblot should only beordered on specimens that are positive or equivocal by anA-licensed Lyme disease antibody screening test (e.g.,EIA). Results of the Lyme IgM immunoblot should not beconsidered in patients with 30 or more days of symptoms.Performed at: [employer] [id number] Director: Kerry Galicia MD, Phone: [phone] Potassium measurement (mass/ volume)Ordered By: Johanna Conte on 11-30-2024 Potassium (Unsp spec) [Mass/Vol] 4.4 mmol/L 3.3-5.1 [facility] Serum creatinine measurement (mass/volume)Ordered By: Johanna Conte on 11-30-2024 Creatinine [Mass/Vol] 0.96 mg/dL 0.70-1.20 [facility] Serum globulin measurementOr dered By: Johanna Conte on 11-30-2024 Globulin (S) [Mass/Vol] 2.7 g/dL 2.2-4.2 [facility] Serum glucose measurement (m ass/volume)Ordered By: Johanna Conte on 11-30-2024 Glucose [Mass/Vol] 102 mg/dL High 70-99 [facility] Serum or plasma alanine webb otransferase (ALT) measurementOrdered By: Johanna Conte on 11-30-2024 ALT [Catalytic activity/Vol] 29 U/L <47 [facility] Serum or plasma albumin miguelina urement (mass/volume)Ordered By: Johanna Conte on 11-30-2024 Albumin [Mass/Vol] 4.2 g/dL 3.4-4.8 [facility] Serum or plasma albumin/glob ulin mass ratioOrdered By: Johanna Conte on 11-30-2024 Albumin/Globulin [Mass ratio] 1.6 {ratio} 0.9-2.4 [facility] Serum or plasma alkaline sg sphatase measurementOrdered By: Johanna Conte on 11-30-2024 ALP [Catalytic activity/Vol] 132 U/L High 40-129 [facility] Serum or plasma calcium miguelina urement (mass/volume)Ordered By: Johanna Conte on 11-30-2024 Calcium [Mass/Vol] 9.5 mg/dL 7.6-11.0 [facility] Serum or plasma ferritin jose surement (mass/volume)Ordered By: Johanna Conte on 11-30-2024 Ferritin [Mass/Vol] 262 ng/mL 37-417 [facility] Serum or plasma urea nitroge n measurement (mass/volume)Ordered By: Johanna Conte on 11-30-2024 Urea nitrogen [Mass/Vol] 21 mg/dL High 4-19 [facility] Sodium levelOrdered By: Yandy Conte on 11-30-2024 Sodium [Moles/Vol] 140 mmol/L 133-145 [facility] T4 freeOrdered By: Johanna moore on 11-30-2024 Free T4 [Mass/Vol] 0.90 ng/dL 0.76-1.46 [facility] TSH DL <= 0.005 mIU/L QnOrde red By: Johanna Conte on 11-30-2024 TSH Qn 2.980 uIU/mL 0.300-4.200 [facility] Total proteinOrdered By: Ricardo Conte on 11-30-2024 Protein [Mass/Vol] 6.9 g/dL 5.9-8.4 [facility] Vitamin B12 ser/plasOrdered By: Johanna Conte on 11-30-2024 Cobalamin (Vitamin B12) [Mass/Vol] 629 pg/mL 180-914 [facility] Orthopedic Visit Reporton Orthopedic Visit Report [facility] [address] [place] [address] OFFICE VISIT Date of Service: 08/12/24 MR#: [id number] Acct: [id number] Name: SANTANA MINOR Rep #: [id number] : 1955 Provider: Dr. Damián santacruz MD Age/Sex: 68/M Location: [facility] [place] Status: Signed Intake Vital Signs 06/25/23 07:01 Height 5 ft 7 in Intake Visit Reasons: LEFT WRIST Director Pediatric Required: No Accompanied by: Self Is patient in pain?: Yes (left wrist) Pain scale (1-10): 8 Allergies clarithromycin (From Biaxin) Allergy (Verified 08/12/24 09:33) Unknown diphenhydramine (From Benadryl) Allergy (Verified 08/12/24 09:33) Unknown sulfamethoxazole (From Bactrim) Allergy (Verified 08/12/24 09:33) unknown tamsulosin (From Flomax) Allergy (Verified 08/12/24 09:33) unknown trimethoprim (From Bactrim) Allergy (Verified 08/12/24 09:33) unknown Sulfa (Sulfonamide Antibiotics) Adverse Reaction (Verified 08/12/24 09:33) Rash Medications ???Medication ???Instructions ???Recorded ???Confirmed ???Type cholecalciferol (vitamin D3) 50 50 mcg PO DAILY 05/14/21 08/12/24 History mcg (2,000 unit) capsule omeprazole 20 mg capsule,delayed 20 mg PO DAILY 05/14/21 08/12/24 H istory release atorvastatin 10 mg tablet 10 mg PO QHS #90 tabs 09/22/22 Rx escitalopram oxalate 10 mg tablet 10 mg PO DAILY #90 tabs 09/22/22 08/12/24 Rx metoprolol succinate 50 mg 50 mg PO DAILY #90 tabs 09/22/22 0 08/12/24 Rx tablet,extended release 24 hr probiotic 1 dose PO 1XD 10/23/22 08/12/24 Hi story lisinopril 20 mg tablet 20 mg PO DAILY 04/15/23 08/12/24 H istory Have you fallen in the past year?: No PFSH Medical History (Updated 08/12/24 @ 09:54 by Damián Chu MD) Primary osteoarthritis, left wrist History of Clostridium difficile infection Difficulty swallowing Non-smoker Cardiology follow-up encounter Synovial cyst of popliteal space [Francis], right knee Osteoarthritis of right knee Right knee pain Osteoarthritis of right hip Scapulothoracic bursitis of left shoulder Right hip pain Left shoulder pain Right ureteral calculus Diverticulitis Anxiety Hypothyroidism GERD (gastroesophageal reflux disease) Prostate cancer screening Premature ventricular contractions Anxiety and depression History of palpitations Essential (primary) hypertension Hyperlipidemia Surgical History History of cystoscopy Family History Father Cardiac pacemaker in situ Other Breast cancer Cancer Hypertension Social History Smoking Status: Never smoker alcohol intake: never substance use type: does not use what type of physical activity do you participate in: none HPI LEFT WRIST Details: This documentation accurately reflects the service provided and the decisions made by me, Dr. Damián Chu MD 08/12/24 0932. Part of today???s visit was documented by [ ], acting as scribe. SANTANA MINOR is a 68 year old M here today for left wrist pain. Been going on for years. Mostly in the dorsum midline of the wrist. Worse with activities sometimes the pain is as severe as an 8 out of 10 sometimes it is a 0. Worse with doing or heavier activities. Patient is retired now but still does quite a bit around the house and is quite active. Has tried a brace and some medications for this. Has had x-rays already and was told he has wrist arthritis. Patient is right-hand dominant. ROS Const Denies chills, Denies fatigue, Denies fever(s), Denies frequent falls, Denies headache(s) and Denies weakness ENT Denies headache(s) Card Denies chest pain and Denies dyspnea Resp Denies dyspnea GI Denies abdominal pain, Denies constipation, Denies diarrhea, Denies fecal incontinence, Denies nausea and Denies vomiting Denies urinary incontinence Musc Reports arthralgias, Denies joint swelling, Denies numbness, Reports stiffness and Denies tingling Skin/Breast Denies rash Neuro No convulsions, No frequent falls, No headache(s), No numbness, No tingling and No weakness Endo Denies fatigue Ortho Exam General General: Yes no acute distress Neurologic: Yes alert and Yes oriented x3 Psychologic: Yes reasonable and appropriate Right Wrist/Hand Skin/Wound: No Swelling and No Ecchymosis Left Wrist/Hand Skin/Wound: Yes CDI, No Swelling, No Ecchymosis, Yes nail intact, Yes capillary refill normal and No erythema Left Wrist: Yes ROM-Pronation 0-80 and Yes ROM-Supination 0-90; No Snuffbox tenderness, No Palpable Nodule, No Tender to palpate triangular fibrocartilage complex, No Distal radioulnar joint, No CMC Grind, No tender to palpate 1st dorsal (more content not included)... Normal [facility] PT D/C Summary (1)on 025 PT D/C Summary (1) [facility] Physical Therapy [facility] [address] [place] [address] / REHABILITATION SERVICES DISCHARGE SUMMARY MR#: [id number] Acct: [id number] Name: SANTANA MINOR Rep #: [id number] : 1955 68 From: Daniel Waldrop DPT, OCS, CSCS Referring Dr.: Dr. London Franklin, Status: RE G RCR Insurance: MEDICARE PART A B ANTH Discharge Summary D/C summary: It has been my pleasure to treat SANTANA MINOR referred by Dr. London Franklin, , with the diagnosis of LL shoulder pain, Knee OA for a total of 12 visit(s). Discharge Date: 07/21/24 Please see the following information for a summary of their discharge status. Subjective Subjective: Gym is treating him OK. Not feeling any better any worse. Pool treated better than gym ex. Pain in the last week L shoulder 5/10 and knee. Activities pretty normal. Feels better with activity. Started L wrist treatment with OT today. sleep is OK. Nothing scheduled. Pain Hip: Pain Intensity (Out of 10): 0 R knee: Pain Intensity (Out of 10): 5 Shoulder: Pain Intensity (Out of 10): 5 Overall Improvement % Improvement: 70 Objective Objective/Function: walks I without antalgia or problems today. trasnfers well chair today. Goals Goal 1:: I appropriate gym and pool ex to manage condition of degeneration Goal Progress: prefers pool Goal 2:: Shoulder pain 90% better and knee pain 75% better at 1/10 at worst to improve function. Goal Progress: Progressing Goal 3:: LEFS score 50 Goal Progress: Not Progressing Goal 4:: get up off floor without difficulty from knees Goal Progress: easier. Plan Plan: d/c to I water adn gym program reviewed today and list given. D/C Information d/c sentence: If there are questions or concerns regarding this patient's physical therapy, please feel free to call me at [phone]. Thank you for the referral of this patient. Sincerely, Daniel Waldrop, DPT, OCS, CSCS Balance/Gait/Function al tests Balance/Special Test Scores Functional Gait Assessment Score: 28 % Disability: 6.6700 Lower Extremity Functional Score: 36 Improvement % Improvement: 70 07/21/24 1524 CC: Dr. London Franklin DO EBG Signed Normal [facility] Wrist min 3 Viewson 07-11-20 Wrist min 3 Views [facility] Services [address] [place], [place] [address] Wrist min 3 Views MR#: [id number] Acct: [id number] Name: SANTANA MINOR Rep #: [id number] : 1955 68 From: Gustavo Diaz MD PCP: Dr. London Franklin DO Status: REG CLI Study: Wrist min 3 Views Date of Exam: 07/11/24 Exam# [id number] Ordering Dr: London Franklin DO [id number] STUDY: X-RAY - LEFT WRIST REASON FOR EXAM: Male, 68 years old. PAIN TECHNIQUE: 3 view(s) of the wrist were obtained. COMPARISON: None. FINDINGS: Normal visualized distal radius and ulna. There is degenerative arthrosis of the radiocarpal articulation. Normal distal radioulnar articulation. Normal carpal bones. Normal carpal articulations. Normal carpometacarpal articulation of the thumb. Normal second through fifth carpometacarpal articulations. Normal visualized metacarpal bones. The soft tissue structures are unremarkable. RAD/Wrist min 3 Views IMPRESSION: Moderate radiocarpal joint arthrosis. Electronically Signed: Gustavo Diaz MD at 13:19 EST , CC: Dr. London Franklin DO Barrel Charrer: Signed Normal [facility] Inital Evaluation (1) - PTon 06-13-2024 Inital Evaluation (1) - PT [facility] Physical [facility] [address] [place] [address] / REHABILITATION SERVICES INITIAL EVALUATION MR#: [id number] Acct: [id number] Name: SANTANA MINOR Rep #: [id number] : 1955 68 From: Daniel Waldrop DPT, OCS, CSCS Referring Dr.: Dr. London Franklin DO Status: RE G RCR Insurance: MEDICARE PART A B ANTH Patient's Visit Information Visit Information Visit Information: SANTANA MINOR is a 68 year old M referred to Physical Therapy by Dr. London Franklin DO with a diagnosis of LL shoulder pain, Knee OA. Date of Evaluation: 06/13/24 Physical Therapist: Daniel Waldrop DPT, OCS, CSCS Visit Plan Frequency: 2x /Week Duration: 4-6 Weeks Plan: 2x/week for 4-6 weeks...(start 3 weeks) start in water for knee and hip ROM and strength and B shoulder stabs and strength, also pec and quad and HS sstretches and work to I program and then will want gym ex for same. Pt has previous HEP that he may bring to review verbally with staff. Work toward I gym program and pool program but will lean to gym, include floor trasnfers and activitiy modificaiton/manageme nt. Subjective Subjective: Hips , knees and shoulders give him aches and pains. Intermittent. Worse with weather and physical activities or golf. L shoulder if he reaches or overextends it. It can linger for a short time. Gets up to 3/10 Knee pain R>L , therapy for 3 years and R knee had x rays and is worn out. 8/10 on bad day. 0 some days, last couple days have been good. Hips can hurt also with long walk Sleep is not a problem. Not employed. 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 On feet alot then knees tend to get fired up. Padded shoes help. Basic ADLs all I., hard to get down on knees is painful and weak to get back up. Basement steps are not a big problem. Therapy helped knee last year. Has had water therapy and then strengthening and manual. Objective Objective: R knee L shoulder Walks back to PT I without antalgia today, Trasnfers with some knee r stiffness but I without UE. Steps reciprocally with some R>L weakness but no real pain today that effects function. AROM UE and LE WFL except R knee flexion 125 vs 138 on L and painful R knee flexiona nd extension end range. Hip AROM ext to 0 B Tightness obvious today in pec minor B, quads B, HS B at -30 90/90 test. reflexes 2/3 patella adn achilles and bi and tri sensation LE WNL to gross light touch. strength core 3+ abs and ext., hips abd and ext 3, flexion 3+, knee flexion and ext 4 B without pain, ankles 4 B. Shoulder strength ir er 4- without pain B, flexion 4- no pain B. - empty can, - speeds, - sulcus, - labral, - drop arm, and - ext rotation lag. SLight + L scour knee with positive R scour and slightly on bounce home. Balance/Special Test Scores Functional Gait Assessment Score: 28 % Disability: 6.6700 Lower Extremity Functional Score: 26 Goals Goal 1:: I appropriate gym and pool ex to manage condition of degeneration Goal Time Frame: 4-6 Weeks Goal 2:: Shoulder pain 90% better and knee pain 75% better at 1/10 at worst to improve function. Goal Time Frame: 4-6 Weeks Goal 3:: LEFS score 50 Goal Time Frame: 4-6 Weeks Goal 4:: get up off floor without difficulty from knees Goal Time Frame: 4-6 Weeks Rehabilitation Potential Physical Therapy Diagnosis: stiffness and pain and weakness in shoulders and knees limiting funciton Rehabilitation Potential: Good Anticipated Interventions Patient/Client Instruction: Educate patient on: Condition and Risk Factors For the Purpose of:: To decrease pain, To increase ROM, To improve nutrient delivery to tissue, To improve muscle performance and motor function and To increase tolerance to activity/condition/po sition Therapeutic Exercise to Include: Strength training, Body mechanics, Flexibilty training, In an aquatic setting, Passive ROM and Active ROM For the Purpose of:: To decrease pain, To increase ROM, To improve nutrient delivery to tissue, To improve muscle performance and motor function and To increase tolerance to activity/condition/po sition Text: Thank you for the opportunity to evaluate your patient. For Medicare and Medicare HMO plans, please review the plan of care and approve it. It will need to be FAXED BACK to us at [phone] for Medicare purposes. For Medicare only, by signing this I certify the plan of care. Please let me know if there are questions or concerns regarding this plan of care. Physician Signature: Date : 06/13/24 0857 CC: Dr. London Franklin DO EBG Signed Normal [facility] HIP, UNI W/ Pelvis 2-3 Views on 05-27-2024 HIP, UNI W/ Pelvis 2-3 Views [facility] Imaging Services [address] [place] [address] HIP, UNI W/ Pelvis 2-3 Views MR#: [id number] Acct: [id number] Name: SANTANA MINOR Rep #: [id number] : 1955 M 68 From: Jacque frost MD PCP: Dr. London Franklin DO Status: REG CLI Study: HIP, UNI W/ Pelvis 2-3 Views Date of Exam: Exam# [id number] Ordering Dr: London Franklin DO [id number] HISTORY: PAIN. TECHNIQUE: XR Hip Unilateral with Pelvis when performed; 2-3 Views. COMPARISON: 08/29/2022. FINDINGS: OSSEOUS STRUCTURES: No acute displaced fracture identified. Note that overlapping bowel shadows may obscure osseous detail. Mineralization unremarkable. JOINT SPACES: No dislocation. Moderate degenerative changes of the hips. SOFT TISSUES: Surgical clips again seen in the left pelvis. RAD/HIP, UNI W/ Pelvis 2-3 Views IMPRESSION: No acute displaced fracture or dislocation identified. Electronically Signed: Jacque Harris MD at 9:52 EST Reading Location ID and State: [facility] / [place] Tel , Service support , CC: Dr. London Franklin DO Barrel Charrer: Signed Normal [facility] Ribs Uni Min 3V w/PA Cheston 05-03-2024 Ribs Uni Min 3V w/PA Chest [facility] Imaging Services [address] [place] [address] Ribs Uni Min 3V w/PA Chest MR#: [id number] Acct: [id number] Name: SANTANA MINOR Rep #: [id number] : 1955 68 From: Gustavo Diaz MD PCP: Dr. London Franklin DO Status: REG CLI Study: Ribs Uni Min 3V w/PA Chest Date of Exam: 05/03 Exam# [id number] Ordering Dr: London Franklin DO [id number] STUDY: X-RAY - UNILATERAL RIBS ( RIGHT ) WITH CHEST REASON FOR EXAM: Male, 68 years old. RIB PAIN TECHNIQUE - RIBS: 4 view(s) of the ribs. TECHNIQUE - CHEST: Single PA view of the chest. COMPARISON: 05/25/2019 FINDINGS - RIBS: Normal visualized ribs without a demonstrated fracture. FINDINGS - CHEST: The lungs are clear and expanded. There is no demonstrated pleural abnormality. Normal size heart. Normal mediastinum and kaitlynn. Normal visualized pulmonary arteries. Normal visualized aortic arch and descending thoracic aorta. Normal visualized thoracic spine. Normal visualized ribs, clavicles, and shoulders. There is no demonstrated abnormality of the visualized soft tissue structures of the upper abdomen. RAD/Ribs Uni Min 3V w/PA Chest IMPRESSION: RIBS: Normal x-ray examination of the ribs. CHEST: Normal x-ray examination of the chest. Electronically Signed: Gustavo Diaz MD at 8:40 EDT , CC: Dr. London Franklin, DO Barrel Charrer: Signed Normal [facility] CBC W/Diff, Automatedon 10-0 Absolute Lymph 1.64 X10 3/uL Normal 0.83-4.51 [facility] Comment on above: Performed By: #### L 100.0100, L500.4050, L501.9910, L500.4100 ####[facility] [address] [place], [place], [id number]) Absolute Neut 6.1 X10 3/uL Normal 2.0-7.7 [facility] Comment on above: Performed By: #### L 100.0100, L500.4050, L501.9910, L500.4100 ####[facility] [address] [place], [address] Basophils/100 WBC (Bld) 0.6 % Normal 0-1 [facility] Comment on above: Performed By: #### L 100.0100, L500.4050, L501.9910, L500.4100 ####[facility] [address] [place], [address] Eosinophils/100 WBC (Bld) 1.5 % Normal 0-5 [facility] Comment on above: Performed By: #### L 100.0100, L500.4050, L501.9910, L500.4100 ####[facility] [address] [place], [address] Erythrocyte distribution width (RBC) [Ratio] 12.2 % Normal 11.6-14.6 [facility] Comment on above: Performed By: #### L 100.0100, L500.4050, L501.9910, L500.4100 ####[facility] [address] [place], [address] Hematocrit (Bld) [Volume fraction] 44.9 % Normal 40-54 [facility] Comment on above: Performed By: #### L 100.0100, L500.4050, L501.9910, L500.4100 ####[facility] [address] [place], [address] Hemoglobin (Bld) [Mass/Vol] 15.0 g/dL Normal 13.0-16.5 [facility] Comment on above: Performed By: #### L 100.0100, L500.4050, L501.9910, L500.4100 ####[facility] [address] [place], [address] IG% 0.400 Normal 0.0-0.9 [facility] Comment on above: Result Comment: IG% - Immature Granulocytes (promyelocytes, myelocytes and metamyelocytes) > 1% indicates that a LEFT SHIFT is Present. Performed By: #### L 100.0100, L500.4050, L501.9910, L500.4100 ####[facility] [address] [place], [address] Lymphocytes/100 WBC (Bld) 19.1 % Normal 19-41 [facility] Comment on above: Performed By: #### L 100.0100, L500.4050, L501.9910, L500.4100 ####[facility] [address] [place], [address] MCH (RBC) [Entitic mass] 29.8 pg Normal 27.0-32.0 [facility] Comment on above: Performed By: #### L 100.0100, L500.4050, L501.9910, L500.4100 ####[facility] [address] [place], [address] MCHC (RBC) [Mass/Vol] 33.4 g/dL Normal 32-36 [facility] Comment on above: Performed By: #### L 100.0100, L500.4050, L501.9910, L500.4100 ####[facility] [address] [place], [address] MCV (RBC) [Entitic vol] 89.1 fL Normal 80-94 [facility] Comment on above: Performed By: #### L 100.0100, L500.4050, L501.9910, L500.4100 ####[facility] [address] [place], [address] Monocytes/100 WBC (Bld) 7.5 % Normal 0-10 [facility] Comment on above: Performed By: #### L 100.0100, L500.4050, L501.9910, L500.4100 ####[facility] [address] [place], [address] Neutrophils/100 WBC (Bld) 70.9 % High 47-70 [facility] Comment on above: Performed By: #### L 100.0100, L500.4050, L501.9910, L500.4100 ####[facility] [address] [place], [address] Nucleated RBC (Bld) [#/Vol] 0 10*3/uL Normal 0-5 [facility] Comment on above: Performed By: #### L 100.0100, L500.4050, L501.9910, L500.4100 ####[facility] [address] [place], [address] Platelet mean volume (Bld) [Entitic vol] 11.1 fL Normal 6.2-12.0 [facility] Comment on above: Performed By: #### L 100.0100, L500.4050, L501.9910, L500.4100 ####[facility] [address] [place], [address] Platelets (Bld) [#/Vol] 198 10*3/uL Normal 150-450 [facility] Comment on above: Performed By: #### L 100.0100, L500.4050, L501.9910, L500.4100 ####[facility] [address] [place], [address] RBC (Bld) [#/Vol] 5.04 10*6/uL Normal 4.6-6.2 [facility] Comment on above: Performed By: #### L 100.0100, L500.4050, L501.9910, L500.4100 ####[facility] [address] [place], [address] RDW SD 39.9 fl Normal 35.1-43.9 [facility] Comment on above: Performed By: #### L 100.0100, L500.4050, L501.9910, L500.4100 ####[facility] [address] [place], [address] WBC (Bld) [#/Vol] 8.6 10*3/uL Normal 4.4-11.0 [facility] Comment on above: Performed By: #### L 100.0100, L500.4050, L501.9910, L500.4100 ####[facility] [address] [place], [address] Comprehensive Metabolic Prof ilon 04-19-2024 Albumin [Mass/Vol] 3.6 g/dL Normal 3.2-5.0 [facility] Comment on above: Performed By: #### L 100.0100, L500.4050, L501.9910, L500.4100 ####[facility] [address] [place], [address] Albumin/Globulin [Mass ratio] 1.1 {ratio} Normal 0.9-2.4 [facility] Comment on above: Performed By: #### L 100.0100, L500.4050, L501.9910, L500.4100 ####[facility] [address] [place], [address] ALK P 121 U/L High 45-117 [facility] Comment on above: Performed By: #### L 100.0100, L500.4050, L501.9910, L500.4100 ####[facility] [address] [place], [address] ALT [Catalytic activity/Vol] 22 U/L Normal 16-61 [facility] Comment on above: Performed By: #### L 100.0100, L500.4050, L501.9910, L500.4100 ####[facility] [address] [place], [address] AST [Catalytic activity/Vol] 23 U/L Normal 15-37 [facility] Comment on above: Performed By: #### L 100.0100, L500.4050, L501.9910, L500.4100 ####[facility] [address] [place], [address] Bilirubin [Mass/Vol] 0.70 mg/dL Normal 0.20-1.00 [facility] Comment on above: Result Comment: For patients on eltrombopag therapy, use of Dimension Haugen TBIL is not recommended. Performed By: #### L 100.0100, L500.4050, L501.9910, L500.4100 ####[facility] [address] [place], [address] BUN/CRE 20.3 RATIO High 10-20 [facility] Comment on above: Performed By: #### L 100.0100, L500.4050, L501.9910, L500.4100 ####[facility] [address] [place], [address] CA,Total 9.3 mg/dL Normal 8.5-10.1 [facility] Comment on above: Performed By: #### L 100.0100, L500.4050, L501.9910, L500.4100 ####[facility] [address] [place], [address] Chloride [Moles/Vol] 106 mmol/L Normal 98-107 [facility] Comment on above: Performed By: #### L 100.0100, L500.4050, L501.9910, L500.4100 ####[facility] [address] [place], [address] CO2 [Moles/Vol] 25.0 mmol/L Normal 21.0-32.0 [facility] Comment on above: Performed By: #### L 100.0100, L500.4050, L501.9910, L500.4100 ####[facility] [address] [place], [address] Creatinine [Mass/Vol] 0.94 mg/dL Normal 0.70-1.30 [facility] Comment on above: Result Comment: The validity of the calculated GFR GFRAA in patients over 70 years has not been determined. Clinical correlation is essential. Performed By: #### L 100.0100, L500.4050, L501.9910, L500.4100 ####[facility] [address] [place], [address] EST GFR - AA 104 mL/min Normal >60 [facility] Comment on above: Result Comment: Afri can Italian GFR Calc Performed By: #### L 100.0100, L500.4050, L501.9910, L500.4100 ####[facility] [address] [place], [address] GAP 8 Normal 5-15 [facility] Comment on above: Performed By: #### L 100.0100, L500.4050, L501.9910, L500.4100 ####[facility] [address] [place], [address] GFR/1.73 sq M.predicted among non-blacks MDRD (S/P/Bld) [Vol rate/Area] 86 mL/min/{1.73_m2} Normal >60 [facility] Comment on above: Result Comment: Non- GFR Calc Performed By: #### L 100.0100, L500.4050, L501.9910, L500.4100 ####[facility] [address] [place], [address] Globulin (S) [Mass/Vol] 3.2 g/dL Normal 2.2-4.2 [facility] [facility] Comment on above: Performed By: #### L 100.0100, L500.4050, L501.9910, L500.4100 ####[facility] [address] [place], [address] Glucose [Mass/Vol] 119 mg/dL High 74-106 [facility] Comment on above: Result Comment: Fast ing Glucose result from 100 to 125 mg/dL suggests IMPAIRED HOMEOSTASIS per A.D.A. criteria. Performed By: #### L 100.0100, L500.4050, L501.9910, L500.4100 ####[facility] [address] [place], [address] Potassium [Moles/Vol] 4.2 mmol/L Normal 3.5-5.1 [facility] Comment on above: Performed By: #### L 100.0100, L500.4050, L501.9910, L500.4100 ####[facility] [address] [place], [address] Sodium [Moles/Vol] 140 mmol/L Normal 136-145 [facility] Comment on above: Performed By: #### L 100.0100, L500.4050, L501.9910, L500.4100 ####[facility] [address] [place], [address] T PROT 6.8 g/dL Normal 6.4-8.2 [facility] Comment on above: Performed By: #### L 100.0100, L500.4050, L501.9910, L500.4100 ####[facility] [address] [place], [address] Urea nitrogen [Mass/Vol] 19 mg/dL High 7-18 [facility] Comment on above: Performed By: #### L 100.0100, L500.4050, L501.9910, L500.4100 ####[facility] [address] [place], [address] Lipid Profileon 04-19-2024 Cholesterol [Mass/Vol] 176 mg/dL Normal 200 [facility] Comment on above: Result Comment: <200 mg/dL Desirable 200-240 mg/dL Borderline >240 mg/dL High Risk Performed By: #### L 100.0100, L500.4050, L501.9910, L500.4100 ####[facility] [address] [place], [address] Cholesterol in HDL [Mass/Vol] 46 mg/dL Normal [facility] Comment on above: Result Comment: The drugs N-Acetylcysteine and Metamizole may falsely depress this assay. Reference Range HDL <40 mg/dL Low HDL Cholesterol HDL >or= 60 mg/dL High HDL Cholesterol Performed By: #### L 100.0100, L500.4050, L501.9910, L500.4100 ####[facility] [address] [place], [address] Cholesterol in LDL [Mass/Vol] 105 mg/dL Normal 0-130 [facility] Comment on above: Performed By: #### L 100.0100, L500.4050, L501.9910, L500.4100 ####[facility] [address] [place], [address] Cholesterol in VLDL [Mass/Vol] 25 mg/dL Normal 5-40 [facility] Comment on above: Performed By: #### L 100.0100, L500.4050, L501.9910, L500.4100 ####[facility] [address] [place], [address] Triglyceride [Mass/Vol] 126 mg/dL Normal [facility] Comment on above: Result Comment: The drugs N-Acetylcysteine and Metamizole may falsely depress this assay. Serum Triglycerides Reference Interval Normal <150 mg/dL Borderline high 150 - 199 mg/dL High 200 - 499 mg/dL Very High > or = 500 mg/dL Performed By: #### L 100.0100, L500.4050, L501.9910, L500.4100 ####[facility] [address] [place], [address] PSA,Total - Annual Screenon 04-19-2024 PSA,TOT SCREEN 0.50 ng/mL Normal 0.00-4.00 [facility] Comment on above: Result Comment: This test was performed using the TPSA assay method for the [employer] chemistry system. Values obtained with different assay methods cannot be used interchangably. When changing PSA assays in the course of monitoring a patient, additional sequential testing should be carried out to confirm baseline values. Performed By: #### L 100.0100, L500.4050, L501.9910, L500.4100 ####[facility] [address] [place], [address] Absolute lymphocyte countOrd ered By: Johannaevangelist Conte on 08-31-2023 Lymphocytes Auto (Unsp spec) [#/Vol] 1.96 10*3/uL 0.83-4.51 [facility] Automated lymphocyte count a s percentage of total leukocytesOrdered By: Johanna Conte on 08-31-2023 Lymphocytes/100 WBC Auto (Unsp spec) 19.1 % 19-41 [facility] Basophil percentageOrdered B y: Johanna Conte on 08-31-2023 Amylase [Catalytic activity/Vol] 36 U/L 25-115 [facility] Basophils/100 WBC (Bld) 0.4 % 0-1 [facility] Bilirubin [Mass/Vol] 0.30 mg/dL 0.20-1.00 [facility] Comment on above: For patients on eltr ombopag therapy, use of Dimension Haugen TBIL is not recommended. Chloride [Moles/Vol] 104 mmol/L 98-107 [facility] Eosinophils/100 WBC (Bld) 0.7 % 0-5 [facility] Glucose [Mass/Vol] 100 mg/dL 74-106 [facility] Comment on above: Fasting Glucose resu lt from 100 to 125 mg/dL suggests IMPAIRED HOMEOSTASIS per A.D.A. criteria. Hemoglobin (Bld) [Mass/Vol] 16.1 g/dL 13.0-16.5 [facility] Monocytes/100 WBC (Bld) 7.0 % 0-10 [facility] Neutrophils (Bld) [#/Vol] 7.4 10*3/uL 2.0-7.7 [facility] Neutrophils/100 WBC (Bld) 72.5 % 47-70 [facility] Potassium [Moles/Vol] 4.2 mmol/L 3.5-5.1 [facility] Protein [Mass/Vol] 7.2 g/dL 6.4-8.2 [facility] Sodium [Moles/Vol] 138 mmol/L 136-145 [facility] WBC (Bld) [#/Vol] 10.3 10*3/uL 4.4-11.0 [facility] Determination of erythrocyte mean corpuscular volume (MCV)Ordered By: Johannaevangelist Conte on 08-31-2023 MCV (RBC) [Entitic vol] 90.3 fL 80-94 [facility] Erythrocyte distribution wid th ratioOrdered By: [facility]23 Erythrocyte distribution width (RBC) [Ratio] 12.2 % 11.6-14.6 [facility] Erythrocyte distribution wid th standard deviationOrdered By: [facility] on 08-31-2023 Erythrocyte distribution width (RBC) [Entitic vol] 40.5 fL 35.1-43.9 [facility] Erythrocyte sedimentation ra teOrdered By: [facility] on 08-31-2023 ESR (Bld) [Velocity] 3 mm/h 0-20 [facility] Hematocrit Auto (Bld) [Volum e fraction]Ordered By: [facility] 08-31-2023 Hematocrit (Bld) [Volume fraction] 48.4 % 40-54 [facility] Immature granulocytes/100 WB C Auto (Bld)Ordered By: Acosta Dg on 08-31-2023 Immature granulocytes/100 WBC (Bld) 0.300 % 0.0-0.9 [facility] Comment on above: IG% - Immature Granu locytes (promyelocytes, myelocytes and metamyelocytes) > 1% indicates that a LEFT SHIFT is Present. Laboratory - Chemistry and C hemistry - challengeOrdered By: Johannaevangelist Conte on 08-31-2023 Albumin/Globulin [Mass ratio] 1.2 {ratio} 0.9-2.4 [facility] ALP [Catalytic activity/Vol] 117 U/L 45-117 [facility] ALT [Catalytic activity/Vol] 34 U/L 16-61 [facility] CO2 [Moles/Vol] 30.0 mmol/L 21.0-32.0 [facility] Globulin (S) [Mass/Vol] 3.3 g/dL 2.2-4.2 [facility] Lipase [Catalytic activity/Vol] 31 U/L 13-75 [facility] Comment on above: Please note:LIPASE r evised reference range effective 22. New Lipase methodology. Expected to produce lower values than the previous assay method. NEW Reference Range: 13 - 75 U/L Urea nitrogen/Creatinine [Mass ratio] 20.8 mg/mg 10-20 [facility] Laboratory - Hematology and Cell countsOrdered By: Johanna Conte on 08-31-2023 MCH (RBC) [Entitic mass] 30.0 pg 27.0-32.0 [facility] MCHC (RBC) [Mass/Vol] 33.3 g/dL 32-36 [facility] Nucleated RBC/100 WBC (Bld) [Ratio] 0 % 0-5 [facility] Platelet mean volume (Bld) [Entitic vol] 11.3 fL 6.2-12.0 [facility] Platelets (Bld) [#/Vol] 229 10*3/uL 150-450 [facility] No Panel InformationOrdered By: Johanna Conte on 08-31-2023 C-Reactive Protein Extended Range < 2.90 mg/L 0.0-3.0 [facility] Comment on above: C-Reactive Protein ( CRP) provides useful information for thediagnosis, therapy and monitoring of inflammatory processesand associated diseases. For the evaluation of Relative Riskfor Cardiovascular Disease, a High Sensitivity CRP (HSCRP)should be ordered. Estimated GFR (MDRD) Amer 95 mL/min >60 [facility] Comment on above: GFR Calc Estimated GFR (MDRD) Non-Af Amer 79 mL/min >60 [facility] Comment on above: Non- GFR Calc RBC Auto (Bld) [#/Vol]Ordere d By: Johanna Conte on 08-31-2023 RBC (Bld) [#/Vol] 5.36 10*6/uL 4.6-6.2 [facility] Serum or plasma calcium miguelina urement (mass/volume)Ordered By: Johanna Conte on 08-31-2023 Calcium [Mass/Vol] 9.6 mg/dL 8.5-10.1 [facility] Serum or plasma creatinine m easurement (mass/volume)Ordered By: Johanna Conte on 08-31-2023 Creatinine [Mass/Vol] 1.01 mg/dL 0.70-1.30 [facility] Comment on above: The validity of the calculated GFR & GFRAA in patients over 70 years has not been determined. Clinical correlation is essential. Serum or plasma urea nitroge n measurement (mass/volume)Ordered By: Johanna Conte on 08-31-2023 Urea nitrogen [Mass/Vol] 21 mg/dL 7-18 [facility] Thin prep Papanicolaou smear with manual screeningOrdered By: Johanna Conte on 08-31-2023 Thin prep Papanicolaou smear with manual screening 3.9 g/dL 3.2-5.0 [facility] Thin prep Papanicolaou smear with manual screening 22 U/L 15-37 [facility] Thin prep Papanicolaou smear with manual screening 4 5-15 [facility] No Panel InformationOrdered By: London Franklin on 07-28-2023 Barley Allergen IgE Antibody <0.10 kU/L Class 0 [facility] Endomysial IgA Antibody Negative Negative [facility] Serum IgA measurement (units /volume)Ordered By: London Franklin on 07-28-2023 IgA Qn (S) 98 mg/dL 61-437 [facility] Comment on above: Performed at: [facility] [employer] [address] [id number] Director: Iain An PhD, Phone: [phone] Serum Ustilago avenae IgE an tibody assay (units/volume)Ordered By: London Franklin on 07-28-2023 Oat smut IgE Qn (S) <0.10 kU/L Class 0 [facility] Comment on above: Performed at: [facility] [employer] [address] [id number] Director: Kerry Galicia MD, Phone: [phone] Serum beef IgE antibody assa y (units/volume)Ordered By: London Franklin on 07-28-2023 Beef IgE Qn (S) <0.10 kU/L Class 0 [facility] Serum chicken IgE antibody a ssay (units/volume)Ordered By: London Franklin on 07-28-2023 Chicken IgE Qn (S) <0.10 kU/L Class 0 [facility] Serum corn IgE antibody assa y (units/volume)Ordered By: London Franklin on 07-28-2023 [place] IgE Qn (S) <0.10 kU/L Class 0 [facility] Serum pork IgE antibody assa y (units/volume)Ordered By: London Franklin on 07-28-2023 Pork IgE Qn (S) <0.10 kU/L Class 0 [facility] Serum rice IgE antibody assa y (units/volume)Ordered By: London Franklin on 07-28-2023 Rice IgE Qn (S) <0.10 kU/L Class 0 [facility] Serum rye IgE antibody assay (units/volume)Ordered By: London Franklin on 07-28-2023 [place] IgE Qn (S) 0.11 kU/L Class 0/I [facility] Serum soybean IgE antibody a ssay (units/volume)Ordered By: London Franklin on 07-28-2023 Soybean IgE Qn (S) <0.10 kU/L Class 0 [facility] Comment on above: Levels of Specific I gE Class Description of Class ----- < 0.10 0 Negative 0.10 - 0.31 0/I Equivocal/Low 0.32 - 0.55 I Low 0.56 - 1.40 II Moderate 1.41 - 3.90 III High 3.91 - 19.00 IV Very High 19.01 - 100.00 V Very High >100.00 Very High Serum tissue transglutaminas e IgA antibody assay (units/volume)Ordered By: London Franklin on 07-28-2023 tTG IgA Qn (S) <2 U/mL 0-3 [facility] Comment on above: Negative 0 - 3 Weak Positive 4 - 10 Positive >10 Tissue Transglutaminase (tTG) has been identified as the endomysial antigen. Studies have demonstr- ated that endomysial IgA antibodies have over 99% specificity for gluten sensitive enteropathy. Serum wheat IgE antibody ass ay (units/volume)Ordered By: London Franklin on 07-28-2023 Wheat IgE Qn (S) 0.18 kU/L Class 0/I [facility] Thin prep Papanicolaou smear with manual screeningOrdered By: London Franklin on 07-28-2023 Thin prep Papanicolaou smear with manual screening <0.10 kU/L Class 0 [facility] Basophil percentageOrdered B y: London Franklin on 05-14-2023 Testosterone [Mass/Vol] 363.28 ng/dL [facility] Comment on above: CENTRAL 90% REFERENC E RANGES MALE AGE <50 197.44 - 669.58 ng/dL MALE AGE > or = 50 187.72 - 684.19 ng/dL FEMALE AGE <50 8.38 - 35.01 ng/dL FEMALE AGE > or = 50 <7.00 - 35.92 ng/dL Effective as of 02/05/21 Laboratory - Chemistry and C hemistry - challengeOrdered By: London Franklin on 05-14-2023 Cobalamin (Vitamin B12) [Mass/Vol] 447 pg/mL 211-911 [facility] Free T4 [Mass/Vol] 0.85 ng/dL 0.76-1.46 [facility] No Panel InformationOrdered By: London Franklin on 05-14-2023 Prostate Specific Antigen Screen 0.60 ng/mL 0.00-4.00 [facility] Comment on above: This test was perfor med using the TPSA assay method for the[employer] chemistry system. Values obtained with differentassay methods cannot be used interchangably.When changing PSA assays in the course of monitoring apatient, additional sequential testing should be carriedout to confirm baseline values. Thyroid Stimulating Hormone (TSH) 1.90 uIU/mL 0.358-3.74 [facility] Absolute lymphocyte countOrd ered By: Santana Lopez on 04-26-2023 Lymphocytes Auto (Unsp spec) [#/Vol] 0.48 10*3/uL 0.83-4.51 [facility] Basophil percentageOrdered B y: Santana Lopez on 04-26-2023 Basophil percentage 0 SEEN /hpf 0-5 [facility] Basophils/100 WBC (Bld) 0.3 % 0-1 [facility] Chloride [Moles/Vol] 102 mmol/L 98-107 [facility] Eosinophils/100 WBC (Bld) 0.0 % 0-5 [facility] Glucose [Mass/Vol] 167 mg/dL 74-106 [facility] Comment on above: Fasting Glucose resu lt greater than or equal to 126 mg/dL suggests DIABETES MELLITUS per A.D.A. criteria. Neutrophils (Bld) [#/Vol] 13.7 10*3/uL 2.0-7.7 [facility] Neutrophils/100 WBC (Bld) 90.9 % 47-70 [facility] Potassium [Moles/Vol] 3.7 mmol/L 3.5-5.1 [facility] Sodium [Moles/Vol] 136 mmol/L 136-145 [facility] WBC (Bld) [#/Vol] 15.0 10*3/uL 4.4-11.0 [facility] Bilirubin Test strip Ql (U)O rdered By: Santana Lopez on 04-26-2023 Bilirubin Ql (U) Negative Negative [facility] Blood erythrocytes count (nu mber/volume)Ordered By: Santana Lopez on 04-26-2023 RBC (Bld) [#/Vol] 5.18 10*6/uL 4.6-6.2 [facility] Blood hemoglobin measurement (mass/volume)Ordered By: Santana Lopez on 04-26-2023 Hemoglobin (Bld) [Mass/Vol] 15.6 g/dL 13.0-16.5 [facility] Blood lymphocytes/100 leukoc ytesOrdered By: Santana Lopez on 04-26-2023 Lymphocytes/100 WBC (Bld) 3.2 % 19-41 [facility] Blood manual differential co mment interpretation (narrative result)Ordered By: Santana Lopez on 04-26-2023 Manual differential comment Maximino (Bld) [Interp] SCANNED [facility] Blood monocytes/100 leukocyt esOrdered By: Santana Lopez on 04-26-2023 Monocytes/100 WBC (Bld) 4.7 % 0-10 [facility] Blood platelet mean volumeOr dered By: Santana Lopez on 04-26-2023 Platelet mean volume (Bld) [Entitic vol] 10.5 fL 6.2-12.0 [facility] Determination of erythrocyte mean corpuscular volume (MCV)Ordered By: Santana Lopez on 04-26-2023 MCV (RBC) [Entitic vol] 89.0 fL 80-94 [facility] Hematocrit Auto (Bld) [Volum e fraction]Ordered By: Santana Lopez on 04-26-2023 Hematocrit (Bld) [Volume fraction] 46.1 % 40-54 [facility] Ketones Test strip Ql (U)Ord ered By: Santana Lopez on 04-26-2023 Ketones Ql (U) Negative Negative [facility] Laboratory - Chemistry and C hemistry - challengeOrdered By: Santana Lopez on 04-26-2023 CO2 [Moles/Vol] 27.0 mmol/L 21.0-32.0 [facility] Urea nitrogen/Creatinine [Mass ratio] 20.8 mg/mg 10-20 [facility] Laboratory - Hematology and Cell countsOrdered By: Santana Lopez on 04-26-2023 Erythrocyte distribution width (RBC) [Entitic vol] 41.3 fL 35.1-43.9 [facility] Erythrocyte distribution width (RBC) [Ratio] 12.5 % 11.6-14.6 [facility] Immature granulocytes/100 WBC (Bld) 0.900 % 0.0-0.9 [facility] Comment on above: IG% - Immature Granu locytes (promyelocytes, myelocytes and metamyelocytes) > 1% indicates that a LEFT SHIFT is Present. MCH (RBC) [Entitic mass] 30.1 pg 27.0-32.0 [facility] Nucleated RBC/100 WBC (Bld) [Ratio] 0 % 0-5 [facility] MCHC Auto (RBC) [Mass/Vol]Or dered By: Santana Lopez on 04-26-2023 MCHC (RBC) [Mass/Vol] 33.8 g/dL 32-36 [facility] Mucus LM Ql (Urine sed)Order ed By: Santana Lopez on 04-26-2023 Mucus Ql (Urine sed) 0 SEEN /hpf [facility] Nitrite Test strip Ql (U)Ord ered By: Santana Lopez on 04-26-2023 Nitrite Ql (U) Negative Negative [facility] No Panel InformationOrdered By: Santana Lopez on 04-26-2023 Estimated GFR (MDRD) Amer 95 mL/min >60 [facility] Comment on above: GFR Calc Estimated GFR (MDRD) Non-Af Amer 79 mL/min >60 [facility] Comment on above: Non- GFR Calc Platelets bldOrdered By: Mason Lopez on 04-26-2023 Platelets (Bld) [#/Vol] 208 10*3/uL 150-450 [facility] Protein Test strip Ql (U)Ord ered By: Santana Lopez on 04-26-2023 Protein Ql (U) 15 mg/dl Negative [facility] Serum or plasma calcium miguelina urement (mass/volume)Ordered By: Santana Lopez on 04-26-2023 Calcium [Mass/Vol] 9.3 mg/dL 8.5-10.1 [facility] Serum or plasma creatinine m easurement (mass/volume)Ordered By: Santana Lopez on 04-26-2023 Creatinine [Mass/Vol] 1.01 mg/dL 0.70-1.30 [facility] Comment on above: The validity of the calculated GFR & GFRAA in patients over 70 years has not been determined. Clinical correlation is essential. Serum or plasma urea nitroge n measurement (mass/volume)Ordered By: Santana Lopez on 04-26-2023 Urea nitrogen [Mass/Vol] 21 mg/dL 7-18 [facility] Squamous epithelial cells de tection in urine sediment by light microscopyOrdered By: Santana Lopez on 04-26-2023 Epithelial cells.squamous LM Ql (Urine sed) 0 SEEN /hpf 0-5 [facility] Thin prep Papanicolaou smear with manual screeningOrdered By: Santana Lopez on 04-26-2023 Thin prep Papanicolaou smear with manual screening 7 5-15 [facility] Urine blood detectionOrdered By: Santana Lopez on 04-26-2023 RBC Ql (U) 10 /ul Negative [facility] RBC Ql (U) 0 SEEN /hpf 0-5 [facility] Urine clarityOrdered By: Mason Lopez on 04-26-2023 Clarity (U) Clear Clear [facility] Urine color determinationOrd ered By: Santana Lopez on 04-26-2023 Color (U) Yellow Yellow [facility] Urine glucose detectionOrder ed By: Santana Lopez on 04-26-2023 Glucose Ql (U) 50 mg/dl Normal [facility] Urine leukocyte esterase det ection by dipstickOrdered By: Santana Lopez on 04-26-2023 Leukocyte esterase Test strip Ql (U) Negative Negative [facility] Urine pHOrdered By: Santana Lopez on 04-26-2023 pH (U) 6.0 [pH] 5.0 - 8.0 [facility] Urine sediment bacteria coun t by microscopy (number/high power field)Ordered By: Santana Lopez on 04-26-2023 Bacteria LM.HPF (Urine sed) [#/Area] 0 /[HPF] None Seen [facility] Urine specific gravity measu rementOrdered By: Santana Lopez on 04-26-2023 Specific gravity (U) [Rel density] 1.025 1.002-1.030 [facility] Urobilinogen Auto test strip Ql (U)Ordered By: Santana Lopez on 04-26-2023 Urobilinogen Ql (U) Normal mg/dl Normal [facility] Absolute lymphocyte countOrd ered By: Wild Stover on 04-03-2023 Lymphocytes Auto (Unsp spec) [#/Vol] 1.70 10*3/uL 0.83-4.51 [facility] Basophil percentageOrdered B y: Wild Stover on 04-03-2023 Basophil percentage 0 SEEN /hpf 0-5 [facility] Basophils/100 WBC (Bld) 0.5 % 0-1 [facility] Chloride [Moles/Vol] 106 mmol/L 98-107 [facility] Eosinophils/100 WBC (Bld) 1.0 % 0-5 [facility] Glucose [Mass/Vol] 95 mg/dL 74-106 [facility] Neutrophils (Bld) [#/Vol] 6.9 10*3/uL 2.0-7.7 [facility] Neutrophils/100 WBC (Bld) 71.2 % 47-70 [facility] Potassium [Moles/Vol] 4.3 mmol/L 3.5-5.1 [facility] Sodium [Moles/Vol] 138 mmol/L 136-145 [facility] WBC (Bld) [#/Vol] 9.7 10*3/uL 4.4-11.0 [facility] Bilirubin Test strip Ql (U)O rdered By: Wild Stover on 04-03-2023 Bilirubin Ql (U) Negative Negative [facility] Blood erythrocytes count (nu mber/volume)Ordered By: Wild Stover on 04-03-2023 RBC (Bld) [#/Vol] 5.12 10*6/uL 4.6-6.2 [facility] Blood hemoglobin measurement (mass/volume)Ordered By: Wild Stover on 04-03-2023 Hemoglobin (Bld) [Mass/Vol] 15.1 g/dL 13.0-16.5 [facility] Blood lymphocytes/100 leukoc ytesOrdered By: Wild Stover on 04-03-2023 Lymphocytes/100 WBC (Bld) 17.5 % 19-41 [facility] Blood monocytes/100 leukocyt esOrdered By: Wild Stover on 04-03-2023 Monocytes/100 WBC (Bld) 9.6 % 0-10 [facility] Blood platelet mean volumeOr dered By: Wild Stover on 04-03-2023 Platelet mean volume (Bld) [Entitic vol] 10.3 fL 6.2-12.0 [facility] Determination of erythrocyte mean corpuscular volume (MCV)Ordered By: Wild Stover on 04-03-2023 MCV (RBC) [Entitic vol] 89.5 fL 80-94 [facility] Hematocrit Auto (Bld) [Volum e fraction]Ordered By: Wild Stover on 04-03-2023 Hematocrit (Bld) [Volume fraction] 45.8 % 40-54 [facility] Ketones Test strip Ql (U)Ord ered By: Wild Stover on 04-03-2023 Ketones Ql (U) Negative Negative [facility] Laboratory - Chemistry and C hemistry - challengeOrdered By: Wild Stover on 04-03-2023 CO2 [Moles/Vol] 31.0 mmol/L 21.0-32.0 [facility] Urea nitrogen/Creatinine [Mass ratio] 15.6 mg/mg 10-20 [facility] Laboratory - Hematology and Cell countsOrdered By: Wild Stover on 04-03-2023 Erythrocyte distribution width (RBC) [Entitic vol] 40.3 fL 35.1-43.9 [facility] Erythrocyte distribution width (RBC) [Ratio] 12.3 % 11.6-14.6 [facility] Immature granulocytes/100 WBC (Bld) 0.200 % 0.0-0.9 [facility] Comment on above: IG% - Immature Granu locytes (promyelocytes, myelocytes and metamyelocytes) > 1% indicates that a LEFT SHIFT is Present. MCH (RBC) [Entitic mass] 29.5 pg 27.0-32.0 [facility] Nucleated RBC/100 WBC (Bld) [Ratio] 0 % 0-5 [facility] MCHC Auto (RBC) [Mass/Vol]Or dered By: Wild Stover on 04-03-2023 MCHC (RBC) [Mass/Vol] 33.0 g/dL 32-36 [facility] Mucus LM Ql (Urine sed)Order ed By: Wild Stover on 04-03-2023 Mucus Ql (Urine sed) 0 SEEN /hpf [facility] Nitrite Test strip Ql (U)Ord ered By: Wild Stover on 04-03-2023 Nitrite Ql (U) Negative Negative [facility] No Panel InformationOrdered By: Wild Stover on 04-03-2023 Estimated Creatinine Clearance Calc 82.96 ml/min [facility] Estimated GFR (MDRD) Amer 119 mL/min >60 [facility] Comment on above: GFR Calc Estimated GFR (MDRD) Non-Af Amer 98 mL/min >60 [facility] Comment on above: Non- GFR Calc Platelets bldOrdered By: Sajan Stover on 04-03-2023 Platelets (Bld) [#/Vol] 189 10*3/uL 150-450 [facility] Protein Test strip Ql (U)Ord ered By: Wild Stover on 04-03-2023 Protein Ql (U) Negative Negative [facility] Serum or plasma calcium miguelina urement (mass/volume)Ordered By: Wild Stover on 04-03-2023 Calcium [Mass/Vol] 9.0 mg/dL 8.5-10.1 [facility] Serum or plasma creatinine m easurement (mass/volume)Ordered By: Wild Stover on 04-03-2023 Creatinine [Mass/Vol] 0.83 mg/dL 0.70-1.30 [facility] Comment on above: The validity of the calculated GFR & GFRAA in patients over 70 years has not been determined. Clinical correlation is essential. Serum or plasma urea nitroge n measurement (mass/volume)Ordered By: Wild Stover on 04-03-2023 Urea nitrogen [Mass/Vol] 13 mg/dL 7-18 [facility] Squamous epithelial cells de tection in urine sediment by light microscopyOrdered By: Wild Stover on 04-03-2023 Epithelial cells.squamous LM Ql (Urine sed) 0 SEEN /hpf 0-5 [facility] Thin prep Papanicolaou smear with manual screeningOrdered By: Wild Stover on 04-03-2023 Thin prep Papanicolaou smear with manual screening 1 5-15 [facility] Urine blood detectionOrdered By: Wild Stover on 04-03-2023 RBC Ql (U) Negative Negative [facility] RBC Ql (U) 0 SEEN /hpf 0-5 [facility] Urine clarityOrdered By: Sajan Stover on 04-03-2023 Clarity (U) Clear Clear [facility] Urine color determinationOrd ered By: Wild Stover on 04-03-2023 Color (U) Straw Yellow [facility] Urine glucose detectionOrder ed By: Wild Stover on 04-03-2023 Glucose Ql (U) Normal mg/dl Normal [facility] Urine leukocyte esterase det ection by dipstickOrdered By: Wild Stover on 04-03-2023 Leukocyte esterase Test strip Ql (U) Negative Negative [facility] Urine pHOrdered By: Wild colby on 04-03-2023 pH (U) 6.5 [pH] 5.0 - 8.0 [facility] Urine sediment bacteria coun t by microscopy (number/high power field)Ordered By: Wild Stover on 04-03-2023 Bacteria LM.HPF (Urine sed) [#/Area] 0 /[HPF] None Seen [facility] Urine specific gravity measu rementOrdered By: Wild Stover on 04-03-2023 Specific gravity (U) [Rel density] 1.010 1.002-1.030 [facility] Urobilinogen Auto test strip Ql (U)Ordered By: Wild Stover on 04-03-2023 Urobilinogen Ql (U) Normal mg/dl Normal [facility] Absolute lymphocyte countOrd ered By: Dr. Jordan on 10-22-2022 Lymphocytes Auto (Unsp spec) [#/Vol] 2.71 10*3/uL 0.83-4.51 [facility] Basophil percentageOrdered B y: Dr. Jordan on 10-22-2022 Basophils/100 WBC (Bld) 0.6 % 0-1 [facility] Bilirubin [Mass/Vol] 0.50 mg/dL 0.20-1.00 [facility] Comment on above: For patients on eltr ombopag therapy, use of Dimension Haugen TBIL is not recommended. Chloride [Moles/Vol] 107 mmol/L 98-107 [facility] Cholesterol [Mass/Vol] 177 mg/dL <200 [facility] Comment on above: <200 mg/dL Desirable 200-240 mg/dL Borderline >240 mg/dL High Risk Eosinophils/100 WBC (Bld) 2.0 % 0-5 [facility] Glucose [Mass/Vol] 98 mg/dL 74-106 [facility] Neutrophils (Bld) [#/Vol] 7.0 10*3/uL 2.0-7.7 [facility] Neutrophils/100 WBC (Bld) 63.6 % 47-70 [facility] Potassium [Moles/Vol] 4.2 mmol/L 3.5-5.1 [facility] Protein [Mass/Vol] 6.4 g/dL 6.4-8.2 [facility] Sodium [Moles/Vol] 138 mmol/L 136-145 [facility] Triglyceride [Mass/Vol] 87 mg/dL <199 [facility] Comment on above: The drugs N-Acetylcy steine and Metamizole may falsely depress this assay.Serum Triglycerides Reference Interval Normal <150 mg/dL Borderline high 150 - 199 mg/dL High 200 - 499 mg/dL Very High > or = 500 mg/dL WBC (Bld) [#/Vol] 11.0 10*3/uL 4.4-11.0 [facility] Blood erythrocytes count (nu mber/volume)Ordered By: Dr. Jordan on 10-22-2022 RBC (Bld) [#/Vol] 4.65 10*6/uL 4.6-6.2 [facility] Blood hemoglobin measurement (mass/volume)Ordered By: Dr. Jordan on 10-22-2022 Hemoglobin (Bld) [Mass/Vol] 14.2 g/dL 13.0-16.5 [facility] Blood lymphocytes/100 leukoc ytesOrdered By: Dr. Jordan on 10-22-2022 Lymphocytes/100 WBC (Bld) 24.6 % 19-41 [facility] Blood monocytes/100 leukocyt esOrdered By: Dr. Jordan on 10-22-2022 Monocytes/100 WBC (Bld) 8.2 % 0-10 [facility] Blood platelet mean volumeOr dered By: Dr. Jordan on 10-22-2022 Platelet mean volume (Bld) [Entitic vol] 10.6 fL 6.2-12.0 [facility] Determination of erythrocyte mean corpuscular volume (MCV)Ordered By: Dr. Jordan on 10-22-2022 MCV (RBC) [Entitic vol] 91.0 fL 80-94 [facility] Hematocrit Auto (Bld) [Volum e fraction]Ordered By: Dr. Jordan on 10-22-2022 Hematocrit (Bld) [Volume fraction] 42.3 % 40-54 [facility] Laboratory - Chemistry and C hemistry - challengeOrdered By: Dr. Jordan on 10-22-2022 ALP [Catalytic activity/Vol] 87 U/L 45-117 [facility] ALT [Catalytic activity/Vol] 28 U/L 16-61 [facility] CO2 [Moles/Vol] 26.0 mmol/L 21.0-32.0 [facility] Globulin (S) [Mass/Vol] 2.9 g/dL 2.2-4.2 [facility] Urea nitrogen/Creatinine [Mass ratio] 27.6 mg/mg 10-20 [facility] Laboratory - Hematology and Cell countsOrdered By: Dr. Jordan on 10-22-2022 Erythrocyte distribution width (RBC) [Entitic vol] 43.3 fL 35.1-43.9 [facility] Erythrocyte distribution width (RBC) [Ratio] 13.2 % 11.6-14.6 [facility] Immature granulocytes/100 WBC (Bld) 1.000 % 0.0-0.9 [facility] Comment on above: IG% - Immature Granu locytes (promyelocytes, myelocytes and metamyelocytes) > 1% indicates that a LEFT SHIFT is Present. MCH (RBC) [Entitic mass] 30.5 pg 27.0-32.0 [facility] Nucleated RBC/100 WBC (Bld) [Ratio] 0 % 0-5 [facility] MCHC Auto (RBC) [Mass/Vol]Or dered By: Dr. Jordan on 10-22-2022 MCHC (RBC) [Mass/Vol] 33.6 g/dL 32-36 [facility] No Panel InformationOrdered By: Dr. Jordan on 10-22-2022 Estimated GFR (MDRD) Amer 103 mL/min >60 [facility] Comment on above: GFR Calc Estimated GFR (MDRD) Non-Af Amer 86 mL/min >60 [facility] Comment on above: Non- GFR Calc Thyroid Stimulating Hormone (TSH) 2.22 uIU/mL 0.358-3.74 [facility] Vitamin D 25-Hydroxy 36.1 ng/mL [facility] Comment on above: Vitamin D 25(OH) Sta tus Range Deficiency <20 ng/mL (50nmol/L) Insufficiency 20 - 30 ng/mL (50 - 75 nmol/L) Sufficiency 30 - 100 ng/mL (75 - 250 nmol/L) Toxicity >100 ng/mL (>250 nmol/L) Platelets bldOrdered By: Dr. Jordan on 10-22-2022 Platelets (Bld) [#/Vol] 244 10*3/uL 150-450 [facility] Serum or plasma albumin miguelina urement (mass/volume)Ordered By: Dr. Jordan on 10-22-2022 Albumin [Mass/Vol] 3.5 g/dL 3.2-5.0 [facility] Serum or plasma albumin/glob ulin mass ratioOrdered By: Dr. Jordan on 10-22-2022 Albumin/Globulin [Mass ratio] 1.2 {ratio} 0.9-2.4 [facility] Serum or plasma calcium miguelina urement (mass/volume)Ordered By: Dr. Jordan on 10-22-2022 Calcium [Mass/Vol] 9.1 mg/dL 8.5-10.1 [facility] Serum or plasma cholesterol in HDL measurement (mass/volume)Ordered By: Dr. Jordan on 10-22-2022 Cholesterol in HDL [Mass/Vol] 49 mg/dL >40 [facility] Comment on above: The drugs N-Acetylcy steine and Metamizole may falsely depress this assay. Reference Range HDL <40 mg/dL Low HDL Cholesterol HDL >or= 60 mg/dL High HDL Cholesterol Serum or plasma cholesterol in VLDL measurement (mass/volume)Ordered By: Dr. Jordan on 10-22-2022 Cholesterol in VLDL [Mass/Vol] 17 mg/dL 5-40 [facility] Serum or plasma creatinine m easurement (mass/volume)Ordered By: Dr. Jordan on 10-22-2022 Creatinine [Mass/Vol] 0.94 mg/dL 0.70-1.30 [facility] Comment on above: The validity of the calculated GFR & GFRAA in patients over 70 years has not been determined. Clinical correlation is essential. Serum or plasma low density lipoprotein (LDL) cholesterol measurement (mass/volume)Ordered By: Dr. Jordan on 10-22-2022 Cholesterol in LDL [Mass/Vol] 111 mg/dL 0-130 [facility] Serum or plasma urea nitroge n measurement (mass/volume)Ordered By: Dr. Jordan on 10-22-2022 Urea nitrogen [Mass/Vol] 26 mg/dL 7-18 [facility] Thin prep Papanicolaou smear with manual screeningOrdered By: Dr. Jordan on 10-22-2022 Thin prep Papanicolaou smear with manual screening 18 U/L 15-37 [facility] Thin prep Papanicolaou smear with manual screening 5 5-15 [facility] Absolute lymphocyte countOrd ered By: Dr. Méndez on 05-09-2022 Lymphocytes Auto (Unsp spec) [#/Vol] 2.15 10*3/uL 0.83-4.51 [facility] Basophil percentageOrdered B y: Dr. Méndez on 05-09-2022 Basophil percentage 0 SEEN /hpf 0-5 [facility] Basophils/100 WBC (Bld) 0.6 % 0-1 [facility] Chloride [Moles/Vol] 104 mmol/L 98-107 [facility] Eosinophils/100 WBC (Bld) 1.7 % 0-5 [facility] Glucose [Mass/Vol] 134 mg/dL 74-106 [facility] Comment on above: Fasting Glucose resu lt greater than or equal to 126 mg/dL suggests DIABETES MELLITUS per A.D.A. criteria. Neutrophils (Bld) [#/Vol] 7.1 10*3/uL 2.0-7.7 [facility] Neutrophils/100 WBC (Bld) 68.9 % 47-70 [facility] Potassium [Moles/Vol] 3.9 mmol/L 3.5-5.1 [facility] Sodium [Moles/Vol] 136 mmol/L 136-145 [facility] WBC (Bld) [#/Vol] 10.3 10*3/uL 4.4-11.0 [facility] Bilirubin Test strip Ql (U)O rdered By: Dr. Méndez on 05-09-2022 Bilirubin Ql (U) Negative Negative [facility] Blood erythrocytes count (nu mber/volume)Ordered By: Dr. Méndez on 05-09-2022 RBC (Bld) [#/Vol] 4.80 10*6/uL 4.6-6.2 [facility] Blood hemoglobin measurement (mass/volume)Ordered By: Dr. Méndez on 05-09-2022 Hemoglobin (Bld) [Mass/Vol] 15.1 g/dL 13.0-16.5 [facility] Blood lymphocytes/100 leukoc ytesOrdered By: Dr. Méndez on 05-09-2022 Lymphocytes/100 WBC (Bld) 20.9 % 19-41 [facility] Blood monocytes/100 leukocyt esOrdered By: Dr. Méndez on 05-09-2022 Monocytes/100 WBC (Bld) 7.5 % 0-10 [facility] Blood platelet mean volumeOr dered By: Dr. Méndez on 05-09-2022 Platelet mean volume (Bld) [Entitic vol] 10.6 fL 6.2-12.0 [facility] Determination of erythrocyte mean corpuscular volume (MCV)Ordered By: Dr. Méndez on 05-09-2022 MCV (RBC) [Entitic vol] 86.9 fL 80-94 [facility] Hematocrit Auto (Bld) [Volum e fraction]Ordered By: Dr. Méndez on 05-09-2022 Hematocrit (Bld) [Volume fraction] 41.7 % 40-54 [facility] Ketones Test strip Ql (U)Ord ered By: Dr. Méndez on 05-09-2022 Ketones Ql (U) 5 mg/dl Negative [facility] Laboratory - Chemistry and C hemistry - challengeOrdered By: Dr. Méndez on 05-09-2022 CO2 [Moles/Vol] 27.0 mmol/L 21.0-32.0 [facility] Urea nitrogen/Creatinine [Mass ratio] 24.1 mg/mg 10-20 [facility] Laboratory - Hematology and Cell countsOrdered By: Dr. Méndez on 05-09-2022 Erythrocyte distribution width (RBC) [Entitic vol] 39.5 fL 35.1-43.9 [facility] Erythrocyte distribution width (RBC) [Ratio] 12.4 % 11.6-14.6 [facility] Immature granulocytes/100 WBC (Bld) 0.400 % 0.0-0.9 [facility] Comment on above: IG% - Immature Granu locytes (promyelocytes, myelocytes and metamyelocytes) > 1% indicates that a LEFT SHIFT is Present. MCH (RBC) [Entitic mass] 31.5 pg 27.0-32.0 [facility] Nucleated RBC/100 WBC (Bld) [Ratio] 0 % 0-5 [facility] MCHC Auto (RBC) [Mass/Vol]Or dered By: Dr. Méndez on 05-09-2022 MCHC (RBC) [Mass/Vol] 36.2 g/dL 32-36 [facility] Mucus LM Ql (Urine sed)Order ed By: Dr. Méndez on 05-09-2022 Mucus Ql (Urine sed) 0 SEEN /hpf [facility] Nitrite Test strip Ql (U)Ord ered By: Dr. Méndez on 05-09-2022 Nitrite Ql (U) Negative Negative [facility] No Panel InformationOrdered By: Dr. Méndez on 05-09-2022 Estimated Creatinine Clearance Calc 54.29 ml/min [facility] Estimated GFR (MDRD) Amer 70 mL/min >60 [facility] Comment on above: GFR Calc Estimated GFR (MDRD) Non-Af Amer 57 mL/min >60 [facility] Comment on above: Non- GFR Calc Platelets bldOrdered By: Dr. Méndez on 05-09-2022 Platelets (Bld) [#/Vol] 210 10*3/uL 150-450 [facility] Protein Test strip Ql (U)Ord ered By: Dr. Méndez on 05-09-2022 Protein Ql (U) 15 mg/dl Negative [facility] Serum or plasma calcium miguelina urement (mass/volume)Ordered By: Dr. Méndez on 05-09-2022 Calcium [Mass/Vol] 9.4 mg/dL 8.5-10.1 [facility] Serum or plasma creatinine m easurement (mass/volume)Ordered By: Dr. Méndez on 05-09-2022 Creatinine [Mass/Vol] 1.33 mg/dL 0.70-1.30 [facility] Comment on above: The validity of the calculated GFR & GFRAA in patients over 70 years has not been determined. Clinical correlation is essential. Serum or plasma urea nitroge n measurement (mass/volume)Ordered By: Dr. Méndez on 05-09-2022 Urea nitrogen [Mass/Vol] 32 mg/dL 7-18 [facility] Squamous epithelial cells de tection in urine sediment by light microscopyOrdered By: Dr. Méndez on 05-09-2022 Epithelial cells.squamous LM Ql (Urine sed) 0 SEEN /hpf 0-5 [facility] Thin prep Papanicolaou smear with manual screeningOrdered By: Dr. Méndez on 05-09-2022 Thin prep Papanicolaou smear with manual screening 5 5-15 [facility] Urine blood detectionOrdered By: Dr. Méndez on 05-09-2022 RBC Ql (U) Negative Negative [facility] RBC Ql (U) 0 SEEN /hpf 0-5 [facility] Urine clarityOrdered By: Dr. Méndez on 05-09-2022 Clarity (U) Clear Clear [facility] Urine color determinationOrd ered By: Dr. Méndez on 05-09-2022 Color (U) Yellow Yellow [facility] Urine glucose detectionOrder ed By: Dr. Méndez on 05-09-2022 Glucose Ql (U) Normal mg/dl Normal [facility] Urine leukocyte esterase det ection by dipstickOrdered By: Dr. Méndez on 05-09-2022 Leukocyte esterase Test strip Ql (U) Negative Negative [facility] Urine pHOrdered By: Dr. Moncho kauffman on 05-09-2022 pH (U) 6.0 [pH] 5.0 - 8.0 [facility] Urine sediment bacteria coun t by microscopy (number/high power field)Ordered By: Dr. Méndez on 05-09-2022 Bacteria LM.HPF (Urine sed) [#/Area] 0 /[HPF] None Seen [facility] Urine specific gravity measu rementOrdered By: Dr. Méndez on 05-09-2022 Specific gravity (U) [Rel density] 1.025 1.002-1.030 [facility] Urobilinogen Auto test strip Ql (U)Ordered By: Dr. Méndez on 05-09-2022 Urobilinogen Ql (U) Normal mg/dl Normal [facility] Absolute lymphocyte countOrd ered By: Dr. Mchugh on 05-01-2022 Lymphocytes Auto (Unsp spec) [#/Vol] 2.33 10*3/uL 0.83-4.51 [facility] Basophil percentageOrdered B y: Dr. Mchugh on 05-01-2022 Basophils/100 WBC (Bld) 0.4 % 0-1 [facility] Chloride [Moles/Vol] 107 mmol/L 98-107 [facility] Eosinophils/100 WBC (Bld) 2.2 % 0-5 [facility] Glucose [Mass/Vol] 148 mg/dL 74-106 [facility] Comment on above: Fasting Glucose resu lt greater than or equal to 126 mg/dL suggests DIABETES MELLITUS per A.D.A. criteria. Neutrophils (Bld) [#/Vol] 5.7 10*3/uL 2.0-7.7 [facility] Neutrophils/100 WBC (Bld) 63.4 % 47-70 [facility] Potassium [Moles/Vol] 3.5 mmol/L 3.5-5.1 [facility] Comment on above: Slight Hemolysis, Re sult may be falsely increased. Sodium [Moles/Vol] 139 mmol/L 136-145 [facility] WBC (Bld) [#/Vol] 9.0 10*3/uL 4.4-11.0 [facility] Basophil percentage 0 SEEN /hpf 0-5 [facility] Bilirubin Test strip Ql (U)O rdered By: Dr. Mchugh on 05-01-2022 Bilirubin Ql (U) Negative Negative [facility] Blood erythrocytes count (nu mber/volume)Ordered By: Dr. Mchugh on 05-01-2022 RBC (Bld) [#/Vol] 4.59 10*6/uL 4.6-6.2 [facility] Blood hemoglobin measurement (mass/volume)Ordered By: Dr. Mchugh on 05-01-2022 Hemoglobin (Bld) [Mass/Vol] 14.0 g/dL 13.0-16.5 [facility] Blood lymphocytes/100 leukoc ytesOrdered By: Dr. Mchugh on 05-01-2022 Lymphocytes/100 WBC (Bld) 26.0 % 19-41 [facility] Blood monocytes/100 leukocyt esOrdered By: Dr. Mchugh on 05-01-2022 Monocytes/100 WBC (Bld) 7.8 % 0-10 [facility] Blood platelet mean volumeOr dered By: Dr. Mchugh on 05-01-2022 Platelet mean volume (Bld) [Entitic vol] 10.4 fL 6.2-12.0 [facility] Determination of erythrocyte mean corpuscular volume (MCV)Ordered By: Dr. Mchugh on 05-01-2022 MCV (RBC) [Entitic vol] 88.0 fL 80-94 [facility] Hematocrit Auto (Bld) [Volum e fraction]Ordered By: Dr. Mchugh on 05-01-2022 Hematocrit (Bld) [Volume fraction] 40.4 % 40-54 [facility] Ketones Test strip Ql (U)Ord ered By: Dr. Mchugh on 05-01-2022 Ketones Ql (U) 5 mg/dl Negative [facility] Laboratory - Chemistry and C hemistry - challengeOrdered By: Dr. Mchugh on 05-01-2022 CO2 [Moles/Vol] 24.0 mmol/L 21.0-32.0 [facility] Urea nitrogen/Creatinine [Mass ratio] 25.4 mg/mg 05-01 [facility] Laboratory - Hematology and Cell countsOrdered By: Dr. Mchugh on 05-01-2022 Erythrocyte distribution width (RBC) [Entitic vol] 39.7 fL 35.1-43.9 [facility] Erythrocyte distribution width (RBC) [Ratio] 12.3 % 11.6-14.6 [facility] Immature granulocytes/100 WBC (Bld) 0.200 % 0.0-0.9 [facility] Comment on above: IG% - Immature Granu locytes (promyelocytes, myelocytes and metamyelocytes) > 1% indicates that a LEFT SHIFT is Present. MCH (RBC) [Entitic mass] 30.5 pg 27.0-32.0 [facility] Nucleated RBC/100 WBC (Bld) [Ratio] 0 % 0-5 [facility] MCHC Auto (RBC) [Mass/Vol]Or dered By: Dr. Mchugh on 05-01-2022 MCHC (RBC) [Mass/Vol] 34.7 g/dL 32-36 [facility] Mucus LM Ql (Urine sed)Order ed By: Dr. Mchugh on 05-01-2022 Mucus Ql (Urine sed) 1+ /hpf [facility] Nitrite Test strip Ql (U)Ord ered By: Dr. Mchugh on 05-01-2022 Nitrite Ql (U) Negative Negative [facility] No Panel InformationOrdered By: Dr. Mchugh on 05-01-2022 Estimated Creatinine Clearance Calc 76.81 ml/min [facility] Estimated GFR (MDRD) Amer 103 mL/min >60 [facility] Comment on above: GFR Calc Estimated GFR (MDRD) Non-Af Amer 85 mL/min >60 [facility] Comment on above: Non- GFR Calc Platelets bldOrdered By: Dr. Mchugh on 05-01-2022 Platelets (Bld) [#/Vol] 196 10*3/uL 150-450 [facility] Protein Test strip Ql (U)Ord ered By: Dr. Mchugh on 05-01-2022 Protein Ql (U) Negative Negative [facility] Serum or plasma calcium miguelina urement (mass/volume)Ordered By: Dr. Mchugh on 05-01-2022 Calcium [Mass/Vol] 9.1 mg/dL 8.5-10.1 [facility] Serum or plasma creatinine m easurement (mass/volume)Ordered By: Dr. Mchugh on 05-01-2022 Creatinine [Mass/Vol] 0.94 mg/dL 0.70-1.30 [facility] Comment on above: The validity of the calculated GFR & GFRAA in patients over 70 years has not been determined. Clinical correlation is essential. Serum or plasma urea nitroge n measurement (mass/volume)Ordered By: Dr. Mchugh on 05-01-2022 Urea nitrogen [Mass/Vol] 24 mg/dL 7-18 [facility] Squamous epithelial cells de tection in urine sediment by light microscopyOrdered By: Dr. Mchugh on 05-01-2022 Epithelial cells.squamous LM Ql (Urine sed) 0-5 SEEN /hpf 0-5 [facility] Thin prep Papanicolaou smear with manual screeningOrdered By: Dr. Mchugh on 05-01-2022 Thin prep Papanicolaou smear with manual screening 8 5-15 [facility] Urine blood detectionOrdered By: Dr. Mchugh on 05-01-2022 RBC Ql (U) 250 /ul Negative [facility] RBC Ql (U) 10-25 SEEN /hpf 0-5 [facility] Urine clarityOrdered By: Dr. Mchugh on 05-01-2022 Clarity (U) Sl. Cloudy Clear [facility] Urine color determinationOrd ered By: Dr. Mchugh on 05-01-2022 Color (U) Yellow Yellow [facility] Urine glucose detectionOrder ed By: Dr. Mchugh on 05-01-2022 Glucose Ql (U) Normal mg/dl Normal [facility] Urine leukocyte esterase det ection by dipstickOrdered By: Dr. Mchugh on 05-01-2022 Leukocyte esterase Test strip Ql (U) Negative Negative [facility] Urine pHOrdered By: Dr. Navid dan on 05-01-2022 pH (U) 5.0 [pH] 5.0 - 8.0 [facility] Urine sediment bacteria coun t by microscopy (number/high power field)Ordered By: Dr. Mchugh on 05-01-2022 Bacteria LM.HPF (Urine sed) [#/Area] RARE /hpf None Seen [facility] Urine specific gravity measu rementOrdered By: Dr. Mchugh on 05-01-2022 Specific gravity (U) [Rel density] 1.025 1.002-1.030 [facility] Urobilinogen Auto test strip Ql (U)Ordered By: Dr. Mchugh on 05-01-2022 Urobilinogen Ql (U) Normal mg/dl Normal [facility] Absolute lymphocyte counton 04-18-2022 Lymphocytes Auto (Unsp spec) [#/Vol] 1.62 10*3/uL 0.83-4.51 [facility] Work Phone: Basophil percentageon 2021 Basophils/100 WBC (Bld) 0.7 % 0-1 [facility] Work Phone: Bilirubin [Mass/Vol] 0.50 mg/dL 0.20-1.00 [facility] Work Phone: Comment on above: For patients on eltr ombopag therapy, use of Dimension Haugen TBIL is not recommended. Chloride [Moles/Vol] 107 mmol/L 98-107 [facility] [facility] [place] Work Phone: Cholesterol [Mass/Vol] 184 mg/dL <200 [facility] Work Phone: Comment on above: <200 mg/dL Desirable 200-240 mg/dL Borderline >240 mg/dL High Risk Eosinophils/100 WBC (Bld) 2.8 % 0-5 [facility] Work Phone: Glucose [Mass/Vol] 102 mg/dL 74-106 [facility] Work Phone: Comment on above: Fasting Glucose resu lt from 100 to 125 mg/dL suggests IMPAIRED HOMEOSTASIS per A.D.A. criteria. Neutrophils (Bld) [#/Vol] 3.6 10*3/uL 2.0-7.7 [facility] Work Phone: Neutrophils/100 WBC (Bld) 60.5 % 47-70 [facility] Work Phone: Potassium [Moles/Vol] 4.2 mmol/L 3.5-5.1 [facility] Work Phone: Protein [Mass/Vol] 6.8 g/dL 6.4-8.2 [facility] Work Phone: Sodium [Moles/Vol] 141 mmol/L 136-145 [facility] Work Phone: Triglyceride [Mass/Vol] 162 mg/dL <199 [facility] Work Phone: Comment on above: The drugs N-Acetylcy steine and Metamizole may falsely depress this assay.Serum Triglycerides Reference Interval Normal <150 mg/dL Borderline high 150 - 199 mg/dL High 200 - 499 mg/dL Very High > or = 500 mg/dL WBC (Bld) [#/Vol] 6.0 10*3/uL 4.4-11.0 [facility] Work Phone: Blood erythrocytes count (nu mber/volume)on 04-18-2022 RBC (Bld) [#/Vol] 4.77 10*6/uL 4.6-6.2 [facility] Work Phone: Blood hemoglobin measurement (mass/volume)on 04-18-2022 Hemoglobin (Bld) [Mass/Vol] 14.8 g/dL 13.0-16.5 [facility] Work Phone: Blood lymphocytes/100 leukoc yteson 04-18-2022 Lymphocytes/100 WBC (Bld) 27.1 % 19-41 [facility] Work Phone: Blood monocytes/100 leukocyt eson 04-18-2022 Monocytes/100 WBC (Bld) 8.7 % 0-10 [facility] Work Phone: Blood platelet mean volumeon 04-18-2022 Platelet mean volume (Bld) [Entitic vol] 11.3 fL 6.2-12.0 [facility] Work Phone: Determination of erythrocyte mean corpuscular volume (MCV)on 04-18-2022 MCV (RBC) [Entitic vol] 91.0 fL 80-94 [facility] Work Phone: Hematocrit Auto (Bld) [Volum e fraction]on 04-18-2022 Hematocrit (Bld) [Volume fraction] 43.4 % 40-54 [facility] Work Phone: Laboratory - Chemistry and C hemistry - challengeon 04-18-2022 ALP [Catalytic activity/Vol] 101 U/L 45-117 [facility] Work Phone: ALT [Catalytic activity/Vol] 24 U/L 16-61 [facility] Work Phone: CO2 [Moles/Vol] 28.0 mmol/L 21.0-32.0 [facility] Work Phone: Free T4 [Mass/Vol] 0.84 ng/dL 0.76-1.46 [facility] Work Phone: Globulin (S) [Mass/Vol] 3.2 g/dL 2.2-4.2 [facility] Work Phone: Urea nitrogen/Creatinine [Mass ratio] 23.5 mg/mg 10-20 [facility] Work Phone: Laboratory - Hematology and Cell countson 04-18-2022 Erythrocyte distribution width (RBC) [Entitic vol] 40.7 fL 35.1-43.9 [facility] Work Phone: Erythrocyte distribution width (RBC) [Ratio] 12.3 % 11.6-14.6 [facility] Work Phone: Immature granulocytes/100 WBC (Bld) 0.200 % 0.0-0.9 [facility] Work Phone: Comment on above: IG% - Immature Granu locytes (promyelocytes, myelocytes and metamyelocytes) > 1% indicates that a LEFT SHIFT is Present. MCH (RBC) [Entitic mass] 31.0 pg 27.0-32.0 [facility] Work Phone: Nucleated RBC/100 WBC (Bld) [Ratio] 0 % 0-5 [facility] Work Phone: MCHC Auto (RBC) [Mass/Vol]on 04-18-2022 MCHC (RBC) [Mass/Vol] 34.1 g/dL 32-36 [facility] Work Phone: No Panel Informationon 04-18 Estimated GFR (MDRD) Amer 104 mL/min >60 [facility] Work Phone: Comment on above: GFR Calc Estimated GFR (MDRD) Non-Af Amer 86 mL/min >60 [facility] Work Phone: Comment on above: Non- GFR Calc Free Triiodothyronine (T3) pg/dL 2.7 pg/mL 2.18-3.98 [facility] Work Phone: Prostate Specific Antigen Screen 0.54 ng/mL 0.00-4.00 [facility] Work Phone: Comment on above: This test was perfor med using the TPSA assay method for [facility] chemistry system. Values obtained with differentassay methods cannot be used interchangably.When changing PSA assays in the course of monitoring apatient, additional sequential testing should be carriedout to confirm baseline values. Thyroid Stimulating Hormone (TSH) 2.89 uIU/mL 0.358-3.74 [facility] Work Phone: Platelets bldon 04-18-2022 Platelets (Bld) [#/Vol] 189 10*3/uL 150-450 [facility] Work Phone: Serum or plasma albumin miguelina urement (mass/volume)on 04-18-2022 Albumin [Mass/Vol] 3.6 g/dL 3.2-5.0 [facility] Work Phone: Serum or plasma albumin/glob ulin mass ratioon 04-18-2022 Albumin/Globulin [Mass ratio] 1.1 {ratio} 0.9-2.4 [facility] Work Phone: Serum or plasma calcium miguelina urement (mass/volume)on 04-18-2022 Calcium [Mass/Vol] 9.1 mg/dL 8.5-10.1 [facility] Work Phone: Serum or plasma cholesterol in HDL measurement (mass/volume)on 04-18-2022 Cholesterol in HDL [Mass/Vol] 38 mg/dL >40 [facility] Work Phone: Comment on above: The drugs N-Acetylcy steine and Metamizole may falsely depress this assay. Reference Range HDL <40 mg/dL Low HDL Cholesterol HDL >or= 60 mg/dL High HDL Cholesterol Serum or plasma cholesterol in VLDL measurement (mass/volume)on 04-18-2022 Cholesterol in VLDL [Mass/Vol] 32 mg/dL 5-40 [facility] Work Phone: Serum or plasma creatinine m easurement (mass/volume)on 04-18-2022 Creatinine [Mass/Vol] 0.94 mg/dL 0.70-1.30 [facility] Work Phone: Comment on above: The validity of the calculated GFR & GFRAA in patients over 70 years has not been determined. Clinical correlation is essential. Serum or plasma low density lipoprotein (LDL) cholesterol measurement (mass/volume)on 04-18-2022 Cholesterol in LDL [Mass/Vol] 114 mg/dL 0-130 [facility] Work Phone: Serum or plasma urea nitroge n measurement (mass/volume)on 04-18-2022 Urea nitrogen [Mass/Vol] 22 mg/dL 7-18 [facility] Work Phone: Thin prep Papanicolaou smear with manual screeningon 04-18-2022 Thin prep Papanicolaou smear with manual screening 17 U/L 15-37 [facility] Work Phone: Thin prep Papanicolaou smear with manual screening 6 5-15 [facility] Work Phone: Laboratory - Microbiology an d Antimicrobial susceptibilityon 11-07-2021 SARS-CoV-2 (COVID-19) RNA KY+probe Ql (Unsp spec) Not detected Not Detect [facility] Work Phone: Comment on above: Normal Reference Ran ge: Not DetectedMethod:(RT-PCR) real-time reverse transcriptase PCRLuminex JARROD Instrument*The Food and Drug Administration (FDA) has issued an Emergency Use Authorization (EAU) for the JARRDO SARS-CoV-2 Assay for the rapid detection of the virus that causes COVID-19. This test has been validated, but the FDAs independent review of this validation is pending.*Negative results do not preclude infection and should not be used as the sole basis for treatment or patient management. Optimum specimen types and timing for peak viral levels during infections caused by SARS-CoV-2 have not been determined. Collection of multiple specimens from the same patient may be necessary to detect the virus. The possibility of a false negative result should be considered if the patient has clinical presentation or has had recent exposure. Absolute lymphocyte counton 10-31-2021 Lymphocytes Auto (Unsp spec) [#/Vol] 2.06 10*3/uL 0.83-4.51 [facility] Work Phone: Basophil percentageon 2021 Basophils/100 WBC (Bld) 0.6 % 0-1 [facility] Work Phone: Bilirubin [Mass/Vol] 0.60 mg/dL 0.20-1.00 [facility] [place] Work Phone: Comment on above: For patients on eltr ombopag therapy, use of Dimension [place]aug[place] TBIL is not recommended. Chloride [Moles/Vol] 105 mmol/L 98-107 [facility] [place] Work Phone: Cholesterol [Mass/Vol] 216 mg/dL <200 [facility] Work Phone: [phone] Comment on above: <200 mg/dL Desirable 200-240 mg/dL Borderline >240 mg/dL High Risk Eosinophils/100 WBC (Bld) 2.5 % 0-5 [facility] Work Phone: Glucose [Mass/Vol] 102 mg/dL 74-106 [facility] Work Phone: Comment on above: Fasting Glucose resu lt from 100 to 125 mg/dL suggests IMPAIRED HOMEOSTASIS per A.D.A. criteria. Neutrophils (Bld) [#/Vol] 4.6 10*3/uL 2.0-7.7 [facility] Work Phone: Neutrophils/100 WBC (Bld) 59.7 % 47-70 [facility] Work Phone: Potassium [Moles/Vol] 4.5 mmol/L 3.5-5.1 [facility] Work Phone: Protein [Mass/Vol] 6.9 g/dL 6.4-8.2 [facility] Work Phone: [phone] Sodium [Moles/Vol] 139 mmol/L 136-145 [facility] Work Phone: Triglyceride [Mass/Vol] 224 mg/dL [facility] Work Phone: Comment on above: The drugs N-Acetylcy steine and Metamizole may falsely depress this assay.Serum Triglycerides Reference Interval Normal <150 mg/dL Borderline high 150 - 199 mg/dL High 200 - 499 mg/dL Very High > or = 500 mg/dL WBC (Bld) [#/Vol] 7.7 10*3/uL 4.4-11.0 [facility] Work Phone: Blood erythrocytes count (nu mber/volume)on 10-31-2021 RBC (Bld) [#/Vol] 4.91 10*6/uL 4.6-6.2 [facility]: Blood hemoglobin measurement (mass/volume)on 10-31-2021 Hemoglobin (Bld) [Mass/Vol] 15.0 g/dL 13.0-16.5 [facility] Work Phone: Blood lymphocytes/100 leukoc yteson 10-31-2021 Lymphocytes/100 WBC (Bld) 26.7 % 19-41 [facility] Work Phone: Blood monocytes/100 leukocyt eson 10-31-2021 Monocytes/100 WBC (Bld) 9.9 % 0-10 [facility] Work Phone: Blood platelet mean volumeon 10-31-2021 Platelet mean volume (Bld) [Entitic vol] 10.6 fL 6.2-12.0 [facility] Work Phone: Clinical Summary: AnibalmilesIzabel frost 10-31-2021 [facility] OP Visit Invalid Interpretation Code [facility] Work Phone: Determination of erythrocyte mean corpuscular volume (MCV)on 10-31-2021 MCV (RBC) [Entitic vol] 90.4 fL 80-94 [facility] Work Phone: Hematocrit Auto (Bld) [Volum e fraction]on 10-31-2021 Hematocrit (Bld) [Volume fraction] 44.4 % 40-54 [facility] Work Phone: Laboratory - Chemistry and C hemistry - challengeon 10-31-2021 ALP [Catalytic activity/Vol] 99 U/L 45-117 [facility] Work Phone: ALT [Catalytic activity/Vol] 30 U/L 16-61 [facility] Work Phone: CO2 [Moles/Vol] 28.0 mmol/L 21.0-32.0 [facility] Work Phone: Free T4 [Mass/Vol] 0.92 ng/dL 0.76-1.46 [facility] Work [facility]: Globulin (S) [Mass/Vol] 3.1 g/dL 2.2-4.2 [facility] Work Phone: Urea nitrogen/Creatinine [Mass ratio] 24.6 mg/mg 10-20 [facility] Work Phone: Laboratory - Hematology and Cell countson 10-31-2021 Erythrocyte distribution width (RBC) [Entitic vol] 42.5 fL 35.1-43.9 [facility] Work Phone: Erythrocyte distribution width (RBC) [Ratio] 12.9 % 11.6-14.6 [facility] Work Phone: Immature granulocytes/100 WBC (Bld) 0.600 % 0.0-0.9 [facility] Work Phone: Comment on above: IG% - Immature Granu locytes (promyelocytes, myelocytes and metamyelocytes) > 1% indicates that a LEFT SHIFT is Present. MCH (RBC) [Entitic mass] 30.5 pg 27.0-32.0 [facility] Work Phone: Nucleated RBC/100 WBC (Bld) [Ratio] 0 % 0-5 [facility] Work Phone: MCHC Auto (RBC) [Mass/Vol]on 10-31-2021 MCHC (RBC) [Mass/Vol] 33.8 g/dL 32-36 [facility] Work Phone: No Panel Informationon 10-31 Estimated GFR (MDRD) Amer 104 mL/min >60 [facility] Work Phone: Comment on above: GFR Calc Estimated GFR (MDRD) Non-Af Amer 86 mL/min >60 [facility] Work Phone: Comment on above: Non- GFR Calc Free Triiodothyronine (T3) pg/dL 2.6 pg/mL 2.18-3.98 [facility] Work Phone: Thyroid Stimulating Hormone (TSH) 4.96 uIU/mL 0.358-3.74 [facility] Work Phone: Vitamin D 25-Hydroxy 32.5 ng/mL [facility] [place] Work Phone: Comment on above: Vitamin D 25(OH) Sta tus Range Deficiency <20 ng/mL (50nmol/L) Insufficiency 20 - 30 ng/mL (50 - 75 nmol/L) Sufficiency 30 - 100 ng/mL (75 - 250 nmol/L) Toxicity >100 ng/mL (>250 nmol/L) Office Visit: Follow-up by tania estes : 1on 10-31-2021 NEGATED: Highlighted rowxray history of the right hip/pelvis on 09/20/2021 at [facility] Invalid Interpretation Code [facility] Work Phone: Platelets bldon 10-31-2021 Platelets (Bld) [#/Vol] 213 10*3/uL 150-450 [facility] Work Phone: Serum or plasma albumin miguelina urement (mass/volume)on 10-31-2021 Albumin [Mass/Vol] 3.8 g/dL 3.2-5.0 [facility] Work Phone: Serum or plasma albumin/glob ulin mass ratioon 10-31-2021 Albumin/Globulin [Mass ratio] 1.2 {ratio} 0.9-2.4 [facility] Work Phone: Serum or plasma calcium miguelina urement (mass/volume)on 10-31-2021 Calcium [Mass/Vol] 9.0 mg/dL 8.5-10.1 [facility] Work Phone: Serum or plasma cholesterol in HDL measurement (mass/volume)on 10-31-2021 Cholesterol in HDL [Mass/Vol] 42 mg/dL [facility] Work Phone: Comment on above: The drugs N-Acetylcy steine and Metamizole may falsely depress this assay. Reference Range HDL <40 mg/dL Low HDL Cholesterol HDL >or= 60 mg/dL High HDL Cholesterol Serum or plasma cholesterol in VLDL measurement (mass/volume)on 10-31-2021 Cholesterol in VLDL [Mass/Vol] 45 mg/dL 5-40 [facility] Work Phone: Serum or plasma creatinine m easurement (mass/volume)on 10-31-2021 Creatinine [Mass/Vol] 0.94 mg/dL 0.70-1.30 [facility] Work Phone: Comment on above: The validity of the calculated GFR & GFRAA in patients over 70 years has not been determined. Clinical correlation is essential. Serum or plasma low density lipoprotein (LDL) cholesterol measurement (mass/volume)on 10-31-2021 Cholesterol in LDL [Mass/Vol] 129 mg/dL 0-130 [facility] Work Phone: Serum or plasma urea nitroge n measurement (mass/volume)on 10-31-2021 Urea nitrogen [Mass/Vol] 23 mg/dL 7-18 [facility] Work Phone: Thin prep Papanicolaou smear with manual screeningon 10-31-2021 Thin prep Papanicolaou smear with manual screening 21 U/L 15-37 [facility] Work Phone: Thin prep Papanicolaou smear with manual screening 6 5-15 [facility] Work Phone: Whole blood hemoglobin A1c/t otal hemoglobin ratio (mass fraction)on 10-31-2021 HbA1c (Bld) [Mass fraction] 5.6 % 3.8-5.6 [facility] Work Phone: Comment on above: Normal < 5.7 % Predi abetic 5.7 - 6.4 % Diabetic >or= 6.5 % Please note range changes. Clinical Summary: Missy frost 09-20-2021 MED OP Visit Invalid Interpretation Code [facility] Work Phone: Clinical Summary: Leanne Carias 09-19-2021 data entered by patient, alcohol (ethanol or ETOH) use No Invalid Interpretation Code [facility] Work Phone: Data entered by patient, allergy list Sulfa drugs Invalid Interpretation Code [facility] Work Phone: data entered by patient, drug (of abuse) use No Invalid Interpretation Code [facility] Work Phone: data entered by patient, Employer Name retired Invalid Interpretation Code [facility] Work Phone: data entered by patient, exercise history No Invalid Interpretation Code [facility] Work Phone: data entered by patient, father's medical history Arthritis Invalid Interpretation Code [facility] Work Phone: Data entered by patient, history of past surgeries Knee surgery other Invalid Interpretation Code [facility] Work Phone: Data entered by patient, medication list [id number] a day atorvastatin ucozock-[id number]-1-1 a day escitalopram [id number]-26hl-2-1 a day metoprolol [id number]-65zw-1-1 a day [id number] a day Invalid Interpretation Code [facility] Work Phone: data entered by patient, mother's medical history Cancer Invalid Interpretation Code [facility] Work Phone: data entered by patient, past medical history Anxiety High blood pressure High cholesterol Invalid Interpretation Code [facility] Work Phone: data entered by patient, social history, current smoker never smoker Invalid Interpretation Code [facility] Work Phone: data entered by patient, social history, marital status Invalid Interpretation Code [facility] Work Phone: father of patient is alive or Invalid Interpretation Code [facility] Work Phone: Housing Type: apartment, house, senior care, trailer, none house Invalid Interpretation Code [facility] Work Phone: housing unit size (asthma environmental history, housing) (from single family to don't know) 1 floor Invalid Interpretation Code [facility] Work Phone: medical history of patient's brother(s) Cancer Invalid Interpretation Code [facility] Work Phone: medication comments D3 [employer] Invalid Interpretation Code [facility] Work Phone: mother of patient is alive or Invalid Interpretation Code [facility] Work Phone: Number of dependent children No Invalid Interpretation Code [facility] Work Phone: Web entered surgical history comments Kidney Stones Invalid Interpretation Code [facility] Work Phone: Culture, urineon 08-12-2021 Bacteria identified Cx Nom (U) Culture exhibits no growth. [facility] Work Phone: CNOVon 04-09-2019 CNOV Office Visit ([facility] ) SANTANA MINOR ([id number]) 1955 M [facility] Date Time Provider Department 9/28/19 9:45 AM INES HUITRONCON) [facility] During your visit today, we recorded the following information about you: Temperature Pulse Respiration Blood pressure 98.4 degrees 76/minute 17/minute 144/88 Weight 88.1 kg Ines Tomy SUPERVISOR BAKERY SANITATIONTylorCON 04/09/2019 10:34 AM Signed CC: Patient presents with: Cough: and congestion x 1 week Sinus Problem: drainage x 1 week HPI: Santana Minor is a 63 year old male [...] Date Reviewed: 04/09/2019 Reviewed by: Siri Velazquez Otolaryngology Rep - Fully Assessed Reason for Visit: Cough [...] May cause drowsiness. Encounter Status:Closed by INES HUITRON CNP on 04/09/19 [facility] PROGRESSon 04-09-2019 PROGRESS HNO ID: [id number] Author: Ines Colbert) Tomy Service: ? Author Type: Nurse Practitioner Type: Progress Notes Filed: 04/09/2019 10:34 AM Note Text: CC: Patient presents with: Cough: and congestion x 1 week Sinus Problem: drainage x 1 week HPI: Santana Minor is a 63 year old male [...] occur. Patient agreeable to treatment plan. Ines Huitron APRN.CNP Normal [facility] CNOVon 04-07-2019 CNOV Office Visit ([facility] ) SANTANA MINOR ([id number]) 1955 M [facility] Date Time Provider Department 04/07/19 10:30 AM ISSAC WHIPPLE (CON) [facility] During your visit today, we recorded the following information about you: Temperature Pulse Respiration Blood pressure 97.8 degrees 65/minute 17/minute 130/84 Weight 88.3 kg Issac Whipple APRN.CON 04/07/2019 11:17 AM Signed This note was created using PSS Systems[employer]. Subjective Santana Minor is a 63 year old male. [...] been taking any allergy medication. Doesn't feel ill. The history is provided by the patient. [...] Diagnosis:Postnasal discharge [R09.82] Order(s):XR CHEST 2V FRONTAL/LAT [[id number]] Order #: [id number]. #:[id number] Prescriptions as of 04/07/2019 Sig: FLUTICASONE PROPIONATE [...] by SOLE SALCEDO.ISSAC ANDUJAR on 04/07/19 Normal [facility] PROGRESSon 04-07-2019 PROGRESS HNO ID: [id number] Author: Tatyana Rosado Rt Service: ? Author Type: ? Type: Progress Notes Filed: 04/07/2019 10:59 AM Note Text: Radiology Service Progress Note PATIENT NAME: Santana Minor DATE OF SERVICE: April 07, 2019 TIME: 10:50 AM PATIENT IDENTITY VERIFICATION COMPLETED USING TWO (2) METHODS: Name and Date of confirmed by patient verbally. PATIENT GENDER DATA: Male PATIENT RELEVANT IMPLANT DATA REVIEWED: Not Applicable RADIOLOGY DEPARTMENT: General X-ray: Exam(s) Completed: Chest X-Ray PERIPHERAL IV DATA: Not applicable SIGNED BY: Tatyana Rosado Rt April 07, 2019 10:50 AM Normal [facility] PROGRESS HNO ID: [id number] Author: Issac Whipple Service: ? Author Type: Nurse Practitioner Type: Progress Notes Filed: 04/07/2019 11:17 AM Note Text: This note was created using [employer]. Subjective Santana Minor is a 63 year old male. [...] been taking any allergy medication. Doesn't feel ill. The history is provided by the patient. [...] CHEST 2V FRONTAL/LAT 2. Postnasal discharge Normal [facility] XR CHEST 2V FRONTAL/LATon XR CHEST 2V FRONTAL/LAT * * *Final Repor t* * * DATE OF EXAM: Apr 07 [...] radiographic abnormality in the lungs. Borderline cardiomegaly. Barrel Charrer: PSCB Transcribe Date/Time: Apr 07 2019 11:07A Dictated by : PAUL JANG MD This examination was interpreted and the report reviewed and electronically signed by: PAUL JANG MD on Apr 07 2019 11:08AM EST [id number] Normal [facility] CNOVon 11-21-2018 CNOV Office Visit ([facility] ) SANTANA MINOR ([id number]) 1955 M [facility] Date Time Provider Department 11/21/18 10:00 AM RADHA NEAL ([facility]) [facility] During your visit today, we recorded the following information about you: Temperature Pulse Respiration Blood pressure 97.5 degrees 67/minute 16/minute 148/92 Weight 88 kg Radha Neal APRN.CNP 11/21/2018 10:19 AM Signed Subjective HPI Santana Minor is a 63 year old male [...] analgesia. - Discussed expected course of illness Radha Neal APRN.CON COUGH: Your doctor wants you [...] - Intolerance Date Reviewed: 11/21/2018 Reviewed by: Radha ([facility]) Ángel - Fully Assessed Reason for [...] analgesia. - Discussed expected course of illness Radha Neal APRN.TOBACCO BUYER COUGH: Your doctor wants you to have [...] is not on file. Encounter Status:Closed by RADHA NEAL on 11/21/18 [facility] PROGRESSon 11-21-2018 PROGRESS HNO ID: [id number] Author: Radha ([facility]) Ángel Service: ? Author Type: Nurse Practitioner Type: Progress Notes Filed: 11/21/2018 10:19 AM Note Text: Subjective HPI Santana Minor is a 63 year old male [...] analgesia. - Discussed expected course of illness Radha Neal APRN.TOBACCO BUYER Normal [facility] Lab Report: Basic Metabolic Profile (BMP)on 08-04-2017 Anion gap 9 mmol/L Invalid Interpretation Code 5-15 [facility] Work Phone: BUN/Creatinine Ratio 26.4 RATIO High 10-20 [facility] Work Phone: Calcium 8.9 mg/dL Invalid Interpretation Code 8.5-10.1 [facility] Work Phone: [phone] Chloride 104 mmol/L Invalid Interpretation Code 98-107 [facility] Work Phone: [phone] CO2 25.0 mmol/L Invalid Interpretation Code 21.0-32.0 [facility] Work Phone: [phone] Creatinine 0.87 mg/dL Invalid Interpretation Code 0.70-1.30 [facility] Work Phone: [phone] eGFR (non-black) 95 mL/min/{1.73_m2} Invalid Interpretation Code >60 [facility] Work Phone: [phone] eGFR (non-black) 115 mL/min/{1.73_m2} Invalid Interpretation Code >60 [facility] Work Phone: [phone] Glucose 105 mg/dL Invalid Interpretation Code 70-110 [facility] Work Phone: [phone] Potassium 4.2 mmol/L Invalid Interpretation Code 3.5-5.1 [facility] Work Phone: [phone] Sodium 138 mmol/L Invalid Interpretation Code 136-145 [facility] Work Phone: [phone] Urea nitrogen 23 mg/dL [facility] 7[facility]: [phone] Lab Report: Lipid Profileon 08-04-2017 Cholesterol 177 mg/dL Invalid Interpretation Code 200 [facility] Work Phone: [phone] HDL Cholesterol 44 mg/dL Invalid Interpretation Code [facility] Work Phone: [phone] LDL Cholesterol 106 mg/dL Invalid Interpretation Code 0-130 [facility] Work Phone: [phone] Triglyceride 137 mg/dL Invalid Interpretation Code [facility] Work Phone: [phone] very low density lipoproteins 27 mg/dL Invalid Interpretation Code 5-40 [facility] Work Phone: [phone] Lab Report: Liver Profileon 08-04-2017 Alanine aminotransferase (ALT) 33 U/L Invalid Interpretation Code 12-78 [facility] Work Phone: [phone] Albumin 3.8 g/dL Invalid Interpretation Code 3.4-5.0 [facility] Work Phone: [phone] Alkaline phosphatase (ALP) 85 U/L Invalid Interpretation Code 45-117 [facility] Work Phone: [phone] Aspartate aminotransferase (AST) 19 U/L Invalid Interpretation Code 15-37 [facility] Work Phone: [phone] Bilirubin (direct) 0.12 mg/dL Invalid Interpretation Code 0.00-0.30 [facility] Work Phone: [phone] Bilirubin (total) 0.60 mg/dL Invalid Interpretation Code 0.20-1.00 [facility] Work Phone: [phone] Globulin 3.1 g/dL Invalid Interpretation Code 2.2-4.2 [facility] Work Phone: [phone] Protein 6.9 g/dL Invalid Interpretation Code 6.4-8.2 [facility] Work Phone: [phone] Lab Report: Magnesiumon 07-14 Magnesium 2.3 mg/dL Invalid Interpretation Code 1.6-2.6 [facility] Work Phone: [phone] Lab Report: Thyroid Stim Hor js (TSH)on 08-04-2017 Thyroid stimulating hormone (TSH) 4.14 u[iU]/mL High 0.358-3.74 [facility] Work Phone: [phone] Office Visiton 03-31-2017 Documentation of current medications (procedure) Done Invalid Interpretation Code [facility] Work Phone: [phone] Fall risk assessment No Invalid Interpretation Code [facility] Work Phone: [phone] Lab Report: Basic Metabolic Profile (BMP)on 04-22-2016 Anion gap 5 mmol/L Invalid Interpretation Code 5-15 [facility] Work Phone: [phone] BUN/Creatinine Ratio 18.3 RATIO Invalid Interpretation Code 10-20 [facility] Work Phone: [phone] Calcium 9.1 mg/dL Invalid Interpretation Code 8.5-10.1 [facility] Work Phone: [phone] Chloride 106 mmol/L Invalid Interpretation Code 98-107 [facility] Work Phone: [phone] CO2 26.0 mmol/L Invalid Interpretation Code 21.0-32.0 [facility] Work Phone: [phone] Creatinine 0.93 mg/dL Invalid Interpretation Code 0.70-1.30 [facility] Work Phone: [phone] eGFR (non-black) 89 mL/min/{1.73_m2} Invalid Interpretation Code >60 [facility] Work Phone: [phone] eGFR (non-black) 107 mL/min/{1.73_m2} Invalid Interpretation Code >60 [facility] Work Phone: [phone] Glucose 102 mg/dL Invalid Interpretation Code 70-110 [facility] Work Phone: [phone] Potassium 4.1 mmol/L Invalid Interpretation Code 3.5-5.1 [facility] Work Phone: [phone] Sodium 137 mmol/L Invalid Interpretation Code 136-145 [facility] Work Phone: [phone] Urea nitrogen 17 mg/dL Invalid Interpretation Code 7-18 [facility] Work Phone: [phone] Lab Report: Lipid Profileon 04-22-2016 Cholesterol 186 mg/dL Invalid Interpretation Code 200 [facility] Work Phone: [phone] HDL Cholesterol 38 mg/dL Low [facility] Work Phone: [phone] LDL Cholesterol 105 mg/dL Invalid Interpretation Code 0-130 [facility] Work Phone: [phone] Triglyceride 214 mg/dL High [facility] Work Phone: [phone] very low density lipoproteins 43 mg/dL High 5-40 [facility] Work Phone: [phone] Lab Report: Liver Profileon 04-22-2016 Alanine aminotransferase (ALT) 36 U/L Invalid Interpretation Code 12-78 [facility] Work Phone: [phone] Albumin 3.8 g/dL Invalid Interpretation Code 3.4-5.0 [facility] Work Phone: [phone] Alkaline phosphatase (ALP) 103 U/L Invalid Interpretation Code 50-136 [facility] Work Phone: [phone] Aspartate aminotransferase (AST) 18 U/L Invalid Interpretation Code 15-37 [facility] Work Phone: [phone] Bilirubin (direct) 0.08 mg/dL Invalid Interpretation Code 0.00-0.30 [facility] Work Phone: [phone] Bilirubin (total) 0.40 mg/dL Invalid Interpretation Code 0.20-1.00 [facility] Work Phone: [phone] Globulin 3.0 g/dL Invalid Interpretation Code 2.3-3.5 [facility] Work Phone: [phone] Protein 6.8 g/dL Invalid Interpretation Code 6.4-8.2 [facility] Work Phone: [phone] Office Visiton 04-03-2015 Dietary management education, guidance, and counseling (procedure) yes Invalid Interpretation Code [facility] Phone: [phone] General cardiovascular disease 10Y risk [#] Yenifer.Lisandro'Agomanuel 11 % Invalid Interpretation Code [facility] Phone: [phone] Tobacco smoking status NHIS Tobacco smoking status NHIS Invalid Interpretation Code [facility] Phone: [phone] Tobacco use CPHS Never smoker Invalid Interpretation Code [facility] Phone: [phone] Lab Report: Magnesiumon 08-14 Magnesium 2.1 mg/dL Invalid Interpretation Code 1.8-2.4 [facility] Phone: [phone] Office Visiton 08-30-2014 cardiac risk group B Invalid Interpretation Code [facility] Phone: [phone] Replaced Document: Davey E Observationson 08-30-2014 electrocardiogram interpretation Junctional Rhythm - frequent ectopic ventricular beat s P:QRS - 1:1, Superior P axis, Short Donn, H Rate 93 # VECs = 2BORDERLINE RHYTHM Invalid Interpretation Code [facility] Work Phone: [phone] GE use only - for Link[employer] import when terms are not otherwise specified 401 ms Invalid Interpretation Code [facility] Phone: [phone] P wave axis, electrocardiogram -87 deg Invalid Interpretation Code [employer] Phone: [phone] HI interval, electrocardiogram 94 ms Invalid Interpretation Code [facility] Work Phone: [phone] Pulse (Heart Rate) 93 /min Invalid Interpretation Code [facility] Work Phone: [phone] QRS axis, electrocardiogram 8 deg Invalid Interpretation Code [facility] Work Phone: [phone] QRS duration, electrocardiogram 88 ms Invalid Interpretation Code [facility] Work Phone: [phone] QT interval, electrocardiogram new path ms Invalid Interpretation Code [facility] Work Phone: [phone] T wave axis, electrocardiogram 30 deg Invalid Interpretation Code [facility] Work Phone: [phone] Clinical Lists Update: Prelo wheel inspector 08-11-2014 Hematocrit (HCT) 44.4 % Invalid Interpretation Code [facility] Work Phone: [phone] Hemoglobin (HGB) 15.6 g/dL Invalid Interpretation Code [facility] Work Phone: [phone] Platelets 210 10*3/mm3 Invalid Interpretation Code [facility] Work Phone: [phone] Thyroid stimulating hormone (TSH) 2.75 u[iU]/mL Invalid Interpretation Code [facility] Work Phone: [phone] WBC (Leukocytes) 7.6 10*3/uL Invalid Interpretation Code [facility] Work Phone: [phone] Vital Signs Date Time Vital Sign Value Performing Clinician Facility 12-27-2024 15:45-0400 Body height 170.[address] London Franklin DO Work Phone: [facility] 06-25-2023 08:33-0500 Body temperature 98.9 [degF] Dr. Jessica Jordan Work Phone: [facility] 06-25-2023 08:33-0500 Diastolic blood pressure 82 mm[Hg] Dr. Jessica Jordan Work Phone: [facility] 06-25-2023 08:33-0500 Heart rate 64 /min Dr. Jessica Jordan Work Phone: [facility] 06-25-2023 08:33-0500 Respiratory rate 16 /min Dr. Jessica Jordan Work Phone: [facility] 06-25-2023 08:33-0500 SaO2% (BldA) [Mass fraction] 98 % Dr. Jessica Jordan Work Phone: [facility] 06-25-2023 08:33-0500 Systolic blood pressure 113 mm[Hg] Dr. Jessica Jordan Work Phone: [facility] 06-25-2023 07:01-0500 Body height 170.[address] Jessica Jordan Work Phone: [facility] 06-25-2023 07:01-0500 Body mass index (BMI) [Ratio] 28.3 kg/m2 Dr. Jessica Jordan Work Phone: [facility] 06-25-2023 07:01-0500 Body weight [address] Jessica Jordan Work Phone: [facility] 05-08-2023 10:32-0400 Body height 170.[address] Jessica Jordan Work Phone: [facility] 05-08-2023 10:32-0400 Body mass index (BMI) [Ratio] 30 kg/m2 Dr. Jessica Jordan Work Phone: [facility] 05-08-2023 10:32-0400 Body temperature 97.2 [degF] Dr. Jessica Jordan Work Phone: [facility] 05-08-2023 10:32-0400 Body weight 87.[address] Jessica Jordan Work Phone: [facility] 05-08-2023 10:32-0400 Diastolic blood pressure 78 mm[Hg] Dr. Jessica Jordan Work Phone: [facility] 05-08-2023 10:32-0400 Heart rate 67 /min Dr. Jessica Jordan Work Phone: [facility] 05-08-2023 10:32-0400 Respiratory rate 17 /min Dr. Jessica Jordan Work Phone: [facility] 05-08-2023 10:32-0400 SaO2% (BldA) [Mass fraction] 96 % Dr. Jessica Jordan Work Phone: [facility] 05-08-2023 10:32-0400 Systolic blood pressure 145 mm[Hg] Dr. Jessica Jordan Work Phone: [facility] 04-26-2023 14:43-0400 Diastolic blood pressure 97 mm[Hg] Dr. Jessica Jordan Work Phone: [facility] 04-26-2023 14:43-0400 Heart rate 113 /min Dr. Jessica Jordan Work Phone: [facility] 04-26-2023 14:43-0400 Respiratory rate 18 /min Dr. Jessica Jordan Work Phone: [facility] 04-26-2023 14:43-0400 Systolic blood pressure 138 mm[Hg] Dr. Jessica Jordan Work Phone: [facility] 04-26-2023 14:42-0400 Body mass index (BMI) [Ratio] 31 kg/m2 Dr. Jessica Jordan Work Phone: [facility] 04-26-2023 14:42-0400 Body weight 89.[address] Jessica Jordan Work Phone: [facility] 04-26-2023 11:53-0400 Body height 170.[address] Jessica Jordan Work Phone: [facility] 04-26-2023 11:53-0400 Body temperature 96.8 [degF] Dr. Jessica Jordan Work Phone: [facility] 04-26-2023 11:53-0400 SaO2% (BldA) [Mass fraction] 97 % Dr. Jessica Jordan Work Phone: [facility] 04-15-2023 13:33-0400 Body mass index (BMI) [Ratio] 30.1 kg/m2 Dr. Jessica Jordan Work Phone: [facility] 04-15-2023 13:33-0400 Body temperature 98.3 [degF] Dr. Jessica Jordan Work Phone: [facility] 04-15-2023 13:33-0400 Body weight 87.[address] Jessica Jordan Work Phone: [facility] 04-15-2023 13:33-0400 Diastolic blood pressure 76 mm[Hg] Dr. Jessica Jordan Work Phone: [facility] 04-15-2023 13:33-0400 Heart rate 79 /min Dr. Jessica Jordan Work Phone: [facility] 04-15-2023 13:33-0400 Respiratory rate 16 /min Dr. Jessica Jordan Work Phone: [facility] 04-15-2023 13:33-0400 SaO2% (BldA) [Mass fraction] 94 % Dr. Jessica Jordan Work Phone: [facility] 04-15-2023 13:33-0400 Systolic blood pressure 114 mm[Hg] Dr. Jessica Jordan Work Phone: [facility] 04-03-2023 14:52-0400 Respiratory rate 16 /min Dr. Jessica Jordan Work Phone: [facility] 04-03-2023 12:06-0400 Body height 170.[address] Jessica Jordan Work Phone: [facility] 04-03-2023 12:06-0400 Body mass index (BMI) [Ratio] 26.6 kg/m2 Dr. Jessica Jordan Work Phone: [facility] 04-03-2023 12:06-0400 Body temperature 97.3 [degF] Dr. Jessica Jordan Work Phone: [facility] 04-03-2023 12:06-0400 Body weight 77.[address] Jessica Jordan Work Phone: [facility] 04-03-2023 12:06-0400 Diastolic blood pressure 96 mm[Hg] Dr. Jessica Jordan Work Phone: [facility] 04-03-2023 12:06-0400 Heart rate 77 /min Dr. Jessica Jordan Work Phone: [facility] 04-03-2023 12:06-0400 SaO2% (BldA) [Mass fraction] 97 % Dr. Jessica Jordan Work Phone: [facility] 04-03-2023 12:06-0400 Systolic blood pressure 135 mm[Hg] Dr. Jessica Jordan Work Phone: [facility] 10-23-2022 08:03-0400 Body temperature 98 [degF] MD Jessica Jordan [facility] 10-23-2022 08:03-0400 Body weight 85.27 kg MD Jessica Jordan [facility] 10-23-2022 08:03-0400 Diastolic blood pressure 77 mm[Hg] MD Jessica Jordan [facility] 10-23-2022 08:03-0400 Heart rate 61 /min MD Jessica Jordan [facility] 10-23-2022 08:03-0400 Respiratory rate 16 /min MD Jessica Jordan [facility] 10-23-2022 08:03-0400 SaO2% (BldA) [Mass fraction] 97 % MD Jessica Jordan [facility] 10-23-2022 08:03-0400 Systolic blood pressure 111 mm[Hg] MD Jessica Jordan [facility] 10-09-2022 14:57-0400 Body height 170.18 cm MD Jessica Jordan [facility] 10-09-2022 14:57-0400 Body mass index (BMI) [Ratio] 29.9 kg/m2 MD Jessica Jordan [facility] 10-09-2022 14:57-0400 Body weight 86.63 kg MD Jessica Jordan [facility] 05-22-2022 13:48-0500 Body height 170.18 cm MD Jessica Jordan [facility] 05-22-2022 13:48-0500 Body mass index (BMI) [Ratio] 29.7 kg/m2 Jessica [facility] 05-22-2022 13:48-0500 Body weight 86.18 kg Jessicabrandie Jordan [facility] 05-22-2022 13:48-0500 Diastolic blood pressure 72 mm[Hg] [facility] 13:48-0500 Heart rate 94 /min Jessicabrandie Jordan [facility] 05-22-2022 13:48-0500 Respiratory rate 16 /min Jessica [facility] 05-22-2022 13:48-0500 SaO2% (BldA) [Mass fraction] 97 % Jessica [facility] 05-22-2022 13:48-0500 Systolic blood pressure 116 mm[Hg] Jessica [facility] 05-09-2022 15:18-0400 SaO2% (BldA) [Mass fraction] 97 % Jessica [facility] 05-09-2022 14:55-0400 Body temperature 98.7 [degF] Jessica [facility] 05-09-2022 14:55-0400 Diastolic blood pressure 87 mm[Hg] [facility] 05-09-2022 14:55-0400 Heart rate 64 /min MD Jessica Jordan [facility] 05-09-2022 14:55-0400 Inhaled oxygen flow rate 2 L/min Jessica [facility] 05-09-2022 14:55-0400 Respiratory rate 18 /min Jessica [facility] 05-09-2022 14:55-0400 Systolic blood pressure 144 mm[Hg] Jessica [facility] 05-09-2022 10:22-0400 Body height 172.72 cm Jessicabrandie HilliardJulian [facility] Work Phone: 05-09-2022 10:22-0400 Body mass index (BMI) [Ratio] 29.3 kg/m2 [facility] 05-09-2022 10:22-0400 Body weight 87.5 kg MD Jessica Jordan [facility] 05-01-2022 22:21-0400 Diastolic blood pressure 102 mm[Hg] [facility] 05-01-2022 22:21-0400 Heart rate 90 /min Jessica [facility] 05-01-2022 22:21-0400 Respiratory rate 15 /min Jessica [facility] 05-01-2022 22:21-0400 SaO2% (BldA) [Mass fraction] 99 % Jessica [facility] 05-01-2022 22:21-0400 Systolic blood pressure 146 mm[Hg] Jessica [facility] 05-01-2022 20:18-0400 Body mass index (BMI) [Ratio] 28.1 kg/m2 Jessica [facility] 05-01-2022 20:18-0400 Body temperature 97.1 [degF] Jessica [facility] 05-01-2022 20:18-0400 Body weight 83.91 kg MD Jessica Jordan [facility] 04-24-2022 08:09-0400 Body temperature 98.2 [degF] Jessica [facility] Work Phone: 04-24-2022 08:09-0400 Body weight 88.11 kg Jessica [facility] Work Phone: 04-24-2022 08:09-0400 Diastolic blood pressure 66 mm[Hg] Jessica [facility] Work Phone: 04-24-2022 08:09-0400 Heart rate 65 /min Jessica [facility] Work Phone: 04-24-2022 08:09-0400 Respiratory rate 16 /min MD Jessica Jordan [facility] Work Phone: 04-24-2022 08:09-0400 SaO2% (BldA) [Mass fraction] 97 % [facility] Work [facility]: 04-24-2022 08:09-0400 Systolic blood pressure 128 mm[Hg] [facility] Work [facility]: 04-18-2022 08:52-0400 Body mass index (BMI) [Ratio] 36.1 kg/m2 Jessica [facility] Work Phone: 04-18-2022 08:52-0400 Body temperature 97.1 [degF] Jessica [facility] Work Phone: 04-18-2022 08:52-0400 Body weight 86.63 kg [facility] 04-18-2022 08:52-0400 Diastolic blood pressure 88 mm[Hg] Jessica [facility] Work Phone: 04-18-2022 08:52-0400 Heart rate 81 /min Jessica [facility] Work Phone: 04-18-2022 08:52-0400 Respiratory rate 16 /min MD Lopez Julian [facility] Work Phone: 04-18-2022 08:52-0400 SaO2% (BldA) [Mass fraction] 96 % MD Lopez [facility] Work Phone: 04-18-2022 08:52-0400 Systolic blood pressure 126 mm[Hg] [facility] Work [facility]: 11-07-2021 11:12-0400 Body height 154.[address] Daniel Fox Work Phone: [facility] Work Phone: 11-07-2021 11:12-0400 Body mass index (BMI) [Ratio] 36.4 kg/m2 Dr. Daniel Fox Work Phone: [facility] Work Phone: 11-07-2021 11:12-0400 Body temperature 97.8 [degF] Dr. Daniel Fox Work Phone: [facility] Work Phone: 11-07-2021 11:12-0400 Body weight 87.[address] Daniel Fox Work Phone: [facility] Work Phone: 11-07-2021 11:12-0400 Diastolic blood pressure 78 mm[Hg] Dr. Daniel Fox Work Phone: [facility] Work Phone: 11-07-2021 11:12-0400 Heart rate 73 /min Dr. Daniel Fox Work Phone: [facility] Work Phone: 11-07-2021 11:12-0400 Respiratory rate 14 /min Dr. Daniel Fox Work Phone: [facility] Work Phone: 11-07-2021 11:12-0400 SaO2% (BldA) [Mass fraction] 98 % Dr. Daniel Fox Work Phone: [facility] Work Phone: 11-07-2021 11:12-0400 Systolic blood pressure 130 mm[Hg] Dr. Daniel Fox Work Phone: [facility] Work Phone: 11-04-2021 14:42-0400 Body mass index (BMI) [Ratio] 30.2 kg/m2 Dr. Daniel Fox Work Phone: [facility] Work Phone: 11-04-2021 14:42-0400 Body temperature 97.3 [degF] Dr. Daniel Fox Work Phone: [facility] Work Phone: 11-04-2021 14:42-0400 Body weight 87.[address] Daniel Fox Work Phone: [facility] Work Phone: 11-04-2021 14:42-0400 Diastolic blood pressure 82 mm[Hg] Dr. Daniel Fox Work Phone: [facility] Work Phone: 11-04-2021 14:42-0400 Heart rate 93 /min Dr. Daniel Fox Work Phone: [facility] Work Phone: 11-04-2021 14:42-0400 SaO2% (BldA) [Mass fraction] 94 % Dr. Daniel Fox Work Phone: [facility] Work Phone: 11-04-2021 14:42-0400 Systolic blood pressure 138 mm[Hg] Dr. Daniel Fox Work Phone: [facility] Work Phone: 10-23-2021 10:17-0400 Body height 170.[address] Daniel Fox Work Phone: [facility] Work Phone: 10-23-2021 10:17-0400 Body mass index (BMI) [Ratio] 30.2 kg/m2 Dr. Daniel Fox Work Phone: [facility] Work Phone: 10-23-2021 10:17-0400 Body temperature 97.5 [degF] Dr. Daniel Fox Work Phone: [facility] Work Phone: 10-23-2021 10:17-0400 Body weight 87.[address] Daniel Fox Work Phone: [facility] Work Phone: 10-23-2021 10:17-0400 Diastolic blood pressure 84 mm[Hg] Dr. Daniel Fox Work Phone: [facility] Work Phone: 10-23-2021 10:17-0400 Heart rate 89 /min Dr. Daniel Fox Work Phone: [facility] Work Phone: 10-23-2021 10:17-0400 Respiratory rate 14 /min Dr. Daniel Fox Work Phone: [facility] Work Phone: 10-23-2021 10:17-0400 SaO2% (BldA) [Mass fraction] 99 % Dr. Daniel Fox Work Phone: [facility] Work Phone: 10-23-2021 10:17-0400 Systolic blood pressure 140 mm[Hg] Dr. Daniel Fox Work Phone: [facility] Work Phone: 03-31-2017 16:08-0400 BMI (Body Mass Index) 31.89 kg/m2 Cristiana Ruddy [facility] Work Phone: 03-31-2017 16:08-0400 BP Diastolic 70 mm[Hg] Cristiana Fox [facility] Work Phone: 03-31-2017 16:08-0400 BP Systolic 120 mm[Hg] Cristiana Fox [facility] Work Phone: 03-31-2017 16:08-0400 Height 162.56 cm Cristiana Fox [facility] Work Phone: 03-31-2017 16:08-0400 Pulse (Heart Rate) 80 /min Cristiana Fox [facility] Work Phone: 03-31-2017 16:08-0400 Respiratory Rate 20 /min Cristiana Fox [facility] Work Phone: 03-31-2017 16:08-0400 Weight 84.28 kg Cristiana Fox [facility] Work Phone: 04-01-2016 16:21-0400 BSA (Body Surface Area) 1.9 m2 Cristiana Fox [facility] Work Phone: 06-02-2010 10:49-0500 Body Temperature 97.9 [degF] Cristiana Fox [facility] Work Phone: NEGATED: Highlighted [id number] 09:31-0400 Body height 168.91 cm [facility] Work Phone: NEGATED: Highlighted [id number] 09:31-0400 Body height 169 cm [facility] Work Phone: NEGATED: Highlighted [id number] 09:31-0400 Body mass index (BMI) [Ratio] 31.43 kg/m2 [facility] Work Phone: NEGATED: Highlighted [id number] 09:31-0400 Body weight 89.36 kg [facility] Work Phone: NEGATED: Highlighted [id number] 09:31-0400 Body weight 90 kg [facility] Work Phone: NEGATED: Highlighted [id number] 09:57-0500 Body height 168.91 cm [facility] Work Phone: NEGATED: Highlighted [id number] 09:57-0500 Body height 169 cm [facility] Work Phone: NEGATED: Highlighted [id number] 09:57-0500 Body mass index (BMI) [Ratio] 31.43 kg/m2 [facility] Work Phone: NEGATED: Highlighted [id number] 09:57-0500 Body weight 89.36 kg [facility] Work Phone: NEGATED: Sarina rogers03-11-2022 09:57-0500 Body weight 90 kg [facility] Work Phone: Encounters Encounter Date Encounter Type Care Provider Facility Start: 12-27-2024 End: 12-27-[address] Damián Chu MD [facility] Work Phone: Start: 12-27-2024 End: 12-27-[address] London Franklin DO Work Phone: [facility] Work Phone: Start: 12-09-2024 End: 12-09-[address] London Franklin DO Work Phone: [facility] Work Phone: Start: 12-09-2024 End: 12-09-[address] London Franklin DO -[facility] Work Phone: Start: 12-09-2024 End: 12-09-2024 [facility] Start: 11-30-2024 End: 11-30-2024 Patient encounter procedure Johanna Conte NP-C -[facility] Work Phone: Start: 11-30-2024 End: 11-30-2024 ambulatory [facility] Facility:[facility] Start: 08-12-2024 End: 08-12-2024 ambulatory [facility] Facility:[facility] Start: 07-21-2024 End: 07-21-2024 ambulatory [facility] Facility:[facility] Start: 07-11-2024 End: 07-11-2024 ambulatory [facility] Facility:[facility] Start: 05-27-2024 End: 05-27-2024 ambulatory [facility] Facility:[facility] Start: 05-03-2024 End: 05-03-2024 ambulatory [facility] Facility:[facility] Start: 04-19-2024 End: 04-19-2024 ambulatory [place] [facility] Facility:[facility] Start: 09-04-2023 End: 09-04-[address] [place] Franklin Work Phone: [facility] Work Phone: Start: 09-04-2023 End: 09-04-[address] Jessica Jordan Work Phone: [facility] Work Phone: Start: 08-31-2023 End: 08-31-[address] Jessica Jordan Work Phone: [facility] Work Phone: Start: 08-31-2023 End: 08-31-[address] Jessica Jordan Work Phone: [facility] Work Phone: Start: 07-28-2023 End: 07-28-[address] Jessica Jordan Work Phone: [facility] Work Phone: Start: 07-28-2023 End: 07-28-[address] Jessica Jordan Work Phone: [facility] Start: 06-25-2023 Non-patient / Non-visit Dr. Naya Jordan Work Phone: [facility] Start: 06-25-2023 End: 06-25-2023 Admission to same day surgery center Dr. Jessica Jordan Work Phone: [facility]-Endoscopy Work Phone: Start: 06-25-2023 End: 06-25-[address] Jessica Jordan Work Phone: [facility] Work Phone: Start: 05-25-2023 End: 05-25-[address] Jessica Jordan Work Phone: [facility] Work Phone: Start: 05-18-[address] Jessica Jordan Work Phone: [facility] Work Phone: Start: 05-14-2023 End: 05-14-[address] Jessica Jordan Work Phone: [facility] Work Phone: Start: 05-14-2023 End: 05-14-[address] Jessica Jordan Work Phone: [facility] Start: 05-08-2023 End: 05-08-[address] Jessica Jordan Work Phone: [facility] Work Phone: Start: 04-26-2023 End: 04-26-2023 Emergency department patient visit Dr. Jessica Jordan Work Phone: [facility] Work Phone: Start: 04-22-[address] Jessica Jordan Work Phone: [facility] Work Phone: Start: 04-15-2023 End: 04-15-[address] Jessica Jordan Work Phone: [facility] [place] Work Phone: Start: 04-03-2023 End: 04-03-2023 Emergency department patient visit Dr. Jessica Jordan Work Phone: [facility] Work Phone: Start: 03-11-2023 End: 03-11-[address] Jessica Jordan Work Phone: [facility] Work Phone: Start: 03-09-2023 End: 03-09-[address] Jessica Jordan Work Phone: [facility] Work Phone: Start: 03-09-2023 End: 03-09-[address] Jessica Jordan Work Phone: [facility] Work Phone: Start: 02-16-2023 End: 02-16-[address] Jessica Jordan Work Phone: [facility] Work Phone: Start: 02-16-2023 End: 02-16-[address] Jessica Jordan Work Phone: [facility] Work Phone: Start: 02-16-2023 End: 02-16-[address] Jessica Jordan Work Phone: [facility] Work Phone: Start: 02-11-2023 End: 02-11-[address] Jessica Jordan Work Phone: [facility] Work Phone: Start: 02-11-2023 End: 02-11-[address] Jessica Jordan Work Phone: [facility] Work Phone: Start: 02-05-2023 End: 02-05-[address] Jessica Jordan Work Phone: [facility] Work Phone: Start: 02-02-2023 Non-patient / Non-visit Dr. Naya Jordan Work Phone: [facility] Work Phone: Start: 01-22-2023 End: 01-22-2023 ambulatory MD Jessica Jordan [facility] Work Phone: Start: 01-22-2023 End: 01-22-2023 Patient encounter procedure MD Jessica GALEANA [facility]-Pulmonary Services/Neurology Work Phone: Start: 11-11-2022 End: 11-11-2022 ambulatory MD Jessica GALEANA [facility] Work Phone: Start: 11-11-2022 End: 11-11-2022 Discharged Recurring MD Jessica Jordan [facility]-Physical Therapy Start: 10-23-2022 End: 10-23-2022 Patient encounter procedure MD Jessica GALEANA [facility] [place] Start: 10-22-2022 End: 10-22-2022 Patient encounter procedure MD Jessica GALEANA [facility]-Laboratory, [facility] Start: 10-09-2022 End: 10-09-2022 Patient encounter procedure MD Jessica GALEANA [facility] Start: 09-13-2022 End: 09-13-2022 Patient encounter procedure MD Jessica GALEANA [facility] Start: 09-10-2022 Registered Referred MD Jessica lake [facility]-Cardiovascular Services Start: 08-29-2022 End: 08-29-[address] Dc Underwood Work Phone: [facility] Start: 2022 End: [address] Dc Underwood Work Phone: [facility] Work Phone: Start: 2022 End: [address] Dc Underwood Work Phone: [facility] Start: 05-22-2022 End: 05-22-2022 Patient encounter procedure MD Jessica Jordan [facility] Start: 05-22-2022 End: 05-22-2022 ambulatory MD Jessica Jordan [facility] Work Phone: Start: 05-22-2022 End: 05-22-2022 Patient encounter procedure MD Jessica Jordan [facility]-Pulmonary Services/Neurology Start: 05-09-2022 End: 05-09-2022 Evaluation and management of inpatient MD Jessica Jordan [facility]-Medical Surgical 3 Start: 05-09-2022 End: 05-09-2022 [facility] Start: 05-01-2022 End: 05-01-2022 [facility] Start: 04-24-2022 End: 04-24-2022 Patient encounter procedure MD Jessica Jordan [facility]-Radiology, [facility] Start: 04-24-2022 End: 04-24-2022 Patient encounter procedure MD Jessica Jordan [facility] Start: 04-18-2022 End: 04-18-2022 Patient encounter procedure MD Jessica Jordan [facility] Internal Medicine Start: 11-07-2021 End: 11-07-[address] Daniel Fox Work Phone: [facility] Internal Medicine Start: 11-04-2021 End: 11-04-[address] Daniel Fox Work Phone: [facility] Internal Medicine Start: 10-31-2021 End: 10-31-[address] Daniel Fox Work Phone: [facility]-Laboratory, [facility] Start: 10-23-2021 End: 10-23-[address] Daniel Fox Work Phone: [facility] Internal Medicine Start: 10-11-2021 Non-patient / Non-visit Dr. Isaias Fox Work Phone: [facility] Internal Medicine Start: 09-27-2021 End: 09-27-[address] Daniel Fox Work Phone: [facility]-Radiology, [facility] Start: 08-13-2021 End: 08-13-[address] Daniel Fox Work Phone: [facility]-Laboratory, Specimen Procedures Date Procedure Procedure Detail Performing Clinician Start: 11-30-[address] Yamil Franklin DO Work Phone: Start: 11-30-[address] Tylor Franklin DO Work Phone: Start: 11-30-2024 Vitamin D, 25-hydrox y measurement Dr. [place] Franklin DO Work Phone: Comment on above: Vitamin D StatusDefi ciency: <20 ng/mL (50nmol/L)Insufficiency: 20-30 ng/mL (50-75 nmol/L)Sufficiency: 30-100 ng/mL (75-250 nmol/L)Toxicity: >100 ng/mL (>250 nmol/L) Start: 09-04-[address] Jessica Jordan Work Phone: Start: 06-25-[address] Jessica Jordan Work Phone: Start: 04-26-2023 Computed tomography of abdomen and pelvis with intravenous contrast Dr. Jessica Jordan Work Phone: Start: 04-03-2023 Computed tomography of abdomen and pelvis with intravenous contrast Dr. Jessica Jordan Work Phone: Start: 03-11-2023 X-ray of lumbar spin e, two or three views Dr. Jessica Jordan Work Phone: Start: 03-09-2023 MRI of thoracic spine Lisandro Jordan Work Phone: Start: 02-16-2023 Radiography of thora cic spine Dr. Jessica Jordan Work Phone: Start: 02-11-2023 MRI of joint of lowe r extremity Dr. Jessica Jordan Work Phone: Start: 10-09-2022 Radiologic examinati on of knee MD Jessica GALEANA Start: 09-13-2022 MRI of lumbar spine MD Jessica GALEANA Start: 08-29-2022 Plain x-ray of pelvi s and lower extremity MD Jessica GALEANA Start: 08-29-2022 Plain X-ray of shoulder MD Jessica GALEANA Start: 2022 MRI of upper limb Dr. Rosa Underwood Work Phone: Start: 05-22-2022 Diagnostic radiograp hy of abdomen MD Jessica Jodran Start: 05-09-2022 Insertion of stent i nto ureter MD Jessica Jordan Start: 05-09-2022 Fluoroscopic guidance Yamil Jordan Start: 05-09-2022 Diagnostic radiograp hy of abdomen MD Jessica Jordan Start: 05-01-2022 CT of abdomen and pe lvis without contrast MD Jessica Jordan Start: 04-24-2022 Radiography of thora cic spine MD Jessica Jordan Start: 10-31-2021 End: 10-31-2021 BP scrn no perf at interval [place] Mike MD Work Phone: Start: 10-31-2021 End: 10-31-2021 Calc BMI abv up jaime f/u [place] bee MD Work Phone: Start: 10-31-2021 End: 10-31-2021 Current tobacco non-user cad cap copd pv dm [place] Mike MD Work Phone: Start: 10-31-2021 End: 10-31-2021 Docrev cur meds by lillian clin [place] Mike MD Work Phone: Start: 10-31-2021 End: 10-31-2021 Osteoarthritis symptoms&funcjal status asses [place] Mike MD Work Phone: Start: 10-31-2021 End: 10-31-2021 Pain doc pos and plan [place] Mike MD Work Phone: Start: 10-31-2021 End: 10-31-2021 Patient encounter procedure [place] Mike MD Work Phone: Start: 09-27-[address] Daniel Fox Work Phone: Start: 09-20-2021 End: 09-20-2021 BP scrn no perf at interval [place] Mike MD Work Phone: Start: 09-20-2021 End: 09-20-2021 Calc BMI abv up jaime f/u [place] bee MD Work Phone: Start: 09-20-2021 End: 09-20-2021 Current tobacco non-user cad cap copd pv dm [place] Mike MD Work Phone: Start: 09-20-2021 End: 09-20-2021 Docrev cur meds by elig clin [place] Mike MD Work Phone: Start: 09-20-2021 End: 09-20-2021 Osteoarthritis symptoms&funcjal status asses [place] Mike MD Work Phone: Start: 09-20-2021 End: 09-20-2021 Pain doc pos and plan [place] Mike MD Work Phone: Start: 09-20-2021 End: 09-20-2021 Patient encounter procedure [place] Mike MD Work Phone: Start: 09-20-2021 End: 09-20-2021 Radex hip unilateral with pelvis 2-3 views [place] Mike MD Work Phone: Start: 08-12-[address] Daniel Fox Work Phone: Start: 03-31-2017 End: 03-31-2017 COMMERCIAL HVAC SERVICE TECHNICIAN Corky Najera MD Start: 03-31-2017 End: 03-31-2017 [...] Panel Yamil Kingston Start: 04-01-2016 End: 05-13-2017 COMMERCIAL HVAC SERVICE TECHNICIAN Corky Najera MD Start: 04-01-2016 End: 05-13-2017 [...] Corky Najera MD Start: 08-30-2014 End: 08-30-2014 COMMERCIAL HVAC SERVICE TECHNICIAN Corky Najera MD Start: 08-30-2014 End: 08-31-2014 [...] Treatment Date Care Activity Detail Author Start: 06-25-2023 Colsc flx w/rmvl of tumor polyp lesion snare tq COLONOSCOPY W/LESION REMOVAL [facility] Start: 06-25-2023 Patient discharge [facility] Start: 04-26-2023 [facility] Start: 02-05-2023 Patient referral [facility] Work Phone: Start: 08-29-2022 Plain x-ray of pelvis and lower extremity HIP, UNI W/ Pelvis 2-3 Views [facility] Start: 08-29-2022 Plain X-ray of shoulder Shoulder min 2 Views [facility] Start: 08-29-2022 XR Pelvis and Hip Views [facility] Start: 08-29-2022 XR Shoulder GE 2 Views [facility] Start: 05-09-2022 Anes transurethral w/urethrocystoscopy nos ANESTH BLADDER SURGERY [facility] Start: 05-09-2022 Cysto w/insert ureteral stent CYSTOSCOPY AND TREATMENT [facility] Start: 05-09-2022 End: 05-09-2022 Patient discharge [facility] Start: 05-09-2022 Application of intermittent pneumatic compression device [facility] Start: 05-09-2022 Admission procedure [facility] Start: 05-09-2022 Deep breathing and coughing exercises [facility] Start: 05-09-2022 Incentive spirometry [facility] Start: 05-09-2022 Measuring intake and output [facility] Start: 05-09-2022 Provision of activity privileges [facility] Start: 05-09-2022 Taking patient vital signs [facility] Start: 05-09-2022 Vital signs measurements [facility] Start: 05-09-2022 Following clinical pathway protocol [facility] Start: 10-31-2021 End: 10-31-2021 Patient encounter procedure Appointment [facility] Work Phone: Start: 09-20-2021 End: 09-20-2021 Patient encounter procedure Appointment [facility] Work Phone: Start: 03-30-2018 End: 03-30-2018 Appointment Appointment [facility] Work Phone: Start: 03-31-2017 End: 03-31-2017 *BMP *BMP [facility] Work Phone: Start: 03-31-2017 End: 03-31-2017 *Hepatic Function Panel *Hepatic Function Panel [facility] Work Phone: Start: 03-31-2017 End: 03-31-2017 COMMERCIAL HVAC SERVICE TECHNICIAN COMMERCIAL HVAC SERVICE TECHNICIAN [facility] Work Phone: Start: 03-31-2017 End: 03-31-2017 Follow Up Appt 1 year Follow Up Appt 1 year [facility] Work Phone: Start: 03-31-2017 End: 03-31-2017 Lipid panel [AGGREGATE] *Lipid Profile CC PCP [facility] Work Phone: Start: 03-31-2017 End: 08-04-2017 Magnesium *Magnesium [facility] Work Phone: Start: 03-31-2017 End: 08-04-2017 Thyroid stimulating hormone (TSH) *TSH [facility] Work Phone: Start: 10-21-2016 End: 05-13-2017 *BMP *BMP [facility] Work Phone: Start: 10-21-2016 End: 05-13-2017 *Hepatic Function Panel *Hepatic Function Panel [facility] Work Phone: Start: 10-21-2016 End: 05-13-2017 Lipid panel [AGGREGATE] *Lipid Profile CC PCP [facility] Work Phone: Start: 04-01-2016 End: 04-22-2016 *BMP *BMP [facility] Work Phone: Start: 04-01-2016 End: 04-22-2016 *Hepatic Function Panel *Hepatic Function Panel [facility] Work Phone: Start: 04-01-2016 End: 05-13-2017 COMMERCIAL HVAC SERVICE TECHNICIAN COMMERCIAL HVAC SERVICE TECHNICIAN [facility] Work Phone: Start: 04-01-2016 End: 05-13-2017 Follow Up Appt 1 year Follow Up Appt 1 year [facility] Work Phone: Start: 04-01-2016 End: 04-22-2016 Lipid panel [AGGREGATE] *Lipid Profile CC PCP [facility] Work Phone: Start: 04-03-2015 End: 04-03-2015 COMMERCIAL HVAC SERVICE TECHNICIAN COMMERCIAL HVAC SERVICE TECHNICIAN [facility] Work Phone: Start: 04-03-2015 End: 04-03-2015 Follow Up Appt 1 year Follow Up Appt 1 year [facility] Work Phone: Start: 09-15-2014 End: 09-15-2014 COMMERCIAL HVAC SERVICE TECHNICIAN COMMERCIAL HVAC SERVICE TECHNICIAN [facility] Work Phone: Start: 09-15-2014 End: 09-15-2014 Follow Up Appt 6 months Follow Up Appt 6 months [facility] Work Phone: Start: 08-30-2014 End: 09-01-2014 *BMP *BMP [facility] Work Phone: Start: 08-30-2014 End: 08-30-2014 24 hour holter monitor 24 hour holter monitor [facility] Work Phone: Start: 08-30-2014 End: 08-30-2014 COMMERCIAL HVAC SERVICE TECHNICIAN COMMERCIAL HVAC SERVICE TECHNICIAN [facility] Work Phone: Start: 08-30-2014 End: 08-30-2014 Echocardiography Echocardiogram (complete) [facility] Work Phone: Start: 08-30-2014 End: 08-30-2014 Electrocardiogram, complete EKG (In office) [facility] Work Phone: Start: 08-30-2014 End: 08-30-2014 Follow up Appt 3 weeks Follow up Appt 3 weeks [facility] Work Phone: Start: 08-30-2014 End: 09-01-2014 Magnesium *Magnesium [facility] Work Phone: Patient Education [facility] Work Phone: Patient referral [facility] Work Phone: Prostate specific an tigen measurement [facility] Payers Date Payer Category Payer Self-pay [id number] 2022 Medicare [id number] 2022 [id number] 2014 Unknown [id number] Unknown ANTHEM [id number] Unknown [id number] 2.16.8 [id number] Unknown [id number] 2.16.8 [id number] Unknown [id number] 2.16.8 [id number] Unknown [id number] 2.16.8 [id number] Unknown [id number] 2.16.8 [id number] Unknown [id number] 2.16.8 [id number] Unknown [id number] 2.16.8 [id number] Unknown [id number] 2.16.8 [id number] Unknown [id number] 2.16.8 [id number] Social History Date Type Detail Facility Start: 05-14-2021 End: 06-22-2023 Assertion Unknown if ever smoked [facility] Work Phone: Start: 1955 Sex Assigned At Male W [facility] Start: 06-22-2023 Tobacco smoking stat us NHIS Never smoked tobacco (finding) [facility] Medical Equipment Procedure Code Equipment Code Equipment Origin al Text Equipment Identifier Dates Cystoscopy, with retrograde pyelogram and ureteral stent insertion STENT,URETERAL PIGTAIL [id number] FDA Start: 05-09-2022 Cystoscopy, with retrograde pyelogram and ureteral stent insertion STENT,URETERAL PIGTAIL [id number] FDA Start: 05-09-2022 Cystoscopy, with retrograde pyelogram and ureteral stent insertion STENT,URETERAL PIGTAIL [id number] FDA Start: 05-09-2022 Cystoscopy, with retrograde pyelogram and ureteral stent insertion STENT,URETERAL PIGTAIL [id number] FDA Start: 05-09-2022 Cystoscopy, with retrograde pyelogram and ureteral stent insertion STENT,URETERAL PIGTAIL [id number] FDA Start: 05-09-2022 Cystoscopy, with retrograde pyelogram and ureteral stent insertion STENT,URETERAL PIGTAIL [id number] FDA Start: 05-09-2022 Cystoscopy, with retrograde pyelogram and ureteral stent insertion STENT,URETERAL PIGTAIL [id number] FDA Start: 05-09-2022 Cystoscopy, with retrograde pyelogram and ureteral stent insertion STENT,URETERAL PIGTAIL [id number] FDA Start: 05-09-2022 Cystoscopy, with retrograde pyelogram and ureteral stent insertion STENT,URETERAL PIGTAIL [id number] FDA Start: 05-09-2022 Cystoscopy, with retrograde pyelogram and ureteral stent insertion STENT,URETERAL PIGTAIL [id number] FDA Start: 05-09-2022 Cystoscopy, with retrograde pyelogram and ureteral stent insertion STENT,URETERAL PIGTAIL [id number] FDA Start: 05-09-2022 Cystoscopy, with retrograde pyelogram and ureteral stent insertion STENT,URETERAL PIGTAIL [id number] FDA Start: 05-09-2022 Cystoscopy, with retrograde pyelogram and ureteral stent insertion STENT,URETERAL PIGTAIL [id number] FDA Start: 05-09-2022 Cystoscopy, with retrograde pyelogram and ureteral stent insertion STENT,URETERAL PIGTAIL [id number] FDA Start: 05-09-2022 Cystoscopy, with retrograde pyelogram and ureteral stent insertion STENT,URETERAL PIGTAIL [id number] FDA Start: 05-09-2022 Cystoscopy, with retrograde pyelogram and ureteral stent insertion STENT,URETERAL PIGTAIL [id number] FDA Start: 05-09-2022 Goals Date Patient Goal Desired Activity /State Functional Status Date Assessment Result Facility 05-09-2022 Functional status Ambulates [facility] Work Phone: Mental Status Date Assessment Result Facility 06-25-2023 Cognitive function Voice/Name [facility] Work Phone: 05-09-2022 Cognitive function Voice/Name [facility] Work Phone: 05-09-2022 Cognitive function Appropriate;Cooperativ e [facility] Work Phone: 05-01-2022 Cognitive function Level Of Cons ciousness Awake;Alert;Appropriate;Follow s Commands [facility] Work Phone: Clinical Notes 11-11-2022 to 06-25-2023 Note Date & Type Note Facility 06-25-2023 Procedure note [facility] 06-25-2023 Procedure note [facility] 04-26-2023 Discharge summary Note Date/Time April 26, 2023 12:04pm [facility] Medical Records Department [address] [place] [address] Emergency Department Summary 04/26/23 MR#: [id number] Acct: [id number] Name: SANTANA MINOR Rep #:[id number] : 1955 67 From: Santana Lopez MD PCP: Dr. Jessica Jordan MD Status:REG ER Location: ED HPI HPI - GI History of Present Illness Chief Complaint: Abd Pain Informant: patient Abdominal Pain/Flank Pain Onset: Yesterday Narrative Narrative: Lower sharp abdominal pain started yesterday followed by diarrhea all night no blood or melena, he took some Pepto-Bismol and subsequently was nauseated and vomited once, no blood. Pain persisted this morning and is constant without urinary symptoms or radiation or migration, no back pain, and 3 weeks ago he hadsimilar symptoms that were diagnosed as diverticulitis and treated successfully as an outpatient, he feels like this may be the same thing again so he presents to the emergency department. No history of any abdominal surgeries except for having a kidney stone surgically removed. [facility] Medical History Anxiety Anxiety and depression Diverticulitis Essential (primary) hypertension GERD (gastroesophageal reflux disease) History of palpitations Hyperlipidemia Hypothyroidism Left shoulder pain Osteoarthritis of right hip Osteoarthritis of right knee Premature ventricular contractions Prostate cancer screening Right hip pain Right knee pain Right ureteral calculus Scapulothoracic bursitis of left shoulder Synovial cyst of popliteal space [Francis], right knee Home Medications cholecalciferol (vitamin D3) 50 mcg (2,000 unit) capsule 50 mcg PO DAILY 05/14/21 [History Last Taken Unknown] omeprazole 20 mg capsule,delayed release 10 mg PO DAILY 05/14/21 [History Last Taken Unknown] atorvastatin 10 mg tablet 10 mg PO QHS #90 tabs 09/22/22 [Rx Last Taken Unknown] escitalopram oxalate 10 mg tablet 10 mg PO DAILY #90 tabs 09/22/22 [Rx Last Taken Unknown] metoprolol succinate 50 mg tablet,extended release 24 hr 50 mg PO DAILY #90 tabs09/22/22 [Rx Last Taken Unknown] probiotic PO 1XD 10/23/22 [History Last Taken Unknown] lisinopril 20 mg tablet 30 mg PO DAILY 04/15/23 [History Last Taken Unknown] moxifloxacin 400 mg tablet 400 mg PO DAILY 10 days #10 tabs 04/26/23 [Rx Last Taken Unknown] naproxen 500 mg tablet 500 mg PO BID #10 tabs 04/26/23 [Rx Last Taken Unknown] Allergy/AdvReac Type Severity Reaction Status Date / Time clarithromycin [From Biaxin] Allergy Unknown Verified 04/26/23 11:52 diphenhydramine Allergy Unknown Verified 04/26/23 11:52 [From Benadryl] sulfamethoxazole Allergy unknown Verified 04/26/23 11:52 [From Bactrim] tamsulosin [From Flomax] Allergy unknown Verified 04/26/23 11:52 trimethoprim [From Bactrim] Allergy unknown Verified 04/26/23 11:52 Sulfa (Sulfonamide AdvReac Rash Verified 04/26/23 11:52 Antibiotics) Family History Father Cardiac pacemaker in situ Other Breast cancer Cancer Hypertension Surgical History History of cystoscopy Social History Smoking Status: Never smoker alcohol intake: never substance use type: does not use what type of physical activity do you participate in: none ROS ROS ED Constitutional Constitutional ED: Reports chills; Denies fever(s) Eyes Eyes: Denies change in vision or diplopia ENT ENT ED: Denies rhinorrhea or sore throat Cardiovascular Cardiovascular: Denies chest pain or palpitations Respiratory/Chest Respiratory/Chest: Denies cough or dyspnea Gastrointestinal Gastrointestinal: Reports abdominal pain, diarrhea, nausea and vomiting; Denies hematemesis, hematochezia or melena Genitourinary Genitourinary ED: Denies dysuria or hematuria Musculoskeletal Musculoskeletal: Denies back pain or neck pain Integumentary Denies abscess or rash Neurologic Neurologic: Denies headache(s), paresthesias or weakness Psychiatric Psychiatric: Denies anxiety or suicidal thoughts EXAM Physical Exam Const Vital Signs: 04/26/23 11:53 Temperature 96.8 F L Temperature Source Temporal Pulse Rate 134 H Respiratory Rate 18 Blood Pressure 151/95 H Blood Pressure Mean 113 Pulse Ox 97 Oxygen Delivery Method Room Air Positive well nourished and well developed General Appearance ED: well developed and NAD HEENT Reports moist mucous membranes normocephalic and atraumatic Eyes PERRL and EOMs intact bilaterally Neck full ROM and supple Resp normal respiratory effort and clear to auscultation bilaterally Cardio regular rate, regular rhythm and no murmurs GI non-distended GI Narrative: Mild tenderness throughout lower abdomen without guarding or rebound, no pulsatile mass. Auscultation: normoactive bowel sounds Palpation: soft Back/Spine no CVA tenderness General Back: other FROM Extremity normal to inspection General Extremety ED: Negative for edema, pulses abnormal or tenderness General Extremity: Negative for edema or pulses abnormal Neuro oriented x3, CN's II-XII intact bilaterally and no sensory deficits noted Sensorium / Orientation: awake and alert Motor Exam: strength 5/5 throughout Skin no rashes or lesions noted and no wounds MDM MDM MDM Narrative Medical decision making narrative: Labs and CT consistent with diverticulitis. I reviewed the images and the report of the CT and I agree with it. No sign of anything that requires urgent surgical consultation but I discussed with Dr. Lamra with surgery due to the fact that the patient just got over diverticulitis and as the patient describes,he actually had to have more antibiotics in order to get the pain to go away, for total of 14 days, and are recurred fairly quickly after that. I offered admission the patient really does not feel like he needs to stay based on how hefeels, and Dr. Lamar does not necessarily recommended, just changing the antibiotics. Given admission was considered, we will discharge him home with outpatient therapy. I discussed Augmentin with him he is not amoxicillin allergic but he does not tolerate it well due to stomach upset so we will put him on moxifloxacin after dose of Zosyn here in the ER and some anti-inflammatories as well. Dr. Lamar that he can follow-up with him in the office. Lab Data Attestation: I reviewed the patient's lab results. Labs: Laboratory Results - last 24 hr 04/26/23 12:06 WBC 15.0 H RBC 5.18 Hgb 15.6 Hct 46.1 MCV 89.0 MCH 30.1 MCHC 33.8 RDW Std Deviation 41.3 RDW Coeff of Maria A 12.5 Plt Count 208 MPV 10.5 Immature Gran % (Auto) 0.900 Neut % (Auto) 90.9 H Lymph % (Auto) 3.2 L [place] % (Auto) 4.7 Eos % (Auto) 0.0 Baso % (Auto) 0.3 Absolute Neuts (auto) 13.7 H Absolute Lymphs (auto) 0.48 L Nucleated RBC % 0 Differential Comment SCANNED Sodium 136 Potassium 3.7 Chloride 102 Carbon Dioxide 27.0 Anion Gap 7 BUN 21 H Creatinine 1.01 Est GFR (MDRD) Af Amer 95 Est GFR (MDRD) Non-Af 79 BUN/Creatinine Ratio 20.8 H Glucose 167 H Calcium 9.3 Radiography Diagnostic Testing: Clinical Impression(s) from Imaging Studies Abdomen/Pelvis CT 04/26/23 12:03 IMPRESSION: Mild left lower quadrant inflammation, likely mild acute sigmoid diverticulitis. Electronically Signed: Jacque Harris MD at 13:09 EDT , Management Discussion w/another healthcare provider: Senior Economist (Amarilys Lamar) Discharge Plan Triage Chief Complaint: Abd Pain ED Provider: Santana Lopez Dx/Rx/DC Orders Clinical Impression: Diverticulitis of sigmoid colon Instructions: Diverticulitis Dc Prescriptions: New naproxen 500 mg tablet 500 mg PO BID Qty: 10 0RF moxifloxacin 400 mg tablet 400 mg PO DAILY 10 Days Qty: 10 0RF Continued cholecalciferol (vitamin D3) 50 mcg (2,000 unit) capsule 50 mcg PO DAILY omeprazole 20 mg capsule,delayed release(DR/EC) 10 mg PO DAILY lisinopril 20 mg tablet 30 mg PO DAILY atorvastatin 10 mg tablet 10 mg PO QHS Qty: 90 3RF escitalopram oxalate 10 mg tablet 10 mg PO DAILY Qty: 90 3RF metoprolol succinate 50 mg tablet extended release 24 hr 50 mg PO DAILY Qty: 90 3RF Discontinued ciprofloxacin HCl [Cipro] 500 mg tablet 500 mg PO BID Qty: 8 0RF metronidazole 500 mg tablet 500 mg PO TID Qty: 12 0RF No Action probiotic PO 1XD Primary Care Provider: Jessica Jordan Referrals: Jessica Jordan MD [Primary Care Provider] - Anjel Lamar MD [Med Staff - Active Staff] - 1-2 Weeks Disposition Disposition: Home, Self Care What to do if you have Problems For any increased pain, shortness of breath, bleeding, nausea or vomiting, chestpain, or any unexpected problems, contact your Primary Care Provider. Call [facility] ([phone]) or report to the closest Emergency Room. Call 911 if necessary. 04/26/23 1343 <Electronically signed by Santana Lopez MD> Cosigner Signature (if applicable): CC: Dr. Jessica Jordan MD ~ Signed [facility] Work Phone: [phone] Discharge summary Author Tatyana Gonsalez [facility] November 11, 2022 8:43am Note Date/Time November 11, 2022 8:43am [facility] Physical Therapy [facility] [address] [place] [address]. [address] [place] [address] / REHABILITATION SERVICES DISCHARGE SUMMARY MR#: [id number] Acct: [id number] Name: SANTANA MINOR Rep #: [id number] : 1955 67 From: Tatyana Gonsalez PT, Cert. MDT Referring : Status: REG RCR Insurance: MEDICARE PART A B ANTHEM It has been my pleasure to treat SANTANA MINOR referred by OSVALDO APODACA, with the diagnosis of LUMBAR SPONDYLOSIS/OA R HIP for a total of 9 visit(s). Discharge Date: 11/11/22 Please see the following information for a summary of their discharge status. Subjective: PATIENT REPORTS HE HASN'T FELT THIS GOOD FOR YEARS. STATES HE CAN NOW BEND DOWN AND GET BACK UP AGAIN WITHOUT PAIN AND HE HASN'T BEEN ABLE TO DO THAT IN A LONG TIME. INTERMITTENT RIGHT HIP PAIN. PATIENT REPORTS COMPLIANCE WITH HEP BECAUSE IT REALLY HELPS. PATIENT REPORTS HE GOT A [employer] MEMBERSHIP TO BE ABLE TO USE THE POOL. PATIENT REPORTS BEING ABLE TO USE TECHNIQUES TAUGHT WHILEBEING VERY ACTIVE TO MANGAGE PAIN NOW. LE Pain Intensity (Out of 10): 0 Low Back Pain Intensity (Out of 10): 3 % Improvement: 90 Objective/Function: PATIENT WAS SEEN TODAY FOR RE-ASSESSMENT OF PROGRESS TOWARD THE SET PT GOALS AND THE NEED FOR FURTHER PHYSICAL THERAPY VS READINESS FOR DISCHARGE. PATIENT HAS DONE GREAT WITH PT AND ALL GOALS HAVE BEEN MET. HE IS APPROPRIATE FOR AND AGREEABLE TO DISCHARGE AND INDEP EX. UPON EXAM TODAY: Motordeficit: JUANA LE'S GROSSLY 5/5 WITH MMT'ING. Lumbar mvmt loss: flex - NIL. ext - MOD. R SG - WALLY. L SG - MOD. PATIENT DENIES PAIN WITH LUMBAR ROM TESTING ALL PLANES. Core strength: GOOD. OTHER: R HIP ER ROT REMAINS SIGNIFICANTLY LIMITED COMPARED TO LEFT. PATIENT IS DOING GENTLY HOME STRETCHING FOR THIS. PATIENT ABLE TO SLS ON EA LE WITHOUT GOOD BALANCE WITHOUT UE ASSIST AND WITHOUT PELVIC DROP. [ End ] Goal 1:: DECREASE C/O RIGHT LE SX'S Goal Progress: Goal Met Goal 2:: IMPROVE PERSONAL CARE, LIFTING, WALKING, STANDING, SOCIAL LIFE, TRAVEL AND HOMEMAKING FUNCTION. Goal Progress: Goal Met Goal 3:: INSTRUCT IN PROPHYLAXIS Goal Progress: Goal Met Plan: D/C If there are questions or concerns regarding this patient's physical therapy, please feel free to call me at [phone]. Thank you for the referral of thispatient. Sincerely, Tatyana Gonsalez, PT, Cert MDT Balance/Gait/Functional tests - Balance/Special Test Scores Oswestry Low Back Score: 0 <Electronically signed by Tatyana Gonsalez PT Cert. 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 Hyperlipidemia chronic [facility] Work Phone: Evaluation note* Diagnosis Onset Date Resolution Status Anxiety and depression chron ic Essential (primary) hypertension chronic History of palpitations 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 Hyperlipidemia chronic Acute URI acute Essential (primary) hypertension chronic [facility] Work Phone: Evaluation note* Diagnosis Onset Date Resolution Status Low back strain noneactive Anxiety and depression chron ic Chronic thoracic back pain c hronic Essential (primary) hypertension chronic Hyperlipidemia chronic Elevated serum creatinine [place] Intractable back pain acute Renal colic on right side [place] Right ureteral calculus acut e [facility] Work Phone: Evaluation note* Diagnosis Onset Date Resolution Status Low back strain noneactive Anxiety and depression chron ic Chronic thoracic back pain c hronic Essential (primary) hypertension chronic Hyperlipidemia chronic Elevated serum creatinine [place] Renal colic on right side [place] Right ureteral calculus acut e Intractable back pain resolv ed Essential (primary) hypertension chronic [facility] Work Phone: Evaluation note* Diagnosis Onset Date Resolution Status Elevated serum creatinine [place] Renal colic on right side [place] Right ureteral calculus acut e Intractable back pain resolv ed Essential (primary) hypertension chronic Left shoulder pain acute Osteoarthritis of right hip acute Right hip pain acute Scapulothoracic bursitis of left shoulder acute [facility] Work Phone: Evaluation note* Diagnosis Onset Date Resolution Status Left shoulder pain acute Osteoarthritis of right hip acute Right hip pain acute Scapulothoracic bursitis of left shoulder acute Osteoarthritis of right knee acute Right knee pain acute Osteoarthritis of right hip acute Osteoarthritis of right knee acute Essential (primary) hypertension chronic Hyperlipidemia [facility] Work Phone: Evaluation note* Diagnosis Onset Date Resolution Status Osteoarthritis of right knee acute Right knee pain acute Osteoarthritis of right hip acute Osteoarthritis of right knee acute Essential (primary) hypertension chronic Hyperlipidemia [facility] Work Phone: Evaluation note* Diagnosis Onset Date Resolution Status Osteoarthritis of right hip acute Osteoarthritis of right knee acute Essential (primary) hypertension chronic Hyperlipidemia chronic Osteoarthritis of right knee acute Scapulothoracic bursitis of left shoulder acute Osteoarthritis of right knee acute Synovial cyst of popliteal space [Francis], right knee acute [facility] Work Phone: Evaluation note* Diagnosis Onset Date Resolution Status Osteoarthritis of right knee acute Scapulothoracic bursitis of left shoulder acute Osteoarthritis of right knee acute Synovial cyst of popliteal space [Francis], right knee acute Lumbar foraminal stenosis [place] Osteoarthritis of right knee acute Pain in right leg acute [facility] Work Phone: evaluation note* Diagnosis Onset Date Resolution Status Osteoarthritis of right knee acute Scapulothoracic bursitis of left shoulder acute Osteoarthritis of right knee acute Synovial cyst of popliteal space [Francis], right knee acute Lumbar foraminal stenosis [place] Osteoarthritis of right knee acute Pain in right leg acute Acute diverticulitis of intestine acute Left shoulder pain acute Lumbar foraminal stenosis [place] Pain in right leg acute Essential (primary) hypertension chronic Hyperlipidemia [facility] Work Phone: Evaluation note* Diagnosis Onset Date Resolution Status Osteoarthritis of right knee acute Scapulothoracic bursitis of left shoulder acute Osteoarthritis of right knee acute Synovial cyst of popliteal space [Francis], right knee acute Lumbar foraminal stenosis [place] Osteoarthritis of right knee acute Pain in right leg acute Acute diverticulitis of intestine acute Left shoulder pain acute Lumbar foraminal stenosis [place] Pain in right leg acute Essential (primary) hypertension chronic Hyperlipidemia chronic Acute diverticulitis of intestine acute [facility] Work Phone: Evaluation note* Diagnosis Onset Date Resolution Status Lumbar foraminal stenosis [place] Osteoarthritis of right knee acute Pain in right leg acute Acute diverticulitis of intestine acute Left shoulder pain acute Lumbar foraminal stenosis [place] Pain in right leg acute Essential (primary) hypertension chronic Hyperlipidemia chronic Acute diverticulitis of intestine acute [facility] Work Phone: Evaluation note* Diagnosis Onset Date Resolution Status Acute diverticulitis of intestine acute Left shoulder pain acute Lumbar foraminal stenosis [place] Pain in right leg acute Essential (primary) hypertension chronic Hyperlipidemia chronic Acute diverticulitis of intestine acute [facility] Work Phone: Evaluation note* Diagnosis Onset Date Resolution Status Acute diverticulitis of intestine acute [facility] Work Phone: evaluation note* Diagnosis Onset Date Resolution Status Admit Date Primary osteoarthritis, left wrist acute December 27, 2024 3:45pm [facility] Work Phone: History and physical note Author Anjel Lamar [facility] June 25, 2023 7:21am Note Date/Time June 25, 2023 7:21am [facility] Medical Records Department [address] [place] [id number] History & Physical Exam 06/25/23 0720 MR#: [id number] Acct: [id number] Name: SANTANA MINOR Rep #:[id number] : 1955 67 From: Anjel Mcmahon PCP: Dr. [place] Franklin, DO [place] [facility] [place] [address] History and Physical Date of Admission: 06/25/23 Date of Service: 05/08/23 MR#: [id number] Acct: [id number] Name: SANTANA MINOR Rep #: [id number] : 1955 Provider: Dr. Anjel Lamar MD Age/Sex: 67/M Location: [facility] Status: Signed Intake Vital Signs 04/26/2311:53 05/08/2310:32 Height 5 ft 7 in 5 ft 7 in Weight: 192 lb BMI 30.0 BP 145/78 H Blood Pressure Location Rt brachial Position Sitting Respiration 17 Pulse 67 Pulse Source Monitor Temp 97.2 F L Temp Source Temporal Pulse Oximetry (%) 96 Oxygen Delivery Method room air Intake Visit Reasons: ED 10-15 FOR DIVERTICULITIS Chief Complaint: diverticulitis dx x1 week ago Is patient in pain?: No Allergies clarithromycin [From Biaxin] Allergy (Verified 05/08/23 10:32) Unknowndiphenhydramine [From Benadryl] Allergy (Verified 05/08/23 10:32) Unknownsulfamethoxazole [From Bactrim] Allergy (Verified 05/08/23 10:32) unknowntamsulosin [From Flomax] Allergy (Verified 05/08/23 10:32) unknowntrimethoprim [From Bactrim] Allergy (Verified 05/08/23 10:32) unknownSulfa (Sulfonamide Antibiotics) Adverse Reaction (Verified 05/08/23 10:32) Rash Medications cholecalciferol (vitamin D3) 50 mcg (2,000 unit) capsule 50 mcg PO DAILY 05/14/21 [History Confirmed 05/08/23] omeprazole 20 mg capsule,delayed release 10 mg PO DAILY 05/14/21 [History Confirmed 05/08/23] atorvastatin 10 mg tablet 10 mg PO QHS #90 tabs 09/22/22 [Rx Confirmed 05/08/23] escitalopram oxalate 10 mg tablet 10 mg PO DAILY #90 tabs 09/22/22 [Rx Confirmed 05/08/23] metoprolol succinate 50 mg tablet,extended release 24 hr 50 mg PO DAILY #90 tabs09/22/22 [Rx Confirmed 05/08/23] probiotic PO 1XD 10/23/22 [History Confirmed 05/08/23] lisinopril 20 mg tablet 30 mg PO DAILY 04/15/23 [History Confirmed 05/08/23] moxifloxacin 400 mg tablet 400 mg PO DAILY 10 days #10 tabs 04/26/23 [Rx Confirmed 05/08/23] naproxen 500 mg tablet 500 mg PO BID #10 tabs 04/26/23 [Rx Confirmed 05/08/23] PFSH Medical History Anxiety Anxiety and depression Diverticulitis Essential (primary) hypertension GERD (gastroesophageal reflux disease) History of palpitations Hyperlipidemia Hypothyroidism Left shoulder pain Osteoarthritis of right hip Osteoarthritis of right knee Premature ventricular contractions Prostate cancer screening Right hip pain Right knee pain Right ureteral calculus Scapulothoracic bursitis of left shoulder Synovial cyst of popliteal space [Francis], right knee Surgical History History of cystoscopy Family History Father Cardiac pacemaker in situOther Breast cancer Cancer Hypertension Social History Smoking Status: Never smoker alcohol intake: never substance use type: does not use what type of physical activity do you participate in: none HPI HPI HPI: Patient is a 67-year-old male who presents for follow-up of an ER visit 04/26/2023 that itself was occasioned by a second presentation of diverticulitis. Patient states that this represented the second episode of diverticulitis in a matter of 2 to 3 weeks. He notes that the second episode was characterized by very troublesome diarrhea?the likes of which he has never had before. He is happy to report today that he experiences a sharp pain only once in a while. He confirms that he completed his antibiotic course yesterday as well as the naproxen that he was prescribed for 5 days. He is continuing to take a probiotic which she has made part of his daily habit. He denies any recent fevers or chills. Outside of the above 2 ER visits, Mr. Minor notes that he had a third bout of diverticulitis some 10 to 15 years ago that was managed through his primary care provider with a course of oral antibiotics. He confirms that none of his episodes have required inpatient admission or drain for abscess. Mr. Minor describes his bowel movements is generally regular and soft. He details that he got on Lexapro several years ago and has not been constipated since. He states his bowel movements occur with a frequency of 2-3 times daily and he has minimal toilet time with no straining. Mr. Minor reports a small weight loss with his first bout of diverticulitis but believes that he is recovered this weight since. Mr. Minor has a history of a prior colonoscopy approximately [address] Narvaez. He recalls several polyps were removed but was not sure about whether diverticulosis had been found. He does not recall a specific interval given for follow-up colonoscopy. Mr. Minor's only prior surgical history includes removal of a kidney stone via a small transverse incision over the left groin (yet the EMR documents removal of a right ureteral stone). Patient has a family history of diverticulitis in his mother but denies any awareness of colon cancer. ROS General General: No weight change, appetite, fatigue, colon cancer, breast cancer or weakness HEENT HEENT: No difficulty swallowing, eye injury, eye surgery, swollen glands or hoarseness Endo Endocrine: No thyroid disease, diabetes mellitus, thyroid cancer, Hair loss, heat intolerance or cold intolerance Skin Skin: No rash or changing moles Musc Musculoskeletal: Yes arthritis; No back problems, rheumatoid arthritis, gout or joint pain Cardio Cardiovascular: Yes high blood pressure; No murmur, pacemaker, heart disease, atrial fibrillation, heart attack, heart stent, palpitations, shortness of breat with exertion or chest pain Psych Psychiatric: Yes anxiety; No depression or hearing voices Resp Respiratory: No shortness of breath, No sleep apnea, No cough, No COPD, No asthma, No emphysema and No wheezing Gastro Gastrointestinal: Yes abdominal pain, No nausea or vomiting, No diarrhea, No constipation, No blood in stool, Yes acid reflux, No hemorrhoids, No ulcers, No gallbladder problem and No black,tarry stools Greg Hematologic: No blood thinners, No blood disorders, No bleeding, No anemia and No blood clots Neuro Neurologic: No system reviewed and no additional complaints, except as documented, No as per HPI, No abnormal gait, No abnormal hearing, No abnormal movements, No abnormal speech, No behavioral changes, No burning sensations, No confusion, No convulsions, No disequilibrium, No dizziness, No localized weakness, No frequent falls, No headache(s), No lack of coordination, No loss of vision, No memory loss, No numbness, No other visual disturbances, No radicular pain, No restless legs, No sensory deficit, No syncope, No tingling, No tremor(s), No weakness and No other Exam Const General: cooperative, healthy appearing, comfortable and no acute distress Nutritional Appearance: average body habitus and well nourished Orientation: alert, awake and oriented x3 Resp Effort & Inspection: normal respiratory effort GI Other: Small (roughly 4 cm in length) transverse incision now well-healed is a scar over the left inguinal region. Otherwise there are no scars. No visible herniations. Patient's abdomen is nondistended and soft with palpation. He has mild tenderness with palpation in the left lower quadrant but this is quite localized. Assessment and Plan Assessment and Plan (1) Acute diverticulitis of intestine: Status: Acute Comment: This is a 67-year-old male who presents for follow-up of what appears to be his third bout of uncomplicated diverticulitis in his lifetime. Overall he has responded well to recent antibiotic course and has minimal symptoms. His exam suggest that his inflammatory phase is largely resolved. He reports that he did have a colonoscopic evaluation approximately 2 years ago with gastroenterology, but is unable to recall any mention of a finding of diverticulosis. I discussed with Mr. Minor the natural history of diverticulitis and the distinctions between complicated and uncomplicated diverticulitis. I shared with him that I would recommend repeating a colonoscopy once his inflammatory phase has completed and he has about 6 weeks of healing time to be sure that we are not dealing with true diverticulitis and not a neoplastic process?as well as trying to define the extent of this diverticular disease. I did review his CT imaging with him to try to illustrate this latter point. Mr. Minor would appear to be at average risk for colon cancer based on the history provided. Still we will look to obtain records from his prior colonoscopy. In the meantime I have recommended him that he continue a low fiber diet until his pain is fully resolved and then would transition to a high-fiber diet with lots of water. Examples of such foods were provided and he was also provided a pamphlet to go into more detail on such a diet. Mr. Minor expressed appreciation for the information and was receptive of the recommendations so instructions were provided for a bowel prep as well as discussion of dates for performing this colonoscopy. Plan: ? Continue low fiber diet until pain is resolved. ? Then transition to high-fiber diet with lots of water ? Continue probiotic ? Plan for diagnostic colonoscopy in approximately 7 weeks time. Preprocedure prep and need for a assembly line driver were both discussed. In the meantime we will seek records from prior colonoscopy. I have examined the patient and the H&P has been reviewed. There are no clinical changes since date of exam. He confirms that he has had no further episodes of pain. He also confirms that he completed a prep in anticipation of today's procedure and that this proceeded uneventfully and his output is now clear. Procedure and post procedure reporting were reviewed and both and Mrs. Minor denies any further questions. Therefore we will proceed to the endoscopy suite for planned diagnostic colonoscopy as discussed above. 06/25/23720 <Electronically signed by Anjel Lamar MD> Cosigner Signature (if applicable): CC: Dr. London Franklin, DO; Dr. Anjel Lamar MD~ Signed [facility] [facility] Work Phone: Hospital Discharge instructions Additional Instructions Im[facility] Used?: [facility]: Instructions* Instruction Description Start Date CompletedPatient advised to follow-up with Primary Care Physician for BMI management. [facility] Work Phone: Instructions* Instruction Description Start Date CompletedPatient advised to follow-up with Primary Care Physician for BMI management. [facility] Work Phone: Reason for referral (narrative)No reason for referral information availableWBl[facility] Work Phone: Summary Purpose Family History No Family History Records Found Relationship Condition Age at Onset Recorded Date/T antoinette Not Specified Malignant neoplasm of breast Unknown Malignant neoplasm Unknown Hypertension Unknown father Presence of cardiac pacemaker Unknown Advance Directives No Advanced Directives Records Found Advance Directive Response Recorded Date/ Time Living Will Yes September 22, 2016 1:08pm Power of Optometrist/Practice Owner Yes September 22 1:08pm Advance Directive Response Recorded Date/ Time Name of Medical Power of Optometrist/Practice Owner kamron dani May 01, 2022 8:30pm Name of Medical Power of Optometrist/Practice Owner - Kamron quarles May 09, 2022 10:14am Living Will Yes May 09 10:14am Power of Optometrist/Practice Owner Yes May 09, 2022 10:14am Advance Directive Response Recorded Date/ Time Name of Medical Power of Optometrist/Practice Owner kamron dani May 01, 2022 7:30pm Name of Medical Power of Optometrist/Practice Owner - Kamron quarles May 09, 2022 9:14am Living Will Yes May 09 9:14am Power of Optometrist/Practice Owner Yes May 09, 2022 9:14am Advance Directive Response Recorded Date/ Time Living Will Yes May 09 10:14am Power of Optometrist/Practice Owner Yes May 09, 2022 10:14am Advance Directive Response Recorded Date/ Time Living Will No April 03, 2023 12:05pm Power of Optometrist/Practice Owner No March 12:05pm Advance Directive Response Recorded Date/ Time Living Will No April 26 12:32pm Power of Optometrist/Practice Owner No April 26, 2023 12:32pm Advance Directive Response Recorded Date/ Time Living Will No April 26 11:32am Power of Optometrist/Practice Owner No April 26, 2023 11:32am Advance Directive Response Recorded Date/ Time Name of Medical Power of Optometrist/Practice Owner June 22, 2023 8:17am Living Will Yes June 22 8:17am Power of Optometrist/Practice Owner Yes June 22, 2023 8:17am Chief Complaint Chief Complaint Description Start Date right hip pain Preliminary chief co mplaint data, not yet signed by the author as of Chief Complaint Description Start Date right hip pain Preliminary chief co mplaint data, not yet signed by the author as of Chief Complaint and Reason for Visit Chief Complaint OA RT HIP, 2ML KENAL OG 40MG/ML & 2ML MARCAINE0.25% Amb Documentation Chief Complaint OA RT HIP, 2ML KENAL OG 40MG/ML & 2ML MARCAINE0.25% Amb Documentation BAG HANGER, NPP SENT Reason for Visit Anxiety and depressi on Essential (primary) hypertension History of palpitations Hyperlipidemia Chief Complaint OA RT HIP, 2ML KENAL OG 40MG/ML & 2ML MARCAINE0.25% Amb Documentation BAG HANGER, NPP SENT HAS THE CRUD SICK, STILL FEELING UNWELL Reason for Visit Anxiety and depressi on Essential (primary) hypertension History of palpitations Hyperlipidemia Acute URI Essential (primary) hypertension Chief Complaint back pain 6 M FU SHOULDER PAIN FLANK PAIN RENAL COLIC Reason for Visit Low back strain Anxiety and depression Chronic thoracic back pain Essential (primary) hypertension Hyperlipidemia Elevated serum creatinine Intractable back pain Renal colic on right side Right ureteral calculus Chief Complaint back pain 6 M FU SHOULDER PAIN FLANK PAIN KIDNEY STONE PREOP 1 Y FU Reason for Visit Low back strain Anxiety and depression Chronic thoracic back pain Essential (primary) hypertension Hyperlipidemia Elevated serum creatinine Renal colic on right side Right ureteral calculus Intractable back pain Essential (primary) hypertension Chief Complaint FLANK PAIN KIDNEY STONE PREOP 1 Y FU PAIN OF LEFT SCAPULA Shoulder injury Xray room 2 Reason for Visit Elevated serum creat inine Renal colic on right side Right ureteral calculus Intractable back pain Essential (primary) hypertension Left shoulder pain Osteoarthritis of right hip Right hip pain Scapulothoracic bursitis of left shoulder Chief Complaint PAIN OF LEFT SCAPULA Shoulder injury Xray room 2 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 RX HERE Reason for Visit Left shoulder pain Osteoarthritis of right hip Right hip pain Scapulothoracic bursitis of left shoulder Osteoarthritis of right knee Right knee pain Osteoarthritis of right hip Osteoarthritis of right knee Essential (primary) hypertension Hyperlipidemia Chief Complaint RIGHT KNEE Room 2 6 M FU LUMBAR SPONDYLOSIS/OA R HIP. RX HERE PALPITATIONS Reason for Visit Osteoarthritis of ri ght knee Right knee pain Osteoarthritis of right hip Osteoarthritis of right knee Essential (primary) hypertension Hyperlipidemia Chief Complaint 6 M FU LUMBAR SPONDYLOSIS/OA R HIP. RX HERE PALPITATIONS Amb Documentation left shoulder RIGHT KNEE PAIN RIGHT KNEE Radiculopathy, thoracic region Reason for Visit Osteoarthritis of ri ght hip Osteoarthritis of right knee Essential (primary) hypertension Hyperlipidemia Osteoarthritis of right knee Scapulothoracic bursitis of left shoulder Osteoarthritis of right knee Synovial cyst of popliteal space [Francis], right knee Chief Complaint PALPITATIONS Amb Documentation left shoulder RIGHT KNEE PAIN RIGHT KNEE Radiculopathy, thoracic region RADICULOPATHY right knee Reason for Visit Osteoarthritis of ri ght knee Scapulothoracic bursitis of left shoulder Osteoarthritis of right knee Synovial cyst of popliteal space [Francis], right knee Lumbar foraminal stenosis Osteoarthritis of right knee Pain in right leg Chief Complaint PALPITATIONS Amb Documentation left shoulder RIGHT KNEE PAIN RIGHT KNEE Radiculopathy, thoracic region RADICULOPATHY right knee LOW ABD PAIN Reason for Visit Osteoarthritis of ri ght knee Scapulothoracic bursitis of left shoulder Osteoarthritis of right knee Synovial cyst of popliteal space [Francis], right knee Lumbar foraminal stenosis Osteoarthritis of right knee Pain in right leg Chief Complaint PALPITATIONS Amb Documentation left shoulder RIGHT KNEE PAIN RIGHT KNEE Radiculopathy, thoracic region RADICULOPATHY right knee LOW ABD PAIN 6 M FU OA RT KN,INTERV DISC DEGEN/RX HERE abd pain, diarrhea Reason for Visit Osteoarthritis of ri ght knee Scapulothoracic bursitis of left shoulder Osteoarthritis of right knee Synovial cyst of popliteal space [Francis], right knee Lumbar foraminal stenosis Osteoarthritis of right knee Pain in right leg Acute diverticulitis of intestine Left shoulder pain Lumbar foraminal stenosis Pain in right leg Essential (primary) hypertension Hyperlipidemia Chief Complaint PALPITATIONS Amb Documentation left shoulder RIGHT KNEE PAIN RIGHT KNEE Radiculopathy, thoracic region RADICULOPATHY right knee LOW ABD PAIN 6 M FU abd pain, diarrhea ED 10-15 FOR DIVERTICULITIS OA RT KN,INTERV DISC DEGEN/RX HERE Reason for Visit Osteoarthritis of ri ght knee Scapulothoracic bursitis of left shoulder Osteoarthritis of right knee Synovial cyst of popliteal space [Francis], right knee Lumbar foraminal stenosis Osteoarthritis of right knee Pain in right leg Acute diverticulitis of intestine Left shoulder pain Lumbar foraminal stenosis Pain in right leg Essential (primary) hypertension Hyperlipidemia Acute diverticulitis of intestine Chief Complaint RADICULOPATHY right knee LOW ABD PAIN 6 M FU abd pain, diarrhea ED 10-15 FOR DIVERTICULITIS OA RT KN,INTERV DISC DEGEN/RX HERE Reason for Visit Lumbar foraminal janice nosis Osteoarthritis of right knee Pain in right leg Acute diverticulitis of intestine Left shoulder pain Lumbar foraminal stenosis Pain in right leg Essential (primary) hypertension Hyperlipidemia Acute diverticulitis of intestine Chief Complaint LOW ABD PAIN 6 M FU abd pain, diarrhea ED 10-15 FOR DIVERTICULITIS OA RT KN,INTERV DISC DEGEN/RX HERE Reason for Visit Acute diverticulitis of intestine Left shoulder pain Lumbar foraminal stenosis Pain in right leg Essential (primary) hypertension Hyperlipidemia Acute diverticulitis of intestine Chief Complaint ED 10-15 FOR DIVERTI CULITIS OA RT KN,INTERV DISC DEGEN/RX HERE LUQ PAIN Reason for Visit Acute diverticulitis of intestine Chief Complaint OA RT KN,INTERV DISC DEGEN/RX HERE LUQ PAIN Chief Complaint Admit Date LEFT WRIST December 27, 2024 3:45 pm Reason for Visit Admit Date Primary osteoarthritis, left wrist December 27, 2024 3:45pm Additional Source Comments (unrecognized sect ion and content) No Status Records FoundNo Status Records Found INFORMATION SOURCE (unrecogn ized section and content) DATE CREATED AUTHOR 04/17/2019 [facility] DATE CREATED AUTHOR AUTHOR'S DUSTIN BAEZA 12/30/2024 [facility] Reason for Visit (unrecogniz ed section and content) Reason For Visit Description New Complaint Preliminary reason f or visit data, not yet signed by the author as of right hip pain Reason For Visit Description Start Date Follow-up by complaint Preliminary reason f or visit data, not yet signed by the author as of right hip pain Goals (unrecognized section and content) Goals may be documented in a n alternate sectionGoals may be documented in an alternate sectionGoals may be documented in an alternate sectionGoals may be documented in an alternate sectionGoals may be documented in an alternate sectionGoals may be documented in an alternate sectionGoals may be documented in an alternate sectionGoals may be documented in an alternate sectionGoals may be documented in an alternate sectionGoals may be documented in an alternate sectionGoals may be documented in an alternate sectionGoals may be documented in an alternate sectionGoals may be documented in an alternate section Care Teams (unrecognized sec tion and content) Team Status: Active Member Role Status Dates Dr. Dc Underwood MD Family Provider Active Jessica Jordan MD Primary Care Provider Active Team Status: Inactive Member Role Status Dates Dr. Dc Underwood MD Referring Provider Active Dr. Corky Najera MD Attending Provider Active Jessica Jordan MD Primary Care Provider Active Team Status: Inactive Member Role Status Dates Jessica Jordan MD Primary Care Provider, Referring P daria Active Damián Chu MD Attending Provider Active Team Status: Inactive Member Role Status Dates Jessica Jordan MD Primary Care Provider Active Dr. Corky Najera MD Attending Provider Active Team Status: Inactive Member Role Status Dates Jessica Jordan MD Primary Care Provider Active Dr. Romeo Mchugh MD Attending Provider, Emergency Pro vider Active Team Status: Inactive Member Role Status Dates Jessica Jordan MD Primary Care Provider Active Dr. Kira Méndez DO Emergency Provider Active Dr. Rafat Abraham MD Admit Provider, Attending Provider Active Team Status: Inactive Member Role Status Dates Jessica Jordan MD Primary Care Provider Active Dr. Rafat Abraham MD Attending Provider, Referr ing Provider Active Team Status: Inactive Member Role Status Dates Jessica Jordan MD Primary Care Provider Active NANCY KWON Attending Provider Active Team Status: Active Member Role Status Dates Dr. Dc Underwood MD Family Provider Active Dr. Jessica Jordan MD Primary Care Provider Active Team Status: Inactive Member Role Status Dates Dr. Jessica Jordan MD Primary Care Provider, Attendi ng Provider Active Team Status: Inactive Member Role Status Dates Jessica GALEANA MD Primary Care Provider, Referrin g Provider Active Damián Chu MD Attending Provider Active Team Status: Inactive Member Role Status Dates Jessica GALEANA MD Primary Care Provider Active Dr. Corky Najera MD Attending Provider Active Team Status: Inactive Member Role Status Dates Jessica GALEANA MD Primary Care Provider Active NANCY KWON Attending Provider Active Team Status: Active Member Role Status Dates Jessica GALEANA MD Primary Care Provider Active Self Referred Attending Provider Active Team Status: Inactive Member Role Status Dates Jessica GALEANA MD Primary Care Provider Active PAULIE RILEY Attending Provider, Referring Provider Active Team Status: Inactive Member Role Status Dates Jessica GALEANA MD Primary Care Provider Active OSVALDOPAULIE Attending Provider Active Team Status: Inactive Member Role Status Dates Dr. Jessica Jordan MD Primary Care Pro vider, Attending Provider, Referring Provider Active Team Status: Inactive Member Role Status Dates Dr. Jessica Jordan MD Primary Care Provider Active Dc Choe BAG HANGER, BAG HANGER-C Attending Provider, Referring Pro vider Active Team Status: Active Member Role Status Dates Dr. Jessica Jordan MD Primary Care Provider Active Dc Choe BAG HANGER, BAG HANGER-C Attending Provider Active Team Status: Inactive Member Role Status Dates Dr. Jessica Jordan MD Primary Care Provider, Referri ng Provider Active Damián Chu MD Attending Provider Active Team Status: Inactive Member Role Status Dates Dr. Jessica Jordan MD Primary Care Provider Active Damián Chu MD Attending Provider, Referring Prov ider Active Team Status: Active Member Role Status Dates Dr. Jessica Jordan MD Primary Care Provider Active Dr. James Pappas MD Attending Provider, Referring Pr ovider Active Team Status: Inactive Member Role Status Dates Dr. Jessica Jordan MD Primary Care Provider Active Dr. James Pappas MD Attending Provider, Referring Pr ovider Active Team Status: Inactive Member Role Status Dates Dr. Jessica Jordan MD Primary Care Provider, Referri ng Provider Active Dr. Roly Kim DO Attending Provider Active Team Status: Inactive Member Role Status Dates Dr. Jessica Jordan MD Primary Care Provider Active Dr. Wild Stover DO Emergency Provider Active Team Status: Inactive Member Role Status Dates Dr. Jessica Jordan MD Primary Care Provider Active Dr. Wild Stover DO Attending Provider, Emergency P rovider Active Team Status: Active Member Role Status Dates Dr. Jessica Jordan MD Primary Care Provider Active Dr. Anjel Pretty DO Attending Provider, Referring Provider Active Team Status: Inactive Member Role Status Dates Dr. Jessica Jordan MD Primary Care Provider Active Dr. Santana Lopez MD Emergency Provider Active Team Status: Active Member Role Status Dates Dr. Dc Underwood MD Family Provider Active Dr. London Franklin DO Primary Care Provider Active Team Status: Inactive Member Role Status Dates Dr. Jessica Jordan MD Primary Care Provider, Referri ng Provider Active Dr. Anjel Lamar MD Attending Provider Active Team Status: Active Member Role Status Dates Dr. Anjel Pretty DO Attending Provider, Referring Provider Active Dr. London Franklin DO Primary Care Provider Active Team Status: Inactive Member Role Status Dates Dr. Jessica Jordan MD Primary Care Provider Active Dr. Santana Lopez MD Attending Provider, Emergency Provider Active Team Status: Inactive Member Role Status Dates Dr. London Franklin DO Primary Care Prov ider, Attending Provider, Referring Provider Active Team Status: Active Member Role Status Dates Dr. London Franklin DO Primary Care Provider Active Dr. Anjel Lamar MD Attending Provide r, Referring Provider, Other Provider Active Team Status: Inactive Member Role Status Dates Dr. Anjel Pretty DO Attending Provider, Referring Provider Active Dr. London Franklin DO Primary Care Provider Active Team Status: Inactive Member Role Status Dates Dr. London Franklin DO Primary Care Provider Active Dr. Anjel Lamar MD Attending Provider, Referring P rovider Active Team Status: Inactive Member Role Status Dates Dr. London Franklin DO Primary Care Provider, Attendin g Provider Active Team Status: Active Member Role Status Dates Dr. London Franklin DO Primary Care Provider Active Johanna Dg , BAG HANGER-C Attending Provider, Referring Prov ider Active Team Status: Inactive Member Role Status Dates Dr. London Franklin DO Primary Care Provider Active Johanna Conte NP-C Attending Provider, Referring Prov ider Active Team Status: Inactive Member Role Status Dates Dr. London Franklin DO Primary Care Provider Active Start: November 30, 2024 End: November 30, 2024 Johanna Conte NP-C Attending Provider Active St art: November 30, 2024 End: November 30, 2024 JOHN Mahan Referring Provider Active St art: November 30, 2024 End: November 30, 2024 Team Status: Inactive Member Role Status Dates Dr. London Franklin DO Primary Care Provider Active Start: December 09, 2024 End: December 09, 2024 Dr. London Franklin DO Attending Provider Active Start: December 09, 2024 End: December 09, 2024 Dr. London Franklin DO Referring Provider Active Start: December 09, 2024 End: December 09, 2024 Team Status: Inactive Member Role Status Dates Dr. London Franklin DO Primary Care Provider Active Start: December 27, 2024 End: December 27, 2024 Dr. London Franklin DO Referring Provider Active Start: December 27, 2024 End: December 27, 2024 Damián Chu MD Attending Provider Active St art: December 27, 2024 End: December 27, 2024 FOR RECORDS PERTAINING TO PATIENTS WHO ARE [...] BE BASED ON THE PRIMARY CLINICAL RECORDS. [employer] [facility]. provides no warranty or guarantee of the accuracy or completeness of information in this document.
--- NOTE | 2025-02-26 10:13 | EKG12_ITS ---
Test Reason : DIZZINESS Blood Pressure : */* mmHG Vent. Rate : 67 BPM Atrial Rate : 67 BPM P-R Int : 152 ms QRS Dur : 84 ms QT Int : 410 ms P-R-T Axes : 0 6 39 degrees QTcB Int : 433 ms Normal sinus rhythm Normal ECG Confirmed by PATRICIA MAYFIELD, MAUDE ([id number]), health editor SPIKE GARCIA ([id number]) on 02/28/2025 6:09:53 AM Referred By: HANNAH Confirmed By: MAUDE GOMEZ MD
[2025-02-26] MEDS: 0.9% Normal Saline (1000mL) 1,000 ML 1000 ML IV (10:18)
[2025-02-26 10:29] LABS: Hematocrit 43.8 % (40-54); Hemoglobin 15.2 g/dL (13.0-16.5); Immature Granulocytes Count 0.030 X10^3/uL (0.0-0.0); Mean Corp Hgb Conc 34.7 g/dL (32-36); Mean Corpuscular Volume 86.4 fL (80-94); Mean Platelet Vol. 10.4 fl (6.2-12.0); NRBC Flagged by Analyzer 0 % (0-5); Platelet Count 177 K/mm3 (150-450); RBC Distribution Width CV 12.8 % (11.6-14.6); RBC Distribution Width SD 40.1 fl (35.1-43.9); Red Blood Count 5.07 M/mm3 (4.6-6.2); White Blood Count 7.3 K/mm3 (4.4-11.0)
--- NOTE | 2025-02-26 10:45 | CT_ITS ---
PROCEDURE: CTA HEAD AND NECK W/ CONTRAST 02/26/2025 REASON FOR EXAM: ATAXIA THIS MORNING TECHNIQUE: CTA HEAD AND NECK W/ CONTRAST Multiplanar Sagittal and Coronal images were obtained. CONTRAST: Isovue 370 VOLUME: 98 mL One or more dose reduction techniques were used (e.g., Automated exposure control, adjustment of the mA and/or kV according to patient size, use of iterative reconstruction technique). RADIATION DOSE SUMMARY: CTDlvol: 17.56 mGy DLP: 655.43 mGycm COMPARISON: None. FINDINGS: Aortic Arch: Normal size and branching pattern. No significant atherosclerotic plaque. Brachiocephalic and Subclavians: Unremarkable RIGHT Carotid: Right CCA: Unremarkable. Right ICA: Unremarkable. Right ECA: Unremarkable. LEFT Carotid: Left CCA: Unremarkable. Left ICA: Unremarkable. Left ECA: Unremarkable. Vertebrals: Codominant. Arise from the subclavians. Both vertebrals form the basilar. RIGHT Vertebral: Unremarkable. LEFT Vertebral: Unremarkable. Anatomy: [place] anatomy is normal. Aneurysm or avm: No intracranial aneurysms or large vascular malformations are identified. Anterior cerebral arteries: Unremarkable: Middle cerebral arteries: Unremarkable. Basilar artery: Unremarkable. Posterior cerebral arteries: Unremarkable. Other major branches of the posterior circulation: Unremarkable. Major venous structures: Unremarkable. Other findings: Neck: No lymphadenopathy. Lungs: Lung apices are clear. Bones: Bones are unremarkable. CT/CTA Head AND Neck W/ Contrast IMPRESSION: Unremarkable CTA of the head and neck without significant stenosis or aneurysm. Reading Location: [facility]
--- NOTE | 2025-02-26 10:45 | CT_ITS ---
PROCEDURE: BRAIN/HEAD WITHOUT CONTRAST 02/26/2025 REASON FOR EXAM: DIZZY, REPORTED ATAXIA THIS AM TECHNIQUE: BRAIN/HEAD WITHOUT CONTRAST Coronal and Sagittal reconstruction series were provided. One or more dose reduction techniques were used (e.g., Automated exposure control, adjustment of the mA and/or kV according to patient size, use of iterative reconstruction technique. RADIATION DOSE SUMMARY: CTDlvol: 17.56 mGy DLP: 1478.80 mGycm COMPARISON: None. FINDINGS: Brain: Low density in the periventricular white matter suggests mild chronic small vessel ischemic changes. CSF Spaces: Unremarkable. Sinuses/Mastoids: Clear. Bones: No acute bony abnormalities. Reading Location: [id number]
[2025-02-26 10:52] LABS: Anion Gap 10 (5-15); BUN 22 mg/dL (4-19); BUN/Creat Ratio 24.9 RATIO (10-20); Calcium,Total 9.4 mg/dL (7.6-11.0); Carbon Dioxide 25.6 mmol/L (21.0-32.0); Chloride 103 mmol/L (98-108); Estimated Creatinine Clearance 84.13 ml/min (50-250); Glucose 129 mg/dL (70-99); Magnesium 2.1 mg/dL (1.5-2.2); Potassium 4.2 mmol/L (3.3-5.1)
[2025-02-26 11:20] VITALS: BP 136/85; PULSE 60; RESP 12; O2SAT 94
[2025-02-26 12:00] VITALS: BP 154/94; BP 157/100; BP 161/95; PULSE 59; PULSE 61; PULSE 64
[2025-02-26 12:13] VITALS: BP 136/85; PULSE 60; RESP 12; TEMP 36.8; O2SAT 94
[2025-02-26 13:00] VITALS: BP 138/85; PULSE 57; RESP 15; O2SAT 97
--- NOTE | 2025-02-26 13:02 | PN.HOSP_ITS ---
Subjective Subjective 69-year-old male presented to the hospital because he had an episode of dizziness this morning. He went to bed normally last night at around 2230 feeling okay and then he woke up this morning and when he got out of bed he felt off balance and use the wall to guide him into the bathroom. The episode was short-lived and he started having significant improvement by the time he got to the bathroom. Says that he also had some brain fogginess but both the fogginess has improved a little bit and the dizziness/balance issues have completely resolved. He states that on Thursday he went golfing when he was extremely hot and was piled a bit dehydrated and all day yesterday he felt a little bit off. Denies any fevers or chills, no recent diarrhea or gastric upset. In the ER CTA of the head and neck was unremarkable and orthostatic vital signs were normal. Objective Data Objective Data Vital Signs: Vital Signs Temp Pulse Resp BP Pulse Ox O2 Del Method 98.2 F 60 12 136/85 H 94 Room Air 02/26/25 12:13 02/26/25 12:13 02/26/25 12:13 02/26/25 12:13 02/26/25 12:13 02/26/25 11:20 Oxygen Delivery Method Room Air Weight: 193 lb Body Mass Index (BMI) 30.2 Intake & Output: Intake and Output for Last 24 Hours 02/25/25 02/26/25 02/27/25 03:59 03:59 03:59 Intake Total 1000 / 1000 Balance 1000 / 1000 Lab / Micro Data 02/26/25 10:20 02/26/25 10:20 Labs: Laboratory Results - last 24 hr 02/26/25 10:20: WBC 7.3, RBC 5.07, Hgb 15.2, Hct 43.8, MCV 86.4, MCH 30.0, MCHC 34.7, RDW Std Deviation 40.1, RDW Coeff of Maria A 12.8, Plt Count 177, MPV 10.4, Immature Gran % (Auto) 0.400, Neut % (Auto) 71.1 H, Lymph % (Auto) 19.4, Early % (Auto) 7.4, Eos % (Auto) 1.1, Baso % (Auto) 0.6, Absolute Neuts (auto) 5.2, Absolute Lymphs (auto) 1.41, Nucleated RBC % 0, Sodium 138, Potassium 4.2, Chloride 103, Carbon Dioxide 25.6, Anion Gap 10, BUN 22 H, Creatinine 0.90, Estim Creat Clear Calc 84.13, Est GFR (MDRD) Non-Af 94, BUN/Creatinine Ratio 24.9 H, Glucose 129 H, Calcium 9.4, Magnesium 2.1 Radiography Diagnostic Testing: Radiology Impression Head/Neck CTA 02/26/25 10:45 IMPRESSION: Unremarkable CTA of the head and neck without significant stenosis or aneurysm. Reading Location: [facility] Physical Exam Narrative General: Alert, Oriented x3, Cooperative, No apparent distress HEENT: Atraumatic, PERRLA, EOMI, Normocephalic, no nystagmus Oral: Moist Mucosa Neck: Supple, No JVD Lungs: Clear to auscultation, Normal air movement, No rhonchi, No wheeze, No rales Cardiovascular: Regular rate, Regular Rhythm, Normal S1, Normal S2, No murmurs Abdomen: Soft, Non Tender, Non-Distended, No Hepato-splenomegaly Extremities: No edema, Capillary Refill Less than 3 Seconds Skin: No rashes, No breakdown Musculoskeletal: No Tenderness to Palpation of Joints or Extremities Neurological: No focal neurological deficits, moves all extremities, not ataxic Psych/Mental Status: Normal Affect, Appropriate Assessment & Plan Assessment/Plan (1) Dizziness: PLAN: Plan 1. Dizziness with concern for possible TIA ? I discussed with him and his at length the risks associated with a posterior stroke and the likelihood of of such stroke especially in the setting of an extremely normal CTA of the head and neck, we did discussed the risks and benefits of staying for an MRI tomorrow versus going home and obtaining one as an outpatient. We discussed that he is outside the window for any direct treatment as his last known well was over 12 hours ago. He says that he feels fine now and he thinks that it is associated with how he was feeling yesterday. He is on Lipitor and blood pressure medications though his Lipitor dosing is only 10 mg and he is not on aspirin or Plavix. I discussed with him that we will increase his Lipitor to 40 mg p.o. daily and we can add a baby aspirin to his regimen pending MRI workup as an outpatient. Both he and his expressed understanding of the risks and benefits of going home and would like to go home today. 2. Essential HTN/HLD ? Blood pressures here in the hospital are stable, is not orthostatic ? Continue with his lisinopril and metoprolol ? He says that he used to be on 30 mg p.o. daily he is now down to 20 mg p.o. daily of the lisinopril 3. Iron deficiency anemia ? Stable, he does not appear to be anemic here in the hospital with a hemoglobin of 15.2 ? Follow-up with his PCP for outpatient monitoring 4. GERD ? Stable ? Continue with PPI Charges/Coding Visit Charges Office Visits / Consults: 65724 ED Visit; Moderate Severity NIHSS NIHSS Nursing Documentation NIHSS Nursing Documentation: NIH Stroke Scale Start: 02/26/25 09:23 Freq: Status: Active Protocol: Activity Type Activity Date Activity User E-sign Co-sign Detail Recorded Client Recorded Date Recorded By Document 02/26/25 09:20 [id number] 02/26/25 09:24 02/26/25 09:20 NIH Stroke Scale [NIHSS] A score of 0 is normal or asymptomatic . Total possible score is 42. Inpatient: RN or Physician to activate a stroke alert for onset of new stroke symptoms or with NIHSS increase >/= 3 points. Following change in neurological status, NIHSS will be performed per physician order or more frequently PRN. -1a. Level of Consciousness 0 - Alert; keenly responsive -1b. LOC Questions 0 - Answers BOTH questions correctly -1c. LOC Commands 0 - Performs BOTH tasks correctly -2. Best Gaze 0 - Normal -3. Visual 0 - No visual loss -4. Facial Palsy 0 - Normal symmetrical movements -5a. Left Arm 0 - No drift; arm holds 90 ( or 45) degrees for full 10 seconds -5b. Right Arm 0 - No drift; arm holds 90 ( or 45) degrees for full 10 seconds -6a. Left Leg 0 - No drift; leg holds 30- degree position for full 5 seconds -6b. Right Leg 0 - No drift; leg holds 30- degree position for full 5 seconds -7. Limb Ataxia 0 - Absent -8. Sensory 0 - Normal; no sensory loss -9. Best Language 0 - No aphasia; normal -10. Dysarthria 0 - Normal -11. Extinction and Inattention 0 - No abnormality -Total 0 Query Text:A score of 0 is normal or asymptomatic. Total possible score is 42 . ED: Notify Physician for NIHSS increase by > / = 3 points. Inpatient: RN or Physician to activate a stroke alert for NIHSS increase of > / = 3 points.
--- NOTE | 2025-02-26 13:15 | EX.ED.DYSGE1 ---
HPI History of Present Illness Chief Complaint: Dizziness Narrative Narrative: Patient is a 69-year-old male presenting to the emergency department for what he describes as dizziness, however on further questioning is lightheadedness. Patient has a past medical history as below. Patient states that this morning when he got out of bed he felt lightheaded. States that he started walking to the bathroom and then began leaning towards his right side and leaned into the wall. He did not fall. By the time he made it to the bathroom the feeling of bleeding had resolved. States that he just felt lightheaded. Denies feeling of the room spinning or dizziness. States he was able to ambulate into the ED. States that he went golfing on Thursday but feels like he stayed hydrated. Did feel fatigued yesterday. He denies headache, fevers, chills, chest pain, shortness of breath, abdominal pain, nausea, vomiting, diarrhea. Denies any weakness or numbness in his extremities. Denies any difficulty speaking or changes to his vision. Denies any neck or back pain. [facility] Medical History Primary osteoarthritis, left wrist History of Clostridium difficile infection Difficulty swallowing Non-smoker Cardiology follow-up encounter Synovial cyst of popliteal space [Francis], right knee Osteoarthritis of right knee Right knee pain Osteoarthritis of right hip Scapulothoracic bursitis of left shoulder Right hip pain Left shoulder pain Right ureteral calculus Diverticulitis Anxiety Hypothyroidism GERD (gastroesophageal reflux disease) Prostate cancer screening Premature ventricular contractions Anxiety and depression History of palpitations Essential (primary) hypertension Hyperlipidemia Home Medications ?Medication ?Instructions ?Recorded ?Last Taken ?Type cholecalciferol (vitamin D3) 50 50 mcg PO DAILY 05/14/21 02/25/25 History mcg (2,000 unit) capsule omeprazole 20 mg capsule,delayed 20 mg PO DAILY 05/14/21 02/26/25 History release atorvastatin 10 mg tablet 10 mg PO QHS #90 tabs 09/22/22 02/25/25 Rx escitalopram oxalate 10 mg tablet 10 mg PO DAILY #90 tabs 09/22/22 02/25/25 Rx metoprolol succinate 50 mg 50 mg PO DAILY #90 tabs 09/22/22 02/25/25 Rx tablet,extended release 24 hr probiotic 1 dose PO 1XD 10/23/22 02/26/25 History lisinopril 20 mg tablet 20 mg PO DAILY 04/15/23 02/26/25 History aspirin 81 mg tablet 81 mg PO DAILY #30 tabs 02/26/25 Unknown Rx aspirin 81 mg tablet 81 mg PO DAILY #30 tabs 02/26/25 Unknown Rx atorvastatin 40 mg tablet (Lipitor) 40 mg PO DAILY #30 tabs 02/26/25 Unknown Rx atorvastatin 40 mg tablet (Lipitor) 40 mg PO DAILY #30 tabs 02/26/25 Unknown Rx ferrous sulfate 325 mg (65 mg 325 mg PO DAILY supplement 02/26/25 02/26/25 History iron) tablet multivitamin (Daily Multi-Vitamin 1 tab PO DAILY supplement 02/26/25 02/26/25 History tablet) Allergy/AdvReac Type Severity Reaction Status Date / Time clarithromycin (From Biaxin) Allergy Unknown Verified 02/26/25 09:21 diphenhydramine (From Allergy Unknown Verified 02/26/25 09:21 Benadryl) sulfamethoxazole (From Allergy unknown Verified 02/26/25 09:21 Bactrim) tamsulosin (From Flomax) Allergy unknown Verified 02/26/25 09:21 trimethoprim (From Bactrim) Allergy unknown Verified 02/26/25 09:21 Sulfa (Sulfonamide AdvReac Rash Verified 02/26/25 09:21 Antibiotics) Family History Father Cardiac pacemaker in situ Other Breast cancer Cancer Hypertension Surgical History History of cystoscopy Social History Smoking Status: Never smoker alcohol intake: never substance use type: does not use what type of physical activity do you participate in: none ROS ROS ED ROS Narrative see HPI EXAM Physical Exam Narrative Exam Narrative: Vital signs: Reviewed General: Alert and orientedx3. No acute distress HEENT: Head is normocephalic and atraumatic, sinuses nontender, pupils equal round and reactive. Nares are patent. Oropharynx and throat exams normal. Neck: Supple without lymphadenopathy nontender Cardiovascular: Regular rate and rhythm, no murmurs. No rubs or gallops. Normal S1 and S2 Respiratory: Clear to auscultation bilaterally. No wheezes, rales, rhonchi Abdominal: Soft and nontender. Normal bowel sounds. No guarding or rebound. Nonsurgical abdomen Extremities: No tenderness. No bruising. Normal range of motion. Normal sensation. Skin: No rash or redness. Neurological: Cranial nerves II through XII are grossly intact. Normal strength and sensation. Normal cerebellar function The rest of the physical exam is unremarkable Const Vital Signs: 02/26/25 09:20 02/26/25 11:20 02/26/25 12:00 Temperature 98.2 F Temperature Source Oral Pulse Rate 67 60 Pulse Rate [Lying] 64 Pulse Rate [Sitting (for 1 minute prior to obtaining)] 59 L Pulse Rate [Standing (for 1 minute prior to obtaining)] 61 Respiratory Rate 14 12 Blood Pressure 133/107 H 136/85 H Blood Pressure [Lying] 161/95 H Blood Pressure [Sitting (for 1 minute prior to obtaining)] 154/94 H Blood Pressure [Standing (for 1 minute prior to obtaining)] 157/100 H Blood Pressure Mean 115 102 Blood Pressure Mean [Lying] 117 Blood Pressure Mean [Sitting (for 1 minute prior to obtaining)] 114 Blood Pressure Mean [Standing (for 1 minute prior to obtaining)] 119 Pulse Ox 98 94 Oxygen Delivery Method Room Air Room Air 02/26/25 12:13 02/26/25 13:00 Temperature 98.2 F Temperature Source Pulse Rate 60 57 L Pulse Rate [Lying] Pulse Rate [Sitting (for 1 minute prior to obtaining)] Pulse Rate [Standing (for 1 minute prior to obtaining)] Respiratory Rate 12 15 Blood Pressure 136/85 H 138/85 H Blood Pressure [Lying] Blood Pressure [Sitting (for 1 minute prior to obtaining)] Blood Pressure [Standing (for 1 minute prior to obtaining)] Blood Pressure Mean 102 102 Blood Pressure Mean [Lying] Blood Pressure Mean [Sitting (for 1 minute prior to obtaining)] Blood Pressure Mean [Standing (for 1 minute prior to obtaining)] Pulse Ox 94 97 Oxygen Delivery Method Room Air NIHSS NIHSS NIHSS: 1a Level of Consciousness: 0 1b LOC Questions (Score 2 if aphasic/stupor): 0 1c LOC Commands (Only score 1st attempt): 0 2 Best Gaze (If aphasic, use reflexive mvmts.): 0 3 Visual: 0 4 Facial Palsy: 0 5 Motor Arm Right (UN = amputation/fusion): 0 5 Motor Arm Left: 0 6 Motor Leg Right: 0 6 Motor Leg Left: 0 7 Limb ataxia (Only + if out of proportion): 0 8 Sensory (Aphasia/stupor=0 or 1, coma=2): 0 9 Best Language: 0 10 Dysarthria (mute, coma=2, intubated=UN): 0 11 Extinction and Inattention (only scored if +): 0 Total Score: 0 MDM MDM MDM Narrative Medical decision making narrative: Patient is a 69 male presenting to the emergency department for lightheadedness. Patient was seen and examined. Vitals are stable. Patient resting in bed comfortably in no acute distress. Differential includes but is not limited to: Dehydration, anemia, electrolyte imbalance, less likely posterior stroke Fluid bolus started. EKG shows normal sinus rhythm with no ischemic changes. No dysrhythmia. CBC with no leukocytosis and normal hemoglobin. BMP with slight elevation of BUN at 22 however no other significant abnormalities. CT brain and CTA head and neck are negative for any abnormalities. Discussed with the patient that however unlikely given no ataxia, no dizziness now there is a small chance of posterior stroke. Offered admission for MRI vs discharge home, shared decision making used. initally agreed. However when hospitalist discussed with patient, he changed his mind. He feels comfortable going home and following up with PCP. Given strict return precautions. Instructed to take 40 mg of Lipitor instead of 10 daily and to take baby aspirin. Clinical impression lightheadedness History & Record Review Discussion w/independent historian: Patient and Significant other Lab Data Attestation: I reviewed the patient's lab results. Labs: Laboratory Results - last 24 hr 02/26/25 10:20 WBC 7.3 RBC 5.07 Hgb 15.2 Hct 43.8 MCV 86.4 MCH 30.0 MCHC 34.7 RDW Std Deviation 40.1 RDW Coeff of Maria A 12.8 Plt Count 177 MPV 10.4 Immature Gran % (Auto) 0.400 Neut % (Auto) 71.1 H Lymph % (Auto) 19.4 [place] % (Auto) 7.4 Eos % (Auto) 1.1 Baso % (Auto) 0.6 Absolute Neuts (auto) 5.2 Absolute Lymphs (auto) 1.41 Nucleated RBC % 0 Sodium 138 Potassium 4.2 Chloride 103 Carbon Dioxide 25.6 Anion Gap 10 BUN 22 H Creatinine 0.90 Estim Creat Clear Calc 84.13 Est GFR (MDRD) Non-Af 94 BUN/Creatinine Ratio 24.9 H Glucose 129 H Calcium 9.4 Magnesium 2.1 Radiography Diagnostic Testing: Clinical Impression(s) from Imaging Studies Head/Neck CTA 02/26/25 10:45 IMPRESSION: Unremarkable CTA of the head and neck without significant stenosis or aneurysm. Reading Location: [facility] Discharge Plan Triage Chief Complaint: Dizziness ED Provider: Gayathri Holcomb Dx/Rx/DC Orders Clinical Impression: Lightheadedness Instructions: ED Near-Fainting, Uncertain Cause Prescriptions: New atorvastatin [Lipitor] 40 mg tablet 40 mg PO DAILY Qty: 30 0RF aspirin 81 mg tablet 81 mg PO DAILY Qty: 30 0RF atorvastatin [Lipitor] 40 mg tablet 40 mg PO DAILY Qty: 30 0RF aspirin 81 mg tablet 81 mg PO DAILY Qty: 30 0RF No Action cholecalciferol (vitamin D3) 50 mcg (2,000 unit) capsule 50 mcg PO DAILY omeprazole 20 mg capsule,delayed release(DR/EC) 20 mg PO DAILY probiotic 1 dose PO 1XD lisinopril 20 mg tablet 20 mg PO DAILY ferrous sulfate 325 mg (65 mg iron) tablet 325 mg PO DAILY multivitamin [Daily Multi-Vitamin] Tablet 1 tab PO DAILY atorvastatin 10 mg tablet 10 mg PO QHS Qty: 90 3RF escitalopram oxalate 10 mg tablet 10 mg PO DAILY Qty: 90 3RF metoprolol succinate 50 mg tablet extended release 24 hr 50 mg PO DAILY Qty: 90 3RF Primary Care Provider: London Franklin Referrals: London Franklin DO [Primary Care Provider] - 2 Days Activity Restrictions/Additional Instructions: Take the Lipitor 40 mg daily as well as a baby aspirin daily. Your evaluation in the Emergency Department did not reveal any acute reason for admission. However, I want to emphasize that you may be early in the course of a disease process or illness even if it is not present. For this reason you should follow-up within 24 hours for reevaluation with either your primary care physician or if necessary back here in the Emergency Department. You should return to the Emergency Department immediately if your symptoms worsen or new symptoms develop. Print Language: Amharic Disposition Disposition: Home, Self Care Discharge Date/Time: 02/26/25 13:26
== END 2025-02-26 13:26 | disposition home or self-care (01) ==
PROVIDERS: Emergency Provider Student in an Organized Health Care Education/Training Program; PCP Family Medicine; Visit Provider Student in an Organized Health Care Education/Training Program
DX: R42 Dizziness and giddiness (principal); I10 Essential (primary) hypertension; E78.5 Hyperlipidemia, unspecified; Z79.899 Other long term (current) drug therapy; Z79.82 Long term (current) use of aspirin; F41.9 Anxiety disorder, unspecified; K21.9 Gastro-esophageal reflux disease without esophagitis
CPT/HCPCS: 70450; 70496; 70498; 80048; 83735; 85025; 93005; 96360; 96361; 99285; Q9967

== ENCOUNTER → 2025-03-10 | Outpatient (CLI) | payer MEDICARE, BC, SELFPAY ==
--- NOTE | 2025-03-10 11:03 | RAD_ITS ---
EXAM: XR Left Foot Complete, 3 or More Views CLINICAL INDICATION: LEFT HEEL PAIN X 1 MONTH, NO INJURY TECHNIQUE: Frontal, lateral and oblique views of the left foot. COMPARISON: No relevant prior studies available. FINDINGS: BONES/JOINTS: See below. SOFT TISSUES: Soft tissue swelling without acute fracture. RAD/Foot min 3 Views IMPRESSION: 1. Soft tissue swelling without acute fracture. 2. If symptoms persist, further evaluation with CT is recommended. Reading Location: [facility]
== END | disposition home or self-care (01) ==
LOC: MTRAD 11:01
PROVIDERS: PCP Family Medicine; Referring Provider Family Medicine; Visit Provider Family Medicine
DX: M79.672 Pain in left foot (principal)
CPT/HCPCS: 73630

== ENCOUNTER → 2025-05-22 | Outpatient (CLI) | payer MEDICARE, BC, SELFPAY ==
[2025-05-22 10:36] LABS: Hematocrit 44.8 % (40-54); Hemoglobin 15.3 g/dL (13.0-16.5); Immature Granulocytes Count 0.020 X10^3/uL (0.0-0.0); Mean Corp Hgb Conc 34.2 g/dL (32-36); Mean Corpuscular Volume 88.2 fL (80-94); Mean Platelet Vol. 10.9 fl (6.2-12.0); NRBC Flagged by Analyzer 0 % (0-5); Platelet Count 196 K/mm3 (150-450); RBC Distribution Width CV 11.9 % (11.6-14.6); RBC Distribution Width SD 38.6 fl (35.1-43.9); Red Blood Count 5.08 M/mm3 (4.6-6.2); White Blood Count 7.1 K/mm3 (4.4-11.0)
[2025-05-22 11:02] LABS: AST(SGOT) 20 U/L (<=37); Alanine Aminotransfer ALT/SGPT 18 U/L (<=46); Albumin, Serum 4.2 g/dL (3.4-4.8); Alkaline Phosphatase 104 U/L (40-129); Anion Gap 10 (5-15); BUN 17 mg/dL (4-19); BUN/Creat Ratio 19.8 RATIO (10-20); Calcium,Total 9.5 mg/dL (7.6-11.0); Carbon Dioxide 26.2 mmol/L (21.0-32.0); Chloride 104 mmol/L (98-108); Cholesterol 178 mg/dL (<=200); Ferritin 175 ng/mL (37-417); Globulin 2.2 g/dL (2.2-4.2); Glucose 105 mg/dL (70-99); Low Density Lipoprotein Calc. 105 mg/dL; PSA,Total - Annual Screen 0.57 ng/mL (0.02-4.00); Potassium 4.6 mmol/L (3.3-5.1); Triglycerides 192 mg/dL; Very Low Density Lipoprotein 38 mg/dL (5-40); cholesterol:hdl ratio screen 4.48
[2025-05-22 11:37] LABS: Iron 130 ug/dL (65-175)
== END | disposition home or self-care (01) ==
LOC: MTLAB 09:03
PROVIDERS: PCP Family Medicine; Referring Provider Family Medicine; Visit Provider Family Medicine
DX: I10 Essential (primary) hypertension (principal); E78.5 Hyperlipidemia, unspecified; E61.1 Iron deficiency; Z12.5 Encounter for screening for malignant neoplasm of prostate
CPT/HCPCS: 36415; 80053; 80061; 82728; 83540; 84153; 85025; G0103

== ENCOUNTER 2025-06-30 09:30 | Outpatient (RCR) | payer MEDICARE, BC, SELFPAY ==
--- NOTE | 2025-06-20 15:20 | HP.OTEVAL ---
Patient's Visit Information Visit Information Visit Information: BENSON MINOR is a 69 year old M, referred to Occupational Therapy by Dr. London Franklin DO, with a diagnosis of Left wrist pain. Date of Evaluation: 06/20/25 Occupational Therapist: GABO Pinedo/Freida, CHT Subjective Subjective: This 69 year old male was seen for OT eval with dx of left wrist pain. Pt states he has had issues with his left wrist on and off for a few years. Pt states he did have cortisone shot prior to the summer and was able to play golf without pain. Pt states right after the season he did noticed increase in his pain. This limits him with daily tasks and pain stops him from some of the activities he is doing. Pain left wrist: Current Pain Intensity: 8 Pain Intensity Range: 5 and 9 ROM Wrist: right 50/60 left 40/35 CMC: right 10 left 5 MP: right 25 left 20 IP: right 65 left 50 Palmar Abduction: right 45 right 45 ROM Comments: right UD 20 RD [address] 15 Strength Classified Ad Taker: right 60# left 10# Lateral Pinch: right 12# left 10# with pain Tripod Pinch: right 10# left 10# Sensation Sensation Comments: denies Quick DASH-Disab of Arm,Shoulder& Hand Quick DASH Score: 63.6350 Goals Goal:: pt will demo a increase in left tower equipment installer strength to 40# or greater to return pt to his PLOF by d/c Goal:: pt will report no pain greater than 2/10 with use of left UE with ADLs and IADLs by d/c Goal:: Pt will demo understanding of joint protection and ergonomics when performing BADLs and IADLs by d/c Pt will demo understanding of adaptive Equipment use to decrease stress on joints to allow pt to perform BADSL and IADLS at EWA level. Goal:: pt will demo understanding of using brace for support with heavy lift tasks by end of 2nd session. Rehabilitation General Assessment: pt demo with painful palpation around left TFCC and increase pain with resistive testing- pts pain is radiating into flexor tendon of wrist/digits- Due to pain pt is limited with functional use of left UE do to pain and weakness. Pt would benefit from skilled OT services 2x week for 4 weeks to decrease pts pain. ed, pt on joint protection marsha. bracing and isometrics to improve pts functional use of left UE. pt demo understanding and agrees to POC. Rehabilitation Potential: Good Visit Plan Frequency: 2x /Week Duration: 4 Weeks General Plan: decrease pts pain wrist stabilization ex. thumb stabilization ex. joint protection marsha. ad. device to cont. ind. with tasks TEXT: Thank you for the opportunity to evaluate your patient. For Medicare and Medicare HMO plans, please review the plan of care and approve it. It will need to be FAXED BACK to us at [phone] for Medicare purposes. Please let me know if there are questions or concerns regarding this plan of care. Physician Signature: Date:
--- NOTE | 2025-06-30 10:03 | HP.OTDCSUM_ITS ---
Discharge Summary D/C Summary: It has been my pleasure to treat BENSON MINOR under orders from Dr. London Franklin, DO, for the diagnosis of Left wrist pain for a total of 3 visit(s). Please see the following information for a summary of their discharge status. Overall Improvement % Improvement: 80 Objective Objective/Function: Wrist: right 50/60 left 60/35 initial eval was 40/35 CMC: right 10 left 5 MP: right 25 left 20 IP: right 65 left 50 Palmar Abduction: right 45 right 45 ROM Comments: right UD 20 RD [address] 15 Strength Cutter Operator: right 60# left current 50# intial 10# Lateral Pinch: right 12# left 10# with pain Tripod Pinch: right 10# left 10# pts pain has decreased and will cont. with a HEP. brace use as larry. use of Isometrics to decrease repetitive joint stress. pt agrees with d.c Goals Patient Goals: Decrease Pain, Use Hand/Wrist/Arm Normally Again and Be More Independent in ADLS Goal:: pt will demo a increase in left research program assistant strength to 40# or greater to return pt to his PLOF by d/c Goal:: pt will report no pain greater than 2/10 with use of left UE with ADLs and IADLs by d/c Goal:: Pt will demo understanding of joint protection and ergonomics when performing BADLs and IADLs by d/c Pt will demo understanding of adaptive Equipment use to decrease stress on joints to allow pt to perform BADSL and IADLS at EWA level. Goal:: pt will demo understanding of using brace for support with heavy lift tasks by end of 2nd session. Plan Plan: D/C D/C Information Discharge Comments: pt d/c with understanding of joint protection, wrist ergo. use of brace with heavy work- isometric wrist ex. and thumb stabilization ex. pt agrees with d./c d/c sentence: If there are questions or concerns regarding this patient's occupational therapy, please fell free to call me at [phone]. Thank you for the referral of this patient. Sincerely, Erica Batista, OTR/L, CHT
== END 2025-06-30 13:49 | disposition home or self-care (01) ==
LOC: OT 09:30
PROVIDERS: PCP Family Medicine; Visit Provider Family Medicine
DX: M25.531 Pain in right wrist (principal)
CPT/HCPCS: 97035; 97140; 97166; 97530